=== PATIENT | female | born 1970 | race Caucasian/White ===

== ENCOUNTER 2018-10-27 08:56 | Inpatient (IN) | payer MEDICARE, BC ==
[2018-10-26 11:54] VITALS: BMI 31.1
[~2018-10-27] VITALS: Ht 172.7 cm; Wt 90.3 kg
[2018-10-27] VITALS (27 sets, daily range): BP systolic 107–144; BP diastolic 56–92; PULSE 82–113; RESP 9–20; Ht 172.7 cm; Wt 90.3 kg
[~2018-10-27 08:56] MED LIST: CEFAZOLIN 1 GM INJ ONE; DEXAMETHASONE 4 MG/ML 5 ML INJ ONE; GLYCOPYRROLATE 0.4 MG INJ ONE; LABETALOL HCL 20MG INJ ONE; LIDOCAINE 2% (SDV) 5 ML INJ ONE; NEOSTIGMINE 3 MG/3 ML SYRINGE ONE; ROCURONIUM 50 MG INJ ONE; SEVOFLURANE 15 MIN ONE
[2018-10-27] MEDS ORDERED: SOD CHLORIDE 0.9% 1,000 ML IV ONE (14:00)
--- NOTE | 2018-10-27 14:45 | PREAC ---
Date/Time of Note Date/Time of Note DATE: 10/27/18 TIME: 14:30 Anesthesia Eval and Record Evaluation Time Pre-Procedure Interview DATE: 10/27/18 TIME: 14:30 Age 48 Sex female NPO: 8 hrs Preoperative diagnosis LUMBAR DISC DISPLACEMENT Planned procedure ANTERIOR LUMBAR PARTIAL OR COMPLETE CORPECTOMY, DISCECTOMY, AND FUSION,L2 TO S1 USING CAGES, TITANIUM PLATE AND SCREWS, INFUSE AUTOLOGOUS AND/ OR ALLOGRAFT BONE , POSSIBLE MULTIPLE LEVELS Past Medical History Past Medical History: Includes Cardio: HTN (ON METOPROLOL), Dyslipidemia, Arrythmia (HX PALPITATIONS AND ATYPICAL CHEST PAIN THAT RESOLVES SPONTANEOUSLY. WAS TOLD TREADMILL STRESS TEST RESULTS AND HOLTER MONITOR (NOT ABNORMAL) IN 2018 AND NO FURTHER WORKUP NEEDED.. ) Endo: Diabetes (ON INSULIN AND METFORMIN) Neuro: Other (S/P URGENT C3-C7 FUSION AUGUST 12, 2018 [facility]. STILL WEARING NECK BRACE OR EXPERIENCE NECK SPASMS IF BRACE IS OFF. DENIES NUMBNESS OR TINGLING OF FINGERS. DENIES BEING AWAKE (FIBEROPTIC) FOR INTUBATION FOR THIS C-SPINE SRUGERY. ) Psych: Depression, Anxiety Surgery & Anesthesia Issues No known issue Meds Anticoagulation: No Beta Homero within 24 hr: Yes Current Medications Sodium Chloride 1,000 ml @ 1,000 mls/hr Q1H ONCE IV ; Start 10/27/18 at 14:00; Stop 10/27/18 at 14:59 Meds reviewed: Yes Allergies Coded Allergies: No Known Allergy (Unverified , 10/26/18) Allergies Reviewed: Yes Labs/Studies Labs Reviewed: Reviewed by anesthesiologist Result Diagram: 10/27/18 1410 Laboratory Tests 10/27/18 14:10 test: N/A (S/P HYSTERECTOMY) Studies: ECG (PROLONGED QT. NONSPECIFIC T WAVE ABNORMALITIES.), CXR, Other (TTE 08/05/18: EF 71%, MILD AORTIC REGURGITATION. MILDLY DILATED AORTIC ROOT AT 3.7 CM, BUT NORMAL ASCENDING AORTA. ) Pre-procedure Exam Airway: Adequate mouth opening, Adequate thyromental dist (UNABLE TO ASSESS, WEARS NECK BRACE) Mallampati: Mallampati II (WEARS NECK BRACE S/P C-SPINE SURGERY, UNABLE TO FULLY ASSESS NECK ROM. HAS PIERCING ABOVE LEFT LIP. PT STATES IT DOES NOT COME OFF AND REFUSES TO TRY TO TAKE IT OFF, UNDERSTANDS RISKS.) Teeth: Normal Lung: Normal Heart: Normal ASA Physical Status ASA physical status: 3 Emergency: None Planned Anesthetic General/MAC: ETT, A Line, CVP, Other (DISCUSSED ARTERIAL AND CENTRAL LINE AND POSSBILITY OF POSTOP MECHANICAL VENTILATION/ICU STAY DEPENDING ON COURSE OF SURGERY. ) Planned Pain Management Parenteral pain med, Local by surgeon Pre-operative Attestations Prior to commencing anesthesia and surgery, the patient was re-evaluated, there was verification of: *The patient's identity *The results of appropriate recent lab work and preoperative vital signs *The above evaluation not changing prior to induction *Anesthetic plan, risk benefits, alternative and complications discussed with patient/family; questions answered; patient/family understands, accepts and wishes to proceed. NICK JOSE October 27, 2018 14:41
[2018-10-27] MEDS ORDERED: SITA100T11 PO (14:55)
[2018-10-27] MEDS ORDERED: NOVO3I SC (14:55)
[2018-10-27] MEDS ORDERED: MTF1000T PO (14:55)
[2018-10-27] MEDS ORDERED: CEFAZOLIN 1 GM INJ ONE (15:05)
[2018-10-27] MEDS ORDERED: HEPARIN 1000 UNITS/ML 10 ML INJ ONE (15:05)
[2018-10-27] MEDS ORDERED: GELATIN SIZE 100 SPONGE ONE (15:05)
[2018-10-27] MEDS ORDERED: THROMBIN 5000 UNIT VIAL ONE (15:05)
[2018-10-27] MEDS ORDERED: SOD CHLORIDE 0.9% 1,000 ML IV SCH (15:08)
--- NOTE | 2018-10-27 17:04 | HPN ---
Date/Time of Note Date/Time of Note DATE: 10/27/18 TIME: 17:03 Interval H&P Admission Note Pt. seen H&P reviewed: No system changes Discussed with patient pros and cons of surgery vs no surgery, overall risks 3- 5%. All questions answered, no guarantees given. KARMA DRAPER MD October 27, 2018 17:04
[2018-10-27] MEDS ORDERED: PROPOFOL 20 ML ONE (17:10)
[2018-10-27] MEDS ORDERED: FENTAnyl 50 MCG/ML VIAL ONE ×3 (17:11→19:50)
[2018-10-27] MEDS ORDERED: MIDAZOLAM 1 MG/ML 2 ML INJ ONE (17:11)
[2018-10-27] MEDS ORDERED: ROCURONIUM 50 MG INJ ONE (17:11)
[2018-10-27] MEDS ORDERED: LIDOCAINE 100 MG SYRINGE ONE (17:11)
[2018-10-27] MEDS ORDERED: LABETALOL HCL 20MG INJ ONE ×2 (18:08→19:47)
--- NOTE | 2018-10-27 18:52 | RADRPT ---
Vent Rate: 101 bpm RR Interval: 592 msec NC Interval: 156 msec QRS Duration: 90 msec QT Interval: 415 msec QTC Interval: 539 msec P-R-T [place]: 23 - 25 - -48 degrees Sinus tachycardia...rate> 99 Nonspecific T abnormalities, diffuse leads...T <-0.10mV, ant/lat/inf Prolonged QT interval...QTc >510mS Electronically Signed By: Dheeraj Lane
[2018-10-27] MEDS ORDERED: NACL 0.9% 3 ML SYG IV SCH (19:00)
[2018-10-27] MEDS ORDERED: NALOXONE (0.4 MG/ML) INJ IV PRN ×2 (19:00→21:30)
[2018-10-27] MEDS ORDERED: AL HYDROX/MG HYDROX/SIMETH 30 ML CUP PO PRN (19:00)
[2018-10-27] MEDS ORDERED: DEXAMETHASONE 4 MG/ML 5 ML INJ ONE (19:25)
[2018-10-27] MEDS ORDERED: ONDANSETRON 4 MG INJ ONE (19:25)
[2018-10-27] MEDS ORDERED: BACITRACIN/POLYMYXIN 28.35 GM OINT TOP ONE (19:29)
--- NOTE | 2018-10-27 19:39 | OPPN ---
Date/Time of Note Date/Time of Note DATE: 10/27/18 TIME: 19:38 Operative Report Preoperative Diagnosis Mechanical LBP and LE radic Postoperative Diagnosis same Operation/Procedure Performed ALIF L3-S1 Surgeon see signature line orthodontist assistant Malekmehr Anesthesia: general Estimated blood loss: 100 - 150 ml's Transfusion Required none Specimen sent Grafts/Implants PEEK cages, screws, formagraft, allograft bone Complications none KARMA DRAPER MD October 27, 2018 19:39
[2018-10-27] MEDS ORDERED: METOCLOPRAMIDE 10 MG INJ IV PRN (20:00)
[2018-10-27] MEDS ORDERED: LABETALOL HCL 20MG INJ IV PRN (20:00)
[2018-10-27] MEDS ORDERED: ALBUTEROL 0.083% (NEB) 2.5 MG/3 ML AMP HHN PRN (20:00)
[2018-10-27] MEDS ORDERED: LEVALBUTEROL (NEB) 0.63 MG/3 ML AMP HHN PRN (20:00)
[2018-10-27] MEDS ORDERED: MIDAZOLAM 1 MG/ML 2 ML INJ IV PRN (20:00)
[2018-10-27] MEDS ORDERED: HYDROmorphONE 1 MG/5 ML IV SYRINGE IV PRN (20:00)
[2018-10-27] MEDS ORDERED: EPHEDrine 25 MG/5 ML SYG IV PRN (20:00)
[2018-10-27] MEDS ORDERED: MEPERIDINE 25 MG INJ IV PRN (20:00)
[2018-10-27] MEDS ORDERED: hydrALAzine 20 MG INJ IV PRN (20:00)
[2018-10-27] MEDS ORDERED: ALBUMIN HUMAN 5% 250 ML IV PRN (20:00)
[2018-10-27] MEDS ORDERED: ONDANSETRON 4 MG INJ IV PRN (20:00)
--- NOTE | 2018-10-27 20:12 | PAC ---
Date/Time of Note Date/Time of Note DATE: 10/27/18 TIME: 20:45 Post-Anesthesia Notes Post-Anesthesia Note Last documented vital signs Vital Signs Date Temp Pulse Resp B/P (MAP) Pulse Ox O2 O2 Flow FiO2 Time Delivery Rate 10/27/18 97.8 113 16 127/82 98 Room Air 14:44 (97) Activity: WNL Respiratory function: WNL Cardiovascular function: WNL Mental status: Baseline Pain reasonably controlled: Yes Hydration appropriate: Yes Nausea/Vomiting absent: Yes GERMAN SUAREZ MD October 27, 2018 20:12
[2018-10-27] MEDS: HYDROmorphONE 1 MG/5 ML IV SYRINGE IV PRN ×4 (20:17→20:56)
[2018-10-27] MEDS ORDERED: HYDROmorphONE 0.2 MG/ML PCA ONE (21:28)
[2018-10-27] MEDS: CEFAZOLIN 2 GM/50 ML (PMX) 50 ML IVPB SCH (21:32)
[2018-10-27] MEDS: HYDROmorphONE 0.2 MG/ML PCA IV SCH (21:50)
[2018-10-27] MEDS: HYDROmorphONE 0.5 MG/0.5 ML SYG IV PRN (22:21)
[2018-10-28] VITALS (24 sets, daily range): BP systolic 64–159; BP diastolic 49–117; PULSE 101–122; RESP 13–30
[2018-10-28] MEDS: NS + KCL 20 MEQ 1,000 ML IV SCH ×3 (01:18→13:14)
[2018-10-28] MEDS: HYDROmorphONE 0.2 MG/ML PCA IV SCH ×3 (03:41→18:27)
[2018-10-28] MEDS: CEFAZOLIN 2 GM/50 ML (PMX) 50 ML IVPB SCH ×3 (06:30→21:08)
[2018-10-28] MEDS ORDERED: THROMBIN 5000 UNIT VIAL ONE (13:09)
[2018-10-28] MEDS ORDERED: POLYMYXIN/BACITRACIN 1L IRRIG IRR ONE (13:09)
[2018-10-28] MEDS ORDERED: GELATIN SIZE 100 SPONGE ONE (13:09)
[2018-10-28] MEDS ORDERED: ROPIVACAINE 0.5 % 30 ML VIAL ONE ×2 (13:09→15:40)
[2018-10-28] MEDS ORDERED: ROCURONIUM 50 MG INJ ONE (13:19)
[2018-10-28] MEDS ORDERED: PROPOFOL 20 ML ONE (13:19)
[2018-10-28] MEDS ORDERED: SUCCINYLCHOLINE CHLORIDE 100 MG/5 ML SYG IV ONE (13:19)
[2018-10-28] MEDS ORDERED: MIDAZOLAM 1 MG/ML 2 ML INJ ONE (13:20)
[2018-10-28] MEDS ORDERED: KETOROLAC 30 MG INJ ONE (13:20)
[2018-10-28] MEDS ORDERED: ONDANSETRON 4 MG INJ ONE (13:20)
--- NOTE | 2018-10-28 13:33 | PREAC ---
Date/Time of Note Date/Time of Note DATE: 10/28/18 TIME: 13:30 Anesthesia Eval and Record Evaluation Time Pre-Procedure Interview DATE: 10/28/18 TIME: 13:30 Age 48 Sex female NPO: 8 hrs Preoperative diagnosis Lumbar Spine Discopathy Planned procedure Posterior Fusion Past Medical History Past Medical History: Includes Cardio: HTN, Arrythmia Endo: Diabetes Neuro: Other (Cerical Fusion) GI: Obesity Surgery & Anesthesia Issues No known issue Meds Anticoagulation: No Beta Homero within 24 hr: Yes Reported Medications Insulin Aspart* (Novolog Insulin Pen*) 100 Unit/Ml Soln, 40 UNIT SC WITH BREAKFAST, EA 10/27/18 Metformin* (Glucophage*) 1,000 Mg Tablet, 1000 MG PO DAILY, #30 TAB 10/27/18 Sitagliptin* (Januvia*) 100 Mg Tablet, 100 MG PO DAILY, #30 TAB 10/27/18 Current Medications Acetaminophen/ Hydrocodone Bitart ([place] (5/325)) 1 tab Q4H PRN PO .PAIN 1-5; Start 10/27/18 at 19:00 Al Hydrox/Mg Hydrox/Simethicone (Mag-Al Plus) 15 ml Q4H PRN PO .CONSTIPATION; Start 10/27/18 at 19:00 IV Flush (NS 3 ml) 3 ml PER PROTOCOL IV ; Start 10/27/18 at 19:00 Naloxone HCl (Narcan) 0.2 mg Q2M PRN IV RR 8 BREATHS/MIN OR LESS; Start 10/27/18 at 19:00 Potassium Chloride/Sodium Chloride 1,000 ml @ 100 mls/hr Q10H IV Last admin istered on 10/28/18at 13:14; Admin Dose 100 MLS/HR; Start 10/27/18 at 20:00 Cefazolin Sodium/ Dextrose 50 ml @ 100 mls/hr Q8 IVPB Last administered on 10/28/18at 13:25; Admin Dose 100 MLS/HR; Start 10/27/18 at 22:00 Naloxone HCl (Narcan) 0.2 mg PRN PRN IV RR < 8; Start 10/27/18 at 21:30 Hydromorphone HCl (Dilaudid RESEARCH AND EVALUATION ANALYST) Q4PCA IV Last administered on 10/28/18at 10:04; Admin Dose 6 MG; Start 10/27/18 at 21:30 Hydromorphone HCl (Dilaudid) 0.2 mg Q4H PRN IV PAIN LEVEL 1-5; Start 10/27/18 at 21:30 Hydromorphone HCl (Dilaudid) 0.4 mg Q4H PRN IV PAIN LEVEL 6-10 Last administered on 10/27/18at 22:21; Admin Dose 0.4 MG; Start 10/27/18 at 21:30 Ketorolac Tromethamine (Toradol) 30 mg Q6H PRN IV .PAIN; Start 10/27/18 at 21:30; Stop 10/30/18 at 21:29 Meds reviewed: Yes Allergies Coded Allergies: No Known Allergy (Unverified , 10/26/18) Allergies Reviewed: Yes Labs/Studies Labs Reviewed: Reviewed by anesthesiologist Result Diagram: 10/28/18 0435 10/28/18 0429 Laboratory Tests 10/27/18 14:10 10/28/18 04:29 10/28/18 04:35 Blood Bank Test 10/27/18 14:10 Antibody Screen NEGATIVE Blood Product Summary Counts Blood Type O POSITIVE Crossmatch Red Blood Cells test: Negative Pre-procedure Exam Last vitals Vital Signs Date Temp Pulse Resp B/P (MAP) Pulse Ox O2 O2 Flow FiO2 Time Delivery Rate 10/28/18 22 13:13 10/28/18 110 64/59 (61) 98 13:00 10/28/18 98.1 Nasal 2.0 12:00 Cannula Airway: Adequate mouth opening Mallampati: Mallampati III Teeth: Normal Lung: Normal Heart: Normal ASA Physical Status ASA physical status: 3 Emergency: None Planned Anesthetic General/MAC: ETT Pre-operative Attestations Prior to commencing anesthesia and surgery, the patient was re-evaluated, there was verification of: *The patient's identity *The results of appropriate recent lab work and preoperative vital signs *The above evaluation not changing prior to induction *Anesthetic plan, risk benefits, alternative and complications discussed with patient/family; questions answered; patient/family understands, accepts and wishes to proceed. BETHANY AUSTIN MD October 28, 2018 13:33
[2018-10-28] MEDS ORDERED: NEOSTIGMINE 3 MG/3 ML SYRINGE ONE (15:45)
[2018-10-28] MEDS ORDERED: GLYCOPYRROLATE 0.4 MG INJ ONE (15:45)
--- NOTE | 2018-10-28 16:15 | OPPN ---
Date/Time of Note Date/Time of Note DATE: 10/28/18 TIME: 16:13 Operative Report Preoperative Diagnosis mechanical LBP and LE radic pain Postoperative Diagnosis same Operation/Procedure Performed ISF L2-S1 and decompression Surgeon see signature line assistant cook None Anesthesia: general Estimated blood loss: 50 - 100 ml's Transfusion Required none Specimen sent Grafts/Implants ISF fusion devices, formagraft bone Complications none KARMA DRAPER MD October 28, 2018 16:15
--- NOTE | 2018-10-28 16:29 | PAC ---
Date/Time of Note Date/Time of Note DATE: 10/28/18 TIME: 16:29 Post-Anesthesia Notes Post-Anesthesia Note Last documented vital signs Vital Signs Date Temp Pulse Resp B/P (MAP) Pulse Ox O2 O2 Flow FiO2 Time Delivery Rate 10/28/18 112 17 112/86 92 14:00 (95) 10/28/18 98.1 Nasal 2.0 12:00 Cannula Activity: WNL Respiratory function: WNL Cardiovascular function: WNL Mental status: Baseline Pain reasonably controlled: Yes Hydration appropriate: Yes Nausea/Vomiting absent: Yes BETHANY AUSTIN MD October 28, 2018 16:29
[2018-10-28] MEDS ORDERED: ONDANSETRON 4 MG INJ IV PRN (16:30)
[2018-10-28] MEDS: HYDROmorphONE 0.5 MG/0.5 ML SYG IV PRN ×2 (18:33→22:44)
[2018-10-28] MEDS ORDERED: GLUCAGON 1 MG INJ IM PRN (19:00)
[2018-10-28] MEDS ORDERED: GLUCOSE GEL 15 GRAM TUBE BUCCAL PRN (19:00)
[2018-10-28] MEDS ORDERED: DEXTROSE 50% 50 ML SYRINGE IV PRN ×2 (19:00)
[2018-10-28] MEDS ORDERED: GLUCOSE GEL 15 GRAM TUBE PO PRN ×2 (19:00)
[2018-10-28] MEDS: GABAPENTIN 300 MG CAP PO SCH (21:00)
[2018-10-28] MEDS: ACCU-CHEK XX SCH (21:07)
[2018-10-28] MEDS: INSULIN ASPART [NOVOLOG] 3 ML PEN SC SCH (21:15)
[2018-10-28] MEDS: ONDANSETRON 4 MG INJ IV PRN (21:17)
[2018-10-29] VITALS (20 sets, daily range): BP systolic 40–140; BP diastolic 31–123; PULSE 98–138; RESP 11–34
[2018-10-29] MEDS: HYDROmorphONE 0.2 MG/ML PCA IV SCH (00:26)
[2018-10-29] MEDS: NS + KCL 20 MEQ 1,000 ML IV SCH ×2 (02:28→13:34)
[2018-10-29] MEDS: HYDROmorphONE 0.5 MG/0.5 ML SYG IV PRN (03:44)
[2018-10-29] MEDS: KETOROLAC 30 MG INJ IV PRN ×2 (05:00→17:05)
[2018-10-29] MEDS: CEFAZOLIN 2 GM/50 ML (PMX) 50 ML IVPB SCH ×3 (05:00→22:39)
[2018-10-29] MEDS: METOPROLOL 5 MG INJ IV PRN ×2 (05:49→11:25)
[2018-10-29] MEDS: ACCU-CHEK XX SCH ×4 (07:05→21:15)
[2018-10-29] MEDS: metFORMIN 500 MG TAB PO SCH (08:39)
[2018-10-29] MEDS: LINAGLIPTIN 5 MG TABLET PO SCH (08:39)
[2018-10-29] MEDS: GABAPENTIN 300 MG CAP PO SCH ×3 (08:40→21:15)
[2018-10-29] MEDS: INSULIN ASPART [NOVOLOG] 3 ML PEN SC SCH ×5 (08:46→21:00)
--- NOTE | 2018-10-29 10:00 | PN ---
Date/Time of Note Date/Time of Note DATE: 10/29/18 TIME: 10:00 Assessment/Plan VTE Prophylaxis Risk score (from Ns)>0 risk: 9 [place] [facility] [place] SCD contraindicated: other Pharmacological prophylaxis: other Pharm contraindication: other Lines/Catheters IV Catheter Type (from Nrsg): A Line Urinary Cath still in place: Yes Reason Cath still needed: urinary retention Assessment/Plan Assessment/Plan -Mechanical LBP and LE radiculopathy -Status post spinal fusion L3 to S1. Postop day # 2 -ICU care - per neuro sx - pain control - check wound for s/s of infection - vs - Hydralazine 10 mg IVP q 6 hrs PRN - Tachycardia- HR 114- [place] any chest palpitations - icu care - cardiology consult if not controlled -Leukocytosis, mild. - monitor VS; CBC - Check wound for s/s of infection - wound care - Diabetes mellitus. - Glycemic control - Hgb am - Anemia, mild. - monitor CBC - SCD- DVT prophylaxis Total critical care time spent 45 mins. Patient seen in collaboration with Dr Parker. staff Result Diagram: 10/29/18 0416 10/29/18 0416 Results 24hrs Laboratory Tests Test 10/28/18 11:00 10/28/18 18:14 10/28/18 21:11 10/29/18 04:16 Bedside Glucose 238 H 258 H 255 H White Blood Count 12.7 #H Red Blood Count 3.77 #L Hemoglobin 10.5 L Hematocrit 33.2 L Mean Corpuscular 88.1 Volume Mean Corpuscular 27.9 L Hemoglobin Mean Corpuscular 31.6 L Hemoglobin Concent Red Cell 13.2 Distribution Width Platelet Count 152 # Mean Platelet Volume 12.3 H Immature 0.300 Granulocytes % Neutrophils % 72.9 Lymphocytes % 16.8 Monocytes % 9.2 Eosinophils % 0.6 Basophils % 0.2 Nucleated Red Blood 0.0 Cells % Immature 0.040 H Granulocytes # Neutrophils # 9.2 H Lymphocytes # 2.1 Monocytes # 1.2 H Eosinophils # 0.1 Basophils # 0.0 Nucleated Red Blood 0.0 Cells # Sodium Level 134 L Potassium Level 3.6 Chloride Level 105 Carbon Dioxide Level 21 Anion Gap 8 Blood Urea Nitrogen 10 Creatinine 0.64 Est Glomerular > 60 Filtrat Rate mL/min Glucose Level 243 H Calcium Level 8.2 L Total Bilirubin 0.9 Direct Bilirubin 0.00 Indirect Bilirubin 0.9 Aspartate Amino 26 Transf (AST/SGOT) Alanine 22 Aminotransferase (AL T/SGPT) Alkaline Phosphatase 87 Total Protein 6.0 #L Albumin 3.0 #L Globulin 3.00 Albumin/Globulin 1.00 Ratio Test 10/29/18 08:36 Bedside Glucose 212 Subjective 24 Hr Interval Summary Eyes: no complaints ENT: no complaints Respiratory: no complaints Cardiovascular: no complaints Gastrointestinal: no complaints Genitourinary: no complaints Musculoskeletal: back pain, bone/joint pain, restricted range of motion Skin: no complaints Neurologic: no complaints Endocrine: no complaints Psychological: no complaints Exam/Review of Systems Exam Vitals Vital Signs Date Temp Pulse Resp B/P (MAP) Pulse Ox O2 O2 Flow FiO2 Time Delivery Rate 10/29/18 114 26 115/73 100 09:00 (87) 10/29/18 98.4 Room Air 08:00 10/29/18 2.0 08:00 Intake and Output 10/28/18 10/28/18 10/29/18 1515:00 23:00 07:00 IntakeIntake Total 700 ml 2820 ml 1150 ml OutputOutput Total 480 ml 340 ml 420 ml BalanceBalance 220 ml 2480 ml 730 ml Constitutional: alert, well developed Psych: nl mood/affect Head: atraumatic Eyes: nl lids, nl sclera ENMT: nl external ears & nose Neck: non-tender Respiratory: clear to auscultation Cardiovascular: nl pulses, other (s1s2) Gastrointestinal: soft Musculoskeletal: nl extremities to inspection Extremities: normal pulses Neurological: nl speech, other (alert/repsonsive) Skin: nl turgor Results Results 24hrs Laboratory Tests Test 10/28/18 11:00 10/28/18 18:14 10/28/18 21:11 10/29/18 04:16 Bedside Glucose 238 H 258 H 255 H White Blood Count 12.7 #H Red Blood Count 3.77 #L Hemoglobin 10.5 L Hematocrit 33.2 L Mean Corpuscular 88.1 Volume Mean Corpuscular 27.9 L Hemoglobin Mean Corpuscular 31.6 L Hemoglobin Concent Red Cell 13.2 Distribution Width Platelet Count 152 # Mean Platelet Volume 12.3 H Immature 0.300 Granulocytes % Neutrophils % 72.9 Lymphocytes % 16.8 Monocytes % 9.2 Eosinophils % 0.6 Basophils % 0.2 Nucleated Red Blood 0.0 Cells % Immature 0.040 H Granulocytes # Neutrophils # 9.2 H Lymphocytes # 2.1 Monocytes # 1.2 H Eosinophils # 0.1 Basophils # 0.0 Nucleated Red Blood 0.0 Cells # Sodium Level 134 L Potassium Level 3.6 Chloride Level 105 Carbon Dioxide Level 21 Anion Gap 8 Blood Urea Nitrogen 10 Creatinine 0.64 Est Glomerular > 60 Filtrat Rate mL/min Glucose Level 243 H Calcium Level 8.2 L Total Bilirubin 0.9 Direct Bilirubin 0.00 Indirect Bilirubin 0.9 Aspartate Amino 26 Transf (AST/SGOT) Alanine 22 Aminotransferase (AL T/SGPT) Alkaline Phosphatase 87 Total Protein 6.0 #L Albumin 3.0 #L Globulin 3.00 Albumin/Globulin 1.00 Ratio Test 10/29/18 08:36 Bedside Glucose 212 Medications Medication Current Medications Acetaminophen/ Hydrocodone Bitart ([place] (5/325)) 1 tab Q4H PRN PO .PAIN 1-5; Start 10/27/18 at 19:00 Al Hydrox/Mg Hydrox/Simethicone (Mag-Al Plus) 15 ml Q4H PRN PO .CONSTIPATION; Start 10/27/18 at 19:00 IV Flush (NS 3 ml) 3 ml PER PROTOCOL IV ; Start 10/27/18 at 19:00 Naloxone HCl (Narcan) 0.2 mg Q2M PRN IV RR 8 BREATHS/MIN OR LESS; Start 10/27/18 at 19:00 Potassium Chloride/Sodium Chloride 1,000 ml @ 100 mls/hr Q10H IV Last administered on 10/29/18at 02:28; Admin Dose 100 MLS/HR; Start 10/27/18 at 20:00 Cefazolin Sodium/ Dextrose 50 ml @ 100 mls/hr Q8 IVPB Last administered on 10/29/18at 05:00; Admin Dose 100 MLS/HR; Start 10/27/18 at 22:00 Naloxone HCl (Narcan) 0.2 mg PRN PRN IV RR < 8; Start 10/27/18 at 21:30 Hydromorphone HCl (Dilaudid SENIOR PRIVATE CLIENT ADVISOR) Q4PCA IV Last administered on 10/29/18at 00:26; Admin Dose 6 MG; Start 10/27/18 at 21:30 Hydromorphone HCl (Dilaudid) 0.2 mg Q4H PRN IV PAIN LEVEL 1-5 Last administered on 10/28/18 18:33; Admin Dose 0.2 MG; Start 10/27/18 at 21:30 Hydromorphone HCl (Dilaudid) 0.4 mg Q4H PRN IV PAIN LEVEL 6-10 Last administered on 10/29/18 03:44; Admin Dose 0.4 MG; Start 10/27/18 at 21:30 Ketorolac Tromethamine (Toradol) 30 mg Q6H PRN IV .PAIN Last administered on 10/29/18 05:00; Admin Dose 30 MG; Start 10/27/18 at 21:30; Stop 10/30/18 at 21:29 Ondansetron HCl (Zofran Inj) 4 mg Q6H PRN IV NAUSEA AND/OR VOMITING Last administered on 10/28/18 21:17; Admin Dose 4 MG; Start 10/28/18 at 17:00 Gabapentin (Neurontin) 300 mg TID PO Last administered on 10/29/18 08:40; Admin Dose 300 MG; Start 10/28/18 at 21:00 Metformin HCl (Glucophage) 1,000 mg WITH BREAKFAST PO Last administered on 10/29/18 08:39; Admin Dose 1,000 MG; Start 10/29/18 at 07:35 Linagliptin (Tradjenta) 5 mg DAILY PO Last administered on 10/29/18 08:39; Admin Dose 5 MG; Start 10/29/18 at 09:00 Diagnostic Test (Pha) (Accu-Chek) 1 ea AC MEALS AND BEDTIME XX Last administered on 10/28/18 21:07; Admin Dose 1 EA; Start 10/28/18 at 21:00 Insulin Aspart (Novolog Insulin Pen) NOVOLOG *MILD* ALGORITHM WITH MEALS BEDTIME SC Last administered on 10/29/18 08:46; Admin Dose 2 UNIT; Start 10/28/18 at 21:00 Miscellaneous Information 1 ea NOTE XX ; Start 10/28/18 at 19:00 Glucose (Glutose) 15 gm Q15M PRN PO DECREASED GLUCOSE; Start 10/28/18 at 19:00 Glucose (Glutose) 22.5 gm Q15M PRN PO DECREASED GLUCOSE; Start 10/28/18 at 19:00 Dextrose (D50w Syringe) 25 ml Q15M PRN IV DECREASED GLUCOSE; Start 10/28/18 at 19:00 Dextrose (D50w Syringe) 50 ml Q15M PRN IV DECREASED GLUCOSE; Start 10/28/18 at 19:00 Glucagon (Glucagen) 1 mg Q15M PRN IM DECREASED GLUCOSE; Start 10/28/18 at 19:00 Glucose (Glutose) 15 gm Q15M PRN BUCCAL DECREASED GLUCOSE; Start 10/28/18 at 19:00 Metoprolol Tartrate (Lopressor) 5 mg Q4H PRN IV HR > 120 Last administered on 10/29/18at 05:49; Admin Dose 5 MG; Start 10/29/18 at 05:30 Hydromorphone HCl (Dilaudid) 1 mg Q4H PRN IV SEVERE PAIN LEVEL 7-10; Start 10/29/18 at 05:30 MATTHEW RENTERIA October 29, 2018 10:00
--- NOTE | 2018-10-29 10:00 | HP ---
Date/Time of Note Date/Time of Note DATE: 10/28/18 TIME: 20:41 Assessment/Plan VTE Prophylaxis Risk score (from Ns)>0 risk: 7 SCD applied (from Ns): Yes SCD contraindicated: other Pharmacological prophylaxis: other Pharm contraindication: other Lines/Catheters IV Catheter Type (from Nrsg): A Line Urinary Cath still in place: Yes Reason Cath still needed: urinary retention, other (indicate) (Post op ) Assessment/Plan Assessment/Plan -Mechanical LBP and LE radiculopathy -Status post spinal fusion L3 to S1. Postop day # 1 admit to ICU - per neuro sx - pain control - check wound for s/s of infection - vs - Hydralazine 10 mg IVP q 6 hrs PRN - Tachycardia- HR 109- [place] any chest palpitations - icu care - cardiology consult if not controlled -Leukocytosis, mild. - monitor VS; CBC - Check wound for s/s of infection - wound care - Diabetes mellitus. - Glycemic control - Hgb am - Anemia, mild. - monitor CBC - SCD- DVT prophylaxis Total critical care time spent 45 mins. Patient seen in collaboration with Dr Parker. staff Result Diagram: 10/28/18 0435 10/28/18 0429 Results 24hrs Laboratory Tests Test 10/28/18 04:29 10/28/18 04:35 10/28/18 11:00 10/28/18 18:14 Sodium Level 140 Potassium Level 4.0 Chloride Level 107 Carbon Dioxide Level 22 Anion Gap 11 Blood Urea Nitrogen 14 Creatinine 0.67 Est Glomerular > 60 Filtrat Rate mL/min Glucose Level 315 H Calcium Level 8.5 Hemoglobin 12.5 Hematocrit 39.8 Bedside Glucose 238 H 258 H HPI/ROS Admit Date/Time Admit Date/Time October 27, 2018 at 13:19 ROS Ms. Mullen is a 48-year-old female with history of chronic low back pain, lower extremity radiculopathy. On 10/27/2090, patient underwent lumbar fusion for an anterior approach and was subsequently admitted postoperatively to the hospital in ICU 10/28/2018- patient underwent lumbar fusion for an posterior approach and admitted back in ICU. During assessment, she denies chest pain/palpitations/ shortness of breath/headache/ cough/ abdominal pain /NVD. Denies any fall /injury/ recent travel/contact with any sick. Denies any right/lrft calf pain. Denies focal weakness/numbness. Patient is admitted under Dr Parker for further treatment and evaluation. She does not smoke nor drink - 10/27/2018 CXR- revealed no acute cardiopulmonary abnormalities and lumbar spine CT revealing status post anterior interbody fusion with L3 to S1 without CT evidence of hardware complication, preserved disk height approximately 4.5, central disk protrusion at L5 to S1 with mild to moderate spinal canal stenosis and subarticular recess narrowing. - EKG revealed sinus tachycardia rate of 101 with anterolateral T-wave inversi ons and increased QT correct interval. ROS All systems reviewed and are negative except as per history of present illness. Medications All Reviewed Eyes: no complaints Respiratory: no complaints Cardiovascular: no complaints Gastrointestinal: no complaints Genitourinary: no complaints Musculoskeletal: bone/joint pain, neck pain, restricted range of motion Skin: no complaints Neurologic: no complaints Endocrine: no complaints Lymphatic: no complaints Psychological: nl mood/affect Immunologic: no complaints PMH/Family/Social Past Medical History diverticulitis Medical History: diabetes Medications Current Medications Acetaminophen/ Hydrocodone Bitart ([place] (5/325)) 1 tab Q4H PRN PO .PAIN 1-5; Start 10/27/18 at 19:00 Al Hydrox/Mg Hydrox/Simethicone (Mag-Al Plus) 15 ml Q4H PRN PO .CONSTIPATION; Start 10/27/18 at 19:00 IV Flush (NS 3 ml) 3 ml PER PROTOCOL IV ; Start 10/27/18 at 19:00 Naloxone HCl (Narcan) 0.2 mg Q2M PRN IV RR 8 BREATHS/MIN OR LESS; Start 10/27/18 at 19:00 Potassium Chloride/Sodium Chloride 1,000 ml @ 100 mls/hr Q10H IV Last administered on 10/28/18at 13:14; Admin Dose 100 MLS/HR; Start 10/27/18 at 20:00 Cefazolin Sodium/ Dextrose 50 ml @ 100 mls/hr Q8 IVPB Last administered on 10/28/18at 13:25; Admin Dose 100 MLS/HR; Start 10/27/18 at 22:00 Naloxone HCl (Narcan) 0.2 mg PRN PRN IV RR < 8; Start 10/27/18 at 21:30 Hydromorphone HCl (Dilaudid CASE MANAGEMENT DIRECTOR) Q4PCA IV Last administered on 10/28/18at 18:27; Admin Dose 6 MG; Start 10/27/18 at 21:30 Hydromorphone HCl (Dilaudid) 0.2 mg Q4H PRN IV PAIN LEVEL 1-5 Last administered on 10/28/18at 18:33; Admin Dose 0.2 MG; Start 10/27/18 at 21:30 Hydromorphone HCl (Dilaudid) 0.4 mg Q4H PRN IV PAIN LEVEL 6-10 Last admin istered on 10/27/18at 22:21; Admin Dose 0.4 MG; Start 10/27/18 at 21:30 Ketorolac Tromethamine (Toradol) 30 mg Q6H PRN IV .PAIN; Start 10/27/18 at 21:30; Stop 10/30/18 at 21:29 Ondansetron HCl (Zofran Inj) 4 mg Q6H PRN IV NAUSEA AND/OR VOMITING; Start 10/28/18 at 17:00 Gabapentin (Neurontin) 300 mg TID PO ; Start 10/28/18 at 21:00 Metformin HCl (Glucophage) 1,000 mg WITH BREAKFAST PO ; Start 10/29/18 at 07:35 Linagliptin (Tradjenta) 5 mg DAILY PO ; Start 10/29/18 at 09:00 Diagnostic Test (Pha) (Accu-Chek) 1 ea AC MEALS AND BEDTIME XX ; Start 10/28/18 at 21:00 Insulin Aspart (Novolog Insulin Pen) NOVOLOG *MILD* ALGORITHM WITH MEALS BEDTIME SC ; Start 10/28/18 at 21:00 Miscellaneous Information 1 ea NOTE XX ; Start 10/28/18 at 19:00 Glucose (Glutose) 15 gm Q15M PRN PO DECREASED GLUCOSE; Start 10/28/18 at 19:00 Glucose (Glutose) 22.5 gm Q15M PRN PO DECREASED GLUCOSE; Start 10/28/18 at 19:00 Dextrose (D50w Syringe) 25 ml Q15M PRN IV DECREASED GLUCOSE; Start 10/28/18 at 19:00 Dextrose (D50w Syringe) 50 ml Q15M PRN IV DECREASED GLUCOSE; Start 10/28/18 at 19:00 Glucagon (Glucagen) 1 mg Q15M PRN IM DECREASED GLUCOSE; Start 10/28/18 at 19:00 Glucose (Glutose) 15 gm Q15M PRN BUCCAL DECREASED GLUCOSE; Start 10/28/18 at 19:00 Coded Allergies: No Known Allergy (Unverified , 10/26/18) Past Surgical History Hysterectomy hernia repair Past Surgical Hx: cholecystectomy Family History Significant Family History: no pertinent family hx, other ( No history of sudden cardiac or early CAD.) Social History Alcohol Use: none Smoking Status: Never smoker Drug Use: none Exam/Review of Systems Vital Signs Vitals Vital Signs Date Temp Pulse Resp B/P (MAP) Pulse Ox O2 O2 Flow FiO2 Time Delivery Rate 10/28/18 109 20:00 10/28/18 21 18:28 10/28/18 113/49 93 Nasal 2.0 18:00 (70) Cannula 10/28/18 98.6 16:43 Intake and Output 10/27/18 10/27/18 10/28/18 1515:00 23:00 07:00 IntakeIntake Total 1210 ml 500 ml OutputOutput Total 550 ml 975 ml BalanceBalance 660 ml -475 ml Exam Constitutional: alert, well developed Psych: nl mood/affect Head: atraumatic Eyes: nl lids ENMT: nl external ears & nose Neck: other (neck collar noted) Respiratory: clear to auscultation Cardiovascular: nl pulses, other (s1s2) Gastrointestinal: soft, non-tender Musculoskeletal: nl extremities to inspection Extremities: normal pulses Neurological: nl mental status, nl speech Skin: nl turgor Lymph: nontender MATTHEW RENTERIA October 28, 2018 20:51
[2018-10-29] MEDS: INSULIN GLARGINE [LANTus] (100 UNITS/ML) SYG SC SCH (13:31)
[2018-10-29] MEDS: METOPROLOL 25 MG TAB PO SCH ×2 (13:32→21:20)
--- NOTE | 2018-10-29 16:11 | CONS ---
DATE OF ADMISSION: 10/27/2018 DATE OF CONSULTATION: 10/29/2018 TYPE OF CONSULTATION: Cardiology. REASON FOR CONSULTATION: Tachycardia. REQUESTING PHYSICIAN: Aida Greene MD HISTORY OF PRESENT ILLNESS: Ms. Mullen is a 48-year-old female with history of chronic low back pain, lower extremity radiculopathy, who presented to floor and underwent lumbar fusion for an anterior approach on 10/27/2018 and was subsequently admitted postoperatively to the hospital. The patient since admit to the ICU has been having slowly increasing heart rates initially very stable after surgery and now increased into the 120s and 130s. The patient had complaints of not able to catch her breath. The patient denied associated chest pain, but has significant ongoing back pain. PAST MEDICAL HISTORY: As above in HPI. MEDICATIONS CURRENTLY IN HOSPITAL: 1. Insulin. 2. Metoprolol 25 mg p.o. b.i.d. which was just started. 3. Metformin. 4. Metoprolol 5 mg IV push q.4. 5. Gabapentin. 6. Cefazolin. 7. Dilaudid [employer]. 8. Toradol. ALLERGIES: NO KNOWN DRUG ALLERGIES. SOCIAL HISTORY: No tobacco, EtOH or illicit drug use. FAMILY HISTORY: No history of sudden cardiac or early CAD. REVIEW OF SYSTEMS: As above in HPI. CONSTITUTIONAL: No fevers, chills. PULMONARY: Shortness of breath. CARDIOVASCULAR: Tachycardia. GASTROINTESTINAL: No vomiting. GENITOURINARY: No hematuria. MUSCULOSKELETAL: Lumbar fusion. PSYCHIATRIC: No documented psych history. NEUROLOGIC: Radiculopathy status post lumbar back surgery. ENDOCRINE: Diabetes mellitus. PHYSICAL EXAMINATION: VITAL SIGNS: Temperature 99.5, blood pressure 115/70, pulse 115, respiratory rate 13, satting 100% on 2 liters. GENERAL: The patient is alert, awake, appears somewhat anxious and having significant shortness of breath, discomfort. NECK: JVP is approximately 8 to 9 cm of water. CHEST: Upper airway transmitted rhonchus sounds with mildly decreased breath sounds at bases bilaterally with shallow breath. HEART: Tachycardic, regular rhythm, normal S1, increased S2, I/ systolic murmur, nondisplaced PMI. ABDOMEN: Positive bowel sounds, soft. EXTREMITIES: No significant pitting edema that I can tell due to sequential compression device. A 1+ pulses bilateral posterior tibial, dorsalis pedis. LABORATORIES: Most recently from today, sodium 134, potassium 3.6, creatinine 0.6, BUN 10, glucose down to 212 after being up to 258. AST 22, ALT 87. White blood cell count 12.7, hemoglobin 10.5, platelet count 152. . IMAGING STUDIES: A chest x-ray from 10/27/2018 revealing no acute cardiopulmonary abnormalities and lumbar spine CT revealing status post anterior interbody fusion with L3 to S1 without CT evidence of hardware complication, preserved disk height approximately 4.5, central disk protrusion at L5 to S1 with mild to moderate spinal canal stenosis and subarticular recess narrowing. ELECTROCARDIOGRAM: The patient's EKG reveals sinus tachycardia rate of 101 with anterolateral T-wave inversions and increased QT correct interval. IMPRESSION: 1. Tachycardia at this time consistent with sinus tachycardia by telemetry monitoring in the ICU question due to pain, anxiety or any other possible issues such as thromboembolism in a postoperative patient. 2. Shortness of breath. Rule out pulmonary embolism, question due to pain. 3. Hypertension, under reasonable control with intermittent episodes of hypotension. 4. Diabetes mellitus. 5. Postop day #2 status post spinal fusion L3 to S1. 6. Anemia, mild. 7. Leukocytosis, mild. RECOMMENDATIONS: 1. At this time, we would maintain patient in ICU on close monitoring. 2. We would continue the patient's newly started beta fernando and IV push beta fernando as necessary. 3. Check a 2D echo for this patient's ejection fraction, wall motion or rule out any major valve abnormalities. Check right atrial size to look for any secondary signs of pulmonary embolism. 4. Check D-dimer and lower extremity venous ultrasound to assess the possibility of thromboembolism. 5. Pain control. 6. Check BNP to further assess patient's current volume status. 7. Continue antibiotics. 8. Continue IV fluid hydration and consider additional bolus. Thank you for allowing me to take part in the care of this patient. I will continue to follow her along very closely with you with further recommendations to be made as the patient progresses through her inpatient hospital clinical course. Dictated By: VESNA CAMARGO/JEMAL Conf#: [id number] DID#: [id number] CC: KARMA DRAPER MD; AIDA GREENE MD;*EndCC* GERI
[2018-10-29] MEDS: HYDROmorphONE 1 MG/ML SYG IV PRN (19:08)
[2018-10-30] VITALS (10 sets, daily range): BP systolic 118–161; BP diastolic 55–77; PULSE 90–114; RESP 18–22
[2018-10-30] MEDS ORDERED: SENNA TAB PO PRN (00:30)
[2018-10-30] MEDS: ACETAMINOPHEN 325 MG TAB PO PRN ×2 (01:39→23:31)
[2018-10-30] MEDS: HYDROmorphONE 1 MG/ML SYG IV PRN ×4 (01:39→23:31)
[2018-10-30] MEDS: CEFAZOLIN 2 GM/50 ML (PMX) 50 ML IVPB SCH ×3 (05:31→22:04)
[2018-10-30] MEDS: NS + KCL 20 MEQ 1,000 ML IV SCH (05:31)
[2018-10-30] MEDS: ACCU-CHEK XX SCH ×4 (06:50→20:57)
[2018-10-30] MEDS: INSULIN ASPART [NOVOLOG] 3 ML PEN SC SCH ×7 (08:11→20:56)
[2018-10-30] MEDS: metFORMIN 500 MG TAB PO SCH (08:14)
[2018-10-30] MEDS: LINAGLIPTIN 5 MG TABLET PO SCH (08:14)
[2018-10-30] MEDS: GABAPENTIN 300 MG CAP PO SCH ×3 (08:15→20:43)
[2018-10-30] MEDS: METOPROLOL 25 MG TAB PO SCH (08:15)
[2018-10-30] MEDS: INSULIN GLARGINE [LANTus] (100 UNITS/ML) SYG SC SCH (11:11)
[2018-10-30] MEDS: KETOROLAC 30 MG INJ IV PRN (11:12)
--- NOTE | 2018-10-30 12:49 | CONS ---
Assessment/Plan Assessment/Plan Hospital Course (Demo Recall) IMPRESSION: 1. Tachycardia at this time consistent with sinus tachycardia by telemetry monitoring in the ICU question due to pain, anxiety or any other possible issues such as thromboembolism in a postoperative patient-overall improved 2. Shortness of breath. Rule out pulmonary embolism, question due to pain. 3. Hypertension, under reasonable control with intermittent episodes of hypoten shahab. 4. Diabetes mellitus. 5. Postop day #3 status post spinal fusion L3 to S1. 6. Anemia, mild. 7. Leukocytosis, mild. Recc: -Now on tele -Increase BB to improve HR control -cehck TSH -will f/u echo Consultation Date/Type/Reason Admit Date/Time October 27, 2018 at 13:19 Initial Consult Date 10/29/18 Type of Consult Cardiology Reason for Consultation tachycardia Requesting Provider: AIDA GREENE MD Date/Time of Note DATE: 10/30/18 TIME: 12:45 Exam/Review of Systems Vital Signs Vitals Vital Signs Date Temp Pulse Resp B/P (MAP) Pulse Ox O2 O2 Flow FiO2 Time Delivery Rate 10/30/18 98.4 90 18 159/71 92 Room Air 11:19 (100) 10/29/18 2.0 12:00 Intake and Output 10/29/18 10/29/18 10/30/18 1515:00 23:00 07:00 IntakeIntake Total 1130 ml 60 ml 60 ml OutputOutput Total 510 ml 95 ml 55 ml BalanceBalance 620 ml -35 ml 5 ml Exam Exam Review of Systems: CONSTITUTIONAL: No fevers, chills. PULMONARY: No sob CARDIOVASCULAR: No chest pain/palpitations GASTROINTESTINAL: No nausea/vomiting. GENITOURINARY: No hematuria/dysuria. MUSCULOSKELETAL: pain at surgical site. PSYCHIATRIC: The patient denies depression. NEUROLOGIC: No weakness Constitutional: alert Psych: no complaints Head: normocephalic ENMT: mucosa pink and moist Neck: supple, jvd (8 cm water) Respiratory: diminished breath sounds (at bases/B) Cardiovascular: regular rate and rhythm Gastrointestinal: soft, non-tender Musculoskeletal: muscle weakness (mild weakness) Extremities: edema (none) Labs Result Diagram: 10/30/18 0523 10/30/18 0523 Results 24hrs Laboratory Tests Test 10/29/18 13:31 10/29/18 17:11 10/29/18 21:15 10/30/18 05:23 Bedside Glucose 210 210 163 White Blood Count 9.9 # Red Blood Count 3.24 L Hemoglobin 9.0 L Hematocrit 28.6 L Mean Corpuscular 88.3 Volume Mean Corpuscular 27.8 L Hemoglobin Mean Corpuscular 31.5 L Hemoglobin Concent Red Cell 12.9 Distribution Width Platelet Count 127 L Mean Platelet Volume 12.5 H Immature 0.500 H Granulocytes % Neutrophils % 67.1 Lymphocytes % 19.8 Monocytes % 11.0 Eosinophils % 1.4 Basophils % 0.2 Nucleated Red Blood 0.0 Cells % Immature 0.050 H Granulocytes # Neutrophils # 6.7 Lymphocytes # 2.0 Monocytes # 1.1 H Eosinophils # 0.1 Basophils # 0.0 Nucleated Red Blood 0.0 Cells # Sodium Level 135 Potassium Level 3.4 L Chloride Level 106 Carbon Dioxide Level 25 Anion Gap 4 L Blood Urea Nitrogen 7 Creatinine 0.54 Est Glomerular > 60 Filtrat Rate mL/min Glucose Level 213 Hemoglobin A1c 11.4 H Calcium Level 8.1 L Test 10/30/18 06:47 10/30/18 08:09 10/30/18 11:09 Bedside Glucose 177 177 145 Medications Medications Current Medications Acetaminophen/ Hydrocodone Bitart ([place] (5/325)) 1 tab Q4H PRN PO .PAIN 1-5; Start 10/27/18 at 19:00 Al Hydrox/Mg Hydrox/Simethicone (Mag-Al Plus) 15 ml Q4H PRN PO .CONSTIPATION; Start 10/27/18 at 19:00 IV Flush (NS 3 ml) 3 ml PER PROTOCOL IV ; Start 10/27/18 at 19:00 Naloxone HCl (Narcan) 0.2 mg Q2M PRN IV RR 8 BREATHS/MIN OR LESS; Start 10/27/18 at 19:00 Potassium Chloride/Sodium Chloride 1,000 ml @ 60 mls/hr [id number] IV Last administered on 10/30/18at 05:31; Admin Dose 60 MLS/HR; Start 10/27/18 at 20:00 Cefazolin Sodium/ Dextrose 50 ml @ 100 mls/hr Q8 IVPB Last administered on 10/30/18at 05:31; Admin Dose 100 MLS/HR; Start 10/27/18 at 22:00 Naloxone HCl (Narcan) 0.2 mg PRN PRN IV RR < 8; Start 10/27/18 at 21:30 Hydromorphone HCl (Dilaudid) 0.2 mg Q4H PRN IV PAIN LEVEL 1-5 Last administered on 10/28/18 18:33; Admin Dose 0.2 MG; Start 10/27/18 at 21:30 Hydromorphone HCl (Dilaudid) 0.4 mg Q4H PRN IV PAIN LEVEL 6-10 Last administered on 10/29/18 03:44; Admin Dose 0.4 MG; Start 10/27/18 at 21:30 Ketorolac Tromethamine (Toradol) 30 mg Q6H PRN IV .PAIN Last administered on 10/30/18 11:12; Admin Dose 30 MG; Start 10/27/18 at 21:30; Stop 10/30/18 at 21:29 Ondansetron HCl (Zofran Inj) 4 mg Q6H PRN IV NAUSEA AND/OR VOMITING Last a dministered on 10/28/18 21:17; Admin Dose 4 MG; Start 10/28/18 at 17:00 Gabapentin (Neurontin) 300 mg TID PO Last administered on 10/30/18 08:15; Admin Dose 300 MG; Start 10/28/18 at 21:00 Metformin HCl (Glucophage) 1,000 mg WITH BREAKFAST PO Last administered on 10/30/18 08:14; Admin Dose 1,000 MG; Start 10/29/18 at 07:35 Linagliptin (Tradjenta) 5 mg DAILY PO Last administered on 10/30/18 08:14; Admin Dose 5 MG; Start 10/29/18 at 09:00 Diagnostic Test (Pha) (Accu-Chek) 1 ea AC MEALS AND BEDTIME XX Last administered on 10/30/18 06:50; Admin Dose 1 EA; Start 10/28/18 at 21:00 Insulin Aspart (Novolog Insulin Pen) NOVOLOG *MILD* ALGORITHM WITH MEALS BEDTIME SC Last administered on 10/30/18 11:10; Admin Dose 1 UNIT; Start 10/28/18 at 21:00 Miscellaneous Information 1 ea NOTE XX ; Start 10/28/18 at 19:00 Glucose (Glutose) 15 gm Q15M PRN PO DECREASED GLUCOSE; Start 10/28/18 at 19:00 Glucose (Glutose) 22.5 gm Q15M PRN PO DECREASED GLUCOSE; Start 10/28/18 at 19:00 Dextrose (D50w Syringe) 25 ml Q15M PRN IV DECREASED GLUCOSE; Start 10/28/18 at 19:00 Dextrose (D50w Syringe) 50 ml Q15M PRN IV DECREASED GLUCOSE; Start 10/28/18 at 19:00 Glucagon (Glucagen) 1 mg Q15M PRN IM DECREASED GLUCOSE; Start 10/28/18 at 19:00 Glucose (Glutose) 15 gm Q15M PRN BUCCAL DECREASED GLUCOSE; Start 10/28/18 at 19:00 Metoprolol Tartrate (Lopressor) 5 mg Q4H PRN IV HR > 120 Last administered on 10/29/18 11:25; Admin Dose 5 MG; Start 10/29/18 at 05:30 Hydromorphone HCl (Dilaudid) 1 mg Q4H PRN IV SEVERE PAIN LEVEL 7-10 Last administered on 10/30/18 08:12; Admin Dose 1 MG; Start 10/29/18 at 05:30 Insulin Aspart (Novolog Insulin Pen) 4 unit WITH MEALS SC Last administered on 10/30/18 11:11; Admin Dose 4 UNIT; Start 10/29/18 at 17:35 Insulin Glargine (Lantus) 15 units DAILY@0800 SC Last administered on 10/30/18 11:11; Admin Dose 15 UNITS; Start 10/29/18 at 12:30 Metoprolol Tartrate (Lopressor) 25 mg BID PO Last administered on 10/30/18at 08:15; Admin Dose 25 MG; Start 10/29/18 at 12:00 Acetaminophen (Tylenol Tab) 650 mg Q6H PRN PO MILD PAIN(1-3)OR ELEVATED TEMP Last administered on 10/30/18at 01:39; Admin Dose 650 MG; Start 10/30/18 at 00:30 Senna (Senokot) 1 tab BID PRN PO CONSTIPATION; Start 10/30/18 at 00:30 VESNA GALLAGHER October 30, 2018 12:49
--- NOTE | 2018-10-30 14:54 | PN ---
Date/Time of Note Date/Time of Note DATE: 10/30/18 TIME: 14:46 Assessment/Plan VTE Prophylaxis Risk score (from Ns)>0 risk: 6 SCD applied (from Ns): Yes Pharmacological prophylaxis: NA/contraindicated Pharm contraindication: surgical contra Lines/Catheters IV Catheter Type (from Nrsg): Peripheral IV Urinary Cath still in place: Yes Reason Cath still needed: urinary retention Assessment/Plan Hospital Course Patient complains of significant amount of pain requiring Dilaudid, complains of mild headache. Tachycardic at times with heart rate going to 120s, no fever. Assessment/Plan -Mechanical LBP and LE radiculopathy. S/p ALIF L3-S1 ON 09/27/18 and ISF L2-S1 and decompression on 09/28/[address] Goldsmith. Continue IV fluids and postoperative antibiotic. Tylenol and Dilaudid as needed for pain. -Tachycardia, pending 2D echo. Dr. Lane is following in cardiology consultation. -Diabetes mellitus type II continue Tradjenta, Lantus and NovoLog. -Obesity with BMI of 30.3. Result Diagram: 10/30/1852210/30/1823 Results 24hrs Laboratory Tests Test 10/29/18 17:11 10/29/18 21:15 10/30/18 05:23 10/30/18 06:47 Bedside Glucose 210 163 177 White Blood Count 9.9 # Red Blood Count 3.24 L Hemoglobin 9.0 L Hematocrit 28.6 L Mean Corpuscular 88.3 Volume Mean Corpuscular 27.8 L Hemoglobin Mean Corpuscular 31.5 L Hemoglobin Concent Red Cell 12.9 Distribution Width Platelet Count 127 L Mean Platelet Volume 12.5 H Immature 0.500 H Granulocytes % Neutrophils % 67.1 Lymphocytes % 19.8 Monocytes % 11.0 Eosinophils % 1.4 Basophils % 0.2 Nucleated Red Blood 0.0 Cells % Immature 0.050 H Granulocytes # Neutrophils # 6.7 Lymphocytes # 2.0 Monocytes # 1.1 H Eosinophils # 0.1 Basophils # 0.0 Nucleated Red Blood 0.0 Cells # Sodium Level 135 Potassium Level 3.4 L Chloride Level 106 Carbon Dioxide Level 25 Anion Gap 4 L Blood Urea Nitrogen 7 Creatinine 0.54 Est Glomerular > 60 Filtrat Rate mL/min Glucose Level 213 Hemoglobin A1c 11.4 H Calcium Level 8.1 L Thyroid Stimulating 0.260 L Hormone (TSH) Test 10/30/18 08:09 10/30/18 11:09 Bedside Glucose 177 145 Exam/Review of Systems Exam Vitals Vital Signs Date Temp Pulse Resp B/P (MAP) Pulse Ox O2 O2 Flow FiO2 Time Delivery Rate 10/30/18 93 12:45 10/30/18 98.4 18 159/71 92 Room Air 11:19 (100) 10/29/18 2.0 12:00 Intake and Output 10/29/18 10/29/18 10/30/18 1515:00 23:00 07:00 IntakeIntake Total 1130 ml 60 ml 60 ml OutputOutput Total 510 ml 95 ml 55 ml BalanceBalance 620 ml -35 ml 5 ml Constitutional: alert, oriented Head: normocephalic Neck: supple Respiratory: clear to auscultation Cardiovascular: regular rate and rhythm Gastrointestinal: soft, other (Status post surgery) Musculoskeletal: other (Status post lower back surgery, NEELAM drain) Extremities: normal pulses Neurological: nl mental status Skin: nl turgor Results Results 24hrs Laboratory Tests Test 10/29/18 17:11 10/29/18 21:15 10/30/18 05:23 10/30/18 06:47 Bedside Glucose 210 163 177 White Blood Count 9.9 # Red Blood Count 3.24 L Hemoglobin 9.0 L Hematocrit 28.6 L Mean Corpuscular 88.3 Volume Mean Corpuscular 27.8 L Hemoglobin Mean Corpuscular 31.5 L Hemoglobin Concent Red Cell 12.9 Distribution Width Platelet Count 127 L Mean Platelet Volume 12.5 H Immature 0.500 H Granulocytes % Neutrophils % 67.1 Lymphocytes % 19.8 Monocytes % 11.0 Eosinophils % 1.4 Basophils % 0.2 Nucleated Red Blood 0.0 Cells % Immature 0.050 H Granulocytes # Neutrophils # 6.7 Lymphocytes # 2.0 Monocytes # 1.1 H Eosinophils # 0.1 Basophils # 0.0 Nucleated Red Blood 0.0 Cells # Sodium Level 135 Potassium Level 3.4 L Chloride Level 106 Carbon Dioxide Level 25 Anion Gap 4 L Blood Urea Nitrogen 7 Creatinine 0.54 Est Glomerular > 60 Filtrat Rate mL/min Glucose Level 213 Hemoglobin A1c 11.4 H Calcium Level 8.1 L Thyroid Stimulating 0.260 L Hormone (TSH) Test 10/30/18 08:09 10/30/18 11:09 Bedside Glucose 177 145 Medications Medication Current Medications Acetaminophen/ Hydrocodone Bitart ([place] (5/325)) 1 tab Q4H PRN PO .PAIN 1-5; Start 10/27/18 at 19:00 Al Hydrox/Mg Hydrox/Simethicone (Mag-Al Plus) 15 ml Q4H PRN PO .CONSTIPATION; Start 10/27/18 at 19:00 IV Flush (NS 3 ml) 3 ml PER PROTOCOL IV ; Start 10/27/18 at 19:00 Naloxone HCl (Narcan) 0.2 mg Q2M PRN IV RR 8 BREATHS/MIN OR LESS; Start 10/27/18 at 19:00 Potassium Chloride/Sodium Chloride 1,000 ml @ 60 mls/hr [id number] IV Last administered on 10/30/18at 05:31; Admin Dose 60 MLS/HR; Start 10/27/18 at 20:00 Cefazolin Sodium/ Dextrose 50 ml @ 100 mls/hr Q8 IVPB Last administered on 10/30/18at 05:31; Admin Dose 100 MLS/HR; Start 10/27/18 at 22:00 Naloxone HCl (Narcan) 0.2 mg PRN PRN IV RR < 8; Start 10/27/18 at 21:30 Hydromorphone HCl (Dilaudid) 0.2 mg Q4H PRN IV PAIN LEVEL 1-5 Last administered on 10/28/18 18:33; Admin Dose 0.2 MG; Start 10/27/18 at 21:30 Hydromorphone HCl (Dilaudid) 0.4 mg Q4H PRN IV PAIN LEVEL 6-10 Last administered on 10/29/18 03:44; Admin Dose 0.4 MG; Start 10/27/18 at 21:30 Ketorolac Tromethamine (Toradol) 30 mg Q6H PRN IV .PAIN Last administered on 10/30/18at 11:12; Admin Dose 30 MG; Start 10/27/18 at 21:30; Stop 10/30/18 at 21:29 Ondansetron HCl (Zofran Inj) 4 mg Q6H PRN IV NAUSEA AND/OR VOMITING Last administered on 10/28/18at 21:17; Admin Dose 4 MG; Start 10/28/18 at 17:00 Gabapentin (Neurontin) 300 mg TID PO Last administered on 10/30/18 08:15; Admin Dose 300 MG; Start 10/28/18 at 21:00 Metformin HCl (Glucophage) 1,000 mg WITH BREAKFAST PO Last administered on 10/30/18 08:14; Admin Dose 1,000 MG; Start 10/29/18 at 07:35 Linagliptin (Tradjenta) 5 mg DAILY PO Last administered on 10/30/18 08:14; Admin Dose 5 MG; Start 10/29/18 at 09:00 Diagnostic Test (Pha) (Accu-Chek) 1 ea AC MEALS AND BEDTIME XX Last administered on 10/30/18 06:50; Admin Dose 1 EA; Start 10/28/18 at 21:00 Insulin Aspart (Novolog Insulin Pen) NOVOLOG *MILD* ALGORITHM WITH MEALS BEDTIME SC Last administered on 10/30/18 11:10; Admin Dose 1 UNIT; Start 10/28/18 at 21:00 Miscellaneous Information 1 ea NOTE XX ; Start 10/28/18 at 19:00 Glucose (Glutose) 15 gm Q15M PRN PO DECREASED GLUCOSE; Start 10/28/18 at 19:00 Glucose (Glutose) 22.5 gm Q15M PRN PO DECREASED GLUCOSE; Start 10/28/18 at 19:00 Dextrose (D50w Syringe) 25 ml Q15M PRN IV DECREASED GLUCOSE; Start 10/28/18 at 19:00 Dextrose (D50w Syringe) 50 ml Q15M PRN IV DECREASED GLUCOSE; Start 10/28/18 at 19:00 Glucagon (Glucagen) 1 mg Q15M PRN IM DECREASED GLUCOSE; Start 10/28/18 at 19:00 Glucose (Glutose) 15 gm Q15M PRN BUCCAL DECREASED GLUCOSE; Start 10/28/18 at 19:00 Metoprolol Tartrate (Lopressor) 5 mg Q4H PRN IV HR > 120 Last administered on 10/29/18at 11:25; Admin Dose 5 MG; Start 10/29/18 at 05:30 Hydromorphone HCl (Dilaudid) 1 mg Q4H PRN IV SEVERE PAIN LEVEL 7-10 Last administered on 10/30/18 08:12; Admin Dose 1 MG; Start 10/29/18 at 05:30 Insulin Aspart (Novolog Insulin Pen) 4 unit WITH MEALS SC Last administered on 10/30/18at 11:11; Admin Dose 4 UNIT; Start 10/29/18 at 17:35 Insulin Glargine (Lantus) 15 units DAILY@0800 SC Last administered on 10/30/18at 11:11; Admin Dose 15 UNITS; Start 10/29/18 at 12:30 Acetaminophen (Tylenol Tab) 650 mg Q6H PRN PO MILD PAIN(1-3)OR ELEVATED TEMP Last administered on 10/30/18at 01:39; Admin Dose 650 MG; Start 10/30/18 at 00:30 Senna (Senokot) 1 tab BID PRN PO CONSTIPATION; Start 10/30/18 at 00:30 Metoprolol Tartrate (Lopressor) 50 mg BID PO ; Start 10/30/18 at 21:00 FERCHO PADILLA October 30, 2018 14:54
[2018-10-30] MEDS: ONDANSETRON 4 MG INJ IV PRN (18:57)
[2018-10-30] MEDS: METOPROLOL 50 MG TAB PO SCH (20:43)
[2018-10-31] VITALS (12 sets, daily range): BP systolic 142–164; BP diastolic 71–87; PULSE 72–101; RESP 19–20
[2018-10-31] MEDS: HYDROCODONE/APAP (5/325) TAB PO PRN (01:42)
[2018-10-31] MEDS: HYDROmorphONE 1 MG/ML SYG IV PRN ×4 (06:01→20:49)
[2018-10-31] MEDS: CEFAZOLIN 2 GM/50 ML (PMX) 50 ML IVPB SCH ×2 (06:02→14:58)
[2018-10-31] MEDS: ACCU-CHEK XX SCH ×4 (07:00→20:49)
[2018-10-31] MEDS: metFORMIN 500 MG TAB PO SCH (08:10)
[2018-10-31] MEDS: LINAGLIPTIN 5 MG TABLET PO SCH (08:10)
[2018-10-31] MEDS: METOPROLOL 50 MG TAB PO SCH ×2 (08:10→20:49)
[2018-10-31] MEDS: GABAPENTIN 300 MG CAP PO SCH ×2 (08:10→12:26)
[2018-10-31] MEDS: INSULIN ASPART [NOVOLOG] 3 ML PEN SC SCH ×7 (08:12→20:48)
--- NOTE | 2018-10-31 08:31 | CONS ---
Consult Date/Type/Reason Admit Date/Time October 27, 2018 at 13:19 Initial Consult Date Requesting Provider: AIDA GREENE MD Date/Time of Note DATE: 10/31/18 TIME: 08:29 Subjective NO acute events - pt comfortable - no CP - HR much better now. ROS: No fever, no chills, no nausea, no vomiting, no diarrhea/constipation + anxious Objective Vitals Vital Signs Date Temp Pulse Resp B/P (MAP) Pulse Ox O2 O2 Flow FiO2 Time Delivery Rate 10/31/18 98.2 85 20 145/87 97 04:18 (106) 10/30/18 Room Air 11:19 10/29/18 2.0 12:00 Intake and Output 10/30/18 10/30/18 10/31/18 1515:00 23:00 07:00 IntakeIntake Total 1100 ml 850 ml OutputOutput Total 855 ml 1030 ml 5030 ml BalanceBalance -855 ml 70 ml -4180 ml Exam General: WN/WD/NAD, AOx anxious HEENT: Unicetric/atraumatic/EOMI (follow commands) NECK: JVD elevated, no thyromegaly Lymph: no lymphadenopathy HEART: regular with no S3, II/ systolic murmur at apex LUNGS: Coarse sounds ABD: soft, NT, ND, +BS : Intact Neuro: non focal SKIN: chronic changes EXT: trace edema Results/Medications Result Diagram: 10/31/18 0452 10/31/18 0452 Results 24 hrs Laboratory Tests Test 10/30/18 11:09 10/30/18 17:34 10/30/18 18:53 10/30/18 20:46 Bedside Glucose 145 133 197 Troponin I < 0.012 Test 10/31/18 00:29 10/31/18 01:44 10/31/18 04:52 10/31/18 08:09 Troponin I < 0.012 Bedside Glucose 197 171 White Blood Count 8.3 Red Blood Count 3.31 L Hemoglobin 9.1 L Hematocrit 28.7 L Mean Corpuscular 86.7 Volume Mean Corpuscular 27.5 L Hemoglobin Mean Corpuscular 31.7 L Hemoglobin Concent Red Cell 12.7 Distribution Width Platelet Count 138 L Mean Platelet Volume 11.7 H Immature 0.500 H Granulocytes % Neutrophils % 62.2 Lymphocytes % 22.8 Monocytes % 11.4 H Eosinophils % 2.9 Basophils % 0.2 Nucleated Red Blood 0.0 Cells % Immature 0.040 H Granulocytes # Neutrophils # 5.1 Lymphocytes # 1.9 Monocytes # 0.9 Eosinophils # 0.2 Basophils # 0.0 Nucleated Red Blood 0.0 Cells # Sodium Level 136 Potassium Level 3.5 Chloride Level 105 Carbon Dioxide Level 29 Anion Gap 2 L Blood Urea Nitrogen 4 L Creatinine 0.50 Est Glomerular > 60 Filtrat Rate mL/min Glucose Level 220 Calcium Level 8.1 L Home Meds Reported Medications Insulin Aspart* (Novolog Insulin Pen*) 100 Unit/Ml Soln, 40 UNIT SC WITH BREAKFAST, EA 10/27/18 Metformin* (Glucophage*) 1,000 Mg Tablet, 1000 MG PO DAILY, #30 TAB 10/27/18 Sitagliptin* (Januvia*) 100 Mg Tablet, 100 MG PO DAILY, #30 TAB 10/27/18 Medications Current Medications Acetaminophen/ Hydrocodone Bitart ([place] (5/325)) 1 tab Q4H PRN PO .PAIN 1-5 Last administered on 10/31/18at 01:42; Admin Dose 1 TAB; Start 10/27/18 at 19:00 Al Hydrox/Mg Hydrox/Simethicone (Mag-Al Plus) 15 ml Q4H PRN PO .CONSTIPATION; Start 10/27/18 at 19:00 IV Flush (NS 3 ml) 3 ml PER PROTOCOL IV ; Start 10/27/18 at 19:00 Naloxone HCl (Narcan) 0.2 mg Q2M PRN IV RR 8 BREATHS/MIN OR LESS; Start 10/27/18 at 19:00 Cefazolin Sodium/ Dextrose 50 ml @ 100 mls/hr Q8 IVPB Last administered on at 06:02; Admin Dose 100 MLS/HR; Start 10/27/18 at 22:00 Naloxone HCl (Narcan) 0.2 mg PRN PRN IV RR < 8; Start 10/27/18 at 21:30 Hydromorphone HCl (Dilaudid) 0.2 mg Q4H PRN IV PAIN LEVEL 1-5 Last administered on 10/28/18at 18:33; Admin Dose 0.2 MG; Start 10/27/18 at 21:30 Hydromorphone HCl (Dilaudid) 0.4 mg Q4H PRN IV PAIN LEVEL 6-10 Last administered on 10/29/18at 03:44; Admin Dose 0.4 MG; Start 10/27/18 at 21:30 Ondansetron HCl (Zofran Inj) 4 mg Q6H PRN IV NAUSEA AND/OR VOMITING Last ad ministered on 10/30/18at 18:57; Admin Dose 4 MG; Start 10/28/18 at 17:00 Gabapentin (Neurontin) 300 mg TID PO Last administered on 10/31/18 08:10; Admin Dose 300 MG; Start 10/28/18 at 21:00 Metformin HCl (Glucophage) 1,000 mg WITH BREAKFAST PO Last administered on 10/31/18 08:10; Admin Dose 1,000 MG; Start 10/29/18 at 07:35 Linagliptin (Tradjenta) 5 mg DAILY PO Last administered on 10/31/18 08:10; Admin Dose 5 MG; Start 10/29/18 at 09:00 Diagnostic Test (Pha) (Accu-Chek) 1 ea AC MEALS AND BEDTIME XX Last administered on 10/31/18 07:00; Admin Dose 1 EA; Start 10/28/18 at 21:00 Insulin Aspart (Novolog Insulin Pen) NOVOLOG *MILD* ALGORITHM WITH MEALS BEDTIME SC Last administered on 10/31/18 08:12; Admin Dose 1 UNIT; Start 10/28/18 at 21:00 Miscellaneous Information 1 ea NOTE XX ; Start 10/28/18 at 19:00 Glucose (Glutose) 15 gm Q15M PRN PO DECREASED GLUCOSE; Start 10/28/18 at 19:00 Glucose (Glutose) 22.5 gm Q15M PRN PO DECREASED GLUCOSE; Start 10/28/18 at 19:00 Dextrose (D50w Syringe) 25 ml Q15M PRN IV DECREASED GLUCOSE; Start 10/28/18 at 19:00 Dextrose (D50w Syringe) 50 ml Q15M PRN IV DECREASED GLUCOSE; Start 10/28/18 at 19:00 Glucagon (Glucagen) 1 mg Q15M PRN IM DECREASED GLUCOSE; Start 10/28/18 at 19:00 Glucose (Glutose) 15 gm Q15M PRN BUCCAL DECREASED GLUCOSE; Start 10/28/18 at 19:00 Metoprolol Tartrate (Lopressor) 5 mg Q4H PRN IV HR > 120 Last administered on 10/29/18at 11:25; Admin Dose 5 MG; Start 10/29/18 at 05:30 Hydromorphone HCl (Dilaudid) 1 mg Q4H PRN IV SEVERE PAIN LEVEL 7-10 Last administered on 10/31/18at 06:01; Admin Dose 1 MG; Start 10/29/18 at 05:30 Insulin Aspart (Novolog Insulin Pen) 4 unit WITH MEALS SC Last administered on 10/31/18at 08:12; Admin Dose 4 UNIT; Start 10/29/18 at 17:35 Acetaminophen (Tylenol Tab) 650 mg Q6H PRN PO MILD PAIN(1-3)OR ELEVATED TEMP Last administered on 10/30/18at 23:31; Admin Dose 650 MG; Start 10/30/18 at 00:30 Senna (Senokot) 1 tab BID PRN PO CONSTIPATION; Start 10/30/18 at 00:30 Metoprolol Tartrate (Lopressor) 50 mg BID PO Last administered on 10/31/18at 08:10; Admin Dose 50 MG; Start 10/30/18 at 21:00 Insulin Glargine (Lantus) 19 units DAILY@0800 SC ; Start 10/31/18 at 09:30 Assessment/Plan Hospital Course (Demo Recall) 1. Tachycardia at this time consistent with sinus tachycardia - overall improved - HR better niow. On BB. 2. Shortness of breath. Rule out pulmonary embolism, question due to pain. Improved. 3. Hypertension, under reasonable control with intermittent episodes of hypotension.Con't med optimization. 4. Diabetes mellitus - on meds. 5. Postop day #4 status post spinal fusion L3 to S1 - surgical team follows, pain Rx now. 6. Anemia, mild at 9.1 - no active bleeding noted. 7. Leukocytosis, mild - now normalized. BHARATI MOYER MD October 31, 2018 08:31
[2018-10-31] MEDS: INSULIN GLARGINE [LANTus] (100 UNITS/ML) SYG SC SCH (10:17)
--- NOTE | 2018-10-31 11:25 | RADRPT ---
Echocardiogram Report Patient Name: Fiona SIDHUnt ID: [id number] : 1970 (48y 10m)Study Date: 10/31/2018 7:31:44 AM Gender: FAccession #: [id number] Tech: Location: Ref.Physician: VESNA GALLAGHER Height(Cm): BSA: Weight(Kg): Quality: AdequateOrder Physician: VESNA GALLAGHER Account #: Procedures: Echocardiographic Report: Transthoracic echocardiogram with complete 2D, M-Mode, and doppler examination. Indications: Tachycardia. Measurements: 2D/M Mode Doppler Measurement Value Normal Range Measurement Value Normal Range LVIDd 2D 4.4 [ 3.8 - 5.2 ] cm AV Peak Zain 2.2 [ 100.0 - 170.0 ] cm/sec LVIDs 2D 2.6 [ 2.2 - 3.5 ] cm AV Peak PG 18.0 [ 2.0 - 9.0 ] mmHg LVPWd 2D 1.0 [ 0.6 - 0.9 ] cm AI Peak PG 99.0 mmHg IVSd 2D 1.1 [ 0.6 - 0.9 ] cm AI Peak Zain 5.0 cm/sec AoR Diam 2D 3.0 [ 2.3 - 3.1 ] cm AI PHT 549.0 msec EDV 2D 87.7 [ 46.0 - 106.0 ] ml LVOT Peak Zain 1.3 [ 70.0 - 110.0 ] cm/sec ESV 2D 23.7 [ 14.0 - 42.0 ] ml LVOT Peak PG 7.0 [ 2.0 - 6.0 ] mmHg EF 2D 73.0 [ 54.0 - 74.0 ] percent MV E Peak Zain 1.1 [ 60.0 - 130.0 ] cm/sec LA Dimen 2D 2.6 [ 2.7 - 3.8 ] cm MV A Peak Zain 0.9 [ 100.0 - 120.0 ] cm/sec MV E/A 1.3 [ 0.8 - 1.5 ] ratio MV Decel Time 180 [ 104 - 258 ] msec Lat E` Zain 0.1 [ 10.0 - 15.0 ] cm/sec Lateral E/E` 10.0 [ 1.0 - 2.0 ] ratio MV E/A 1.3 [ 0.8 - 1.5 ] ratio TR Peak Zain 3.1 [ 100.0 - 280.0 ] cm/sec TR Peak PG 39.0 mmHg RVSP 42.0 [ 10.0 - 36.0 ] mmHg RA Pressure 3.0 mmHg Findings: Left Ventricle: Normal left ventricular systolic function. Normal left ventricular cavity size. Mild concentric left ventricular hypertrophy. Ejection fraction is visually estimated at 65 %. Tissue Doppler/Mitral Doppler indices are within normal limits. Right Ventricle: Normal right ventricular size. Normal right ventricular systolic function. Left Atrium: The left atrium is normal in size. Right Atrium: The right atrium is normal in size. Mitral Valve: Normal appearance of the mitral valve. Mild mitral annular calcification. Trace mitral regurgitation. Aortic Valve: No significant aortic stenosis or insufficiency. Aortic cusps appear mildly calcified. Mild aortic valve regurgitation. Tricuspid Valve: Normal appearance of the tricuspid valve. The estimated Peak RVSP is 42 mmHg. There is mild tricuspid regurgitation. Pulmonic Valve: Normal pulmonic valve appearance. Pericardium: Normal pericardium with no significant pericardial effusion. Aorta: Normal aortic root. IVC: Normal size and normal respiratory collapse consistent with normal right atrial pressure. Conclusions: Normal left ventricular systolic function. Normal left ventricular cavity size. Mild concentric left ventricular hypertrophy. Ejection fraction is visually estimated at 65 %. Tissue Doppler/Mitral Doppler indices are within normal limits. Normal appearance of the mitral valve. Mild mitral annular calcification. Trace mitral regurgitation. No significant aortic stenosis or insufficiency. Aortic cusps appear mildly calcified. Mild aortic valve regurgitation. Normal appearance of the tricuspid valve. The estimated Peak RVSP is 42 mmHg. There is mild tricuspid regurgitation. Electronically Signed By: Atul Katz 2018-10-31 11:24:37 PDT
--- NOTE | 2018-10-31 16:06 | PN ---
Date/Time of Note Date/Time of Note DATE: 10/31/18 TIME: 16:05 Assessment/Plan VTE Prophylaxis Risk score (from Ns)>0 risk: 6 SCD applied (from [facility] [place]): Yes SCD contraindicated: low risk/ambulating Pharmacological prophylaxis: NA/contraindicated Pharm contraindication: low risk/ambulating Lines/Catheters IV [facility] Type ([facility] Peripheral IV Central line still needed: No Urinary Cath still in place: No Assessment/Plan Result Diagram: 10/31/18 0452 10/31/18 0452 Results 24hrs Laboratory Tests Test 10/30/18 17:34 10/30/18 18:53 10/30/18 20:46 10/31/18 00:29 Bedside Glucose 133 197 Troponin I < 0.012 < 0.012 Test 10/31/18 01:44 10/31/18 04:52 10/31/18 08:09 10/31/18 12:27 Bedside Glucose 197 171 197 White Blood Count 8.3 Red Blood Count 3.31 L Hemoglobin 9.1 L Hematocrit 28.7 L Mean Corpuscular 86.7 Volume Mean Corpuscular 27.5 L Hemoglobin Mean Corpuscular 31.7 L Hemoglobin Concent Red Cell 12.7 Distribution Width Platelet Count 138 L Mean Platelet Volume 11.7 H Immature 0.500 H Granulocytes % Neutrophils % 62.2 Lymphocytes % 22.8 Monocytes % 11.4 H Eosinophils % 2.9 Basophils % 0.2 Nucleated Red Blood 0.0 Cells % Immature 0.040 H Granulocytes # Neutrophils # 5.1 Lymphocytes # 1.9 Monocytes # 0.9 Eosinophils # 0.2 Basophils # 0.0 Nucleated Red Blood 0.0 Cells # Sodium Level 136 Potassium Level 3.5 Chloride Level 105 Carbon Dioxide Level 29 Anion Gap 2 L Blood Urea Nitrogen 4 L Creatinine 0.50 Est Glomerular > 60 Filtrat Rate mL/min Glucose Level 220 Calcium Level 8.1 L Subjective 24 Hr Interval Summary Free Text/Dictation Neurosurgery S: s/p ALIF L2-S1 with Posterior fixation. Exam/Review of Systems Exam Vitals Vital Signs Date Temp Pulse Resp B/P (MAP) Pulse Ox O2 O2 Flow FiO2 Time Delivery Rate 10/31/18 98.8 86 20 164/83 93 Room Air 15:44 (110) 10/29/18 2.0 12:00 Intake and Output 10/30/18 10/30/18 10/31/18 1515:00 23:00 07:00 IntakeIntake Total 1100 ml 850 ml OutputOutput Total 855 ml 1030 ml 5030 ml BalanceBalance -855 ml 70 ml -4180 ml Neurological: other (MS: AAOX4 CN:PERRL M: FC x 4 , no new focal def. ) Results Results 24hrs Laboratory Tests Test 10/30/18 17:34 10/30/18 18:53 10/30/18 20:46 10/31/18 00:29 Bedside Glucose 133 197 Troponin I < 0.012 < 0.012 Test 10/31/18 01:44 10/31/18 04:52 10/31/18 08:09 10/31/18 12:27 Bedside Glucose 197 171 197 White Blood Count 8.3 Red Blood Count 3.31 L Hemoglobin 9.1 L Hematocrit 28.7 L Mean Corpuscular 86.7 Volume Mean Corpuscular 27.5 L Hemoglobin Mean Corpuscular 31.7 L Hemoglobin Concent Red Cell 12.7 Distribution Width Platelet Count 138 L Mean Platelet Volume 11.7 H Immature 0.500 H Granulocytes % Neutrophils % 62.2 Lymphocytes % 22.8 Monocytes % 11.4 H Eosinophils % 2.9 Basophils % 0.2 Nucleated Red Blood 0.0 Cells % Immature 0.040 H Granulocytes # Neutrophils # 5.1 Lymphocytes # 1.9 Monocytes # 0.9 Eosinophils # 0.2 Basophils # 0.0 Nucleated Red Blood 0.0 Cells # Sodium Level 136 Potassium Level 3.5 Chloride Level 105 Carbon Dioxide Level 29 Anion Gap 2 L Blood Urea Nitrogen 4 L Creatinine 0.50 Est Glomerular > 60 Filtrat Rate mL/min Glucose Level 220 Calcium Level 8.1 L Medications Medication Current Medications Acetaminophen/ Hydrocodone Bitart ([place] (5/325)) 1 tab Q4H PRN PO .PAIN 1-5 Last administered on 10/31/18at 01:42; Admin Dose 1 TAB; Start 10/27/18 at 19:00 Al Hydrox/Mg Hydrox/Simethicone (Mag-Al Plus) 15 ml Q4H PRN PO .CONSTIPATION; Start 10/27/18 at 19:00 IV Flush (NS 3 ml) 3 ml PER PROTOCOL IV ; Start 10/27/18 at 19:00 Naloxone HCl (Narcan) 0.2 mg Q2M PRN IV RR 8 BREATHS/MIN OR LESS; Start 10/27/18 at 19:00 Cefazolin Sodium/ Dextrose 50 ml @ 100 mls/hr Q8 IVPB Last administered on 10/31/18 14:58; Admin Dose 100 MLS/HR; Start 10/27/18 at 22:00 Naloxone HCl (Narcan) 0.2 mg PRN PRN IV RR < 8; Start 10/27/18 at 21:30 Hydromorphone HCl (Dilaudid) 0.2 mg Q4H PRN IV PAIN LEVEL 1-5 Last administered on 10/28/18 18:33; Admin Dose 0.2 MG; Start 10/27/18 at 21:30 Hydromorphone HCl (Dilaudid) 0.4 mg Q4H PRN IV PAIN LEVEL 6-10 Last administered on 10/29/18 03:44; Admin Dose 0.4 MG; Start 10/27/18 at 21:30 Ondansetron HCl (Zofran Inj) 4 mg Q6H PRN IV NAUSEA AND/OR VOMITING Last administered on 10/30/18 18:57; Admin Dose 4 MG; Start 10/28/18 at 17:00 Gabapentin (Neurontin) 300 mg TID PO Last administered on 10/31/18 12:26; Admin Dose 300 MG; Start 10/28/18 at 21:00 Metformin HCl (Glucophage) 1,000 mg WITH BREAKFAST PO Last administered on 10/31/18 08:10; Admin Dose 1,000 MG; Start 10/29/18 at 07:35 Linagliptin (Tradjenta) 5 mg DAILY PO Last administered on 10/31/18 08:10; Admin Dose 5 MG; Start 10/29/18 at 09:00 Diagnostic Test (Pha) (Accu-Chek) 1 ea AC MEALS AND BEDTIME XX Last administered on 10/31/18 12:30; Admin Dose 1 EA; Start 10/28/18 at 21:00 Insulin Aspart (Novolog Insulin Pen) NOVOLOG *MILD* ALGORITHM WITH MEALS B EDTIME SC Last administered on 10/31/18 12:28; Admin Dose 2 UNIT; Start 10/28/18 at 21:00 Miscellaneous Information 1 ea NOTE XX ; Start 10/28/18 at 19:00 Glucose (Glutose) 15 gm Q15M PRN PO DECREASED GLUCOSE; Start 10/28/18 at 19:00 Glucose (Glutose) 22.5 gm Q15M PRN PO DECREASED GLUCOSE; Start 10/28/18 at 19:00 Dextrose (D50w Syringe) 25 ml Q15M PRN IV DECREASED GLUCOSE; Start 10/28/18 at 19:00 Dextrose (D50w Syringe) 50 ml Q15M PRN IV DECREASED GLUCOSE; Start 10/28/18 at 19:00 Glucagon (Glucagen) 1 mg Q15M PRN IM DECREASED GLUCOSE; Start 10/28/18 at 19:00 Glucose (Glutose) 15 gm Q15M PRN BUCCAL DECREASED GLUCOSE; Start 10/28/18 at 19:00 Metoprolol Tartrate (Lopressor) 5 mg Q4H PRN IV HR > 120 Last administered on 10/29/18at 11:25; Admin Dose 5 MG; Start 10/29/18 at 05:30 Hydromorphone HCl (Dilaudid) 1 mg Q4H PRN IV SEVERE PAIN LEVEL 7-10 Last administered on 10/31/18at 14:58; Admin Dose 1 MG; Start 10/29/18 at 05:30 Insulin Aspart (Novolog Insulin Pen) 4 unit WITH MEALS SC Last administered on 10/31/18 12:29; Admin Dose 4 UNIT; Start 10/29/18 at 17:35 Acetaminophen (Tylenol Tab) 650 mg Q6H PRN PO MILD PAIN(1-3)OR ELEVATED TEMP Last administered on 10/30/18at 23:31; Admin Dose 650 MG; Start 10/30/18 at 00:30 Senna (Senokot) 1 tab BID PRN PO CONSTIPATION; Start 10/30/18 at 00:30 Metoprolol Tartrate (Lopressor) 50 mg BID PO Last administered on 10/31/18 08:10; Admin Dose 50 MG; Start 10/30/18 at 21:00 Insulin Glargine (Lantus) 19 units DAILY@0800 SC Last administered on 10/31/18 10:17; Admin Dose 19 UNITS; Start 10/31/18 at 09:30 KARMA DRAPER MD October 31, 2018 16:06
--- NOTE | 2018-10-31 18:59 | PN ---
Date/Time of Note Date/Time of Note DATE: 10/31/18 TIME: 18:57 Assessment/Plan VTE Prophylaxis Risk score (from Ns)>0 risk: 6 SCD applied (from Ns): Yes Pharmacological prophylaxis: NA/contraindicated Pharm contraindication: surgical contra Lines/Catheters IV Catheter Type (from Nrsg): Peripheral IV Urinary Cath still in place: Yes Reason Cath still needed: urinary retention Assessment/Plan Hospital Course Patient still with significant amount of pain however is better controlled, normal heart rate, continue current pain management management continue physical therapy Assessment/Plan -Mechanical LBP and LE radiculopathy. S/p ALIF L3-S1 ON 09/27/18 and ISF L2-S1 and decompression on 09/28/[address] Goldsmith. Continue IV fluids and postoperative antibiotic. Tylenol and Dilaudid as needed for pain. -Tachycardia, pending 2D echo. Dr. Lane is following in cardiology consultation. -Diabetes mellitus type II continue Tradjenta, Lantus and NovoLog. -Obesity with BMI of 30.3. Result Diagram: 10/31/18 0452 10/31/18 0452 Results 24hrs Laboratory Tests Test 10/30/18 20:46 10/31/18 00:29 10/31/18 01:44 10/31/18 04:52 Bedside Glucose 197 197 Troponin I < 0.012 White Blood Count 8.3 Red Blood Count 3.31 L Hemoglobin 9.1 L Hematocrit 28.7 L Mean Corpuscular 86.7 Volume Mean Corpuscular 27.5 L Hemoglobin Mean Corpuscular 31.7 L Hemoglobin Concent Red Cell 12.7 Distribution Width Platelet Count 138 L Mean Platelet Volume 11.7 H Immature 0.500 H Granulocytes % Neutrophils % 62.2 Lymphocytes % 22.8 Monocytes % 11.4 H Eosinophils % 2.9 Basophils % 0.2 Nucleated Red Blood 0.0 Cells % Immature 0.040 H Granulocytes # Neutrophils # 5.1 Lymphocytes # 1.9 Monocytes # 0.9 Eosinophils # 0.2 Basophils # 0.0 Nucleated Red Blood 0.0 Cells # Sodium Level 136 Potassium Level 3.5 Chloride Level 105 Carbon Dioxide Level 29 Anion Gap 2 L Blood Urea Nitrogen 4 L Creatinine 0.50 Est Glomerular > 60 Filtrat Rate mL/min Glucose Level 220 Calcium Level 8.1 L Test 5/28/19 08:09 10/31/18 12:27 10/31/18 17:26 Bedside Glucose 171 197 103 Exam/Review of Systems Exam Vitals Vital Signs Date Temp Pulse Resp B/P (MAP) Pulse Ox O2 O2 Flow FiO2 Time Delivery Rate 10/31/18 87 17:09 10/31/18 98.8 20 164/83 93 Room Air 15:44 (110) 10/29/18 2.0 12:00 Intake and Output 10/30/18 10/30/18 10/31/18 1515:00 23:00 07:00 IntakeIntake Total 1100 ml 850 ml OutputOutput Total 855 ml 1030 ml 5030 ml BalanceBalance -855 ml 70 ml -4180 ml Exam Constitutional: alert, oriented Respiratory: clear to auscultation Cardiovascular: regular rate and rhythm Gastrointestinal: soft, other (Status post surgery) Musculoskeletal: other (Status post lower back surgery, NEELAM drain) Extremities: normal pulses Neurological: nl mental status Skin: nl turgor Results Results 24hrs Laboratory Tests Test 10/30/18 20:46 10/31/18 00:29 10/31/18 01:44 10/31/18 04:52 Bedside Glucose 197 197 Troponin I < 0.012 White Blood Count 8.3 Red Blood Count 3.31 L Hemoglobin 9.1 L Hematocrit 28.7 L Mean Corpuscular 86.7 Volume Mean Corpuscular 27.5 L Hemoglobin Mean Corpuscular 31.7 L Hemoglobin Concent Red Cell 12.7 Distribution Width Platelet Count 138 L Mean Platelet Volume 11.7 H Immature 0.500 H Granulocytes % Neutrophils % 62.2 Lymphocytes % 22.8 Monocytes % 11.4 H Eosinophils % 2.9 Basophils % 0.2 Nucleated Red Blood 0.0 Cells % Immature 0.040 H Granulocytes # Neutrophils # 5.1 Lymphocytes # 1.9 Monocytes # 0.9 Eosinophils # 0.2 Basophils # 0.0 Nucleated Red Blood 0.0 Cells # Sodium Level 136 Potassium Level 3.5 Chloride Level 105 Carbon Dioxide Level 29 Anion Gap 2 L Blood Urea Nitrogen 4 L Creatinine 0.50 Est Glomerular > 60 Filtrat Rate mL/min Glucose Level 220 Calcium Level 8.1 L Test 10/31/18 08:09 10/31/18 12:27 10/31/18 17:26 Bedside Glucose 171 197 103 Medications Medication Current Medications Acetaminophen/ Hydrocodone Bitart ([place] (5/325)) 1 tab Q4H PRN PO .PAIN 1-5 Last administered on 10/31/18 01:42; Admin Dose 1 TAB; Start 10/27/18 at 19:00 Al Hydrox/Mg Hydrox/Simethicone (Mag-Al Plus) 15 ml Q4H PRN PO .CONSTIPATION; Start 10/27/18 at 19:00 IV Flush (NS 3 ml) 3 ml PER PROTOCOL IV ; Start 10/27/18 at 19:00 Naloxone HCl (Narcan) 0.2 mg Q2M PRN IV RR 8 BREATHS/MIN OR LESS; Start 10/27/18 at 19:00 Cefazolin Sodium/ Dextrose 50 ml @ 100 mls/hr Q8 IVPB Last administered on 10/31/18 14:58; Admin Dose 100 MLS/HR; Start 10/27/18 at 22:00 Naloxone HCl (Narcan) 0.2 mg PRN PRN IV RR < 8; Start 10/27/18 at 21:30 Hydromorphone HCl (Dilaudid) 0.2 mg Q4H PRN IV PAIN LEVEL 1-5 Last administered on 10/28/18 18:33; Admin Dose 0.2 MG; Start 10/27/18 at 21:30 Hydromorphone HCl (Dilaudid) 0.4 mg Q4H PRN IV PAIN LEVEL 6-10 Last administered on 10/29/18 03:44; Admin Dose 0.4 MG; Start 10/27/18 at 21:30 Ondansetron HCl (Zofran Inj) 4 mg Q6H PRN IV NAUSEA AND/OR VOMITING Last administered on 10/30/18 18:57; Admin Dose 4 MG; Start 10/28/18 at 17:00 Metformin HCl (Glucophage) 1,000 mg WITH BREAKFAST PO Last administered on 10/31/18 08:10; Admin Dose 1,000 MG; Start 10/29/18 at 07:35 Linagliptin (Tradjenta) 5 mg DAILY PO Last administered on 10/31/18 08:10; Admin Dose 5 MG; Start 10/29/18 at 09:00 Diagnostic Test (Pha) (Accu-Chek) 1 ea AC MEALS AND BEDTIME XX Last administered on 5/28/19at 17:29; Admin Dose 1 EA; Start 10/28/18 at 21:00 Insulin Aspart (Novolog Insulin Pen) NOVOLOG *MILD* ALGORITHM WITH MEALS BEDTIME SC Last administered on 10/31/18 12:28; Admin Dose 2 UNIT; Start 10/28/18 at 21:00 Miscellaneous Information 1 ea NOTE XX ; Start 10/28/18 at 19:00 Glucose (Glutose) 15 gm Q15M PRN PO DECREASED GLUCOSE; Start 10/28/18 at 19:00 Glucose (Glutose) 22.5 gm Q15M PRN PO DECREASED GLUCOSE; Start 10/28/18 at 19:00 Dextrose (D50w Syringe) 25 ml Q15M PRN IV DECREASED GLUCOSE; Start 10/28/18 at 19:00 Dextrose (D50w Syringe) 50 ml Q15M PRN IV DECREASED GLUCOSE; Start 10/28/18 at 19:00 Glucagon (Glucagen) 1 mg Q15M PRN IM DECREASED GLUCOSE; Start 10/28/18 at 19:00 Glucose (Glutose) 15 gm Q15M PRN BUCCAL DECREASED GLUCOSE; Start 10/28/18 at 19:00 Metoprolol Tartrate (Lopressor) 5 mg Q4H PRN IV HR > 120 Last administered on 10/29/18at 11:25; Admin Dose 5 MG; Start 10/29/18 at 05:30 Hydromorphone HCl (Dilaudid) 1 mg Q4H PRN IV SEVERE PAIN LEVEL 7-10 Last administered on 10/31/18at 14:58; Admin Dose 1 MG; Start 10/29/18 at 05:30 Insulin Aspart (Novolog Insulin Pen) 4 unit WITH MEALS SC Last administered on 10/31/18 17:29; Admin Dose 4 UNIT; Start 10/29/18 at 17:35 Acetaminophen (Tylenol Tab) 650 mg Q6H PRN PO MILD PAIN(1-3)OR ELEVATED TEMP Last administered on 10/30/18 23:31; Admin Dose 650 MG; Start 10/30/18 at 00:30 Senna (Senokot) 1 tab BID PRN PO CONSTIPATION; Start 10/30/18 at 00:30 Metoprolol Tartrate (Lopressor) 50 mg BID PO Last administered on 10/31/18at 08:10; Admin Dose 50 MG; Start 10/30/18 at 21:00 Insulin Glargine (Lantus) 19 units DAILY@0800 SC Last administered on 10/31/18at 10:17; Admin Dose 19 UNITS; Start 10/31/18 at 09:30 Gabapentin (Neurontin) 100 mg TID PO ; Start 10/31/18 at 21:00 FERCHO PADILLA October 31, 2018 18:59
[2018-10-31] MEDS: GABAPENTIN 100 MG CAP PO SCH (20:49)
[2018-11-01] VITALS (12 sets, daily range): BP systolic 130–169; BP diastolic 63–82; PULSE 75–97; RESP 18–20
[2018-11-01] MEDS: CEFAZOLIN 2 GM/50 ML (PMX) 50 ML IVPB SCH ×3 (00:08→14:26)
[2018-11-01] MEDS: HYDROCODONE/APAP (5/325) TAB PO PRN (00:16)
[2018-11-01] MEDS: HYDROmorphONE 1 MG/ML SYG IV PRN ×3 (00:53→22:53)
[2018-11-01] MEDS: metFORMIN 500 MG TAB PO SCH (09:00)
[2018-11-01] MEDS: GABAPENTIN 100 MG CAP PO SCH ×3 (09:01→20:52)
[2018-11-01] MEDS: INSULIN ASPART [NOVOLOG] 3 ML PEN SC SCH ×7 (09:02→20:56)
[2018-11-01] MEDS: ACCU-CHEK XX SCH ×4 (09:02→21:00)
[2018-11-01] MEDS: METOPROLOL 50 MG TAB PO SCH ×2 (09:02→20:53)
[2018-11-01] MEDS: LINAGLIPTIN 5 MG TABLET PO SCH (09:02)
[2018-11-01] MEDS: INSULIN GLARGINE [LANTus] (100 UNITS/ML) SYG SC SCH (09:18)
--- NOTE | 2018-11-01 15:30 | PN ---
Date/Time of Note Date/Time of Note DATE: 11/01/18 TIME: 15:27 Assessment/Plan VTE Prophylaxis Risk score (from Nsg)>0 risk: 3 SCD applied (from Nsg): Yes SCD contraindicated: low risk/ambulating Pharmacological prophylaxis: NA/contraindicated Pharm contraindication: low risk/ambulating Lines/Catheters IV Catheter Type (from Nrsg): Saline Lock Central line still needed: No Urinary Cath still in place: No Reason Cath still needed: other (indicate) (pt refusing to dc foely cath. ) Assessment/Plan Assessment/Plan Impression s/p ALIF and posterior fixation camacho drain with scant drainage vasquez still in place Plan dc camacho drain dc home when medically stable dc vasquez cath - pt refusing to dc (pt advised about risk for UTI, still refusing to have vasquez removed today) Result Diagram: 10/31/18 0452 10/31/18 0452 Results 24hrs Laboratory Tests Test 10/31/18 17:26 10/31/18 20:48 11/01/18 08:57 11/01/18 11:49 Bedside Glucose 103 133 113 102 Subjective 24 Hr Interval Summary Free Text/Dictation Neurosurgery patient seen and examined ambulating well with pt/ot surgical site:CDI Exam/Review of Systems Exam Vitals Vital Signs Date Temp Pulse Resp B/P (MAP) Pulse Ox O2 O2 Flow FiO2 Time Delivery Rate 11/01/18 98.1 89 20 154/73 98 Room Air 15:02 (100) 10/29/18 2.0 12:00 Intake and Output 10/31/18 10/31/18 11/01/18 1515:00 23:00 07:00 IntakeIntake Total 1100 ml 400 ml OutputOutput Total 2200 ml 800 ml BalanceBalance -1100 ml -400 ml Neurological: other (MS: AAOX4 CN: pERRL M: fc x 4 , no new focal def. residual right toe numbness) Results Results 24hrs Laboratory Tests Test 10/31/18 17:26 10/31/18 20:48 11/01/18 08:57 11/01/18 11:49 Bedside Glucose 103 133 113 102 Medications Medication Current Medications Acetaminophen/ Hydrocodone Bitart ([place] (5/325)) 1 tab Q4H PRN PO .PAIN 1-5 Last administered on 11/01/18at 00:16; Admin Dose 1 TAB; Start 10/27/18 at 19:00 Al Hydrox/Mg Hydrox/Simethicone (Mag-Al Plus) 15 ml Q4H PRN PO .CONSTIPATION; Start 10/27/18 at 19:00 IV Flush (NS 3 ml) 3 ml PER PROTOCOL IV ; Start 10/27/18 at 19:00 Naloxone HCl (Narcan) 0.2 mg Q2M PRN IV RR 8 BREATHS/MIN OR LESS; Start 10/27/18 at 19:00 Cefazolin Sodium/ Dextrose 50 ml @ 100 mls/hr Q8 IVPB Last administered on 11/01/18 14:26; Admin Dose 100 MLS/HR; Start 10/27/18 at 22:00 Naloxone HCl (Narcan) 0.2 mg PRN PRN IV RR < 8; Start 10/27/18 at 21:30 Hydromorphone HCl (Dilaudid) 0.2 mg Q4H PRN IV PAIN LEVEL 1-5 Last administered on 10/28/18 18:33; Admin Dose 0.2 MG; Start 10/27/18 at 21:30 Hydromorphone HCl (Dilaudid) 0.4 mg Q4H PRN IV PAIN LEVEL 6-10 Last administered on 10/29/18 03:44; Admin Dose 0.4 MG; Start 10/27/18 at 21:30 Ondansetron HCl (Zofran Inj) 4 mg Q6H PRN IV NAUSEA AND/OR VOMITING Last administered on 10/30/18 18:57; Admin Dose 4 MG; Start 10/28/18 at 17:00 Metformin HCl (Glucophage) 1,000 mg WITH BREAKFAST PO Last administered on 11/01/18 09:00; Admin Dose 1,000 MG; Start 10/29/18 at 07:35 Linagliptin (Tradjenta) 5 mg DAILY PO Last administered on 11/01/18 09:02; Admin Dose 5 MG; Start 10/29/18 at 09:00 Diagnostic Test (Pha) (Accu-Chek) 1 ea AC MEALS AND BEDTIME XX Last administered on 10/31/18 20:49; Admin Dose 1 EA; Start 10/28/18 at 21:00 Insulin Aspart (Novolog Insulin Pen) NOVOLOG *MILD* ALGORITHM WITH MEALS BEDTIME SC Last administered on 10/31/18at 12:28; Admin Dose 2 UNIT; Start 10/28/18 at 21:00 Miscellaneous Information 1 ea NOTE XX ; Start 10/28/18 at 19:00 Glucose (Glutose) 15 gm Q15M PRN PO DECREASED GLUCOSE; Start 10/28/18 at 19:00 Glucose (Glutose) 22.5 gm Q15M PRN PO DECREASED GLUCOSE; Start 10/28/18 at 19:00 Dextrose (D50w Syringe) 25 ml Q15M PRN IV DECREASED GLUCOSE; Start 10/28/18 at 19:00 Dextrose (D50w Syringe) 50 ml Q15M PRN IV DECREASED GLUCOSE; Start 10/28/18 at 19:00 Glucagon (Glucagen) 1 mg Q15M PRN IM DECREASED GLUCOSE; Start 10/28/18 at 19:00 Glucose (Glutose) 15 gm Q15M PRN BUCCAL DECREASED GLUCOSE; Start 10/28/18 at 19:00 Metoprolol Tartrate (Lopressor) 5 mg Q4H PRN IV HR > 120 Last administered on 10/29/18at 11:25; Admin Dose 5 MG; Start 10/29/18 at 05:30 Hydromorphone HCl (Dilaudid) 1 mg Q4H PRN IV SEVERE PAIN LEVEL 7-10 Last admi nistered on 11/01/18at 05:12; Admin Dose 1 MG; Start 10/29/18 at 05:30 Insulin Aspart (Novolog Insulin Pen) 4 unit WITH MEALS SC Last administered on 11/01/18at 09:19; Admin Dose 4 UNIT; Start 10/29/18 at 17:35 Acetaminophen (Tylenol Tab) 650 mg Q6H PRN PO MILD PAIN(1-3)OR ELEVATED TEMP Last administered on 10/30/18at 23:31; Admin Dose 650 MG; Start 10/30/18 at 00:30 Senna (Senokot) 1 tab BID PRN PO CONSTIPATION; Start 10/30/18 at 00:30 Metoprolol Tartrate (Lopressor) 50 mg BID PO Last administered on 11/01/18at 09:02; Admin Dose 50 MG; Start 10/30/18 at 21:00 Insulin Glargine (Lantus) 19 units DAILY@0800 SC Last administered on 11/01/18 09:18; Admin Dose 19 UNITS; Start 10/31/18 at 09:30 Gabapentin (Neurontin) 100 mg TID PO Last administered on 11/01/18at 14:21; Admin Dose 100 MG; Start 10/31/18 at 21:00 PERRI HUTTON NP November 01, 2018 15:30
--- NOTE | 2018-11-01 15:46 | PN ---
Date/Time of Note Date/Time of Note DATE: 11/01/18 TIME: 15:45 Assessment/Plan VTE Prophylaxis Risk score (from Ns)>0 risk: 3 SCD applied (from Ns): Yes Pharmacological prophylaxis: NA/contraindicated Pharm contraindication: surgical contra Lines/Catheters IV Catheter Type (from Nrsg): Saline Lock Urinary Cath still in place: No Assessment/Plan Hospital Course Patient was able to get up and walk with physical therapy, continue current pain management. Patient continues to improve will DC Crum tomorrow. Assessment/Plan -Mechanical LBP and LE radiculopathy. S/p ALIF L3-S1 ON 09/27/18 and ISF L2-S1 and decompression on 09/28/[address] Goldsmith. Continue IV fluids and postoperative antibiotic. Tylenol and Dilaudid as needed for pain. -Tachycardia, pending 2D echo. Dr. Lane is following in cardiology consultation. -Diabetes mellitus type II continue Tradjenta, Lantus and NovoLog. -Obesity with BMI of 30.3. Further recommendations based on clinical course. Plan of care discussed with Dr. Parker. Result Diagram: 10/31/18 0452 10/31/18 0452 Results 24hrs Laboratory Tests Test 10/31/18 17:26 10/31/18 20:48 11/01/18 08:57 11/01/18 11:49 Bedside Glucose 103 133 113 102 Exam/Review of Systems Exam Vitals Vital Signs Date Temp Pulse Resp B/P (MAP) Pulse Ox O2 O2 Flow FiO2 Time Delivery Rate 11/01/18 98.1 89 20 154/73 98 Room Air 15:02 (100) 10/29/18 2.0 12:00 Intake and Output 10/31/18 10/31/18 11/01/18 1515:00 23:00 07:00 IntakeIntake Total 1100 ml 400 ml OutputOutput Total 2200 ml 800 ml BalanceBalance -1100 ml -400 ml Exam Constitutional: alert, oriented Respiratory: clear to auscultation Cardiovascular: regular rate and rhythm Gastrointestinal: soft, other (Status post surgery) Musculoskeletal: other (Status post lower back surgery, NEELAM drain) Extremities: normal pulses Neurological: nl mental status Skin: nl turgor Results Results 24hrs Laboratory Tests Test 10/31/18 17:26 10/31/18 20:48 11/01/18 08:57 11/01/18 11:49 Bedside Glucose 103 133 113 102 Medications Medication Current Medications Acetaminophen/ Hydrocodone Bitart ([place] (5/325)) 1 tab Q4H PRN PO .PAIN 1-5 Last administered on 11/01/18 00:16; Admin Dose 1 TAB; Start 10/27/18 at 19:00 Al Hydrox/Mg Hydrox/Simethicone (Mag-Al Plus) 15 ml Q4H PRN PO .CONSTIPATION; Start 10/27/18 at 19:00 IV Flush (NS 3 ml) 3 ml PER PROTOCOL IV ; Start 10/27/18 at 19:00 Naloxone HCl (Narcan) 0.2 mg Q2M PRN IV RR 8 BREATHS/MIN OR LESS; Start 10/27/18 at 19:00 Naloxone HCl (Narcan) 0.2 mg PRN PRN IV RR < 8; Start 10/27/18 at 21:30 Hydromorphone HCl (Dilaudid) 0.2 mg Q4H PRN IV PAIN LEVEL 1-5 Last administered on 10/28/18at 18:33; Admin Dose 0.2 MG; Start 10/27/18 at 21:30 Hydromorphone HCl (Dilaudid) 0.4 mg Q4H PRN IV PAIN LEVEL 6-10 Last administered on 10/29/18 03:44; Admin Dose 0.4 MG; Start 10/27/18 at 21:30 Ondansetron HCl (Zofran Inj) 4 mg Q6H PRN IV NAUSEA AND/OR VOMITING Last administered on 10/30/18 18:57; Admin Dose 4 MG; Start 10/28/18 at 17:00 Metformin HCl (Glucophage) 1,000 mg WITH BREAKFAST PO Last administered on 11/01/18 09:00; Admin Dose 1,000 MG; Start 10/29/18 at 07:35 Linagliptin (Tradjenta) 5 mg DAILY PO Last administered on 11/01/18 09:02; Admin Dose 5 MG; Start 10/29/18 at 09:00 Diagnostic Test (Pha) (Accu-Chek) 1 ea AC MEALS AND BEDTIME XX Last administered on 10/31/18 20:49; Admin Dose 1 EA; Start 10/28/18 at 21:00 Insulin Aspart (Novolog Insulin Pen) NOVOLOG *MILD* ALGORITHM WITH MEALS BEDTIME SC Last administered on 10/31/18at 12:28; Admin Dose 2 UNIT; Start 10/28/18 at 21:00 Miscellaneous Information 1 ea NOTE XX ; Start 10/28/18 at 19:00 Glucose (Glutose) 15 gm Q15M PRN PO DECREASED GLUCOSE; Start 10/28/18 at 19:00 Glucose (Glutose) 22.5 gm Q15M PRN PO DECREASED GLUCOSE; Start 10/28/18 at 19:00 Dextrose (D50w Syringe) 25 ml Q15M PRN IV DECREASED GLUCOSE; Start 10/28/18 at 19:00 Dextrose (D50w Syringe) 50 ml Q15M PRN IV DECREASED GLUCOSE; Start 10/28/18 at 19:00 Glucagon (Glucagen) 1 mg Q15M PRN IM DECREASED GLUCOSE; Start 10/28/18 at 19:00 Glucose (Glutose) 15 gm Q15M PRN BUCCAL DECREASED GLUCOSE; Start 10/28/18 at 19:00 Metoprolol Tartrate (Lopressor) 5 mg Q4H PRN IV HR > 120 Last administered on 10/29/18at 11:25; Admin Dose 5 MG; Start 10/29/18 at 05:30 Hydromorphone HCl (Dilaudid) 1 mg Q4H PRN IV SEVERE PAIN LEVEL 7-10 Last administered on 11/01/18at 05:12; Admin Dose 1 MG; Start 10/29/18 at 05:30 Insulin Aspart (Novolog Insulin Pen) 4 unit WITH MEALS SC Last administered on 11/01/18at 09:19; Admin Dose 4 UNIT; Start 10/29/18 at 17:35 Acetaminophen (Tylenol Tab) 650 mg Q6H PRN PO MILD PAIN(1-3)OR ELEVATED TEMP Last administered on 10/30/18at 23:31; Admin Dose 650 MG; Start 10/30/18 at 00:30 Senna (Senokot) 1 tab BID PRN PO CONSTIPATION; Start 10/30/18 at 00:30 Metoprolol Tartrate (Lopressor) 50 mg BID PO Last administered on 11/01/18at 09:02; Admin Dose 50 MG; Start 10/30/18 at 21:00 Insulin Glargine (Lantus) 19 units DAILY@0800 SC Last administered on 11/01/18at 09:18; Admin Dose 19 UNITS; Start 10/31/18 at 09:30 Gabapentin (Neurontin) 100 mg TID PO Last administered on 11/01/18at 14:21; Ad min Dose 100 MG; Start 10/31/18 at 21:00 FERCHO PADILLA November 01, 2018 15:46
[2018-11-01] MEDS: HYDROmorphONE 0.5 MG/0.5 ML SYG IV PRN (16:51)
--- NOTE | 2018-11-01 17:55 | CONS ---
Assessment/Plan Assessment/Plan Hospital Course (Demo Recall) IMPRESSION: 1. Tachycardia at this time consistent with sinus tachycardia by telemetry monitoring in the ICU question due to pain, anxiety or any other possible issues such as thromboembolism in a postoperative patient-overall improved-NL EF by echo this admit 2. Shortness of breath. Rule out pulmonary embolism, question due to pain. 3. Hypertension, under reasonable control with intermittent episodes of hypotension-likely related to [pain 4. Diabetes mellitus. 5. Postop day #3 status post spinal fusion L3 to S1. 6. Anemia, mild. 7. Leukocytosis, mild. Recc: -Now on tele -Continue BB to improve HR control -Consider ACEI to improve BP control Consultation Date/Type/Reason Admit Date/Time October 27, 2018 at 13:19 Initial Consult Date 10/29/18 Type of Consult Cardiology Reason for Consultation tachycardia Requesting Provider: AIDA GREENE MD Date/Time of Note DATE: 11/01/18 TIME: 17:53 Exam/Review of Systems Vital Signs Vitals Vital Signs Date Temp Pulse Resp B/P (MAP) Pulse Ox O2 O2 Flow FiO2 Time Delivery Rate 11/01/18 86 16:18 11/01/18 98.1 20 154/73 98 Room Air 15:02 (100) 10/29/18 2.0 12:00 Intake and Output 10/31/18 10/31/18 11/01/18 1515:00 23:00 07:00 IntakeIntake Total 1100 ml 400 ml OutputOutput Total 2200 ml 800 ml BalanceBalance -1100 ml -400 ml Exam Exam Review of Systems: CONSTITUTIONAL: No fevers, chills. PULMONARY: No sob CARDIOVASCULAR: No chest pain/palpitations GASTROINTESTINAL: No nausea/vomiting. GENITOURINARY: No hematuria/dysuria. MUSCULOSKELETAL: pain in back PSYCHIATRIC: The patient denies depression. NEUROLOGIC: No weakness Constitutional: alert Psych: no complaints Head: normocephalic ENMT: mucosa pink and moist Neck: supple, jvd (9 cm water) Respiratory: clear to auscultation Cardiovascular: regular rate and rhythm Gastrointestinal: soft, non-tender Musculoskeletal: muscle tone (normal) Extremities: edema (none) Neurological: other (NO focal deficits) Labs Result Diagram: 10/31/18 0452 10/31/18 0452 Results 24hrs Laboratory Tests Test 10/31/18 20:48 11/01/18 08:57 11/01/18 11:49 Bedside Glucose 133 113 102 Medications Medications Current Medications Acetaminophen/ Hydrocodone Bitart ([place] (5/325)) 1 tab Q4H PRN PO .PAIN 1-5 Last administered on 11/01/18 00:16; Admin Dose 1 TAB; Start 10/27/18 at 19:00 Al Hydrox/Mg Hydrox/Simethicone (Mag-Al Plus) 15 ml Q4H PRN PO .CONSTIPATION; Start 10/27/18 at 19:00 IV Flush (NS 3 ml) 3 ml PER PROTOCOL IV ; Start 10/27/18 at 19:00 Naloxone HCl (Narcan) 0.2 mg Q2M PRN IV RR 8 BREATHS/MIN OR LESS; Start at 19:00 Naloxone HCl (Narcan) 0.2 mg PRN PRN IV RR < 8; Start 10/27/18 at 21:30 Hydromorphone HCl (Dilaudid) 0.2 mg Q4H PRN IV PAIN LEVEL 1-5 Last administered on 10/28/18 18:33; Admin Dose 0.2 MG; Start 10/27/18 at 21:30 Hydromorphone HCl (Dilaudid) 0.4 mg Q4H PRN IV PAIN LEVEL 6-10 Last ad ministered on 11/01/18 16:51; Admin Dose 0.4 MG; Start 10/27/18 at 21:30 Ondansetron HCl (Zofran Inj) 4 mg Q6H PRN IV NAUSEA AND/OR VOMITING Last administered on 10/30/18 18:57; Admin Dose 4 MG; Start 10/28/18 at 17:00 Metformin HCl (Glucophage) 1,000 mg WITH BREAKFAST PO Last administered on 09:00; Admin Dose 1,000 MG; Start 10/29/18 at 07:35 Linagliptin (Tradjenta) 5 mg DAILY PO Last administered on 11/01/18 09:02; Admin Dose 5 MG; Start 10/29/18 at 09:00 Diagnostic Test (Pha) (Accu-Chek) 1 ea AC MEALS AND BEDTIME XX Last administered on 10/31/18 20:49; Admin Dose 1 EA; Start 10/28/18 at 21:00 Insulin Aspart (Novolog Insulin Pen) NOVOLOG *MILD* ALGORITHM WITH MEALS BED TIME SC Last administered on 10/31/18at 12:28; Admin Dose 2 UNIT; Start 10/28/18 at 21:00 Miscellaneous Information 1 ea NOTE XX ; Start 10/28/18 at 19:00 Glucose (Glutose) 15 gm Q15M PRN PO DECREASED GLUCOSE; Start 10/28/18 at 19:00 Glucose (Glutose) 22.5 gm Q15M PRN PO DECREASED GLUCOSE; Start 10/28/18 at 19:00 Dextrose (D50w Syringe) 25 ml Q15M PRN IV DECREASED GLUCOSE; Start 10/28/18 at 19:00 Dextrose (D50w Syringe) 50 ml Q15M PRN IV DECREASED GLUCOSE; Start 10/28/18 at 19:00 Glucagon (Glucagen) 1 mg Q15M PRN IM DECREASED GLUCOSE; Start 10/28/18 at 19:00 Glucose (Glutose) 15 gm Q15M PRN BUCCAL DECREASED GLUCOSE; Start 10/28/18 at 19:00 Metoprolol Tartrate (Lopressor) 5 mg Q4H PRN IV HR > 120 Last administered on 10/29/18at 11:25; Admin Dose 5 MG; Start 10/29/18 at 05:30 Hydromorphone HCl (Dilaudid) 1 mg Q4H PRN IV SEVERE PAIN LEVEL 7-10 Last administered on 11/01/18at 05:12; Admin Dose 1 MG; Start 10/29/18 at 05:30 Insulin Aspart (Novolog Insulin Pen) 4 unit WITH MEALS SC Last administered on 11/01/18at 09:19; Admin Dose 4 UNIT; Start 10/29/18 at 17:35 Acetaminophen (Tylenol Tab) 650 mg Q6H PRN PO MILD PAIN(1-3)OR ELEVATED TEMP Last administered on 10/30/18at 23:31; Admin Dose 650 MG; Start 10/30/18 at 00:30 Senna (Senokot) 1 tab BID PRN PO CONSTIPATION; Start 10/30/18 at 00:30 Metoprolol Tartrate (Lopressor) 50 mg BID PO Last administered on 11/01/18at 09:02; Admin Dose 50 MG; Start 5/27/19 at 21:00 Insulin Glargine (Lantus) 19 units DAILY@0800 SC Last administered on 11/01/18at 09:18; Admin Dose 19 UNITS; Start 10/31/18 at 09:30 Gabapentin (Neurontin) 100 mg TID PO Last administered on 11/01/18at 14:21; Admin Dose 100 MG; Start 10/31/18 at 21:00 VESNA GALLAGHER November 01, 2018 17:55
[2018-11-01] MEDS: BENAZEPRIL 10 MG TAB PO SCH (20:52)
[2018-11-02] VITALS (13 sets, daily range): BP systolic 121–166; BP diastolic 60–81; PULSE 79–94; RESP 16–18
[2018-11-02] MEDS: HYDROmorphONE 1 MG/ML SYG IV PRN ×3 (02:51→22:04)
[2018-11-02] MEDS: ACCU-CHEK XX SCH ×4 (07:00→20:25)
--- NOTE | 2018-11-02 07:41 | PN ---
Date/Time of Note Date/Time of Note DATE: 11/02/18 TIME: 07:41 Assessment/Plan VTE Prophylaxis Risk score (from Nsg)>0 risk: 4 SCD applied (from Ns): Yes SCD contraindicated: low risk/ambulating Pharmacological prophylaxis: NA/contraindicated Pharm contraindication: low risk/ambulating Lines/Catheters IV Catheter Type (from Nrsg): Saline Lock Central line still needed: No Urinary Cath still in place: No Assessment/Plan Assessment/Plan impression s/p anterior /posterior lspine fusion post op images stable left toe numbness stable plan pain management rehab eval neurontin 300mg po tid pt/ot Result Diagram: 10/31/1845110/31/18451 Results 24hrs Laboratory Tests Test 11/01/18 08:57 11/01/18 11:49 11/01/18 17:53 11/01/18 17:54 Bedside Glucose 113 102 143 Uric Acid 2.5 L Test 11/01/18 20:55 11/02/18 07:26 Bedside Glucose 173 160 Subjective 24 Hr Interval Summary Free Text/Dictation Neurosurgery S: has some residual left toe numbness no weakness noted surgical site:CDI Exam/Review of Systems Exam Vitals Vital Signs Date Temp Pulse Resp B/P (MAP) Pulse Ox O2 O2 Flow FiO2 Time Delivery Rate 11/02/18 98.3 84 18 138/65 97 Room Air 07:23 (89) 10/29/18 2.0 12:00 Intake and Output 11/01/18 11/01/18 11/02/18 1515:00 23:00 07:00 IntakeIntake Total 530 ml 600 ml OutputOutput Total 3600 ml 1500 ml BalanceBalance -3070 ml -900 ml Neurological: other (MS: AAOX4 CN:PERRL M: FC x 4 , no focal def. residual left toe numbness) Results Results 24hrs Laboratory Tests Test 11/01/18 08:57 11/01/18 11:49 11/01/18 17:53 11/01/18 17:54 Bedside Glucose 113 102 143 Uric Acid 2.5 L Test 11/01/18 20:55 11/02/18 07:26 Bedside Glucose 173 160 Medications Medication Current Medications Acetaminophen/ Hydrocodone Bitart ([place] (5/325)) 1 tab Q4H PRN PO .PAIN 1-5 Last administered on 11/01/18 00:16; Admin Dose 1 TAB; Start 10/27/18 at 19:00 Al Hydrox/Mg Hydrox/Simethicone (Mag-Al Plus) 15 ml Q4H PRN PO .CONSTIPATION; Start 10/27/18 at 19:00 IV Flush (NS 3 ml) 3 ml PER PROTOCOL IV ; Start 10/27/18 at 19:00 Naloxone HCl (Narcan) 0.2 mg Q2M PRN IV RR 8 BREATHS/MIN OR LESS; Start 10/27/18 at 19:00 Naloxone HCl (Narcan) 0.2 mg PRN PRN IV RR < 8; Start 10/27/18 at 21:30 Hydromorphone HCl (Dilaudid) 0.2 mg Q4H PRN IV PAIN LEVEL 1-5 Last administered on 10/28/18 18:33; Admin Dose 0.2 MG; Start 10/27/18 at 21:30 Hydromorphone HCl (Dilaudid) 0.4 mg Q4H PRN IV PAIN LEVEL 6-10 Last administered on 11/01/18 16:51; Admin Dose 0.4 MG; Start 10/27/18 at 21:30 Ondansetron HCl (Zofran Inj) 4 mg Q6H PRN IV NAUSEA AND/OR VOMITING Last administered on 10/30/18 18:57; Admin Dose 4 MG; Start 10/28/18 at 17:00 Metformin HCl (Glucophage) 1,000 mg WITH BREAKFAST PO Last administered on 11/01/18 09:00; Admin Dose 1,000 MG; Start 10/29/18 at 07:35 Linagliptin (Tradjenta) 5 mg DAILY PO Last administered on 11/01/18 09:02; Admin Dose 5 MG; Start 10/29/18 at 09:00 Diagnostic Test (Pha) (Accu-Chek) 1 ea AC MEALS AND BEDTIME XX Last administered on 11/01/18 21:00; Admin Dose 1 EA; Start 10/28/18 at 21:00 Insulin Aspart (Novolog Insulin Pen) NOVOLOG *MILD* ALGORITHM WITH MEALS BEDTIME SC Last administered on 10/31/18 12:28; Admin Dose 2 UNIT; Start 10/28/18 at 21:00 Miscellaneous Information 1 ea NOTE XX ; Start 10/28/18 at 19:00 Glucose (Glutose) 15 gm Q15M PRN PO DECREASED GLUCOSE; Start 10/28/18 at 19:00 Glucose (Glutose) 22.5 gm Q15M PRN PO DECREASED GLUCOSE; Start 10/28/18 at 19:00 Dextrose (D50w Syringe) 25 ml Q15M PRN IV DECREASED GLUCOSE; Start 10/28/18 at 19:00 Dextrose (D50w Syringe) 50 ml Q15M PRN IV DECREASED GLUCOSE; Start 10/28/18 at 19:00 Glucagon (Glucagen) 1 mg Q15M PRN IM DECREASED GLUCOSE; Start 10/28/18 at 19:00 Glucose (Glutose) 15 gm Q15M PRN BUCCAL DECREASED GLUCOSE; Start 10/28/18 at 19:00 Metoprolol Tartrate (Lopressor) 5 mg Q4H PRN IV HR > 120 Last administered on 10/29/18at 11:25; Admin Dose 5 MG; Start 10/29/18 at 05:30 Hydromorphone HCl (Dilaudid) 1 mg Q4H PRN IV SEVERE PAIN LEVEL 7-10 Last administered on 11/02/18at 07:01; Admin Dose 1 MG; Start 10/29/18 at 05:30 Insulin Aspart (Novolog Insulin Pen) 4 unit WITH MEALS SC Last administered on 11/01/18 09:19; Admin Dose 4 UNIT; Start 10/29/18 at 17:35 Acetaminophen (Tylenol Tab) 650 mg Q6H PRN PO MILD PAIN(1-3)OR ELEVATED TEMP Last administered on 10/30/18at 23:31; Admin Dose 650 MG; Start 10/30/18 at 00:30 Senna (Senokot) 1 tab BID PRN PO CONSTIPATION; Start 10/30/18 at 00:30 Metoprolol Tartrate (Lopressor) 50 mg BID PO Last administered on 11/01/18at 20:53; Admin Dose 50 MG; Start 10/30/18 at 21:00 Insulin Glargine (Lantus) 19 units DAILY@0800 SC Last administered on 11/01/18 09:18; Admin Dose 19 UNITS; Start 10/31/18 at 09:30 Gabapentin (Neurontin) 100 mg TID PO Last administered on 11/01/18at 20:52; Admin Dose 100 MG; Start 10/31/18 at 21:00 Benazepril HCl (Lotensin) 10 mg BID PO Last administered on 11/01/18at 20:52; Admin Dose 10 MG; Start 11/01/18 at 21:00 KARMA DRAPER MD November 02, 2018 07:41
[2018-11-02] MEDS: INSULIN ASPART [NOVOLOG] 3 ML PEN SC SCH ×7 (07:47→20:25)
[2018-11-02] MEDS: LINAGLIPTIN 5 MG TABLET PO SCH (07:48)
[2018-11-02] MEDS: metFORMIN 500 MG TAB PO SCH (07:48)
[2018-11-02] MEDS: METOPROLOL 50 MG TAB PO SCH ×2 (07:49→21:05)
[2018-11-02] MEDS: GABAPENTIN 100 MG CAP PO SCH (07:49)
[2018-11-02] MEDS: INSULIN GLARGINE [LANTus] (100 UNITS/ML) SYG SC SCH (07:52)
[2018-11-02] MEDS: BENAZEPRIL 10 MG TAB PO SCH ×2 (11:00→21:04)
[2018-11-02] MEDS: HYDROmorphONE 0.5 MG/0.5 ML SYG IV PRN ×2 (11:00→13:47)
--- NOTE | 2018-11-02 11:58 | CONS ---
Assessment/Plan Assessment/Plan Hospital Course (Demo Recall) IMPRESSION: 1. Tachycardia at this time consistent with sinus tachycardia by telemetry monitoring in the ICU question due to pain, anxiety or any other possible issues such as thromboembolism in a postoperative patient-overall improved-NL EF by echo this admit 2. Shortness of breath. Rule out pulmonary embolism, question due to pain. 3. Hypertension, under reasonable control with intermittent episodes of hypotension-likely related to [pain 4. Diabetes mellitus. 5. Postop day #3 status post spinal fusion L3 to S1. 6. Anemia, mild. 7. Leukocytosis, mild. Recc: -Now on tele -Continue BB to improve HR control -Consider ACEI to improve BP control -pain control -follow BS clsoely Consultation Date/Type/Reason Admit Date/Time October 27, 2018 at 13:19 Initial Consult Date 10/29/18 Type of Consult Cardiology Reason for Consultation tachycardia Requesting Provider: AIDA GREENE MD Date/Time of Note DATE: 11/02/18 TIME: 11:55 Exam/Review of Systems Vital Signs Vitals Vital Signs Date Temp Pulse Resp B/P (MAP) Pulse Ox O2 O2 Flow FiO2 Time Delivery Rate 11/02/18 98.0 79 16 166/81 98 11:44 (109) 11/02/18 Room Air 07:23 10/29/18 2.0 12:00 Intake and Output 11/01/18 11/01/18 11/02/18 1515:00 23:00 07:00 IntakeIntake Total 530 ml 600 ml OutputOutput Total 3600 ml 1500 ml BalanceBalance -3070 ml -900 ml Exam Exam Review of Systems: CONSTITUTIONAL: No fevers, chills. PULMONARY: No sob CARDIOVASCULAR: No chest pain/palpitations GASTROINTESTINAL: No nausea/vomiting. GENITOURINARY: No hematuria/dysuria. MUSCULOSKELETAL: No myagias/arthalgias. PSYCHIATRIC: The patient denies depression. NEUROLOGIC: No weakness Constitutional: alert, oriented Psych: no complaints Head: normocephalic ENMT: mucosa pink and moist Neck: supple, jvd (9 cm water) Respiratory: diminished breath sounds (at bases/B) Cardiovascular: regular rate and rhythm Gastrointestinal: soft, non-tender Musculoskeletal: muscle tone (normal) Extremities: edema (none) Neurological: other (No focal deficits) Labs Result Diagram: 10/31/18 0452 10/31/18 0452 Results 24hrs Laboratory Tests Test 11/01/18 17:53 11/01/18 17:54 11/01/18 20:55 11/02/18 07:26 Bedside Glucose 143 173 160 Uric Acid 2.5 L Test 11/02/18 10:53 Bedside Glucose 123 Medications Medications Current Medications Acetaminophen/ Hydrocodone Bitart ([place] (5/325)) 1 tab Q4H PRN PO .PAIN 1-5 Last administered on 11/01/18 00:16; Admin Dose 1 TAB; Start 10/27/18 at 19:00 Al Hydrox/Mg Hydrox/Simethicone (Mag-Al Plus) 15 ml Q4H PRN PO .CONSTIPATION; Start 10/27/18 at 19:00 IV Flush (NS 3 ml) 3 ml PER PROTOCOL IV ; Start 10/27/18 at 19:00 Naloxone HCl (Narcan) 0.2 mg PRN PRN IV RR < 8; Start 10/27/18 at 21:30 Hydromorphone HCl (Dilaudid) 0.2 mg Q4H PRN IV PAIN LEVEL 1-5 Last administered on 11/02/18 11:00; Admin Dose 0.2 MG; Start 10/27/18 at 21:30 Hydromorphone HCl (Dilaudid) 0.4 mg Q4H PRN IV PAIN LEVEL 6-10 Last administered on 11/01/18 16:51; Admin Dose 0.4 MG; Start 10/27/18 at 21:30 Ondansetron HCl (Zofran Inj) 4 mg Q6H PRN IV NAUSEA AND/OR VOMITING Last administered on 10/30/18 18:57; Admin Dose 4 MG; Start 10/28/18 at 17:00 Metformin HCl (Glucophage) 1,000 mg WITH BREAKFAST PO Last administered on 11/02/18 07:48; Admin Dose 1,000 MG; Start 10/29/18 at 07:35 Linagliptin (Tradjenta) 5 mg DAILY PO Last administered on 11/02/18 07:48; Admin Dose 5 MG; Start 10/29/18 at 09:00 Diagnostic Test (Pha) (Accu-Chek) 1 ea AC MEALS AND BEDTIME XX Last administered on 11/02/18 10:54; Admin Dose 1 EA; Start 10/28/18 at 21:00 Insulin Aspart (Novolog Insulin Pen) NOVOLOG *MILD* ALGORITHM WITH MEALS BEDTIME SC Last administered on 10/31/18 12:28; Admin Dose 2 UNIT; Start 10/28/18 at 21:00 Miscellaneous Information 1 ea NOTE XX ; Start 10/28/18 at 19:00 Glucose (Glutose) 15 gm Q15M PRN PO DECREASED GLUCOSE; Start 10/28/18 at 19:00 Glucose (Glutose) 22.5 gm Q15M PRN PO DECREASED GLUCOSE; Start 10/28/18 at 19:00 Dextrose (D50w Syringe) 25 ml Q15M PRN IV DECREASED GLUCOSE; Start 10/28/18 at 19:00 Dextrose (D50w Syringe) 50 ml Q15M PRN IV DECREASED GLUCOSE; Start 10/28/18 at 19:00 Glucagon (Glucagen) 1 mg Q15M PRN IM DECREASED GLUCOSE; Start 10/28/18 at 19:00 Glucose (Glutose) 15 gm Q15M PRN BUCCAL DECREASED GLUCOSE; Start 10/28/18 at 19:00 Metoprolol Tartrate (Lopressor) 5 mg Q4H PRN IV HR > 120 Last administered on 10/29/18 11:25; Admin Dose 5 MG; Start 10/29/18 at 05:30 Hydromorphone HCl (Dilaudid) 1 mg Q4H PRN IV SEVERE PAIN LEVEL 7-10 Last administered on 11/02/18 07:01; Admin Dose 1 MG; Start 10/29/18 at 05:30 Insulin Aspart (Novolog Insulin Pen) 4 unit WITH MEALS SC Last administered on 11/01/18 09:19; Admin Dose 4 UNIT; Start 10/29/18 at 17:35 Acetaminophen (Tylenol Tab) 650 mg Q6H PRN PO MILD PAIN(1-3)OR ELEVATED TEMP Last administered on 10/30/18 23:31; Admin Dose 650 MG; Start 10/30/18 at 00:30 Senna (Senokot) 1 tab BID PRN PO CONSTIPATION Last administered on 11/02/18 07:49; Admin Dose 1 TAB; Start 10/30/18 at 00:30 Metoprolol Tartrate (Lopressor) 50 mg BID PO Last administered on 11/02/18at 07:49; Admin Dose 50 MG; Start 10/30/18 at 21:00 Insulin Glargine (Lantus) 19 units DAILY@0800 SC Last administered on 11/02/18at 07:52; Admin Dose 19 UNITS; Start 10/31/18 at 09:30 Benazepril HCl (Lotensin) 10 mg BID PO Last administered on 11/02/18at 11:00; Admin Dose 10 MG; Start 11/01/18 at 21:00 Gabapentin (Neurontin) 300 mg TID PO ; Start 11/02/18 at 13:00 Hydromorphone HCl (Dilaudid STORAGE MANAGER) MG/HR CONTINUOUS RATE ... Q4PCA IV ; Start 11/02/18 at 10:00 VESNA GALLAGHER November 02, 2018 11:58
[2018-11-02] MEDS: GABAPENTIN 300 MG CAP PO SCH ×2 (13:47→21:04)
--- NOTE | 2018-11-02 14:07 | PN ---
Date/Time of Note Date/Time of Note DATE: 11/02/18 TIME: 13:46 Assessment/Plan VTE Prophylaxis Risk score (from Ns)>0 risk: 3 SCD applied (from Ns): Yes Pharmacological prophylaxis: NA/contraindicated Pharm contraindication: surgical contra Lines/Catheters IV Catheter Type (from Nrsg): Saline Lock Urinary Cath still in place: Yes Reason Cath still needed: urinary retention Assessment/Plan Hospital Course Patient remains hemodynamically stable, in sinus rhythm we will transfer to medical surgical floor. Surgical drain is discontinued. Patient refusing to DC Crum catheter due pain with getting out of bed. Continue current pain man agement, physical therapy, evaluation for acute rehab is pending. Assessment/Plan -Mechanical LBP and LE radiculopathy. S/p ALIF L3-S1 ON 09/27/18 and ISF L2-S1 and decompression on 09/28/[address] Goldsmith. Continue IV fluids and postoperative antibiotic. Tylenol and Dilaudid as needed for pain. -Tachycardia, 2D echo with preserved EF. Dr. Lane is following in cardiology consultation. -Diabetes mellitus type II continue Tradjenta, Lantus and NovoLog. -Obesity with BMI of 30.3. Further recommendations based on clinical course. Plan of care discussed with Dr. Parker. Result Diagram: 10/31/18 0452 10/31/18 0452 Results 24hrs Laboratory Tests Test 11/01/18 17:53 11/01/18 17:54 11/01/18 20:55 11/02/18 07:26 Bedside Glucose 143 173 160 Uric Acid 2.5 L Test 11/02/18 10:53 Bedside Glucose 123 Exam/Review of Systems Exam Vitals Vital Signs Date Temp Pulse Resp B/P (MAP) Pulse Ox O2 O2 Flow FiO2 Time Delivery Rate 11/02/18 92 12:28 11/02/18 98.0 16 166/81 98 11:44 (109) 11/02/18 Room Air 07:23 10/29/18 2.0 12:00 Intake and Output 11/01/18 11/01/18 11/02/18 1515:00 23:00 07:00 IntakeIntake Total 530 ml 600 ml OutputOutput Total 3600 ml 1500 ml BalanceBalance -3070 ml -900 ml Exam Constitutional: alert, oriented Respiratory: clear to auscultation Cardiovascular: regular rate and rhythm Gastrointestinal: soft, other (Status post surgery) Musculoskeletal: other (Status post lower back surgery, NEELAM drain) Extremities: normal pulses Neurological: nl mental status Skin: nl turgor Results Results 24hrs Laboratory Tests Test 11/01/18 17:53 11/01/18 17:54 11/01/18 20:55 11/02/18 07:26 Bedside Glucose 143 173 160 Uric Acid 2.5 L Test 11/02/18 10:53 Bedside Glucose 123 Medications Medication Current Medications Acetaminophen/ Hydrocodone Bitart ([place] (5/325)) 1 tab Q4H PRN PO .PAIN 1-5 Last administered on 11/01/18 00:16; Admin Dose 1 TAB; Start 10/27/18 at 19:00 Al Hydrox/Mg Hydrox/Simethicone (Mag-Al Plus) 15 ml Q4H PRN PO .CONSTIPATION; Start 10/27/18 at 19:00 IV Flush (NS 3 ml) 3 ml PER PROTOCOL IV ; Start 10/27/18 at 19:00 Naloxone HCl (Narcan) 0.2 mg PRN PRN IV RR < 8; Start 10/27/18 at 21:30 Hydromorphone HCl (Dilaudid) 0.2 mg Q4H PRN IV PAIN LEVEL 1-5 Last administered on 11/02/18 11:00; Admin Dose 0.2 MG; Start 10/27/18 at 21:30 Hydromorphone HCl (Dilaudid) 0.4 mg Q4H PRN IV PAIN LEVEL 6-10 Last administered on 11/01/18at 16:51; Admin Dose 0.4 MG; Start 10/27/18 at 21:30 Ondansetron HCl (Zofran Inj) 4 mg Q6H PRN IV NAUSEA AND/OR VOMITING Last administered on 10/30/18 18:57; Admin Dose 4 MG; Start 10/28/18 at 17:00 Metformin HCl (Glucophage) 1,000 mg WITH BREAKFAST PO Last administered on 11/02/18 07:48; Admin Dose 1,000 MG; Start 10/29/18 at 07:35 Linagliptin (Tradjenta) 5 mg DAILY PO Last administered on 11/02/18 07:48; Admin Dose 5 MG; Start 10/29/18 at 09:00 Diagnostic Test (Pha) (Accu-Chek) 1 ea AC MEALS AND BEDTIME XX Last administered on 11/02/18 10:54; Admin Dose 1 EA; Start 10/28/18 at 21:00 Insulin Aspart (Novolog Insulin Pen) NOVOLOG *MILD* ALGORITHM WITH MEALS BEDTIME SC Last administered on 10/31/18 12:28; Admin Dose 2 UNIT; Start 10/28/18 at 21:00 Miscellaneous Information 1 ea NOTE XX ; Start 10/28/18 at 19:00 Glucose (Glutose) 15 gm Q15M PRN PO DECREASED GLUCOSE; Start 10/28/18 at 19:00 Glucose (Glutose) 22.5 gm Q15M PRN PO DECREASED GLUCOSE; Start 10/28/18 at 19:00 Dextrose (D50w Syringe) 25 ml Q15M PRN IV DECREASED GLUCOSE; Start 10/28/18 at 19:00 Dextrose (D50w Syringe) 50 ml Q15M PRN IV DECREASED GLUCOSE; Start 10/28/18 at 19:00 Glucagon (Glucagen) 1 mg Q15M PRN IM DECREASED GLUCOSE; Start 10/28/18 at 19:00 Glucose (Glutose) 15 gm Q15M PRN BUCCAL DECREASED GLUCOSE; Start 10/28/18 at 19:00 Metoprolol Tartrate (Lopressor) 5 mg Q4H PRN IV HR > 120 Last administered on 10/29/18 11:25; Admin Dose 5 MG; Start 10/29/18 at 05:30 Hydromorphone HCl (Dilaudid) 1 mg Q4H PRN IV SEVERE PAIN LEVEL 7-10 Last administered on 11/02/18 07:01; Admin Dose 1 MG; Start 10/29/18 at 05:30 Insulin Aspart (Novolog Insulin Pen) 4 unit WITH MEALS SC Last administered on 11/01/18 09:19; Admin Dose 4 UNIT; Start 10/29/18 at 17:35 Acetaminophen (Tylenol Tab) 650 mg Q6H PRN PO MILD PAIN(1-3)OR ELEVATED TEMP Last administered on 10/30/18 23:31; Admin Dose 650 MG; Start 10/30/18 at 00:30 Senna (Senokot) 1 tab BID PRN PO CONSTIPATION Last administered on 5/30/19at 07 :49; Admin Dose 1 TAB; Start 10/30/18 at 00:30 Metoprolol Tartrate (Lopressor) 50 mg BID PO Last administered on 11/02/18at 07:49; Admin Dose 50 MG; Start 10/30/18 at 21:00 Insulin Glargine (Lantus) 19 units DAILY@0800 SC Last administered on 11/02/18at 07:52; Admin Dose 19 UNITS; Start 10/31/18 at 09:30 Benazepril HCl (Lotensin) 10 mg BID PO Last administered on 11/02/18at 11:00; Admin Dose 10 MG; Start 11/01/18 at 21:00 Gabapentin (Neurontin) 300 mg TID PO ; Start 11/02/18 at 13:00 Hydromorphone HCl (Dilaudid MANUFACTURING LABORER) MG/HR CONTINUOUS RATE ... Q4PCA IV ; Start 11/02/18 at 10:00 FERCHO PADILLA November 02, 2018 13:56
[2018-11-02] MEDS: HYDROCODONE/APAP (5/325) TAB PO PRN (17:48)
[2018-11-02] MEDS: HYDROmorphONE 0.2 MG/ML PCA IV SCH (22:31)
[2018-11-03 00:35] VITALS: BP 146/73; PULSE 78; RESP 18
[2018-11-03] MEDS: HYDROmorphONE 0.2 MG/ML PCA IV SCH (06:07)
[2018-11-03 08:26] VITALS: BP 147/70; PULSE 90; RESP 18
[2018-11-03] MEDS: ONDANSETRON 4 MG INJ IV PRN (08:45)
[2018-11-03] MEDS: BENAZEPRIL 10 MG TAB PO SCH (08:46)
[2018-11-03] MEDS: GABAPENTIN 300 MG CAP PO SCH ×2 (08:46→13:22)
[2018-11-03] MEDS: METOPROLOL 50 MG TAB PO SCH (08:49)
[2018-11-03] MEDS: LINAGLIPTIN 5 MG TABLET PO SCH (08:49)
[2018-11-03] MEDS: metFORMIN 500 MG TAB PO SCH (08:49)
[2018-11-03] MEDS: ACCU-CHEK XX SCH ×2 (08:50→12:50)
[2018-11-03] MEDS: INSULIN GLARGINE [LANTus] (100 UNITS/ML) SYG SC SCH (09:44)
[2018-11-03] MEDS: INSULIN ASPART [NOVOLOG] 3 ML PEN SC SCH ×4 (09:45→13:22)
[2018-11-03] MEDS ORDERED: DIPHENHYDRAMINE 25 MG CAP PO PRN (10:30)
--- NOTE | 2018-11-03 11:59 | PN ---
Date/Time of Note Date/Time of Note DATE: 11/03/18 TIME: 11:59 Assessment/Plan VTE Prophylaxis Risk score (from Nsg)>0 risk: 8 SCD applied (from Nsg): Yes Lines/Catheters IV Catheter Type (from Nrsg): Peripheral IV Urinary Cath still in place: Yes Assessment/Plan Result Diagram: 10/31/18 0452 10/31/18 0452 Results 24hrs Laboratory Tests Test 11/02/18 17:47 11/02/18 20:15 11/03/18 08:48 Bedside Glucose 87 84 150 Exam/Review of Systems Exam Vitals Vital Signs Date Temp Pulse Resp B/P (MAP) Pulse Ox O2 O2 Flow FiO2 Time Delivery Rate 11/03/18 09:00 11/03/18 98.2 90 147/70 96 Room Air 08:26 (95) Intake and Output 11/02/18 11/02/18 11/03/18 1515:00 23:00 07:00 IntakeIntake Total 650 ml OutputOutput Total 1400 ml 1500 ml BalanceBalance -750 ml -1500 ml Results Results 24hrs Laboratory Tests Test 11/02/18 17:47 11/02/18 20:15 11/03/18 08:48 Bedside Glucose 87 84 150 Medications Medication Current Medications Acetaminophen/ Hydrocodone Bitart ([place] (5/325)) 1 tab Q4H PRN PO .PAIN 1-5 Last administered on 11/02/18at 17:48; Admin Dose 1 TAB; Start 10/27/18 at 19:00 Al Hydrox/Mg Hydrox/Simethicone (Mag-Al Plus) 15 ml Q4H PRN PO .CONSTIPATION; Start 10/27/18 at 19:00 IV Flush (NS 3 ml) 3 ml PER PROTOCOL IV ; Start 10/27/18 at 19:00 Naloxone HCl (Narcan) 0.2 mg PRN PRN IV RR < 8; Start 10/27/18 at 21:30 Hydromorphone HCl (Dilaudid) 0.2 mg Q4H PRN IV PAIN LEVEL 1-5 Last administered on 11/02/18at 11:00; Admin Dose 0.2 MG; Start 10/27/18 at 21:30 Hydromorphone HCl (Dilaudid) 0.4 mg Q4H PRN IV PAIN LEVEL 6-10 Last administere d on 11/02/18 13:47; Admin Dose 0.4 MG; Start 10/27/18 at 21:30 Ondansetron HCl (Zofran Inj) 4 mg Q6H PRN IV NAUSEA AND/OR VOMITING Last administered on 11/03/18 08:45; Admin Dose 4 MG; Start 10/28/18 at 17:00 Metformin HCl (Glucophage) 1,000 mg WITH BREAKFAST PO Last administered on 11/03/18 08:49; Admin Dose 1,000 MG; Start 10/29/18 at 07:35 Linagliptin (Tradjenta) 5 mg DAILY PO Last administered on 11/03/18 08:49; Admin Dose 5 MG; Start 10/29/18 at 09:00 Diagnostic Test (Pha) (Accu-Chek) 1 ea AC MEALS AND BEDTIME XX Last administered on 11/02/18 20:25; Admin Dose 1 EA; Start 10/28/18 at 21:00 Insulin Aspart (Novolog Insulin Pen) NOVOLOG *MILD* ALGORITHM WITH MEALS BEDTIME SC Last administered on 11/03/18 09:45; Admin Dose 1 UNIT; Start 10/28/18 at 21:00 Miscellaneous Information 1 ea NOTE XX ; Start 10/28/18 at 19:00 Glucose (Glutose) 15 gm Q15M PRN PO DECREASED GLUCOSE; Start 10/28/18 at 19:00 Glucose (Glutose) 22.5 gm Q15M PRN PO DECREASED GLUCOSE; Start 10/28/18 at 19:00 Dextrose (D50w Syringe) 25 ml Q15M PRN IV DECREASED GLUCOSE; Start 10/28/18 at 19:00 Dextrose (D50w Syringe) 50 ml Q15M PRN IV DECREASED GLUCOSE; Start 10/28/18 at 19:00 Glucagon (Glucagen) 1 mg Q15M PRN IM DECREASED GLUCOSE; Start 10/28/18 at 19:00 Glucose (Glutose) 15 gm Q15M PRN BUCCAL DECREASED GLUCOSE; Start 10/28/18 at 19:00 Metoprolol Tartrate (Lopressor) 5 mg Q4H PRN IV HR > 120 Last administered on 10/29/18at 11:25; Admin Dose 5 MG; Start 10/29/18 at 05:30 Hydromorphone HCl (Dilaudid) 1 mg Q4H PRN IV SEVERE PAIN LEVEL 7-10 Last administered on 11/02/18 22:04; Admin Dose 1 MG; Start 10/29/18 at 05:30 Insulin Aspart (Novolog Insulin Pen) 4 unit WITH MEALS SC Last administered on 11/03/18 09:46; Admin Dose 4 UNIT; Start 10/29/18 at 17:35 Acetaminophen (Tylenol Tab) 650 mg Q6H PRN PO MILD PAIN(1-3)OR ELEVATED TEMP Last administered on 10/30/18 23:31; Admin Dose 650 MG; Start 10/30/18 at 00:30 Senna (Senokot) 1 tab BID PRN PO CONSTIPATION Last administered on 11/02/18 07:49; Admin Dose 1 TAB; Start 10/30/18 at 00:30 Metoprolol Tartrate (Lopressor) 50 mg BID PO Last administered on 11/03/18 08:49; Admin Dose 50 MG; Start 10/30/18 at 21:00 Insulin Glargine (Lantus) 19 units DAILY@0800 SC Last administered on 11/03/18 09:44; Admin Dose 19 UNITS; Start 10/31/18 at 09:30 Benazepril HCl (Lotensin) 10 mg BID PO Last administered on 11/03/18 08:46; Admin Dose 10 MG; Start 11/01/18 at 21:00 Gabapentin (Neurontin) 300 mg TID PO Last administered on 11/03/18 08:46; Admin Dose 300 MG; Start 11/02/18 at 13:00 Hydromorphone HCl (Dilaudid [employer]OUNTAIN CLERK) MG/HR CONTINUOUS RATE ... Q4PCA IV Last administered on 11/03/18 06:07; Admin Dose 6 MG; Start 11/02/18 at 10:00 Diphenhydramine HCl (Benadryl) 25 mg Q6H PRN PO ITCHING Last administered on 11/03/18 10:18; Admin Dose 25 MG; Start 11/03/18 at 10:30 PERRI HUTTON NP November 03, 2018 11:59
[2018-11-03] MEDS ORDERED: HYDROCODONE/APAP (5/325) TAB PO PRN (13:00)
--- NOTE | 2018-11-03 13:18 | DS ---
Date/Time of Note Date/Time of Note DATE: 11/03/18 TIME: 13:18 Discharge Summary Admission/Discharge Info Admit Date/Time October 27, 2018 at 13:19 Discharge Date/Time Discharge Diagnosis -Mechanical LBP and LE radiculopathy. S/p ALIF L3-S1 ON 09/27/18 and ISF L2-S1 and decompression on 09/28/[address] Goldsmith. Continue IV fluids and postoperative antibiotic. Tylenol and Dilaudid as needed for pain. -Tachycardia, 2D echo with preserved EF. Dr. Lane is following in cardiology consultation. -Diabetes mellitus type II continue Tradjenta, Lantus and NovoLog. -Obesity with BMI of 30.3. Further recommendations based on clinical course. Plan of care discussed with Dr. Parker. Home Meds Reported Medications Insulin Aspart* (Novolog Insulin Pen*) 100 Unit/Ml Soln, 40 UNIT SC WITH BREAKFAST, EA 10/27/18 Metformin* (Glucophage*) 1,000 Mg Tablet, 1000 MG PO DAILY, #30 TAB 10/27/18 Sitagliptin* (Januvia*) 100 Mg Tablet, 100 MG PO DAILY, #30 TAB 10/27/18 Primary Care Provider Not On Staff Doctor Pending Labs Laboratory Tests Test 11/02/18 17:47 11/02/18 20:15 11/03/18 08:48 11/03/18 12:39 Bedside 87 84 150 99 Glucose mg/dL (70-220) mg/dL (70-220) mg/dL (70-220) mg/dL (70-220) MATTHEW RENETRIA November 03, 2018 13:18
[2018-11-03 14:00] VITALS: BP 140/70; PULSE 82; RESP 18
--- NOTE | 2018-11-03 14:41 | CONS ---
Assessment/Plan Assessment/Plan Hospital Course (Demo Recall) IMPRESSION: 1. Tachycardia at this time consistent with sinus tachycardia by telemetry monitoring in the ICU question due to pain, anxiety or any other possible issues such as thromboembolism in a postoperative patient-overall improved-NL EF by echo this admit 2. Shortness of breath. Rule out pulmonary embolism, question due to pain. 3. Hypertension, under reasonable control with intermittent episodes of hypotension-likely related to [pain 4. Diabetes mellitus. 5. Postop day #3 status post spinal fusion L3 to S1. 6. Anemia, mild. 7. Leukocytosis, mild. Recc: -Now on tele -Continue BB to improve HR control -Continue ACEI with slight increase to improve BP control -pain control -follow BS clsoely Consultation Date/Type/Reason Admit Date/Time October 27, 2018 at 13:19 Initial Consult Date 10/29/18 Type of Consult Cardiology Reason for Consultation tachycardia Requesting Provider: AIDA GREENE MD Date/Time of Note DATE: 11/03/18 TIME: 14:39 Exam/Review of Systems Vital Signs Vitals Vital Signs Date Temp Pulse Resp B/P (MAP) Pulse Ox O2 O2 Flow FiO2 Time Delivery Rate 11/03/18 09:00 11/03/18 98.2 90 147/70 96 Room Air 08:26 (95) Intake and Output 11/02/18 11/02/18 11/03/18 1515:00 23:00 07:00 IntakeIntake Total 650 ml OutputOutput Total 1400 ml 1500 ml BalanceBalance -750 ml -1500 ml Exam Exam Review of Systems: CONSTITUTIONAL: No fevers, chills. PULMONARY: No sob CARDIOVASCULAR: No chest pain/palpitations GASTROINTESTINAL: No nausea/vomiting. GENITOURINARY: No hematuria/dysuria. MUSCULOSKELETAL: No myagias/arthalgias. PSYCHIATRIC: The patient denies depression. NEUROLOGIC: No weakness Constitutional: alert ENMT: mucosa pink and moist Neck: supple, jvd (9 cm water) Respiratory: diminished breath sounds (at bases/B) Cardiovascular: regular rate and rhythm Gastrointestinal: soft, non-tender Musculoskeletal: muscle tone (normal) Extremities: edema (n o focal defiicts) Labs Result Diagram: 10/31/18 0452 10/31/18 0452 Results 24hrs Laboratory Tests Test 11/02/18 17:47 11/02/18 20:15 11/03/18 08:48 11/03/18 12:39 Bedside Glucose 87 84 150 99 Medications Medications Current Medications Acetaminophen/ Hydrocodone Bitart ([place] (5/325)) 1 tab Q4H PRN PO .PAIN 1-5 Last administered on 11/02/18 17:48; Admin Dose 1 TAB; Start 10/27/18 at 19:00 Al Hydrox/Mg Hydrox/Simethicone (Mag-Al Plus) 15 ml Q4H PRN PO .CONSTIPATION; Start 10/27/18 at 19:00 IV Flush (NS 3 ml) 3 ml PER PROTOCOL IV ; Start 10/27/18 at 19:00 Naloxone HCl (Narcan) 0.2 mg PRN PRN IV RR < 8; Start 10/27/18 at 21:30 Hydromorphone HCl (Dilaudid) 0.2 mg Q4H PRN IV PAIN LEVEL 1-5 Last administered on 11/02/18 11:00; Admin Dose 0.2 MG; Start 10/27/18 at 21:30 Hydromorphone HCl (Dilaudid) 0.4 mg Q4H PRN IV PAIN LEVEL 6-10 Last administered on 11/02/18 13:47; Admin Dose 0.4 MG; Start 10/27/18 at 21:30 Ondansetron HCl (Zofran Inj) 4 mg Q6H PRN IV NAUSEA AND/OR VOMITING Last administered on 11/03/18 08:45; Admin Dose 4 MG; Start 10/28/18 at 17:00 Metformin HCl (Glucophage) 1,000 mg WITH BREAKFAST PO Last administered on 11/03/18 08:49; Admin Dose 1,000 MG; Start 10/29/18 at 07:35 Linagliptin (Tradjenta) 5 mg DAILY PO Last administered on 11/03/18 08:49; Admin Dose 5 MG; Start 10/29/18 at 09:00 Diagnostic Test (Pha) (Accu-Chek) 1 ea AC MEALS AND BEDTIME XX Last administer ed on 11/02/18 20:25; Admin Dose 1 EA; Start 10/28/18 at 21:00 Insulin Aspart (Novolog Insulin Pen) NOVOLOG *MILD* ALGORITHM WITH MEALS BEDTIME SC Last administered on 11/03/18 09:45; Admin Dose 1 UNIT; Start 10/28/18 at 21:00 Miscellaneous Information 1 ea NOTE XX ; Start 10/28/18 at 19:00 Glucose (Glutose) 15 gm Q15M PRN PO DECREASED GLUCOSE; Start 10/28/18 at 19:00 Glucose (Glutose) 22.5 gm Q15M PRN PO DECREASED GLUCOSE; Start 10/28/18 at 19:00 Dextrose (D50w Syringe) 25 ml Q15M PRN IV DECREASED GLUCOSE; Start 10/28/18 at 19:00 Dextrose (D50w Syringe) 50 ml Q15M PRN IV DECREASED GLUCOSE; Start 10/28/18 at 19:00 Glucagon (Glucagen) 1 mg Q15M PRN IM DECREASED GLUCOSE; Start 10/28/18 at 19:00 Glucose (Glutose) 15 gm Q15M PRN BUCCAL DECREASED GLUCOSE; Start 10/28/18 at 19:00 Metoprolol Tartrate (Lopressor) 5 mg Q4H PRN IV HR > 120 Last administered on 10/29/18at 11:25; Admin Dose 5 MG; Start 10/29/18 at 05:30 Hydromorphone HCl (Dilaudid) 1 mg Q4H PRN IV SEVERE PAIN LEVEL 7-10 Last administered on 11/02/18 22:04; Admin Dose 1 MG; Start 10/29/18 at 05:30 Insulin Aspart (Novolog Insulin Pen) 4 unit WITH MEALS SC Last administered on 11/03/18 13:22; Admin Dose 4 UNIT; Start 10/29/18 at 17:35 Acetaminophen (Tylenol Tab) 650 mg Q6H PRN PO MILD PAIN(1-3)OR ELEVATED TEMP L ast administered on 10/30/18 23:31; Admin Dose 650 MG; Start 10/30/18 at 00:30 Senna (Senokot) 1 tab BID PRN PO CONSTIPATION Last administered on 11/02/18 07:49; Admin Dose 1 TAB; Start 10/30/18 at 00:30 Metoprolol Tartrate (Lopressor) 50 mg BID PO Last administered on 11/03/18 08:49; Admin Dose 50 MG; Start 10/30/18 at 21:00 Insulin Glargine (Lantus) 19 units DAILY@0800 SC Last administered on 11/03/18 09:44; Admin Dose 19 UNITS; Start 10/31/18 at 09:30 Benazepril HCl (Lotensin) 10 mg BID PO Last administered on 11/03/18 08:46; Admin Dose 10 MG; Start 11/01/18 at 21:00 Gabapentin (Neurontin) 300 mg TID PO Last administered on 11/03/18 13:22; Admin Dose 300 MG; Start 11/02/18 at 13:00 Diphenhydramine HCl (Benadryl) 25 mg Q6H PRN PO ITCHING Last administered on 11/03/18 10:18; Admin Dose 25 MG; Start 11/03/18 at 10:30 Acetaminophen/ Hydrocodone Bitart ([place] (5/325)) 2 tab Q4H PRN PO MODERATE PAIN LEVEL 4-6 Last administered on 11/03/18 13:24; Admin Dose 2 TAB; Start 11/03/18 at 13:00 VESNA GALLAGHER November 03, 2018 14:41
== END 2018-11-03 17:00 | DRG 455 ==
LOC: REC 13:19 → ICU 22:07 → 6WM 10-29 16:38 → MS1 11-03 00:45
PROVIDERS: ADMIT Neurological Surgery; ATTEND Neurological Surgery
PROC: 0SG30A0 Fusion of Lumbosacral Joint with Interbody Fusion Device, Anterior Approach, Anterior Column, Open Approach (ICD-10-PCS; 2018-10-27)
PROC: 0SB20ZZ Excision of Lumbar Vertebral Disc, Open Approach (ICD-10-PCS; 2018-10-27)
PROC: 0SB40ZZ Excision of Lumbosacral Disc, Open Approach (ICD-10-PCS; 2018-10-27)
PROC: 0SG10A0 Fusion of 2 or more Lumbar Vertebral Joints with Interbody Fusion Device, Anterior Approach, Anterior Column, Open Approach (ICD-10-PCS; principal; 2018-10-27 15:30)
PROC: 0SG10K1 Fusion of 2 or more Lumbar Vertebral Joints with Nonautologous Tissue Substitute, Posterior Approach, Posterior Column, Open Approach (ICD-10-PCS; 2018-10-28)
PROC: 0SG30K1 Fusion of Lumbosacral Joint with Nonautologous Tissue Substitute, Posterior Approach, Posterior Column, Open Approach (ICD-10-PCS; 2018-10-28)
DX: M47.26 Other spondylosis with radiculopathy, lumbar region (principal); E11.8 Type 2 diabetes mellitus with unspecified complications; E66.9 Obesity, unspecified; Z68.30 Body mass index [BMI] 30.0-30.9, adult; R00.0 Tachycardia, unspecified; D64.9 Anemia, unspecified; R06.02 Shortness of breath; Z79.4 Long term (current) use of insulin
CPT/HCPCS: 71045; 72114; 72131; 80048; 80053; 82962; 83036; 84443; 84484; 84560; 85014; 85018; 85025; 85610; 85730; 86850; 86900; 86901; 86920; 87081; 87086; 88304; 93005; 93306; 97116; 97163; 97530; C1762; J0690; J1100; J1170; J1644; J1815; J1885; J2001; J2175; J2250; J2405; J2710; J2795; J3010; J3480

== ENCOUNTER 2018-11-03 13:23 | Inpatient (IN) | payer MEDICARE, BC ==
[~2018-11-03] VITALS: Ht 172.7 cm; Wt 92.7 kg
[~2018-11-03 13:23] MED LIST changes: -CEFAZOLIN 1 GM INJ ONE; -DEXAMETHASONE 4 MG/ML 5 ML INJ ONE; -GLYCOPYRROLATE 0.4 MG INJ ONE; -LABETALOL HCL 20MG INJ ONE; -LIDOCAINE 2% (SDV) 5 ML INJ ONE; +MTF1000T PO; -NEOSTIGMINE 3 MG/3 ML SYRINGE ONE; +NOVO3I SC; -ROCURONIUM 50 MG INJ ONE; -SEVOFLURANE 15 MIN ONE; +SITA100T11 PO
[2018-11-03] MEDS ORDERED: HYDROCODONE/APAP (5/325) TAB PO PRN ×3 (17:30→19:30)
[2018-11-03] MEDS ORDERED: PENDING SANTYL ORDER FOR WOUND CARE XX PRN (17:30)
[2018-11-03] MEDS: HYDROmorphONE 1 MG/ML SYG IV PRN ×2 (18:51→22:49)
[2018-11-03] MEDS ORDERED: GLUCOSE GEL 15 GRAM TUBE BUCCAL PRN (19:00)
[2018-11-03] MEDS ORDERED: HYDROmorphONE 0.5 MG/0.5 ML SYG IV PRN ×2 (19:00)
[2018-11-03] MEDS ORDERED: NACL 0.9% 3 ML SYG IV SCH (19:00)
[2018-11-03] MEDS ORDERED: GLUCOSE GEL 15 GRAM TUBE PO PRN ×2 (19:00)
[2018-11-03] MEDS ORDERED: GLUCAGON 1 MG INJ IM PRN (19:00)
[2018-11-03] MEDS ORDERED: NALOXONE (0.4 MG/ML) INJ IV PRN (19:00)
[2018-11-03] MEDS ORDERED: AL HYDROX/MG HYDROX/SIMETH 30 ML CUP PO PRN (19:00)
[2018-11-03] MEDS ORDERED: DEXTROSE 50% 50 ML SYRINGE IV PRN ×2 (19:00)
[2018-11-03] MEDS ORDERED: METOPROLOL 5 MG INJ IV PRN (19:30)
[2018-11-03] MEDS ORDERED: SENNA TAB PO PRN (19:30)
[2018-11-03] MEDS ORDERED: DIPHENHYDRAMINE 25 MG CAP PO PRN (19:30)
[2018-11-03] MEDS ORDERED: ACETAMINOPHEN 325 MG TAB PO PRN (19:30)
[2018-11-03 19:51] VITALS: Ht 172.7 cm; Wt 92.7 kg
[2018-11-03 20:10] VITALS: BP 114/64; PULSE 90; RESP 18
[2018-11-03] MEDS: METOPROLOL 50 MG TAB PO SCH (20:36)
[2018-11-03] MEDS: GABAPENTIN 300 MG CAP PO SCH (20:36)
[2018-11-03] MEDS: ACCU-CHEK XX SCH (20:40)
[2018-11-03] MEDS: INSULIN ASPART [NOVOLOG] 3 ML PEN SC SCH (20:40)
[2018-11-03] MEDS: BENAZEPRIL 10 MG TAB PO SCH (21:27)
[2018-11-04 02:18] VITALS: BP 134/62; PULSE 78; RESP 18
[2018-11-04] MEDS: HYDROmorphONE 1 MG/ML SYG IV PRN ×4 (02:47→21:25)
[2018-11-04] MEDS ORDERED: HYDROmorphONE 0.5 MG/0.5 ML SYG IV ONE (04:09)
[2018-11-04] MEDS ORDERED: HYDROmorphONE 1 MG/ML SYG IV PRN (05:30)
[2018-11-04] MEDS: INSULIN ASPART [NOVOLOG] 3 ML PEN SC SCH ×7 (07:35→20:26)
[2018-11-04] MEDS ORDERED: INSULIN ASPART [NOVOLOG] 3 ML PEN SC SCH (07:35)
[2018-11-04] MEDS: INSULIN GLARGINE [LANTus] (100 UNITS/ML) SYG SC SCH (07:55)
[2018-11-04] MEDS: ACCU-CHEK XX SCH ×4 (07:55→20:26)
[2018-11-04] MEDS: metFORMIN 500 MG TAB PO SCH (07:55)
[2018-11-04 08:00] VITALS: BP 126/74; PULSE 93; RESP 18
[2018-11-04] MEDS: GABAPENTIN 300 MG CAP PO SCH ×3 (08:39→20:20)
[2018-11-04] MEDS: BENAZEPRIL 10 MG TAB PO SCH ×2 (08:39→20:22)
[2018-11-04] MEDS: LINAGLIPTIN 5 MG TABLET PO SCH (08:39)
[2018-11-04] MEDS: METOPROLOL 50 MG TAB PO SCH ×2 (08:39→20:22)
[2018-11-04] MEDS: HYDROCODONE/APAP (10/325) TAB PO PRN ×3 (11:05→20:21)
--- NOTE | 2018-11-04 12:31 | HP ---
Date/Time of Note Date/Time of Note DATE: 11/04/18 TIME: 12:29 Assessment/Plan VTE Prophylaxis [place] [facility] risk: 10 SCD applied [place] [facility] No SCD contraindicated: other Pharmacological prophylaxis: LMWH Assessment/Plan Hospital Course 1) back pain - s/p surgery - rehab 2) hypertension - monitor blood pressure 3) diabetes - monitor blood sugar Result Diagram: 11/04/18 0625 11/04/18 0625 Results 24hrs Laboratory Tests Test 11/03/18 19:21 11/03/18 20:39 11/04/18 06:25 11/04/18 07:50 Urine Color YELLOW Urine Clarity SLIGHTLY CLOUDY A Urine pH 6.0 Urine Specific 1.010 [place] Urine Ketones TRACE A Urine Nitrite NEGATIVE Urine Bilirubin NEGATIVE Urine Urobilinogen 2+ H Urine Leukocyte 2+ H Esterase Urine Microscopic 4 RBC Urine Microscopic 18 H WBC Urine Squamous FEW Epithelial Cells Urine Hemoglobin NEGATIVE Urine Glucose NEGATIVE Urine Total NEGATIVE Protein Bedside Glucose 142 136 White Blood Count 8.1 Red Blood Count 3.74 L Hemoglobin 10.3 L Hematocrit 32.5 L Mean Corpuscular 86.9 Volume Mean Corpuscular 27.5 L Hemoglobin Mean Corpuscular 31.7 L Hemoglobin Concent Red Cell 12.9 Distribution Width Platelet Count 244 # Mean Platelet 11.2 H Volume Immature 1.000 H Granulocytes % Neutrophils % 60.9 Lymphocytes % 22.9 Monocytes % 10.7 Eosinophils % 3.9 Basophils % 0.6 Nucleated Red 0.0 Blood Cells % Immature 0.080 H Granulocytes # Neutrophils # 4.9 Lymphocytes # 1.9 Monocytes # 0.9 Eosinophils # 0.3 Basophils # 0.1 Nucleated Red 0.0 Blood Cells # Sodium Level 138 Potassium Level 4.0 Chloride Level 101 Carbon Dioxide 32 H Level Anion Gap 5 Blood Urea 7 Nitrogen Creatinine 0.60 Est Glomerular > 60 Filtrat Rate mL/min Glucose Level 152 Calcium Level 8.8 Total Bilirubin 0.5 Direct Bilirubin 0.00 Indirect Bilirubin 0.5 Aspartate Amino 17 Transf (AST/SGOT) Alanine 11 L Aminotransferase ( ALT/SGPT) Alkaline 82 Phosphatase Total Protein 6.1 Albumin 3.1 L Globulin 3.00 Albumin/Globulin 1.03 Ratio Test 11/04/18 11:56 Bedside Glucose 157 HPI/ROS Admit Date/Time Admit Date/Time November 03, 2018 at 17:17 Hx of Present Illness Patient with hypertension, diabetres (on insulin) is here for rehabilitation after back surgery. Patient has back pain but is doing ok. PMH/Family/Social Past Medical History Medical History: diabetes, hypertension Medications Current Medications Miscellaneous Information (Pending [facility] Order For Wound Care) This patient chowdhury... PRN PRN XX WOUND CARE; Start 11/03/18 at 17:30 Al Hydrox/Mg Hydrox/Simethicone (Mag-Al Plus) 15 ml Q4H PRN PO .CONSTIPATION; Start 11/03/18 at 19:00 IV Flush (NS 3 ml) 3 ml PER PROTOCOL IV ; Start 11/03/18 at 19:00 Naloxone HCl (Narcan) 0.2 mg PRN PRN IV RR < 8; Start 11/03/18 at 19:00 Ondansetron HCl (Zofran Inj) 4 mg Q6H PRN IV NAUSEA AND/OR VOMITING; Start 11/03/18 at 19:00 Metformin HCl (Glucophage) 1,000 mg WITH BREAKFAST PO Last administered on 11/04/18at 07:55; Admin Dose 1,000 MG; Start 11/04/18 at 07:35 Linagliptin (Tradjenta) 5 mg DAILY PO Last administered on 11/04/18at 08:39; A dmin Dose 5 MG; Start 11/04/18 at 09:00 Diagnostic Test (Pha) (Accu-Chek) 1 ea AC MEALS AND BEDTIME XX Last administered on 11/04/18at 12:00; Admin Dose 1 EA; Start 11/03/18 at 21:00 Insulin Aspart (Novolog Insulin Pen) NOVOLOG *MILD* ALGORITHM WITH MEALS BEDTIME SC Last administered on 11/04/18at 11:59; Admin Dose 1 UNIT; Start 11/03/18 at 21:00 Miscellaneous Information 1 ea NOTE XX ; Start 11/03/18 at 19:00 Glucose (Glutose) 15 gm Q15M PRN PO DECREASED GLUCOSE; Start 11/03/18 at 19:00 Glucose (Glutose) 22.5 gm Q15M PRN PO DECREASED GLUCOSE; Start 11/03/18 at 19:00 Dextrose (D50w Syringe) 25 ml Q15M PRN IV DECREASED GLUCOSE; Start 11/03/18 at 19:00 Dextrose (D50w Syringe) 50 ml Q15M PRN IV DECREASED GLUCOSE; Start 11/03/18 at 19:00 Glucagon (Glucagen) 1 mg Q15M PRN IM DECREASED GLUCOSE; Start 11/03/18 at 19:00 Glucose (Glutose) 15 gm Q15M PRN BUCCAL DECREASED GLUCOSE; Start 11/03/18 at 19:00 Hydromorphone HCl (Dilaudid) 1 mg Q4H PRN IV SEVERE PAIN LEVEL 7-10; Start 11/03/18 at 19:30 Acetaminophen (Tylenol Tab) 650 mg Q6H PRN PO MILD PAIN(1-3)OR ELEVATED TEMP; Start 11/03/18 at 19:30 Senna (Senokot) 1 tab BID PRN PO CONSTIPATION; Start 11/03/18 at 19:30 Metoprolol Tartrate (Lopressor) 50 mg BID PO Last administered on 11/04/18at 08:39; Admin Dose 50 MG; Start 11/03/18 at 21:00 Insulin Glargine (Lantus) 19 units DAILY@0800 SC Last administered on 11/04/18at 07:55; Admin Dose 19 UNITS; Start 11/04/18 at 08:00 Benazepril HCl (Lotensin) 10 mg BID PO Last administered on 11/04/18at 08:39; Admin Dose 10 MG; Start 11/03/18 at 21:00 Gabapentin (Neurontin) 300 mg TID PO Last administered on 11/04/18at 08:39; Admin Dose 300 MG; Start 11/03/18 at 21:00 Diphenhydramine HCl (Benadryl) 25 mg Q6H PRN PO ITCHING; Start 11/03/18 at 19:30 Insulin Aspart (Novolog Insulin Pen) 4 unit WITH MEALS SC Last administered on 11/04/18at 12:00; Admin Dose 4 UNIT; Start 11/04/18 at 07:35 Acetaminophen/ Hydrocodone Bitart ([place] (10/325)) 2 tab Q4H PRN PO SEVERE PAIN LEVEL 7-10 Last administered on 11/04/18at 11:05; Admin Dose 2 TAB; Start 11/04/18 at 10:00 Acetaminophen/ Hydrocodone Bitart ([place] (10/325)) 1 tab Q4H PRN PO MODERATE PAIN LEVEL 4-6; Start 11/04/18 at 10:00 Neomycin/ Polymyxin/ Bacitracin (Neosporin Topical Oint) 1 applic QAM TOP ; Start 11/05/18 at 09:00 Coded Allergies: No Known Allergy (Unverified , 10/26/18) Past Surgical History Past Surgical Hx: cholecystectomy Family History Significant Family History: no pertinent family hx, other Social History Smoking Status: Never smoker Exam/Review of Systems Vital Signs Vitals Vital Signs Date Temp Pulse Resp B/P (MAP) Pulse Ox O2 O2 Flow FiO2 Time Delivery Rate 11/04/18 98.2 93 18 126/74 100 Room Air 08:00 (91) Exam Constitutional: well developed Head: normocephalic, atraumatic Neck: supple Respiratory: clear to auscultation Cardiovascular: regular rate and rhythm Gastrointestinal: soft, non-tender Extremities: normal pulses JACINTO GIRON Nov 04, 2018 12:31
--- NOTE | 2018-11-04 12:56 | CONS ---
Consult Date/Type/Reason Admit Date/Time November 03, 2018 at 17:17 Initial Consult Date Date/Time of Note DATE: 11/04/18 TIME: 12:54 Subjective No acute events - now in rehab - compliant with Rx - con't pain Rx - off tele - sinus now. ROS: No fever, no chills, no nausea, no vomiting, no diarrhea/constipation No recent weight changes No chest pain, no PND, no orthopnea - improved SOB No dizziness, blurred vision No thirst, no heat or cold intolerance Objective Vitals Vital Signs Date Temp Pulse Resp B/P (MAP) Pulse Ox O2 O2 Flow FiO2 Time Delivery Rate 11/04/18 98.2 93 18 126/74 100 Room Air 08:00 (91) Exam General: WN/WD/NAD, AOx 3 HEENT: Unicetric/atraumatic/EOMI (follows commands) NECK: JVD elevated, no thyromegaly Lymph: no lymphadenopathy HEART: regular with no S3, II/ systolic murmur at apex, PMI L LUNGS: Coarse sounds ABD: soft, NT, ND, +BS : Intact Neuro: non focal SKIN: chronic changes EXT: trace edema Results/Medications Result Diagram: 11/04/1825 11/04/18 0625 Results 24 hrs Laboratory Tests Test 11/03/18 19:21 11/03/18 20:39 11/04/18 06:25 11/04/18 07:50 Urine Color YELLOW Urine Clarity SLIGHTLY CLOUDY A Urine pH 6.0 Urine Specific 1.010 [place] Urine Ketones TRACE A Urine Nitrite NEGATIVE Urine Bilirubin NEGATIVE Urine Urobilinogen 2+ H Urine Leukocyte 2+ H Esterase Urine Microscopic 4 RBC Urine Microscopic 18 H WBC Urine Squamous FEW Epithelial Cells Urine Hemoglobin NEGATIVE Urine Glucose NEGATIVE Urine Total NEGATIVE Protein Bedside Glucose 142 136 White Blood Count 8.1 Red Blood Count 3.74 L Hemoglobin 10.3 L Hematocrit 32.5 L Mean Corpuscular 86.9 Volume Mean Corpuscular 27.5 L Hemoglobin Mean Corpuscular 31.7 L Hemoglobin Concent Red Cell 12.9 Distribution Width Platelet Count 244 # Mean Platelet 11.2 H Volume Immature 1.000 H Granulocytes % Neutrophils % 60.9 Lymphocytes % 22.9 Monocytes % 10.7 Eosinophils % 3.9 Basophils % 0.6 Nucleated Red 0.0 Blood Cells % Immature 0.080 H Granulocytes # Neutrophils # 4.9 Lymphocytes # 1.9 Monocytes # 0.9 Eosinophils # 0.3 Basophils # 0.1 Nucleated Red 0.0 Blood Cells # Sodium Level 138 Potassium Level 4.0 Chloride Level 101 Carbon Dioxide 32 H Level Anion Gap 5 Blood Urea 7 Nitrogen Creatinine 0.60 Est Glomerular > 60 Filtrat Rate mL/min Glucose Level 152 Calcium Level 8.8 Total Bilirubin 0.5 Direct Bilirubin 0.00 Indirect Bilirubin 0.5 Aspartate Amino 17 Transf (AST/SGOT) Alanine 11 L Aminotransferase ( ALT/SGPT) Alkaline 82 Phosphatase Total Protein 6.1 Albumin 3.1 L Globulin 3.00 Albumin/Globulin 1.03 Ratio Test 11/04/18 11:56 Bedside Glucose 157 Home Meds Reported Medications Insulin Aspart* (Novolog Insulin Pen*) 100 Unit/Ml Soln, 40 UNIT SC WITH BREAKFAST, EA 10/27/18 Metformin* (Glucophage*) 1,000 Mg Tablet, 1000 MG PO DAILY, #30 TAB 10/27/18 Sitagliptin* (Januvia*) 100 Mg Tablet, 100 MG PO DAILY, #30 TAB 10/27/18 Medications Current Medications Miscellaneous Information (Pending [facility] Order For Wound Care) This patient chowdhury... PRN PRN XX WOUND CARE; Start 11/03/18 at 17:30 Al Hydrox/Mg Hydrox/Simethicone (Mag-Al Plus) 15 ml Q4H PRN PO .CONSTIPATION; Start 11/03/18 at 19:00 IV Flush (NS 3 ml) 3 ml PER PROTOCOL IV ; Start 11/03/18 at 19:00 Naloxone HCl (Narcan) 0.2 mg PRN PRN IV RR < 8; Start 11/03/18 at 19:00 Ondansetron HCl (Zofran Inj) 4 mg Q6H PRN IV NAUSEA AND/OR VOMITING; Start 11/03/18 at 19:00 Metformin HCl (Glucophage) 1,000 mg WITH BREAKFAST PO Last administered on 11/04/18at 07:55; Admin Dose 1,000 MG; Start 11/04/18 at 07:35 Linagliptin (Tradjenta) 5 mg DAILY PO Last administered on 11/04/18at 08:39; Admin Dose 5 MG; Start 11/04/18 at 09:00 Diagnostic Test (Pha) (Accu-Chek) 1 ea AC MEALS AND BEDTIME XX Last administered on 11/04/18at 12:00; Admin Dose 1 EA; Start 11/03/18 at 21:00 Insulin Aspart (Novolog Insulin Pen) NOVOLOG *MILD* ALGORITHM WITH MEALS BEDTIME SC Last administered on 11/04/18at 11:59; Admin Dose 1 UNIT; Start 11/03/18 at 21:00 Miscellaneous Information 1 ea NOTE XX ; Start 11/03/18 at 19:00 Glucose (Glutose) 15 gm Q15M PRN PO DECREASED GLUCOSE; Start 11/03/18 at 19:00 Glucose (Glutose) 22.5 gm Q15M PRN PO DECREASED GLUCOSE; Start 11/03/18 at 19:00 Dextrose (D50w Syringe) 25 ml Q15M PRN IV DECREASED GLUCOSE; Start 11/03/18 at 19:00 Dextrose (D50w Syringe) 50 ml Q15M PRN IV DECREASED GLUCOSE; Start 11/03/18 at 19:00 Glucagon (Glucagen) 1 mg Q15M PRN IM DECREASED GLUCOSE; Start 11/03/18 at 19:00 Glucose (Glutose) 15 gm Q15M PRN BUCCAL DECREASED GLUCOSE; Start 11/03/18 at 19:00 Hydromorphone HCl (Dilaudid) 1 mg Q4H PRN IV SEVERE PAIN LEVEL 7-10 Last administered on 11/04/18at 12:34; Admin Dose 1 MG; Start 11/03/18 at 19:30 Acetaminophen (Tylenol Tab) 650 mg Q6H PRN PO MILD PAIN(1-3)OR ELEVATED TEMP; Start 11/03/18 at 19:30 Senna (Senokot) 1 tab BID PRN PO CONSTIPATION; Start 11/03/18 at 19:30 Metoprolol Tartrate (Lopressor) 50 mg BID PO Last administered on 11/04/18at 08:39; Admin Dose 50 MG; Start 11/03/18 at 21:00 Insulin Glargine (Lantus) 19 units DAILY@0800 SC Last administered on 11/04/18at 07:55; Admin Dose 19 UNITS; Start 11/04/18 at 08:00 Benazepril HCl (Lotensin) 10 mg BID PO Last administered on 11/04/18at 08:39; Admin Dose 10 MG; Start 11/03/18 at 21:00 Gabapentin (Neurontin) 300 mg TID PO Last administered on 11/04/18at 12:34; Admin Dose 300 MG; Start 11/03/18 at 21:00 Diphenhydramine HCl (Benadryl) 25 mg Q6H PRN PO ITCHING; Start 11/03/18 at 19:30 Insulin Aspart (Novolog Insulin Pen) 4 unit WITH MEALS SC Last administered on 11/04/18at 12:00; Admin Dose 4 UNIT; Start 11/04/18 at 07:35 Acetaminophen/ Hydrocodone Bitart ([place] (10/325)) 2 tab Q4H PRN PO SEVERE PAIN LEVEL 7-10 Last administered on 11/04/18at 11:05; Admin Dose 2 TAB; Start 11/04/18 at 10:00 Acetaminophen/ Hydrocodone Bitart ([place] (10/325)) 1 tab Q4H PRN PO MODERATE PAIN LEVEL 4-6; Start 11/04/18 at 10:00 Neomycin/ Polymyxin/ Bacitracin (Neosporin Topical Oint) 1 applic QAM TOP ; Start 11/05/18 at 09:00 Imaging 1. Tachycardia at this time consistent with sinus tachycardia by telemetry monitoring in the ICU question due to pain, anxiety or any other possible issues such as thromboembolism in a postoperative patient-overall improved-NL EF by echo this admit - rate controlled, compliant with rehab now,. 2. Shortness of breath. Rule out pulmonary embolism, question due to pain. B zoë now. 3. Hypertension, under reasonable control with intermittent episodes of hypotension-likely related to pain - on therapy now. 4. Diabetes mellitus - on meds, con't to follow. 5. Postop status post spinal fusion L3 to S1 - reahab now, 6. Anemia, mild. 7. Leukocytosis, mild. BHARATI MOYER MD Nov 04, 2018 12:56
[2018-11-04 14:00] VITALS: BP 118/57; PULSE 80
--- NOTE | 2018-11-04 14:42 | CONS ---
DATE OF ADMISSION: 11/03/2018 DATE OF CONSULTATION: 11/04/2018 TYPE OF CONSULTATION: Rehabilitation post-admission physician evaluation. REHABILITATION IMPAIRMENT CATEGORY: Lumbar radiculopathy, status post lumbar surgery, 10/27/2018. ACTIVE COMORBIDITIES: 1. Diabetes mellitus. 2. Hypertension. 3. Bipolar disease. 4. Anemia. 5. History of cervical decompression and fusion. HISTORY OF PRESENT ILLNESS: The patient is a 48 year old female with a history of bipolar disorder, hypertension, diabetes mellitus, cervical radiculopathy with cervical surgery in August who has noted severe radiating low back pain despite conservative measures. She underwent lumbar surgery with postoperative course notable for significant pain in addition to significant impairments in self-care and mobility as compared to baseline, and has been cleared to transfer to the rehabilitation unit for comprehensive interdisciplinary rehab care. FUNCTIONAL HISTORY: Prior to recent events, she was independent in self-care tasks and mobility. Currently, she requires moderate to maximal assist for self-care and mobility tasks. I have reviewed the preadmission screen and the patient's current functional status is consistent with the preadmission screen. FAMILY AND SOCIAL HISTORY: The patient lives at home with family and hopes to return there upon discharge. There are multiple stair steps in the home. PAST MEDICAL HISTORY: 1. Lumbar radiculopathy as above. 2. Cervical radiculopathy, status post cervical decompression and fusion in August of 2018. 3. Diabetes mellitus. 4. Hypertension. 5. Bipolar disease. 6. Anemia. 7. History of hernia repair. 8. History of hysterectomy. CURRENT MEDICATIONS: 1. Insulin sliding scale. 2. Herlong p.r.n. 3. Lantus 19 units subq daily. 4. Glucophage 1000 mg p.o. q.a.m. 5. Lopressor 50 mg p.o. b.i.d. 6. Senokot p.r.n. ALLERGIES: THE PATIENT WITH NO KNOWN DRUG ALLERGIES. PHYSICAL EXAMINATION: VITAL SIGNS: She is currently afebrile with stable vital signs. HEENT: Extraocular motions are intact. Oropharynx clear. NECK: Supple. LUNGS: Clear anteriorly. CARDIAC: S1, S2. ABDOMEN: Soft, nontender, positive bowel sounds. NEUROLOGIC: She is awake and alert and oriented x3. She follows simple 1-step commands. She demonstrates antigravity strength in bilateral upper extremity and lower extremity. She does have some patchy decreased sensation in the right upper extremity. She does have decreased shoulder forward flexion and abduction on the right. She does have impaired dynamic balance. PLAN: The patient has been admitted for comprehensive interdisciplinary acute rehab and is anticipated to tolerate 3 hours of daily therapy in divided doses for at least 5/7 days a week. Treatment plan will include: 1. Physical therapy to focus on bed mobility, transfers, and household ambulation with the goal of having the patient reach a supervised level. 2. Occupational therapy to focus on hygiene, grooming, dressing, bathing, and toileting activities with goal of having the patient reach standby assist level. 3. Rehabilitation nursing for carryover of therapeutic interventions, the goal of continent of bowel and bladder, and the goal of pain adequately managed on oral medications. REHABILITATION BARRIER: Pain. INTERVENTION FOR BARRIER: Interdisciplinary approach. ESTIMATED LENGTH OF STAY: 10 days. DISPOSITION GOAL: Home with family. I acknowledge that I performed a full physical examination on this patient within 24 hours of admission to the rehabilitation unit. I believe the patient is a good candidate for comprehensive interdisciplinary rehab care and is anticipated to make reasonable goals in a reasonable period of time as outlined above. Dictated By: BUBBA PHELPS MD LY/NTS Conf#: [id number] DID#: [id number] CC: AIDA GREENE MD;*EndCC* MTDD
[2018-11-04 20:00] VITALS: BP 133/93; PULSE 79; RESP 18
[2018-11-05] MEDS: HYDROCODONE/APAP (10/325) TAB PO PRN ×6 (00:11→21:55)
[2018-11-05] MEDS: HYDROmorphONE 1 MG/ML SYG IV PRN ×7 (01:27→23:59)
[2018-11-05] MEDS: ONDANSETRON 4 MG INJ IV PRN ×2 (03:49→09:49)
[2018-11-05] MEDS ORDERED: INSULIN ASPART [NOVOLOG] 3 ML PEN SC SCH (07:35)
[2018-11-05] MEDS: ACCU-CHEK XX SCH ×4 (08:37→20:13)
[2018-11-05] MEDS: metFORMIN 500 MG TAB PO SCH (08:38)
[2018-11-05] MEDS: GABAPENTIN 300 MG CAP PO SCH ×3 (08:38→20:12)
[2018-11-05 08:39] VITALS: BP 109/58; PULSE 65; RESP 19
[2018-11-05] MEDS: NEOMYC/POLYMYX/BACIT 30 GM OINT TOP SCH (08:39)
[2018-11-05] MEDS: LINAGLIPTIN 5 MG TABLET PO SCH (08:39)
[2018-11-05] MEDS: INSULIN GLARGINE [LANTus] (100 UNITS/ML) SYG SC SCH (08:40)
[2018-11-05] MEDS: INSULIN ASPART [NOVOLOG] 3 ML PEN SC SCH ×7 (08:40→20:16)
[2018-11-05] MEDS: BENAZEPRIL 10 MG TAB PO SCH ×2 (08:41→20:12)
[2018-11-05] MEDS: METOPROLOL 50 MG TAB PO SCH ×2 (08:41→20:12)
--- NOTE | 2018-11-05 11:38 | PN ---
Date/Time of Note Date/Time of Note DATE: 11/05/18 TIME: 11:38 Assessment/Plan VTE Prophylaxis Risk score (from Ns)>0 risk: 10 SCD applied (from Ns): No SCD contraindicated: other Pharmacological prophylaxis: LMWH Lines/Catheters IV Catheter Type (from Nrsg): [place] Assessment/Plan Hospital Course 1) back pain - s/p surgery - rehab 2) hypertension - monitor blood pressure 3) diabetes - monitor blood sugar Result Diagram: 11/04/18 0625 11/04/18 0625 Results 24hrs Laboratory Tests Test 11/04/18 11:56 11/04/18 17:16 11/04/18 20:15 11/05/18 08:20 Bedside Glucose 157 117 119 204 Subjective 24 Hr Interval Summary Free Text/Dictation Patient still having back pain Exam/Review of Systems Exam Vitals Vital Signs Date Temp Pulse Resp B/P (MAP) Pulse Ox O2 O2 Flow FiO2 Time Delivery Rate 11/04/18 97.7 79 18 133/93 100 Room Air 20:00 (106) Intake and Output 11/04/18 11/04/18 11/05/18 1515:00 23:00 07:00 IntakeIntake Total 400 ml 500 ml BalanceBalance 400 ml 500 ml Constitutional: well developed Head: normocephalic, atraumatic Neck: supple Respiratory: diminished breath sounds Cardiovascular: regular rate and rhythm Gastrointestinal: soft, non-tender Extremities: normal pulses Results Results 24hrs Laboratory Tests Test 11/04/18 11:56 11/04/18 17:16 11/04/18 20:15 11/05/18 08:20 Bedside Glucose 157 117 119 204 Medications Medication Current Medications Misc[facility] This patient chowdhury... PRN PRN XX WOUND CARE; Start 11/03/18 at 17:30 Al Hydrox/Mg Hydrox/Simethicone (Mag-Al Plus) 15 ml Q4H PRN PO .CONSTIPATION; Start 11/03/18 at 19:00 IV Flush (NS 3 ml) 3 ml PER PROTOCOL IV ; Start 11/03/18 at 19:00 Naloxone HCl (Narcan) 0.2 mg PRN PRN IV RR < 8; Start 11/03/18 at 19:00 Ondansetron HCl (Zofran Inj) 4 mg Q6H PRN IV NAUSEA AND/OR VOMITING Last administered on 11/05/18 09:49; Admin Dose 4 MG; Start 11/03/18 at 19:00 Metformin HCl (Glucophage) 1,000 mg WITH BREAKFAST PO Last administered on 11/05/18 08:38; Admin Dose 1,000 MG; Start 11/04/18 at 07:35 Linagliptin (Tradjenta) 5 mg DAILY PO Last administered on 11/05/18 08:39; Admin Dose 5 MG; Start 11/04/18 at 09:00 Diagnostic Test (Pha) (Accu-Chek) 1 ea AC MEALS AND BEDTIME XX Last admi nistered on 11/04/18 20:26; Admin Dose 1 EA; Start 11/03/18 at 21:00 Insulin Aspart (Novolog Insulin Pen) NOVOLOG *MILD* ALGORITHM WITH MEALS BEDTIME SC Last administered on 11/05/18 08:41; Admin Dose 2 UNIT; Start 11/03/18 at 21:00 Miscellaneous Information 1 ea NOTE XX ; Start 11/03/18 at 19:00 Glucose (Glutose) 15 gm Q15M PRN PO DECREASED GLUCOSE; Start 11/03/18 at 19:00 Glucose (Glutose) 22.5 gm Q15M PRN PO DECREASED GLUCOSE; Start 11/03/18 at 19:00 Dextrose (D50w Syringe) 25 ml Q15M PRN IV DECREASED GLUCOSE; Start 11/03/18 at 19:00 Dextrose (D50w Syringe) 50 ml Q15M PRN IV DECREASED GLUCOSE; Start 11/03/18 at 19:00 Glucagon (Glucagen) 1 mg Q15M PRN IM DECREASED GLUCOSE; Start 11/03/18 at 19:00 Glucose (Glutose) 15 gm Q15M PRN BUCCAL DECREASED GLUCOSE; Start 11/03/18 at 19:00 Hydromorphone HCl (Dilaudid) 1 mg Q4H PRN IV SEVERE PAIN LEVEL 7-10 Last administered on 11/05/18at 10:16; Admin Dose 1 MG; Start 11/03/18 at 19:30 Acetaminophen (Tylenol Tab) 650 mg Q6H PRN PO MILD PAIN(1-3)OR ELEVATED TEMP; Start 11/03/18 at 19:30 Senna (Senokot) 1 tab BID PRN PO CONSTIPATION; Start 11/03/18 at 19:30 Metoprolol Tartrate (Lopressor) 50 mg BID PO Last administered on 11/04/18 20: 22; Admin Dose 50 MG; Start 11/03/18 at 21:00 Insulin Glargine (Lantus) 19 units DAILY@0800 SC Last administered on 11/05/18 08:40; Admin Dose 19 UNITS; Start 11/04/18 at 08:00 Benazepril HCl (Lotensin) 10 mg BID PO Last administered on 11/04/18 20:22; Admin Dose 10 MG; Start 11/03/18 at 21:00 Gabapentin (Neurontin) 300 mg TID PO Last administered on 11/05/18 08:38; Admin Dose 300 MG; Start 11/03/18 at 21:00 Diphenhydramine HCl (Benadryl) 25 mg Q6H PRN PO ITCHING; Start 11/03/18 at 19:30 Insulin Aspart (Novolog Insulin Pen) 4 unit WITH MEALS SC Last administered on 11/05/18 08:40; Admin Dose 4 UNIT; Start 11/04/18 at 07:35 Acetaminophen/ Hydrocodone Bitart ([place] (10/325)) 2 tab Q4H PRN PO SEVERE PAIN LEVEL 7-10 Last administered on 11/05/18 08:39; Admin Dose 2 TAB; Start 11/04/18 at 10:00 Acetaminophen/ Hydrocodone Bitart ([place] (10/325)) 1 tab Q4H PRN PO MODERATE PAIN LEVEL 4-6; Start 11/04/18 at 10:00 Neomycin/ Polymyxin/ Bacitracin ([facility]) [facility] Last administered on 11/05/18 08:39; Admin Dose 1 APPLIC; Start 11/05/18 at 09:00 JACINTO GIRON Nov 05, 2018 11:38
[2018-11-05] MEDS ORDERED: ACETAMINOPHEN 325 MG TAB PO PRN (14:00)
[2018-11-05] MEDS ORDERED: LACTULOSE 30ML CUP PO PRN (14:00)
[2018-11-05 14:30] VITALS: BP 111/61; PULSE 72; RESP 20
--- NOTE | 2018-11-05 14:44 | CONS ---
Consultation Date/Type/Reason Admit Date/Time November 03, 2018 at 17:17 Initial Consult Date Date/Time of Note DATE: 11/05/18 TIME: 14:44 24 HR Interval Summary Free Text/Dictation VS reviewed - stable Exam/Review of Systems Exam Vitals Vital Signs Date Temp Pulse Resp B/P (MAP) Pulse Ox O2 O2 Flow FiO2 Time Delivery Rate 11/05/18 98.1 72 20 111/61 97 Room Air 14:30 (78) Intake and Output 11/04/18 11/04/18 11/05/18 1515:00 23:00 07:00 IntakeIntake Total 400 ml 500 ml BalanceBalance 400 ml 500 ml Results Result Diagram: 11/04/18 0625 11/04/18 0625 Results 24hrs Laboratory Tests Test 11/04/18 17:16 11/04/18 20:15 11/05/18 08:20 11/05/18 11:44 Bedside Glucose 117 119 204 213 Medications Medication Current Medications Miscellaneous Information (Pending [facility] Order For Wound Care) This patient chowdhury... PRN PRN XX WOUND CARE; Start 11/03/18 at 17:30 Al Hydrox/Mg Hydrox/Simethicone (Mag-Al Plus) 15 ml Q4H PRN PO .CONSTIPATION; Start 11/03/18 at 19:00 IV Flush (NS 3 ml) 3 ml PER PROTOCOL IV ; Start 11/03/18 at 19:00 Naloxone HCl (Narcan) 0.2 mg PRN PRN IV RR < 8; Start 11/03/18 at 19:00 Ondansetron HCl (Zofran Inj) 4 mg Q6H PRN IV NAUSEA AND/OR VOMITING Last admini stered on 11/05/18at 09:49; Admin Dose 4 MG; Start 11/03/18 at 19:00 Metformin HCl (Glucophage) 1,000 mg WITH BREAKFAST PO Last administered on 11/05/18at 08:38; Admin Dose 1,000 MG; Start 11/04/18 at 07:35 Linagliptin (Tradjenta) 5 mg DAILY PO Last administered on 11/05/18at 08:39; Admin Dose 5 MG; Start 11/04/18 at 09:00 Diagnostic Test (Pha) (Accu-Chek) 1 ea AC MEALS AND BEDTIME XX Last administer ed on 11/04/18 20:26; Admin Dose 1 EA; Start 11/03/18 at 21:00 Insulin Aspart (Novolog Insulin Pen) NOVOLOG *MILD* ALGORITHM WITH MEALS BEDTIME SC Last administered on 11/05/18 11:47; Admin Dose 2 UNIT; Start 11/03/18 at 21:00 Miscellaneous Information 1 ea NOTE XX ; Start 11/03/18 at 19:00 Glucose (Glutose) 15 gm Q15M PRN PO DECREASED GLUCOSE; Start 11/03/18 at 19:00 Glucose (Glutose) 22.5 gm Q15M PRN PO DECREASED GLUCOSE; Start 11/03/18 at 19:00 Dextrose (D50w Syringe) 25 ml Q15M PRN IV DECREASED GLUCOSE; Start 11/03/18 at 19:00 Dextrose (D50w Syringe) 50 ml Q15M PRN IV DECREASED GLUCOSE; Start 11/03/18 at 19:00 Glucagon (Glucagen) 1 mg Q15M PRN IM DECREASED GLUCOSE; Start 11/03/18 at 19:00 Glucose (Glutose) 15 gm Q15M PRN BUCCAL DECREASED GLUCOSE; Start 11/03/18 at 19:00 Hydromorphone HCl (Dilaudid) 1 mg Q4H PRN IV SEVERE PAIN LEVEL 7-10 Last administered on 11/05/18 10:16; Admin Dose 1 MG; Start 11/03/18 at 19:30 Metoprolol Tartrate (Lopressor) 50 mg BID PO Last administered on 11/04/18 20:22; Admin Dose 50 MG; Start 11/03/18 at 21:00 Insulin Glargine (Lantus) 19 units DAILY@0800 SC Last administered on 11/05/18 08:40; Admin Dose 19 UNITS; Start 11/04/18 at 08:00 Benazepril HCl (Lotensin) 10 mg BID PO Last administered on 11/04/18 20:22; Admin Dose 10 MG; Start 11/03/18 at 21:00 Gabapentin (Neurontin) 300 mg TID PO Last administered on 11/05/18 13:02; Admin Dose 300 MG; Start 11/03/18 at 21:00 Diphenhydramine HCl (Benadryl) 25 mg Q6H PRN PO ITCHING; Start 11/03/18 at 19:30 Insulin Aspart (Novolog Insulin Pen) 4 unit WITH MEALS SC Last administered on 11/05/18at 11:46; Admin Dose 4 UNIT; Start 11/04/18 at 07:35 Acetaminophen/ Hydrocodone Bitart ([place] (10/325)) 2 tab Q4H PRN PO SEVERE PAIN LEVEL 7-10 Last administered on 11/05/18at 13:03; Admin Dose 2 TAB; Start 11/04/18 at 10:00 Acetaminophen/ Hydrocodone Bitart ([place] (10/325)) 1 tab Q4H PRN PO MODERATE PAIN LEVEL 4-6; Start 11/04/18 at 10:00 Neomycin/ Polymyxin/ Bacitracin (Neosporin Topical Oint) 1 applic QAM TOP Last administered on 11/05/18at 08:39; Admin Dose 1 APPLIC; Start 11/05/18 at 09:00 Acetaminophen (Tylenol Tab) 650 mg Q4 PRN PO MILD PAIN(1-3)OR ELEVATED TEMP; Start 11/05/18 at 14:00 Senna (Senokot) 1 tab QHS PO ; Start 11/05/18 at 21:00 Docusate Sodium (Colace) 100 mg BID PO ; Start 11/05/18 at 21:00 Bisacodyl (Dulcolax Supp) 10 mg DAILY PRN [place] CONSTIPATION; Start 11/05/18 at 14:00 Lactulose (Enulose) 20 gm DAILY PRN PO CONSTIPATION; Start 11/05/18 at 14:00 BHARATI MOYER MD Nov 05, 2018 14:44
[2018-11-05 20:00] VITALS: BP 120/56; PULSE 78; RESP 18
[2018-11-05] MEDS: SENNA TAB PO SCH (20:11)
[2018-11-05] MEDS: DOCUSATE SODIUM 100 MG CAP PO SCH (20:11)
[2018-11-06] MEDS: HYDROCODONE/APAP (10/325) TAB PO PRN ×6 (01:58→23:54)
[2018-11-06 02:00] VITALS: BP 118/78; PULSE 78; RESP 16
[2018-11-06] MEDS: HYDROmorphONE 1 MG/ML SYG IV PRN ×5 (04:05→21:38)
[2018-11-06] MEDS: INSULIN ASPART [NOVOLOG] 3 ML PEN SC SCH ×7 (07:35→21:00)
[2018-11-06] MEDS: ONDANSETRON 4 MG INJ IV PRN (07:51)
[2018-11-06] MEDS: metFORMIN 500 MG TAB PO SCH (07:52)
[2018-11-06] MEDS: INSULIN GLARGINE [LANTus] (100 UNITS/ML) SYG SC SCH (07:57)
[2018-11-06] MEDS: ACCU-CHEK XX SCH ×4 (08:02→21:33)
[2018-11-06] MEDS: LINAGLIPTIN 5 MG TABLET PO SCH (08:19)
[2018-11-06] MEDS: GABAPENTIN 300 MG CAP PO SCH ×3 (08:19→21:31)
[2018-11-06] MEDS: DOCUSATE SODIUM 100 MG CAP PO SCH ×2 (08:19→21:31)
[2018-11-06] MEDS: METOPROLOL 50 MG TAB PO SCH ×2 (08:23→21:30)
[2018-11-06] MEDS: BENAZEPRIL 10 MG TAB PO SCH ×2 (08:23→21:30)
[2018-11-06] MEDS: NEOMYC/POLYMYX/BACIT 30 GM OINT TOP SCH ×2 (08:24→21:00)
[2018-11-06 08:30] VITALS: BP 127/58; PULSE 90; RESP 18
[2018-11-06] MEDS: BACLOFEN 10 MG TAB PO SCH ×2 (12:08→21:31)
--- NOTE | 2018-11-06 12:42 | PN ---
Date/Time of Note Date/Time of Note DATE: 11/06/18 TIME: 12:41 Subjective RN reports slight drainage from inferior aspect of wound Objective Vital Signs Date Temp Pulse Resp B/P (MAP) Pulse Ox O2 O2 Flow FiO2 Time Delivery Rate 11/06/18 97.8 90 18 127/58 96 Room Air 08:30 (81) Intake and Output 11/05/18 11/05/18 11/06/18 1515:00 23:00 07:00 IntakeIntake Total 300 ml 350 ml OutputOutput Total 900 ml BalanceBalance 300 ml -550 ml Exam pulm-cta min assist ambulation 75 feet Results/Medications Result Diagram: 11/04/18 0611/04/18 0625 Results 24 hrs Laboratory Tests Test 11/05/18 17:48 11/05/18 20:14 11/06/18 07:37 11/06/18 12:04 Bedside Glucose 101 148 133 122 Medications Current Medications Miscellaneous Information (Pending [facility] Order For Wound Care) This patient chowdhury... PRN PRN XX WOUND CARE; Start 11/03/18 at 17:30 Al Hydrox/Mg Hydrox/Simethicone (Mag-Al Plus) 15 ml Q4H PRN PO .CONSTIPATION; Start 11/03/18 at 19:00 IV Flush (NS 3 ml) 3 ml PER PROTOCOL IV ; Start 11/03/18 at 19:00 Naloxone HCl (Narcan) 0.2 mg PRN PRN IV RR < 8; Start 11/03/18 at 19:00 Ondansetron HCl (Zofran Inj) 4 mg Q6H PRN IV NAUSEA AND/OR VOMITING Last administered on 11/06/18at 07:51; Admin Dose 4 MG; Start 11/03/18 at 19:00 Metformin HCl (Glucophage) 1,000 mg WITH BREAKFAST PO Last administered on 11/06/18at 07:52; Admin Dose 1,000 MG; Start 11/04/18 at 07:35 Linagliptin (Tradjenta) 5 mg DAILY PO Last administered on 11/06/18at 08:19; Admin Dose 5 MG; Start 11/04/18 at 09:00 Diagnostic Test (Pha) (Accu-Chek) 1 ea AC MEALS AND BEDTIME XX Last administered on 11/06/18at 12:04; Admin Dose 1 EA; Start 11/03/18 at 21:00 Insulin Aspart (Novolog Insulin Pen) NOVOLOG *MILD* ALGORITHM WITH MEALS BEDTIME SC Last administered on 11/05/18at 11:47; Admin Dose 2 UNIT; Start 11/03/18 at 21:00 Miscellaneous Information 1 ea NOTE XX ; Start 11/03/18 at 19:00 Glucose (Glutose) 15 gm Q15M PRN PO DECREASED GLUCOSE; Start 11/03/18 at 19:00 Glucose (Glutose) 22.5 gm Q15M PRN PO DECREASED GLUCOSE; Start 11/03/18 at 19:00 Dextrose (D50w Syringe) 25 ml Q15M PRN IV DECREASED GLUCOSE; Start 11/03/18 at 19:00 Dextrose (D50w Syringe) 50 ml Q15M PRN IV DECREASED GLUCOSE; Start 11/03/18 at 19:00 Glucagon (Glucagen) 1 mg Q15M PRN IM DECREASED GLUCOSE; Start 11/03/18 at 19:00 Glucose (Glutose) 15 gm Q15M PRN BUCCAL DECREASED GLUCOSE; Start 11/03/18 at 1 9:00 Hydromorphone HCl (Dilaudid) 1 mg Q4H PRN IV SEVERE PAIN LEVEL 7-10 Last administered on 11/06/18at 12:30; Admin Dose 1 MG; Start 11/03/18 at 19:30 Metoprolol Tartrate (Lopressor) 50 mg BID PO Last administered on 11/06/18 08:23; Admin Dose 50 MG; Start 11/03/18 at 21:00 Insulin Glargine (Lantus) 19 units DAILY@0800 SC Last administered on 11/06/18at 07:57; Admin Dose 19 UNITS; Start 11/04/18 at 08:00 Benazepril HCl (Lotensin) 10 mg BID PO Last administered on 11/06/18 08:23; Admin Dose 10 MG; Start 11/03/18 at 21:00 Gabapentin (Neurontin) 300 mg TID PO Last administered on 11/06/18 08:19; Admin Dose 300 MG; Start 11/03/18 at 21:00 Diphenhydramine HCl (Benadryl) 25 mg Q6H PRN PO ITCHING; Start 11/03/18 at 19:30 Insulin Aspart (Novolog Insulin Pen) 4 unit WITH MEALS SC Last administered on 11/06/18 12:07; Admin Dose 4 UNIT; Start 11/04/18 at 07:35 Acetaminophen/ Hydrocodone Bitart ([place] (10/325)) 2 tab Q4H PRN PO SEVERE PAIN LEVEL 7-10 Last administered on 11/06/18 11:00; Admin Dose 2 TAB; Start 11/04/18 at 10:00 Acetaminophen/ Hydrocodone Bitart ([place] (10/325)) 1 tab Q4H PRN PO MODERATE PAIN LEVEL 4-6; Start 11/04/18 at 10:00 Neomycin/ Polymyxin/ Bacitracin (Neosporin Topical Oint) 1 applic QAM TOP Last administered on 11/06/18 08:24; Admin Dose 1 APPLIC; Start 11/05/18 at 09:00 Acetaminophen (Tylenol Tab) 650 mg Q4 PRN PO MILD PAIN(1-3)OR ELEVATED TEMP; Start 11/05/18 at 14:00 Senna (Senokot) 1 tab QHS PO Last administered on 11/05/18at 20:11; Admin Dose 1 TAB; Start 11/05/18 at 21:00 Docusate Sodium (Colace) 100 mg BID PO Last administered on 11/06/18 08:19; Admin Dose 100 MG; Start 11/05/18 at 21:00 Bisacodyl (Dulcolax Supp) 10 mg DAILY PRN [place] CONSTIPATION; Start 11/05/18 at 14:00 Lactulose (Enulose) 20 gm DAILY PRN PO CONSTIPATION; Start 11/05/18 at 14:00 Baclofen (Lioresal) 10 mg BID PO Last administered on 11/06/18at 12:08; Admin Dose 10 MG; Start 11/06/18 at 12:00 Assessment/Plan Additional Assessment/Plan rehab- Lumbar radiculopathy, status post lumbar surgery, 10/27/2018. Continue activities as tolerated Incision- culture sent given the drainage Diabetes mellitus. Hypertension. Bipolar disease. Anemia. History of cervical decompression and fusion. BUBBA PHELPS MD Nov 06, 2018 12:42
--- NOTE | 2018-11-06 13:13 | CONS ---
Assessment/Plan Assessment/Plan Hospital Course (Demo Recall) IMPRESSION: 1. Tachycardia -overall improved-NL EF by echo this admit 2. Shortness of breath-improved 3. Hypertension, under reasonable controlon current medications 4. Diabetes mellitus. 5. Postop status post spinal fusion L3 to S1. 6. Anemia, mild. 7. Leukocytosis-resolved Recc: -Now in [facility] -Continue BB/ACEI with well controlled BP -pain control -follow BS clsoely -PT Consultation Date/Type/Reason Admit Date/Time November 03, 2018 at 17:17 Initial Consult Date 11/03/18 Type of Consult Cardiology Reason for Consultation HTN Requesting Provider: AIDA GREENE MD Date/Time of Note DATE: 11/06/18 TIME: 13:11 Exam/Review of Systems Vital Signs Vitals Vital Signs Date Temp Pulse Resp B/P (MAP) Pulse Ox O2 O2 Flow FiO2 Time Delivery Rate 11/06/18 97.8 90 18 127/58 96 Room Air 08:30 (81) Intake and Output 11/05/18 11/05/18 11/06/18 1515:00 23:00 07:00 IntakeIntake Total 300 ml 350 ml OutputOutput Total 900 ml BalanceBalance 300 ml -550 ml Exam Exam Review of Systems: CONSTITUTIONAL: No fevers, chills. PULMONARY: No sob CARDIOVASCULAR: No chest pain/palpitations GASTROINTESTINAL: No nausea/vomiting. GENITOURINARY: No hematuria/dysuria. MUSCULOSKELETAL: back pain ongoing PSYCHIATRIC: The patient denies depression. NEUROLOGIC: No weakness Constitutional: alert, oriented Psych: no complaints Head: normocephalic ENMT: mucosa pink and moist Neck: supple, jvd (9 cm water) Respiratory: clear to auscultation Cardiovascular: regular rate and rhythm Gastrointestinal: soft, non-tender Musculoskeletal: muscle weakness (mild LE) Extremities: edema (none) Neurological: other (toe numbness) Labs Result Diagram: 11/04/18 0625 11/04/18 0625 Results 24hrs Laboratory Tests Test 11/05/18 17:48 11/05/18 20:14 11/06/18 07:37 11/06/18 12:04 Bedside Glucose 101 148 133 122 Medications Medications Current Medications Miscellaneous Information ([facility]) This patient chowdhury... PRN PRN XX WOUND CARE; Start 11/03/18 at 17:30 Al Hydrox/Mg Hydrox/Simethicone (Mag-Al Plus) 15 ml Q4H PRN PO .CONSTIPATION; Start 11/03/18 at 19:00 IV Flush (NS 3 ml) 3 ml PER PROTOCOL IV ; Start 11/03/18 at 19:00 Naloxone HCl (Narcan) 0.2 mg PRN PRN IV RR < 8; Start 11/03/18 at 19:00 Ondansetron HCl (Zofran Inj) 4 mg Q6H PRN IV NAUSEA AND/OR VOMITING Last administered on 11/06/18at 07:51; Admin Dose 4 MG; Start 11/03/18 at 19:00 Metformin HCl (Glucophage) 1,000 mg WITH BREAKFAST PO Last administered on 11/06/18at 07:52; Admin Dose 1,000 MG; Start 11/04/18 at 07:35 Linagliptin (Tradjenta) 5 mg DAILY PO Last administered on 11/06/18at 08:19; Admin Dose 5 MG; Start 11/04/18 at 09:00 Diagnostic Test (Pha) (Accu-Chek) 1 ea AC MEALS AND BEDTIME XX Last administered on 11/06/18at 12:04; Admin Dose 1 EA; Start 11/03/18 at 21:00 Insulin Aspart (Novolog Insulin Pen) NOVOLOG *MILD* ALGORITHM WITH MEALS BEDTIME SC Last administered on 11/05/18at 11:47; Admin Dose 2 UNIT; Start 11/03/18 at 21:00 Miscellaneous Information 1 ea NOTE XX ; Start 11/03/18 at 19:00 Glucose (Glutose) 15 gm Q15M PRN PO DECREASED GLUCOSE; Start 11/03/18 at 19:00 Glucose (Glutose) 22.5 gm Q15M PRN PO DECREASED GLUCOSE; Start 11/03/18 at 19:00 Dextrose (D50w Syringe) 25 ml Q15M PRN IV DECREASED GLUCOSE; Start 11/03/18 at 19:00 Dextrose (D50w Syringe) 50 ml Q15M PRN IV DECREASED GLUCOSE; Start 11/03/18 at 19:00 Glucagon (Glucagen) 1 mg Q15M PRN IM DECREASED GLUCOSE; Start 11/03/18 at 19:00 Glucose (Glutose) 15 gm Q15M PRN BUCCAL DECREASED GLUCOSE; Start 11/03/18 at 19:00 Hydromorphone HCl (Dilaudid) 1 mg Q4H PRN IV SEVERE PAIN LEVEL 7-10 Last administered on 11/06/18 12:30; Admin Dose 1 MG; Start 11/03/18 at 19:30 Metoprolol Tartrate (Lopressor) 50 mg BID PO Last administered on 11/06/18 08:23; Admin Dose 50 MG; Start 11/03/18 at 21:00 Insulin Glargine (Lantus) 19 units DAILY@0800 SC Last administered on 11/06/18 07:57; Admin Dose 19 UNITS; Start 11/04/18 at 08:00 Benazepril HCl (Lotensin) 10 mg BID PO Last administered on 11/06/18 08:23; Admin Dose 10 MG; Start 11/03/18 at 21:00 Gabapentin (Neurontin) 300 mg TID PO Last administered on 11/06/18 08:19; Admin Dose 300 MG; Start 11/03/18 at 21:00 Diphenhydramine HCl (Benadryl) 25 mg Q6H PRN PO ITCHING; Start 11/03/18 at 19:30 Insulin Aspart (Novolog Insulin Pen) 4 unit WITH MEALS SC Last administered on 11/06/18 12:07; Admin Dose 4 UNIT; Start 11/04/18 at 07:35 Acetaminophen/ Hydrocodone Bitart ([place] (10/325)) 2 tab Q4H PRN PO SEVERE PAIN LEVEL 7-10 Last administered on 11/06/18 11:00; Admin Dose 2 TAB; Start 11/04/18 at 10:00 Acetaminophen/ Hydrocodone Bitart ([place] (10/325)) 1 tab Q4H PRN PO MODERATE PAIN LEVEL 4-6; Start 11/04/18 at 10:00 Neomycin/ Polymyxin/ Bacitracin (Neosporin Topical Oint) 1 applic QAM TOP Last administered on 11/06/18 08:24; Admin Dose 1 APPLIC; Start 11/05/18 at 09:00 Acetaminophen (Tylenol Tab) 650 mg Q4 PRN PO MILD PAIN(1-3)OR ELEVATED TEMP; Start 11/05/18 at 14:00 Senna (Senokot) 1 tab QHS PO Last administered on 11/05/18at 20:11; Admin Dose 1 TAB; Start 11/05/18 at 21:00 Docusate Sodium (Colace) 100 mg BID PO Last administered on 11/06/18at 08:19; Admin Dose 100 MG; Start 11/05/18 at 21:00 Bisacodyl (Dulcolax Supp) 10 mg DAILY PRN [place] CONSTIPATION; Start 11/05/18 at 14:00 Lactulose (Enulose) 20 gm DAILY PRN PO CONSTIPATION; Start 11/05/18 at 14:00 Baclofen (Lioresal) 10 mg BID PO Last administered on 11/06/18at 12:08; Admin Dose 10 MG; Start 11/06/18 at 12:00 VESNA GALLAGHER Nov 06, 2018 13:13
[2018-11-06] MEDS: BISACODYL 10 MG SUPP PR PRN (14:36)
[2018-11-06 15:26] VITALS: BP 148/70; PULSE 84; RESP 18
[2018-11-06] MEDS: CEFAZOLIN 2 GM/50 ML (PMX) 50 ML IVPB SCH ×2 (15:57→21:43)
--- NOTE | 2018-11-06 18:03 | PN ---
DATE: 11/06/2018 SUBJECTIVE AND INTERVAL HISTORY: Followup on ALIF of L3 through S1 and ISF of L2 through S1 and deco mpression by Dr. Goldsmith, diabetes, postop bleeding and anemia. The patient's postoperative pain is no w controlled with [place] and gabapentin. The patient denies any chest pain. No numbness, tingling in lower extremities. No reported fever or chills. The patient was seen by AZALEA Fernandez, for Dr. Asaf foote and has started her on IV cefazolin due to possible incisional wound infection. The patient, fatimah landin, did not have any fever or chills. Blood pressure has remained stable. PHYSICAL EXAMINATION: GENERAL: Revealed the patient to be awake, alert. VITAL SIGNS: Temperature 97.8, pulse 84, respiration 18, blood pressure 148/70, O2 saturation 99% on room air. HEENT: No eye discharge or redness. Conjunctivae and lids are normal. Oropharynx is clear. NECK: No mass, no JVD. CHEST: Fairly clear. No use of accessory muscles. CARDIOVASCULAR: S1, S2 normal. No murmur. ABDOMEN: Soft, nondistended, nontender. EXTREMITIES: No edema. Pedal pulses are palpable. SKIN: Without acute rash or ulcer. NEUROLOGIC: The patient is awake, alert, fairly oriented with no gross focal deficit. LABORATORY DATA: Done today: WBC 8.1, hemoglobin 10.2, platelet 292, no bandemia. Chemistry reveal ed sodium 138, potassium 4, BUN 7, creatinine 0.6, last glucose 122. AST 17, ALT 11, alkaline phosph atase 82, albumin 3.1. Urine culture revealed mixed gram-positive organism. Wound culture has been ordered. IMPRESSION: 1. Status post ALIF and posterior fixation with possible local wound infection. Wound culture is pe nding. The patient is empirically on IV Ancef. The patient does not appear toxic. 2. Diabetes. Blood sugar is reasonably controlled with Tradjenta and metformin, premeal insulin and Lantus. 3. Hypertension. Blood pressure is reasonably controlled with lisinopril and metoprolol. ADDENDUM: The patient wanted to discuss code status. I explained her about code in presence of brady ent's nurse, Yuli. I did mention to her that she does not have any terminal illness and sometimes, the patient can have transient illnesses causing cardiopulmonary arrest which could be reversible; h owever, the patient wanted to be DNR. I asked her multiple times to make sure she understands the me aning of do not resuscitate. She was very clear that she did want to be resuscitated in case of card iopulmonary arrest. Conversation was witnessed by the patient's nurse, Yuli. Dictated By: AIDA GREENE MD AB/NTS Conf#: [id number] DID#: [id number] CC: BUBBA PHELPS MD;*EndCC*
[2018-11-06 20:00] VITALS: BP 119/68; PULSE 80; RESP 18
[2018-11-06] MEDS: SENNA TAB PO SCH (21:31)
[2018-11-07 02:00] VITALS: BP 130/66; PULSE 80; RESP 18
[2018-11-07] MEDS: HYDROmorphONE 1 MG/ML SYG IV PRN ×7 (02:56→21:13)
[2018-11-07] MEDS: CEFAZOLIN 2 GM/50 ML (PMX) 50 ML IVPB SCH ×3 (06:19→21:15)
[2018-11-07] MEDS: HYDROCODONE/APAP (10/325) TAB PO PRN ×4 (06:31→22:25)
[2018-11-07] MEDS: ACCU-CHEK XX SCH ×4 (07:05→21:02)
[2018-11-07 08:00] VITALS: BP 144/68; PULSE 88; RESP 18
[2018-11-07] MEDS: metFORMIN 500 MG TAB PO SCH (08:58)
[2018-11-07] MEDS: INSULIN ASPART [NOVOLOG] 3 ML PEN SC SCH ×7 (09:00→21:00)
[2018-11-07] MEDS: LINAGLIPTIN 5 MG TABLET PO SCH (09:28)
[2018-11-07] MEDS: INSULIN GLARGINE [LANTus] (100 UNITS/ML) SYG SC SCH (09:38)
--- NOTE | 2018-11-07 10:22 | CONS ---
Consultation Date/Type/Reason Admit Date/Time November 03, 2018 at 17:17 Initial Consult Date Type of Consult Cardiology Requesting Provider: AIDA GREENE MD Date/Time of Note DATE: 11/07/18 TIME: 10:22 24 HR Interval Summary Free Text/Dictation Pt in shower, not able to see - per nurse, doing well. VS reviewed - stable. Exam/Review of Systems Vital Signs Vitals Vital Signs Date Temp Pulse Resp B/P (MAP) Pulse Ox O2 O2 Flow FiO2 Time Delivery Rate 11/07/18 98.6 88 18 144/68 96 Room Air 08:00 (93) Intake and Output 11/06/18 11/06/18 11/07/18 1414:59 22:59 06:59 IntakeIntake Total 550 ml 350 ml OutputOutput Total 900 ml BalanceBalance 550 ml -550 ml Labs Result Diagram: 11/06/18 1506 11/04/18 0625 Results 24hrs Laboratory Tests Test 11/06/18 12:04 11/06/18 15:06 11/06/18 17:08 11/06/18 21:35 Bedside Glucose 122 145 109 White Blood Count 8.1 Red Blood Count 3.75 L Hemoglobin 10.2 L Hematocrit 32.9 L Mean Corpuscular Volume 87.7 Mean Corpuscular 27.2 L Hemoglobin Mean Corpuscular 31.0 L Hemoglobin Concent Red Cell Distribution 13.0 Width Platelet Count 292 Mean Platelet Volume 10.4 Immature Granulocytes % 0.900 H Neutrophils % 61.4 Lymphocytes % 24.4 Monocytes % 8.5 Eosinophils % 4.2 Basophils % 0.6 Nucleated Red Blood 0.0 Cells % Immature Granulocytes # 0.070 H Neutrophils # 5.0 Lymphocytes # 2.0 Monocytes # 0.7 Eosinophils # 0.3 Basophils # 0.1 Nucleated Red Blood 0.0 Cells # Test 11/07/18 08:53 Bedside Glucose 157 Medications Medications Current Medications Miscellaneous Information ([facility]) This patient chowdhury... PRN PRN XX WOUND CARE; Start 11/03/18 at 17:30 Al Hydrox/Mg Hydrox/Simethicone (Mag-Al Plus) 15 ml Q4H PRN PO .CONSTIPATION; Start 11/03/18 at 19:00 IV Flush (NS 3 ml) 3 ml PER PROTOCOL IV ; Start 11/03/18 at 19:00 Naloxone HCl (Narcan) 0.2 mg PRN PRN IV RR < 8; Start 11/03/18 at 19:00 Ondansetron HCl (Zofran Inj) 4 mg Q6H PRN IV NAUSEA AND/OR VOMITING Last administered on 11/06/18 07:51; Admin Dose 4 MG; Start 11/03/18 at 19:00 Metformin HCl (Glucophage) 1,000 mg WITH BREAKFAST PO Last administered on 11/07/18 08:58; Admin Dose 1,000 MG; Start 11/04/18 at 07:35 Linagliptin (Tradjenta) 5 mg DAILY PO Last administered on 11/07/18 09:28; Admin Dose 5 MG; Start 11/04/18 at 09:00 Diagnostic Test (Pha) (Accu-Chek) 1 ea AC MEALS AND BEDTIME XX Last administered on 11/06/18 21:33; Admin Dose 1 EA; Start 11/03/18 at 21:00 Insulin Aspart (Novolog Insulin Pen) NOVOLOG *MILD* ALGORITHM WITH MEALS BEDTIME SC Last administered on 11/07/18 09:02; Admin Dose 1 UNIT; Start 11/03/18 at 21:00 Miscellaneous Information 1 ea NOTE XX ; Start 11/03/18 at 19:00 Glucose (Glutose) 15 gm Q15M PRN PO DECREASED GLUCOSE; Start 11/03/18 at 19:00 Glucose (Glutose) 22.5 gm Q15M PRN PO DECREASED GLUCOSE; Start 11/03/18 at 19:00 Dextrose (D50w Syringe) 25 ml Q15M PRN IV DECREASED GLUCOSE; Start 11/03/18 at 19:00 Dextrose (D50w Syringe) 50 ml Q15M PRN IV DECREASED GLUCOSE; Start 11/03/18 at 19:00 Glucagon (Glucagen) 1 mg Q15M PRN IM DECREASED GLUCOSE; Start 11/03/18 at 19:00 Glucose (Glutose) 15 gm Q15M PRN BUCCAL DECREASED GLUCOSE; Start 11/03/18 at 19:00 Hydromorphone HCl (Dilaudid) 1 mg Q4H PRN IV SEVERE PAIN LEVEL 7-10 Last administered on 11/07/18 09:19; Admin Dose 1 MG; Start 11/03/18 at 19:30 Metoprolol Tartrate (Lopressor) 50 mg BID PO Last administered on 11/06/18 21 :30; Admin Dose 50 MG; Start 11/03/18 at 21:00 Insulin Glargine (Lantus) 19 units DAILY@0800 SC Last administered on 11/07/18 09:38; Admin Dose 19 UNITS; Start 11/04/18 at 08:00 Benazepril HCl (Lotensin) 10 mg BID PO Last administered on 11/06/18 21:30; Admin Dose 10 MG; Start 11/03/18 at 21:00 Gabapentin (Neurontin) 300 mg TID PO Last administered on 11/06/18 21:31; Admin Dose 300 MG; Start 11/03/18 at 21:00 Diphenhydramine HCl (Benadryl) 25 mg Q6H PRN PO ITCHING; Start 11/03/18 at 19:30 Insulin Aspart (Novolog Insulin Pen) 4 unit WITH MEALS SC Last administered on 11/07/18 09:00; Admin Dose 4 UNIT; Start 11/04/18 at 07:35 Acetaminophen/ Hydrocodone Bitart ([place] (10/325)) 2 tab Q4H PRN PO SEVERE PAIN LEVEL 7-10 Last administered on 11/07/18 06:31; Admin Dose 2 TAB; Start 11/04/18 at 10:00 Acetaminophen/ Hydrocodone Bitart ([place] (10/325)) 1 tab Q4H PRN PO MODERATE PAIN LEVEL 4-6 Last administered on 11/06/18 23:54; Admin Dose 1 TAB; Start 11/04/18 at 10:00 Acetaminophen (Tylenol Tab) 650 mg Q4 PRN PO MILD PAIN(1-3)OR ELEVATED TEMP; Start 11/05/18 at 14:00 Senna (Senokot) 1 tab QHS PO Last administered on 11/06/18 21:31; Admin Dose 1 TAB; Start 11/05/18 at 21:00 Docusate Sodium (Colace) 100 mg BID PO Last administered on 11/06/18 21:31; Admin Dose 100 MG; Start 11/05/18 at 21:00 Bisacodyl (Dulcolax Supp) 10 mg DAILY PRN [place] CONSTIPATION Last administered on 6/3/19at 14:36; Admin Dose 10 MG; Start 11/05/18 at 14:00 Lactulose (Enulose) 20 gm DAILY PRN PO CONSTIPATION; Start 11/05/18 at 14:00 Baclofen (Lioresal) 10 mg BID PO Last administered on 11/06/18at 21:31; Admin Dose 10 MG; Start 11/06/18 at 12:00 Cefazolin Sodium/ Dextrose 50 ml @ 100 mls/hr Q8 IVPB Last administered on 11/07/18at 06:19; Admin Dose 100 MLS/HR; Start 11/06/18 at 14:00 Neomycin/ Polymyxin/ Bacitracin (Neosporin Topical Oint) 1 applic Q12 TOP Last administered on 11/06/18at 21:00; Admin Dose 1 APPLIC; Start 11/06/18 at 21:00 BHARATI MOYER MD Nov 07, 2018 10:22
[2018-11-07] MEDS: DOCUSATE SODIUM 100 MG CAP PO SCH ×2 (10:55→21:01)
[2018-11-07] MEDS: GABAPENTIN 300 MG CAP PO SCH ×3 (10:55→21:00)
[2018-11-07] MEDS: BACLOFEN 10 MG TAB PO SCH ×2 (10:56→21:01)
[2018-11-07] MEDS: METOPROLOL 50 MG TAB PO SCH ×2 (11:11→21:01)
[2018-11-07] MEDS: BENAZEPRIL 10 MG TAB PO SCH ×2 (11:11→21:01)
[2018-11-07] MEDS: NEOMYC/POLYMYX/BACIT 30 GM OINT TOP SCH ×2 (11:12→21:05)
--- NOTE | 2018-11-07 13:23 | PN ---
Date/Time of Note Date/Time of Note DATE: 11/07/18 TIME: 13:21 Subjective Patient was happy to do showering today with OT Objective Vital Signs Date Temp Pulse Resp B/P (MAP) Pulse Ox O2 O2 Flow FiO2 Time Delivery Rate 11/07/18 98.6 88 18 144/68 96 Room Air 08:00 (93) Intake and Output 11/06/18 11/06/18 11/07/18 1515:00 23:00 07:00 IntakeIntake Total 550 ml 350 ml OutputOutput Total 900 ml BalanceBalance 550 ml -550 ml Exam pulm-cta min assist 50 feet Results/Medications Result Diagram: 11/06/18 1506 11/04/18 0625 Results 24 hrs Laboratory Tests Test 11/06/18 15:06 11/06/18 17:08 11/06/18 21:35 11/07/18 08:53 White Blood Count 8.1 Red Blood Count 3.75 L Hemoglobin 10.2 L Hematocrit 32.9 L Mean Corpuscular Volume 87.7 Mean Corpuscular 27.2 L Hemoglobin Mean Corpuscular 31.0 L Hemoglobin Concent Red Cell Distribution 13.0 Width Platelet Count 292 Mean Platelet Volume 10.4 Immature Granulocytes % 0.900 H Neutrophils % 61.4 Lymphocytes % 24.4 Monocytes % 8.5 Eosinophils % 4.2 Basophils % 0.6 Nucleated Red Blood 0.0 Cells % Immature Granulocytes # 0.070 H Neutrophils # 5.0 Lymphocytes # 2.0 Monocytes # 0.7 Eosinophils # 0.3 Basophils # 0.1 Nucleated Red Blood 0.0 Cells # Bedside Glucose 145 109 157 Test 11/07/18 12:15 Bedside Glucose 147 Medications Current Medications Miscellaneous Information (Pending [facility] Order For Wound Care) This patient chowdhury ... PRN PRN XX WOUND CARE; Start 11/03/18 at 17:30 Al Hydrox/Mg Hydrox/Simethicone (Mag-Al Plus) 15 ml Q4H PRN PO .CONSTIPATION; Start 11/03/18 at 19:00 IV Flush (NS 3 ml) 3 ml PER PROTOCOL IV ; Start 11/03/18 at 19:00 Naloxone HCl (Narcan) 0.2 mg PRN PRN IV RR < 8; Start 11/03/18 at 19:00 Ondansetron HCl (Zofran Inj) 4 mg Q6H PRN IV NAUSEA AND/OR VOMITING Last administered on 11/06/18 07:51; Admin Dose 4 MG; Start 11/03/18 at 19:00 Metformin HCl (Glucophage) 1,000 mg WITH BREAKFAST PO Last administered on 11/07/18 08:58; Admin Dose 1,000 MG; Start 11/04/18 at 07:35 Linagliptin (Tradjenta) 5 mg DAILY PO Last administered on 11/07/18 09:28; Admin Dose 5 MG; Start 11/04/18 at 09:00 Diagnostic Test (Pha) (Accu-Chek) 1 ea AC MEALS AND BEDTIME XX Last administered on 11/07/18 12:15; Admin Dose 1 EA; Start 11/03/18 at 21:00 Insulin Aspart (Novolog Insulin Pen) NOVOLOG *MILD* ALGORITHM WITH MEALS BEDTIME SC Last administered on 11/07/18 12:19; Admin Dose 1 UNIT; Start 11/03/18 at 21:00 Miscellaneous Information 1 ea NOTE XX ; Start 11/03/18 at 19:00 Glucose (Glutose) 15 gm Q15M PRN PO DECREASED GLUCOSE; Start 11/03/18 at 19:00 Glucose (Glutose) 22.5 gm Q15M PRN PO DECREASED GLUCOSE; Start 11/03/18 at 19:00 Dextrose (D50w Syringe) 25 ml Q15M PRN IV DECREASED GLUCOSE; Start 11/03/18 at 19:00 Dextrose (D50w Syringe) 50 ml Q15M PRN IV DECREASED GLUCOSE; Start 11/03/18 at 19:00 Glucagon (Glucagen) 1 mg Q15M PRN IM DECREASED GLUCOSE; Start 11/03/18 at 19:00 Glucose (Glutose) 15 gm Q15M PRN BUCCAL DECREASED GLUCOSE; Start 11/03/18 at 19:00 Hydromorphone HCl (Dilaudid) 1 mg Q4H PRN IV SEVERE PAIN LEVEL 7-10 Last administered on 11/07/18 13:08; Admin Dose 1 MG; Start 11/03/18 at 19:30 Metoprolol Tartrate (Lopressor) 50 mg BID PO Last administered on 11/07/18 11:11; Admin Dose 50 MG; Start 11/03/18 at 21:00 Insulin Glargine (Lantus) 19 units DAILY@0800 SC Last administered on 11/07/18 09:38; Admin Dose 19 UNITS; Start 11/04/18 at 08:00 Benazepril HCl (Lotensin) 10 mg BID PO Last administered on 11/07/18 11:11; Admin Dose 10 MG; Start 11/03/18 at 21:00 Gabapentin (Neurontin) 300 mg TID PO Last administered on 11/07/18 13:13; Admin Dose 300 MG; Start 11/03/18 at 21:00 Diphenhydramine HCl (Benadryl) 25 mg Q6H PRN PO ITCHING; Start 11/03/18 at 19:30 Insulin Aspart (Novolog Insulin Pen) 4 unit WITH MEALS SC Last administered on 11/07/18 12:20; Admin Dose 4 UNIT; Start 11/04/18 at 07:35 Acetaminophen/ Hydrocodone Bitart ([place] (10/325)) 2 tab Q4H PRN PO SEVERE PAIN LEVEL 7-10 Last administered on 11/07/18 11:11; Admin Dose 2 TAB; Start 11/04/18 at 10:00 Acetaminophen/ Hydrocodone Bitart ([place] (10/325)) 1 tab Q4H PRN PO MODERATE PAIN LEVEL 4-6 Last administered on 11/06/18 23:54; Admin Dose 1 TAB; Start 11/04/18 at 10:00 Acetaminophen (Tylenol Tab) 650 mg Q4 PRN PO MILD PAIN(1-3)OR ELEVATED TEMP; Start 11/05/18 at 14:00 Senna (Senokot) 1 tab QHS PO Last administered on 11/06/18 21:31; Admin Dose 1 TAB; Start 11/05/18 at 21:00 Docusate Sodium (Colace) 100 mg BID PO Last administered on 11/07/18 10:55; Admin Dose 100 MG; Start 11/05/18 at 21:00 Bisacodyl (Dulcolax Supp) 10 mg DAILY PRN [place] CONSTIPATION Last administered on 11/06/18 14:36; Admin Dose 10 MG; Start 11/05/18 at 14:00 Lactulose (Enulose) 20 gm DAILY PRN PO CONSTIPATION; Start 11/05/18 at 14:00 Baclofen (Lioresal) 10 mg BID PO Last administered on 11/07/18at 10:56; Admin Dose 10 MG; Start 11/06/18 at 12:00 Cefazolin Sodium/ Dextrose 50 ml @ 100 mls/hr Q8 IVPB Last administered on 11/07/18at 06:19; Admin Dose 100 MLS/HR; Start 11/06/18 at 14:00 Neomycin/ Polymyxin/ Bacitracin (Neosporin Topical Oint) 1 applic Q12 TOP Last administered on 11/07/18at 11:12; Admin Dose 1 APPLIC; Start 11/06/18 at 21:00 Assessment/Plan Additional Assessment/Plan rehab- Lumbar radiculopathy, status post lumbar surgery, 10/27/2018. Overall improving, continue rehab ID- continue current antibiotics Diabetes mellitus. Hypertension. Bipolar disease. Anemia. History of cervical decompression and fusion. BUBBA PHELPS MD Nov 07, 2018 13:23
[2018-11-07 14:00] VITALS: BP 130/60; PULSE 76; RESP 18
[2018-11-07] MEDS ORDERED: HYDROmorphONE 1 MG/ML SYG IV ONE (15:00)
--- NOTE | 2018-11-07 17:19 | PN ---
Date/Time of Note Date/Time of Note DATE: 11/07/18 TIME: 17:13 Assessment/Plan VTE Prophylaxis Risk score (from Ns)>0 risk: 11 SCD applied (from Ns): Yes Pharmacological prophylaxis: NA/contraindicated Pharm contraindication: surgical contra Lines/Catheters IV Catheter Type (from Nrsg): [place] Urinary Cath still in place: No Assessment/Plan Hospital Course Pt complains of pain, participates IN PT Assessment/Plan -Mechanical LBP and LE radiculopathy. S/p ALIF L3-S1 ON 09/27/18 and ISF L2-S1 and decompression on 09/28/[address] Goldsmith. Continue IV fluids and postoperative antibiotic. Tylenol and Dilaudid as needed for pain. -HTN, continue Benazepril and Metoprolol. -Diabetes mellitus type II continue Tradjenta, Lantus and NovoLog. -Obesity with BMI of 30.3. Further recommendations based on clinical course. Plan of care discussed with Dr. Parker. Result Diagram: 11/06/18 1506 11/04/18 0625 Results 24hrs Laboratory Tests Test 11/06/18 21:35 11/07/18 08:53 11/07/18 12:15 Bedside Glucose 109 157 147 Exam/Review of Systems Exam Vitals Vital Signs Date Temp Pulse Resp B/P (MAP) Pulse Ox O2 O2 Flow FiO2 Time Delivery Rate 11/07/18 98.2 76 18 130/60 99 Room Air 14:00 (83) Intake and Output 11/06/18 11/06/18 11/07/18 1515:00 23:00 07:00 IntakeIntake Total 550 ml 350 ml OutputOutput Total 900 ml BalanceBalance 550 ml -550 ml Constitutional: alert, oriented Respiratory: clear to auscultation Cardiovascular: nl pulses Gastrointestinal: soft, non-tender, other (s/p surgery) Musculoskeletal: nl extremities to inspection, other (lower back surgical incision) Extremities: normal pulses Results Results 24hrs Laboratory Tests Test 11/06/18 21:35 11/07/18 08:53 11/07/18 12:15 Bedside Glucose 109 157 147 Medications Medication Current Medications Miscellaneous Information (Pending [facility] Order For Wound Care) This patient chowdhury... PRN PRN XX WOUND CARE; Start 11/03/18 at 17:30 Al Hydrox/Mg Hydrox/Simethicone (Mag-Al Plus) 15 ml Q4H PRN PO .CONSTIPATION; Start 11/03/18 at 19:00 IV Flush (NS 3 ml) 3 ml PER PROTOCOL IV ; Start 11/03/18 at 19:00 Naloxone HCl (Narcan) 0.2 mg PRN PRN IV RR < 8; Start 11/03/18 at 19:00 Ondansetron HCl (Zofran Inj) 4 mg Q6H PRN IV NAUSEA AND/OR VOMITING Last administered on 11/06/18at 07:51; Admin Dose 4 MG; Start 11/03/18 at 19:00 Metformin HCl (Glucophage) 1,000 mg WITH BREAKFAST PO Last administered on 11/07/18 08:58; Admin Dose 1,000 MG; Start 11/04/18 at 07:35 Linagliptin (Tradjenta) 5 mg DAILY PO Last administered on 11/07/18 09:28; Admin Dose 5 MG; Start 11/04/18 at 09:00 Diagnostic Test (Pha) (Accu-Chek) 1 ea AC MEALS AND BEDTIME XX Last administered on 11/07/18at 12:15; Admin Dose 1 EA; Start 11/03/18 at 21:00 Insulin Aspart (Novolog Insulin Pen) NOVOLOG *MILD* ALGORITHM WITH MEALS BEDTIME SC Last administered on 11/07/18 12:19; Admin Dose 1 UNIT; Start 11/03/18 at 21:00 Miscellaneous Information 1 ea NOTE XX ; Start 11/03/18 at 19:00 Glucose (Glutose) 15 gm Q15M PRN PO DECREASED GLUCOSE; Start 11/03/18 at 19:00 Glucose (Glutose) 22.5 gm Q15M PRN PO DECREASED GLUCOSE; Start 11/03/18 at 19:00 Dextrose (D50w Syringe) 25 ml Q15M PRN IV DECREASED GLUCOSE; Start 11/03/18 at 19:00 Dextrose (D50w Syringe) 50 ml Q15M PRN IV DECREASED GLUCOSE; Start 11/03/18 at 19:00 Glucagon (Glucagen) 1 mg Q15M PRN IM DECREASED GLUCOSE; Start 11/03/18 at 19:00 Glucose (Glutose) 15 gm Q15M PRN BUCCAL DECREASED GLUCOSE; Start 11/03/18 at 19:00 Metoprolol Tartrate (Lopressor) 50 mg BID PO Last administered on 11/07/18 11:11; Admin Dose 50 MG; Start 11/03/18 at 21:00 Insulin Glargine (Lantus) 19 units DAILY@0800 SC Last administered on 11/07/18 09:38; Admin Dose 19 UNITS; Start 11/04/18 at 08:00 Benazepril HCl (Lotensin) 10 mg BID PO Last administered on 11/07/18 11:11; Ad min Dose 10 MG; Start 11/03/18 at 21:00 Gabapentin (Neurontin) 300 mg TID PO Last administered on 11/07/18 13:13; Admin Dose 300 MG; Start 11/03/18 at 21:00 Diphenhydramine HCl (Benadryl) 25 mg Q6H PRN PO ITCHING; Start 11/03/18 at 19:30 Insulin Aspart (Novolog Insulin Pen) 4 unit WITH MEALS SC Last administered on 11/07/18 12:20; Admin Dose 4 UNIT; Start 11/04/18 at 07:35 Acetaminophen/ Hydrocodone Bitart ([place] (10/325)) 2 tab Q4H PRN PO SEVERE PAIN LEVEL 7-10 Last administered on 11/07/18 17:04; Admin Dose 2 TAB; Start 11/04/18 at 10:00 Acetaminophen/ Hydrocodone Bitart ([place] (10/325)) 1 tab Q4H PRN PO MODERATE PAIN LEVEL 4-6 Last administered on 11/06/18 23:54; Admin Dose 1 TAB; Start 11/04/18 at 10:00 Acetaminophen (Tylenol Tab) 650 mg Q4 PRN PO MILD PAIN(1-3)OR ELEVATED TEMP; S tart 11/05/18 at 14:00 Senna (Senokot) 1 tab QHS PO Last administered on 11/06/18 21:31; Admin Dose 1 TAB; Start 11/05/18 at 21:00 Docusate Sodium (Colace) 100 mg BID PO Last administered on 11/07/18 10:55; Admin Dose 100 MG; Start 11/05/18 at 21:00 Bisacodyl (Dulcolax Supp) 10 mg DAILY PRN [place] CONSTIPATION Last administered on 6/3/19at 14:36; Admin Dose 10 MG; Start 11/05/18 at 14:00 Lactulose (Enulose) 20 gm DAILY PRN PO CONSTIPATION; Start 11/05/18 at 14:00 Baclofen (Lioresal) 10 mg BID PO Last administered on 11/07/18at 10:56; Admin Dose 10 MG; Start 11/06/18 at 12:00 Cefazolin Sodium/ Dextrose 50 ml @ 100 mls/hr Q8 IVPB Last administered on 11/07/18at 15:02; Admin Dose 100 MLS/HR; Start 11/06/18 at 14:00 Neomycin/ Polymyxin/ Bacitracin (Neosporin Topical Oint) 1 applic Q12 TOP Last administered on 11/07/18at 11:12; Admin Dose 1 APPLIC; Start 11/06/18 at 21:00 Hydromorphone HCl (Dilaudid) 1 mg Q3 PRN IV SEVERE PAIN LEVEL 7-10; Start 11/07/18 at 13:30 FERCHO PADILLA Nov 07, 2018 17:19
[2018-11-07 20:00] VITALS: BP 128/60; PULSE 78; RESP 18
[2018-11-07] MEDS: SENNA TAB PO SCH (21:01)
[2018-11-07] MEDS: ZOLPIDEM 5 MG TAB PO PRN (21:57)
[2018-11-08] MEDS: HYDROmorphONE 1 MG/ML SYG IV PRN ×5 (00:43→20:39)
[2018-11-08 02:00] VITALS: BP 140/70; PULSE 74; RESP 18
[2018-11-08] MEDS: CEFAZOLIN 2 GM/50 ML (PMX) 50 ML IVPB SCH ×2 (05:56→14:00)
[2018-11-08] MEDS: metFORMIN 500 MG TAB PO SCH (07:51)
[2018-11-08] MEDS: INSULIN GLARGINE [LANTus] (100 UNITS/ML) SYG SC SCH (07:56)
[2018-11-08] MEDS: INSULIN ASPART [NOVOLOG] 3 ML PEN SC SCH ×7 (07:57→21:00)
[2018-11-08] MEDS: ACCU-CHEK XX SCH ×4 (07:58→21:15)
[2018-11-08 08:08] VITALS: BP 132/72; PULSE 81; RESP 16
[2018-11-08] MEDS: BACLOFEN 10 MG TAB PO SCH ×2 (08:10→20:46)
[2018-11-08] MEDS: LINAGLIPTIN 5 MG TABLET PO SCH (08:10)
[2018-11-08] MEDS: DOCUSATE SODIUM 100 MG CAP PO SCH ×2 (08:10→20:46)
[2018-11-08] MEDS: GABAPENTIN 300 MG CAP PO SCH ×3 (08:10→20:46)
[2018-11-08] MEDS: HYDROCODONE/APAP (10/325) TAB PO PRN ×3 (08:11→19:47)
[2018-11-08] MEDS: METOPROLOL 50 MG TAB PO SCH ×2 (08:11→20:46)
[2018-11-08] MEDS: BENAZEPRIL 10 MG TAB PO SCH ×2 (08:11→20:47)
[2018-11-08] MEDS: NEOMYC/POLYMYX/BACIT 30 GM OINT TOP SCH ×2 (10:15→21:15)
--- NOTE | 2018-11-08 11:21 | QN ---
Documentation Comment ID consult was received, we will be in to see the patient. Thank you JASEN LOUISE NP Nov 08, 2018 11:21
--- NOTE | 2018-11-08 13:11 | PN ---
Date/Time of Note Date/Time of Note DATE: 11/08/18 TIME: 13:10 Subjective Feeling better Objective Vital Signs Date Temp Pulse Resp B/P (MAP) Pulse Ox O2 O2 Flow FiO2 Time Delivery Rate 11/08/18 98.2 81 16 132/72 99 Room Air 08:08 (92) Intake and Output 11/07/18 11/07/18 11/08/18 1515:00 23:00 07:00 IntakeIntake Total 50 ml 700 ml 400 ml OutputOutput Total 500 ml 900 ml BalanceBalance 50 ml 200 ml -500 ml Exam pulm-cta min assist ambulation 100 feet Results/Medications Result Diagram: 11/06/18 1506 11/04/18 0625 Results 24 hrs Laboratory Tests Test 11/07/18 17:57 11/07/18 21:03 11/08/18 07:48 11/08/18 11:56 Bedside Glucose 84 109 153 142 Medications Current Medications Miscellaneous Information (Pending [facility] Order For Wound Care) This patient chowdhury... PRN PRN XX WOUND CARE; Start 11/03/18 at 17:30 Al Hydrox/Mg Hydrox/Simethicone (Mag-Al Plus) 15 ml Q4H PRN PO .CONSTIPATION; Start 11/03/18 at 19:00 IV Flush (NS 3 ml) 3 ml PER PROTOCOL IV ; Start 11/03/18 at 19:00 Naloxone HCl (Narcan) 0.2 mg PRN PRN IV RR < 8; Start 11/03/18 at 19:00 Ondansetron HCl (Zofran Inj) 4 mg Q6H PRN IV NAUSEA AND/OR VOMITING Last administered on 11/06/18at 07:51; Admin Dose 4 MG; Start 11/03/18 at 19:00 Metformin HCl (Glucophage) 1,000 mg WITH BREAKFAST PO Last administered on 11/08/18at 07:51; Admin Dose 1,000 MG; Start 11/04/18 at 07:35 Linagliptin (Tradjenta) 5 mg DAILY PO Last administered on 11/08/18 08:10; Admin Dose 5 MG; Start 11/04/18 at 09:00 Diagnostic Test (Pha) (Accu-Chek) 1 ea AC MEALS AND BEDTIME XX Last administered on 11/08/18at 12:02; Admin Dose 1 EA; Start 11/03/18 at 21:00 Insulin Aspart (Novolog Insulin Pen) NOVOLOG *MILD* ALGORITHM WITH MEALS BEDTIME SC Last administered on 11/08/18at 12:02; Admin Dose 1 UNIT; Start at 21:00 Miscellaneous Information 1 ea NOTE XX ; Start 11/03/18 at 19:00 Glucose (Glutose) 15 gm Q15M PRN PO DECREASED GLUCOSE; Start 11/03/18 at 19:00 Glucose (Glutose) 22.5 gm Q15M PRN PO DECREASED GLUCOSE; Start 11/03/18 at 19:00 Dextrose (D50w Syringe) 25 ml Q15M PRN IV DECREASED GLUCOSE; Start 11/03/18 at 19:00 Dextrose (D50w Syringe) 50 ml Q15M PRN IV DECREASED GLUCOSE; Start 11/03/18 at 19:00 Glucagon (Glucagen) 1 mg Q15M PRN IM DECREASED GLUCOSE; Start 11/03/18 at 19:00 Glucose (Glutose) 15 gm Q15M PRN BUCCAL DECREASED GLUCOSE; Start 11/03/18 at 19:00 Metoprolol Tartrate (Lopressor) 50 mg BID PO Last administered on 11/08/18at 08:11; Admin Dose 50 MG; Start 11/03/18 at 21:00 Insulin Glargine (Lantus) 19 units DAILY@0800 SC Last administered on 11/08/18at 07:56; Admin Dose 19 UNITS; Start 11/04/18 at 08:00 Benazepril HCl (Lotensin) 10 mg BID PO Last administered on 11/08/18at 08:11; Admin Dose 10 MG; Start 11/03/18 at 21:00 Gabapentin (Neurontin) 300 mg TID PO Last administered on 11/08/18at 08:10; Admin Dose 300 MG; Start 11/03/18 at 21:00 Diphenhydramine HCl (Benadryl) 25 mg Q6H PRN PO ITCHING; Start 11/03/18 at 19:30 Insulin Aspart (Novolog Insulin Pen) 4 unit WITH MEALS SC Last administered on 11/08/18at 12:01; Admin Dose 4 UNIT; Start 11/04/18 at 07:35 Acetaminophen/ Hydrocodone Bitart ([place] (10/325)) 2 tab Q4H PRN PO SEVERE PAIN LEVEL 7-10 Last administered on 11/08/18 08:11; Admin Dose 2 TAB; Start 11/04/18 at 10:00 Acetaminophen/ Hydrocodone Bitart ([place] (10/325)) 1 tab Q4H PRN PO MODERATE PAIN LEVEL 4-6 Last administered on 11/06/18 23:54; Admin Dose 1 TAB; Start 11/04/18 at 10:00 Acetaminophen (Tylenol Tab) 650 mg Q4 PRN PO MILD PAIN(1-3)OR ELEVATED TEMP; Start 11/05/18 at 14:00 Senna (Senokot) 1 tab QHS PO Last administered on 11/07/18 21:01; Admin Dose 1 TAB; Start 11/05/18 at 21:00 Docusate Sodium (Colace) 100 mg BID PO Last administered on 11/08/18 08:10; Admin Dose 100 MG; Start 11/05/18 at 21:00 Bisacodyl (Dulcolax Supp) 10 mg DAILY PRN [place] CONSTIPATION Last administered on 11/06/18 14:36; Admin Dose 10 MG; Start 11/05/18 at 14:00 Lactulose (Enulose) 20 gm DAILY PRN PO CONSTIPATION; Start 11/05/18 at 14:00 Baclofen (Lioresal) 10 mg BID PO Last administered on 11/08/18 08:10; Admin Dose 10 MG; Start 11/06/18 at 12:00 Cefazolin Sodium/ Dextrose 50 ml @ 100 mls/hr Q8 IVPB Last administered on 11/08/18 05:56; Admin Dose 100 MLS/HR; Start 11/06/18 at 14:00 Neomycin/ Polymyxin/ Bacitracin (Neosporin Topical Oint) 1 applic Q12 TOP Last administered on 11/08/18 10:15; Admin Dose 1 APPLIC; Start 11/06/18 at 21:00 Hydromorphone HCl (Dilaudid) 1 mg Q3 PRN IV SEVERE PAIN LEVEL 7-10 Last administered on 11/08/18 10:19; Admin Dose 1 MG; Start 11/07/18 at 13:30 Zolpidem Tartrate (Ambien) 5 mg HS PRN PO INSOMNIA Last administered on 11/07/18 21:57; Admin Dose 5 MG; Start 11/07/18 at 22:00 Assessment/Plan Additional Assessment/Plan rehab- Lumbar radiculopathy, status post lumbar surgery, 10/27/2018. Steady progress. Continue treatment plan Diabetes mellitus. Hypertension. Bipolar disease. Anemia. History of cervical decompression and fusion. BUBBA PHELPS MD Nov 08, 2018 13:11
--- NOTE | 2018-11-08 13:50 | CONS ---
Assessment/Plan Assessment/Plan Hospital Course (Demo Recall) IMPRESSION: 1. Tachycardia -overall improved-NL EF by echo this admit 2. Shortness of breath-improved 3. Hypertension, under reasonable controlon current medications 4. Diabetes mellitus. 5. Postop status post spinal fusion L3 to S1. 6. Anemia, mild. 7. Leukocytosis-resolved Recc: -Now in [place] [facility] -Continue BB/ACEI with well controlled BP -pain control -follow BS clsoely -PT Consultation Date/Type/Reason Admit Date/Time November 03, 2018 at 17:17 Initial Consult Date 11/03/18 Type of Consult Cardiology Reason for Consultation Tachycardia Requesting Provider: AIDA GREENE MD Date/Time of Note DATE: 11/08/18 TIME: 13:49 Exam/Review of Systems Vital Signs Vitals Vital Signs Date Temp Pulse Resp B/P (MAP) Pulse Ox O2 O2 Flow FiO2 Time Delivery Rate 11/08/18 98.2 81 16 132/72 99 Room Air 08:08 (92) Intake and Output 11/07/18 11/07/18 11/08/18 1515:00 23:00 07:00 IntakeIntake Total 50 ml 700 ml 400 ml OutputOutput Total 500 ml 900 ml BalanceBalance 50 ml 200 ml -500 ml Exam Exam Review of Systems: CONSTITUTIONAL: No fevers, chills. PULMONARY: No sob CARDIOVASCULAR: No chest pain/palpitations GASTROINTESTINAL: No nausea/vomiting. GENITOURINARY: No hematuria/dysuria. MUSCULOSKELETAL: No myagias/arthalgias. PSYCHIATRIC: The patient denies depression. NEUROLOGIC: No weakness Constitutional: alert, oriented Psych: no complaints Head: normocephalic ENMT: mucosa pink and moist Neck: supple, jvd (9 cm water) Respiratory: clear to auscultation Cardiovascular: regular rate and rhythm Gastrointestinal: soft, non-tender Musculoskeletal: muscle tone (normal) Extremities: edema (none) Neurological: other (MIld LE weakness per patient) Labs Result Diagram: 11/06/18 1506 11/04/18 0625 Results 24hrs Laboratory Tests Test 11/07/18 17:57 11/07/18 21:03 11/08/18 07:48 11/08/18 11:56 Bedside Glucose 84 109 153 142 Medications Medications Current Medications Miscellaneous Information (Pending [facility] Order For Wound Care) This patient chowdhury. .. PRN PRN XX WOUND CARE; Start 11/03/18 at 17:30 Al Hydrox/Mg Hydrox/Simethicone (Mag-Al Plus) 15 ml Q4H PRN PO .CONSTIPATION; Start 11/03/18 at 19:00 IV Flush (NS 3 ml) 3 ml PER PROTOCOL IV ; Start 11/03/18 at 19:00 Naloxone HCl (Narcan) 0.2 mg PRN PRN IV RR < 8; Start 11/03/18 at 19:00 Ondansetron HCl (Zofran Inj) 4 mg Q6H PRN IV NAUSEA AND/OR VOMITING Last administered on 11/06/18at 07:51; Admin Dose 4 MG; Start 11/03/18 at 19:00 Metformin HCl (Glucophage) 1,000 mg WITH BREAKFAST PO Last administered on 11/08/18at 07:51; Admin Dose 1,000 MG; Start 11/04/18 at 07:35 Linagliptin (Tradjenta) 5 mg DAILY PO Last administered on 11/08/18at 08:10; Admin Dose 5 MG; Start 11/04/18 at 09:00 Diagnostic Test (Pha) (Accu-Chek) 1 ea AC MEALS AND BEDTIME XX Last administered on 11/08/18 12:02; Admin Dose 1 EA; Start 11/03/18 at 21:00 Insulin Aspart (Novolog Insulin Pen) NOVOLOG *MILD* ALGORITHM WITH MEALS BEDTIME SC Last administered on 11/08/18 12:02; Admin Dose 1 UNIT; Start 11/03/18 at 21:00 Miscellaneous Information 1 ea NOTE XX ; Start 11/03/18 at 19:00 Glucose (Glutose) 15 gm Q15M PRN PO DECREASED GLUCOSE; Start 11/03/18 at 19:00 Glucose (Glutose) 22.5 gm Q15M PRN PO DECREASED GLUCOSE; Start 11/03/18 at 19:00 Dextrose (D50w Syringe) 25 ml Q15M PRN IV DECREASED GLUCOSE; Start 11/03/18 at 19:00 Dextrose (D50w Syringe) 50 ml Q15M PRN IV DECREASED GLUCOSE; Start 11/03/18 at 19:00 Glucagon (Glucagen) 1 mg Q15M PRN IM DECREASED GLUCOSE; Start 11/03/18 at 19:00 Glucose (Glutose) 15 gm Q15M PRN BUCCAL DECREASED GLUCOSE; Start 11/03/18 at 19:00 Metoprolol Tartrate (Lopressor) 50 mg BID PO Last administered on 11/08/18 08:11; Admin Dose 50 MG; Start 11/03/18 at 21:00 Insulin Glargine (Lantus) 19 units DAILY@0800 SC Last administered on 11/08/18 07:56; Admin Dose 19 UNITS; Start 11/04/18 at 08:00 Benazepril HCl (Lotensin) 10 mg BID PO Last administered on 11/08/18 08:11; A dmin Dose 10 MG; Start 11/03/18 at 21:00 Gabapentin (Neurontin) 300 mg TID PO Last administered on 11/08/18 13:47; Admin Dose 300 MG; Start 11/03/18 at 21:00 Diphenhydramine HCl (Benadryl) 25 mg Q6H PRN PO ITCHING; Start 11/03/18 at 19:30 Insulin Aspart (Novolog Insulin Pen) 4 unit WITH MEALS SC Last administered on 11/08/18 12:01; Admin Dose 4 UNIT; Start 11/04/18 at 07:35 Acetaminophen/ Hydrocodone Bitart ([place] (10/325)) 2 tab Q4H PRN PO SEVERE PAIN LEVEL 7-10 Last administered on 11/08/18 08:11; Admin Dose 2 TAB; Start 11/04/18 at 10:00 Acetaminophen/ Hydrocodone Bitart ([place] (10/325)) 1 tab Q4H PRN PO MODERATE PAIN LEVEL 4-6 Last administered on 11/06/18 23:54; Admin Dose 1 TAB; Start 11/04/18 at 10:00 Acetaminophen (Tylenol Tab) 650 mg Q4 PRN PO MILD PAIN(1-3)OR ELEVATED TEMP; Start 11/05/18 at 14:00 Senna (Senokot) 1 tab QHS PO Last administered on 11/07/18 21:01; Admin Dose 1 TAB; Start 11/05/18 at 21:00 Docusate Sodium (Colace) 100 mg BID PO Last administered on 11/08/18 08:10; Admin Dose 100 MG; Start 11/05/18 at 21:00 Bisacodyl (Dulcolax Supp) 10 mg DAILY PRN [place] CONSTIPATION Last administered on 11/06/18 14:36; Admin Dose 10 MG; Start 11/05/18 at 14:00 Lactulose (Enulose) 20 gm DAILY PRN PO CONSTIPATION; Start 11/05/18 at 14:00 Baclofen (Lioresal) 10 mg BID PO Last administered on 11/08/18 08:10; Admin Dose 10 MG; Start 11/06/18 at 12:00 Cefazolin Sodium/ Dextrose 50 ml @ 100 mls/hr Q8 IVPB Last administered on 11/08/18 05:56; Admin Dose 100 MLS/HR; Start 11/06/18 at 14:00 Neomycin/ Polymyxin/ Bacitracin (Neosporin Topical Oint) 1 applic Q12 TOP Last administered on 11/08/18 10:15; Admin Dose 1 APPLIC; Start 11/06/18 at 21:00 Hydromorphone HCl (Dilaudid) 1 mg Q3 PRN IV SEVERE PAIN LEVEL 7-10 Last administered on 11/08/18 10:19; Admin Dose 1 MG; Start 11/07/18 at 13:30 Zolpidem Tartrate (Ambien) 5 mg HS PRN PO INSOMNIA Last administered on 11/07/18 21:57; Admin Dose 5 MG; Start 11/07/18 at 22:00 VESNA GALLAGHER Nov 08, 2018 13:50
--- NOTE | 2018-11-08 13:57 | CONS ---
Consultation Date/Type/Reason Admit Date/Time November 03, 2018 at 17:17 Date/Time of Note DATE: 11/08/18 TIME: 13:56 Past Medical History Medical History: diabetes, hypertension Home Meds Reported Medications Insulin Aspart* (Novolog Insulin Pen*) 100 Unit/Ml Soln, 40 UNIT SC WITH BREAKFAST, EA 10/27/18 Metformin* (Glucophage*) 1,000 Mg Tablet, 1000 MG PO DAILY, #30 TAB 10/27/18 Sitagliptin* (Januvia*) 100 Mg Tablet, 100 MG PO DAILY, #30 TAB 10/27/18 Medications Current Medications Miscellaneous Information (Pending [facility] Order For Wound Care) This patient chowdhury... PRN PRN XX WOUND CARE; Start 11/03/18 at 17:30 Al Hydrox/Mg Hydrox/Simethicone (Mag-Al Plus) 15 ml Q4H PRN PO .CONSTIPATION; Start 11/03/18 at 19:00 IV Flush (NS 3 ml) 3 ml PER PROTOCOL IV ; Start 11/03/18 at 19:00 Naloxone HCl (Narcan) 0.2 mg PRN PRN IV RR < 8; Start 11/03/18 at 19:00 Ondansetron HCl (Zofran Inj) 4 mg Q6H PRN IV NAUSEA AND/OR VOMITING Last administered on 11/06/18at 07:51; Admin Dose 4 MG; Start 11/03/18 at 19:00 Metformin HCl (Glucophage) 1,000 mg WITH BREAKFAST PO Last administered on 11/08/18at 07:51; Admin Dose 1,000 MG; Start 11/04/18 at 07:35 Linagliptin (Tradjenta) 5 mg DAILY PO Last administered on 11/08/18at 08:10; Admin Dose 5 MG; Start 11/04/18 at 09:00 Diagnostic Test (Pha) (Accu-Chek) 1 ea AC MEALS AND BEDTIME XX Last administered on 11/08/18at 12:02; Admin Dose 1 EA; Start 11/03/18 at 21:00 Insulin Aspart (Novolog Insulin Pen) NOVOLOG *MILD* ALGORITHM WITH MEALS BEDTIME SC Last administered on 11/08/18at 12:02; Admin Dose 1 UNIT; Start 11/03/18 at 21:00 Miscellaneous Information 1 ea NOTE XX ; Start 11/03/18 at 19:00 Glucose (Glutose) 15 gm Q15M PRN PO DECREASED GLUCOSE; Start 11/03/18 at 19:00 Glucose (Glutose) 22.5 gm Q15M PRN PO DECREASED GLUCOSE; Start 11/03/18 at 19:00 Dextrose (D50w Syringe) 25 ml Q15M PRN IV DECREASED GLUCOSE; Start 11/03/18 at 19:00 Dextrose (D50w Syringe) 50 ml Q15M PRN IV DECREASED GLUCOSE; Start 11/03/18 at 19:00 Glucagon (Glucagen) 1 mg Q15M PRN IM DECREASED GLUCOSE; Start 11/03/18 at 19:00 Glucose (Glutose) 15 gm Q15M PRN BUCCAL DECREASED GLUCOSE; Start 11/03/18 at 19:00 Metoprolol Tartrate (Lopressor) 50 mg BID PO Last administered on 11/08/18at 0 8:11; Admin Dose 50 MG; Start 11/03/18 at 21:00 Insulin Glargine (Lantus) 19 units DAILY@0800 SC Last administered on 11/08/18 07:56; Admin Dose 19 UNITS; Start 11/04/18 at 08:00 Benazepril HCl (Lotensin) 10 mg BID PO Last administered on 11/08/18 08:11; Admin Dose 10 MG; Start 11/03/18 at 21:00 Gabapentin (Neurontin) 300 mg TID PO Last administered on 11/08/18at 13:47; Admin Dose 300 MG; Start 11/03/18 at 21:00 Diphenhydramine HCl (Benadryl) 25 mg Q6H PRN PO ITCHING; Start 11/03/18 at 19:30 Insulin Aspart (Novolog Insulin Pen) 4 unit WITH MEALS SC Last administered on 11/08/18 12:01; Admin Dose 4 UNIT; Start 11/04/18 at 07:35 Acetaminophen/ Hydrocodone Bitart ([place] (10/325)) 2 tab Q4H PRN PO SEVERE PAIN LEVEL 7-10 Last administered on 11/08/18 08:11; Admin Dose 2 TAB; Start 11/04/18 at 10:00 Acetaminophen/ Hydrocodone Bitart ([place] (10/325)) 1 tab Q4H PRN PO MODERATE PAIN LEVEL 4-6 Last administered on 11/06/18 23:54; Admin Dose 1 TAB; Start 11/04/18 at 10:00 Acetaminophen (Tylenol Tab) 650 mg Q4 PRN PO MILD PAIN(1-3)OR ELEVATED TEMP; Start 11/05/18 at 14:00 Senna (Senokot) 1 tab QHS PO Last administered on 11/07/18 21:01; Admin Dose 1 TAB; Start 11/05/18 at 21:00 Docusate Sodium (Colace) 100 mg BID PO Last administered on 11/08/18 08:10; Admin Dose 100 MG; Start 11/05/18 at 21:00 Bisacodyl (Dulcolax Supp) 10 mg DAILY PRN [place] CONSTIPATION Last administered on 11/06/18 14:36; Admin Dose 10 MG; Start 11/05/18 at 14:00 Lactulose (Enulose) 20 gm DAILY PRN PO CONSTIPATION; Start 11/05/18 at 14:00 Baclofen (Lioresal) 10 mg BID PO Last administered on 11/08/18 08:10; Admin Dos e 10 MG; Start 11/06/18 at 12:00 Cefazolin Sodium/ Dextrose 50 ml @ 100 mls/hr Q8 IVPB Last administered on 11/08/18 05:56; Admin Dose 100 MLS/HR; Start 11/06/18 at 14:00 Neomycin/ Polymyxin/ Bacitracin (Neosporin Topical Oint) 1 applic Q12 TOP Last administered on 11/08/18 10:15; Admin Dose 1 APPLIC; Start 11/06/18 at 21:00 Hydromorphone HCl (Dilaudid) 1 mg Q3 PRN IV SEVERE PAIN LEVEL 7-10 Last administered on 11/08/18 10:19; Admin Dose 1 MG; Start 11/07/18 at 13:30 Zolpidem Tartrate (Ambien) 5 mg HS PRN PO INSOMNIA Last administered on 11/07/18 21:57; Admin Dose 5 MG; Start 11/07/18 at 22:00 Allergies: Coded Allergies: No Known Allergy (Unverified , 10/26/18) Past Surgical History Past Surgical Hx: cholecystectomy Social History Smoking Status: Never smoker Exam/Review of Systems Exam Vitals Vital Signs Date Temp Pulse Resp B/P (MAP) Pulse Ox O2 O2 Flow FiO2 Time Delivery Rate 11/08/18 98.2 81 16 132/72 99 Room Air 08:08 (92) Intake and Output 11/07/18 11/07/18 11/08/18 1515:00 23:00 07:00 IntakeIntake Total 50 ml 700 ml 400 ml OutputOutput Total 500 ml 900 ml BalanceBalance 50 ml 200 ml -500 ml Results Result Diagram: 11/06/18 1506 11/04/18 0625 Results 24hrs Laboratory Tests Test 11/07/18 17:57 11/07/18 21:03 11/08/18 07:48 11/08/18 11:56 Bedside Glucose 84 109 153 142 Medications Medication Current Medications Miscellaneous Information (Pending [facility] Order For Wound Care) This patient chowdhury... PRN PRN XX WOUND CARE; Start 11/03/18 at 17:30 Al Hydrox/Mg Hydrox/Simethicone (Mag-Al Plus) 15 ml Q4H PRN PO .CONSTIPATION; Start 11/03/18 at 19:00 IV Flush (NS 3 ml) 3 ml PER PROTOCOL IV ; Start 11/03/18 at 19:00 Naloxone HCl (Narcan) 0.2 mg PRN PRN IV RR < 8; Start 11/03/18 at 19:00 Ondansetron HCl (Zofran Inj) 4 mg Q6H PRN IV NAUSEA AND/OR VOMITING Last admini stered on 11/06/18at 07:51; Admin Dose 4 MG; Start 11/03/18 at 19:00 Metformin HCl (Glucophage) 1,000 mg WITH BREAKFAST PO Last administered on 11/08/18at 07:51; Admin Dose 1,000 MG; Start 11/04/18 at 07:35 Linagliptin (Tradjenta) 5 mg DAILY PO Last administered on 11/08/18 08:10; Admin Dose 5 MG; Start 11/04/18 at 09:00 Diagnostic Test (Pha) (Accu-Chek) 1 ea AC MEALS AND BEDTIME XX Last administer ed on 11/08/18 12:02; Admin Dose 1 EA; Start 11/03/18 at 21:00 Insulin Aspart (Novolog Insulin Pen) NOVOLOG *MILD* ALGORITHM WITH MEALS BEDTIME SC Last administered on 11/08/18 12:02; Admin Dose 1 UNIT; Start 11/03/18 at 21:00 Miscellaneous Information 1 ea NOTE XX ; Start 11/03/18 at 19:00 Glucose (Glutose) 15 gm Q15M PRN PO DECREASED GLUCOSE; Start 11/03/18 at 19:00 Glucose (Glutose) 22.5 gm Q15M PRN PO DECREASED GLUCOSE; Start 11/03/18 at 19:00 Dextrose (D50w Syringe) 25 ml Q15M PRN IV DECREASED GLUCOSE; Start 11/03/18 at 19:00 Dextrose (D50w Syringe) 50 ml Q15M PRN IV DECREASED GLUCOSE; Start 11/03/18 at 19:00 Glucagon (Glucagen) 1 mg Q15M PRN IM DECREASED GLUCOSE; Start 11/03/18 at 19:00 Glucose (Glutose) 15 gm Q15M PRN BUCCAL DECREASED GLUCOSE; Start 11/03/18 at 19:00 Metoprolol Tartrate (Lopressor) 50 mg BID PO Last administered on 11/08/18at 08:11; Admin Dose 50 MG; Start 11/03/18 at 21:00 Insulin Glargine (Lantus) 19 units DAILY@0800 SC Last administered on 11/08/18at 07:56; Admin Dose 19 UNITS; Start 11/04/18 at 08:00 Benazepril HCl (Lotensin) 10 mg BID PO Last administered on 11/08/18at 08:11; Admin Dose 10 MG; Start 11/03/18 at 21:00 Gabapentin (Neurontin) 300 mg TID PO Last administered on 11/08/18at 13:47; Admin Dose 300 MG; Start 11/03/18 at 21:00 Diphenhydramine HCl (Benadryl) 25 mg Q6H PRN PO ITCHING; Start 11/03/18 at 19:30 Insulin Aspart (Novolog Insulin Pen) 4 unit WITH MEALS SC Last administered on 11/08/18at 12:01; Admin Dose 4 UNIT; Start 11/04/18 at 07:35 Acetaminophen/ Hydrocodone Bitart ([place] (10/325)) 2 tab Q4H PRN PO SEVERE PAIN LEVEL 7-10 Last administered on 11/08/18at 08:11; Admin Dose 2 TAB; Start 11/04/18 at 10:00 Acetaminophen/ Hydrocodone Bitart ([place] (10/325)) 1 tab Q4H PRN PO MODERATE PAIN LEVEL 4-6 Last administered on 11/06/18 23:54; Admin Dose 1 TAB; Start 11/04/18 at 10:00 Acetaminophen (Tylenol Tab) 650 mg Q4 PRN PO MILD PAIN(1-3)OR ELEVATED TEMP; Start 11/05/18 at 14:00 Senna (Senokot) 1 tab QHS PO Last administered on 11/07/18 21:01; Admin Dose 1 TAB; Start 11/05/18 at 21:00 Docusate Sodium (Colace) 100 mg BID PO Last administered on 11/08/18 08:10; Admin Dose 100 MG; Start 11/05/18 at 21:00 Bisacodyl (Dulcolax Supp) 10 mg DAILY PRN DE CONSTIPATION Last administered on 11/06/18 14:36; Admin Dose 10 MG; Start 11/05/18 at 14:00 Lactulose (Enulose) 20 gm DAILY PRN PO CONSTIPATION; Start 11/05/18 at 14:00 Baclofen (Lioresal) 10 mg BID PO Last administered on 11/08/18 08:10; Admin Dose 10 MG; Start 11/06/18 at 12:00 Cefazolin Sodium/ Dextrose 50 ml @ 100 mls/hr Q8 IVPB Last administered on 11/08/18 05:56; Admin Dose 100 MLS/HR; Start 11/06/18 at 14:00 Neomycin/ Polymyxin/ Bacitracin (Neosporin Topical Oint) 1 applic Q12 TOP Last administered on 11/08/18 10:15; Admin Dose 1 APPLIC; Start 11/06/18 at 21:00 Hydromorphone HCl (Dilaudid) 1 mg Q3 PRN IV SEVERE PAIN LEVEL 7-10 Last administered on 11/08/18 10:19; Admin Dose 1 MG; Start 11/07/18 at 13:30 Zolpidem Tartrate (Ambien) 5 mg HS PRN PO INSOMNIA Last administered on 11/07/18 21:57; Admin Dose 5 MG; Start 11/07/18 at 22:00 FRANCISCO KENT MD Nov 08, 2018 13:57
[2018-11-08 14:37] VITALS: BP 117/68; PULSE 92; RESP 18
[2018-11-08] MEDS ORDERED: VANCOMYCIN IV PER PHARMACY XX SCH (15:00)
--- NOTE | 2018-11-08 16:09 | PN ---
Date/Time of Note Date/Time of Note DATE: 11/08/18 TIME: 16:02 Assessment/Plan VTE Prophylaxis Risk score (from Nsg)>0 risk: 4 SCD applied (from Nsg): No Lines/Catheters IV Catheter Type (from Nrsg): Saline Lock Urinary Cath still in place: No Assessment/Plan Result Diagram: 11/06/18 1506 11/04/18 0625 Results 24hrs Laboratory Tests Test 11/07/18 17:57 11/07/18 21:03 11/08/18 07:48 11/08/18 11:56 Bedside Glucose 84 109 153 142 Subjective 24 Hr Interval Summary Free Text/Dictation Neurosurgery Progress S: Exam/Review of Systems Exam Vitals Vital Signs Date Temp Pulse Resp B/P (MAP) Pulse Ox O2 O2 Flow FiO2 Time Delivery Rate 11/08/18 98.2 92 18 117/68 99 Room Air 14:37 (84) Intake and Output 11/07/18 11/07/18 11/08/18 1515:00 23:00 07:00 IntakeIntake Total 50 ml 700 ml 400 ml OutputOutput Total 500 ml 900 ml BalanceBalance 50 ml 200 ml -500 ml Neurological: other (MS: CN: M:0) Results Results 24hrs Laboratory Tests Test 11/07/18 17:57 11/07/18 21:03 11/08/18 07:48 11/08/18 11:56 Bedside Glucose 84 109 153 142 Medications Medication Current Medications Miscellaneous Information ([facility]) This patient chowdhury... PRN PRN XX WOUND CARE; Start 11/03/18 at 17:30 Al Hydrox/Mg Hydrox/Simethicone (Mag-Al Plus) 15 ml Q4H PRN PO .CONSTIPATION; Start 11/03/18 at 19:00 IV Flush (NS 3 ml) 3 ml PER PROTOCOL IV ; Start 11/03/18 at 19:00 Naloxone HCl (Narcan) 0.2 mg PRN PRN IV RR < 8; Start 11/03/18 at 19:00 Ondansetron HCl (Zofran Inj) 4 mg Q6H PRN IV NAUSEA AND/OR VOMITING Last administered on 11/06/18at 07:51; Admin Dose 4 MG; Start 11/03/18 at 19:00 Metformin HCl (Glucophage) 1,000 mg WITH BREAKFAST PO Last administered on 11/08/18 07:51; Admin Dose 1,000 MG; Start 11/04/18 at 07:35 Linagliptin (Tradjenta) 5 mg DAILY PO Last administered on 11/08/18 08:10; Admin Dose 5 MG; Start 11/04/18 at 09:00 Diagnostic Test (Pha) (Accu-Chek) 1 ea AC MEALS AND BEDTIME XX Last administered on 11/08/18 12:02; Admin Dose 1 EA; Start 11/03/18 at 21:00 Insulin Aspart (Novolog Insulin Pen) NOVOLOG *MILD* ALGORITHM WITH MEALS BEDTIME SC Last administered on 11/08/18 12:02; Admin Dose 1 UNIT; Start 11/03/18 at 21:00 Miscellaneous Information 1 ea NOTE XX ; Start 11/03/18 at 19:00 Glucose (Glutose) 15 gm Q15M PRN PO DECREASED GLUCOSE; Start 11/03/18 at 19:00 Glucose (Glutose) 22.5 gm Q15M PRN PO DECREASED GLUCOSE; Start 11/03/18 at 19:00 Dextrose (D50w Syringe) 25 ml Q15M PRN IV DECREASED GLUCOSE; Start 11/03/18 at 19:00 Dextrose (D50w Syringe) 50 ml Q15M PRN IV DECREASED GLUCOSE; Start 11/03/18 at 19:00 Glucagon (Glucagen) 1 mg Q15M PRN IM DECREASED GLUCOSE; Start 11/03/18 at 19:00 Glucose (Glutose) 15 gm Q15M PRN BUCCAL DECREASED GLUCOSE; Start 11/03/18 at 19:00 Metoprolol Tartrate (Lopressor) 50 mg BID PO Last administered on 11/08/18 08:11; Admin Dose 50 MG; Start 11/03/18 at 21:00 Insulin Glargine (Lantus) 19 units DAILY@0800 SC Last administered on 11/08/18 07:56; Admin Dose 19 UNITS; Start 11/04/18 at 08:00 Benazepril HCl (Lotensin) 10 mg BID PO Last administered on 11/08/18 08:11; Admin Dose 10 MG; Start 11/03/18 at 21:00 Gabapentin (Neurontin) 300 mg TID PO Last administered on 6/5/19at 13:47; Admin Dose 300 MG; Start 11/03/18 at 21:00 Diphenhydramine HCl (Benadryl) 25 mg Q6H PRN PO ITCHING; Start 11/03/18 at 19:30 Insulin Aspart (Novolog Insulin Pen) 4 unit WITH MEALS SC Last administered on 11/08/18 12:01; Admin Dose 4 UNIT; Start 11/04/18 at 07:35 Acetaminophen/ Hydrocodone Bitart ([place] (10/325)) 2 tab Q4H PRN PO SEVERE PAIN LEVEL 7-10 Last administered on 11/08/18 14:35; Admin Dose 2 TAB; Start 11/04/18 at 10:00 Acetaminophen/ Hydrocodone Bitart ([place] (10/325)) 1 tab Q4H PRN PO MODERATE PAIN LEVEL 4-6 Last administered on 11/06/18at 23:54; Admin Dose 1 TAB; Start 11/04/18 at 10:00 Acetaminophen (Tylenol Tab) 650 mg Q4 PRN PO MILD PAIN(1-3)OR ELEVATED TEMP; Start 11/05/18 at 14:00 Senna (Senokot) 1 tab QHS PO Last administered on 11/07/18 21:01; Admin Dose 1 TAB; Start 11/05/18 at 21:00 Docusate Sodium (Colace) 100 mg BID PO Last administered on 11/08/18 08:10; Ad min Dose 100 MG; Start 11/05/18 at 21:00 Bisacodyl (Dulcolax Supp) 10 mg DAILY PRN DE CONSTIPATION Last administered on 11/06/18 14:36; Admin Dose 10 MG; Start 11/05/18 at 14:00 Lactulose (Enulose) 20 gm DAILY PRN PO CONSTIPATION; Start 11/05/18 at 14:00 Baclofen (Lioresal) 10 mg BID PO Last administered on 11/08/18 08:10; Admin Dose 10 MG; Start 11/06/18 at 12:00 Neomycin/ Polymyxin/ Bacitracin (Neosporin Topical Oint) 1 applic Q12 TOP Last administered on 11/08/18 10:15; Admin Dose 1 APPLIC; Start 11/06/18 at 21:00 Hydromorphone HCl (Dilaudid) 1 mg Q3 PRN IV SEVERE PAIN LEVEL 7-10 Last admin istered on 11/08/18at 10:19; Admin Dose 1 MG; Start 11/07/18 at 13:30 Zolpidem Tartrate (Ambien) 5 mg HS PRN PO INSOMNIA Last administered on 11/07/18at 21:57; Admin Dose 5 MG; Start 11/07/18 at 22:00 Vancomycin HCl (Vanco Iv Per Pharmacy) VANCOMYCIN PER PHARMACY PER PROTOCOL XX ; Start 11/08/18 at 15:00 Cefepime HCl 50 ml @ 100 mls/hr Q12 IVPB ; Start 11/08/18 at 21:00 Vancomycin HCl 1.75 gm/Sodium Chloride 500 ml @ 125 mls/hr ONCE ONCE IVPB ; Start 11/08/18 at 17:00; Stop 11/08/18 at 20:59 Vancomycin HCl 1.25 gm/Sodium Chloride 250 ml @ 83.333 mls/ hr Q12H IVPB ; Start 11/09/18 at 05:00 KARMA DRAPER MD Nov 08, 2018 16:09
[2018-11-08] MEDS ORDERED: VANCOMYCIN HCL 1.75 GM in SOD CHLORIDE 0.9% 500 ML IVPB ONE (17:00)
--- NOTE | 2018-11-08 19:37 | PN ---
Date/Time of Note Date/Time of Note DATE: 11/08/18 TIME: 19:35 Assessment/Plan VTE Prophylaxis Risk score (from Ns)>0 risk: 4 SCD applied (from Ns): Yes Pharmacological prophylaxis: NA/contraindicated Pharm contraindication: surgical contra Lines/Catheters IV [facility]ter [facility]from [facility] Saline Lock Urinary Cath still in place: No Assessment/Plan Hospital Course Patient had small amount of drainage from the wound with culture of the wound grew Staphylococcus and Enterobacter, patient is started on antibiotics. Dr. Lerner is asked to see patient in infection disease consultation in a.m. patient remains hemodynamically stable, afebrile continues to participate in physical therapy. Assessment/Plan -Mechanical LBP and LE radiculopathy. S/p ALIF L3-S1 ON 09/27/18 and ISF L2-S1 and decompression on 09/28/[address] Goldsmith. Continue IV fluids and postoperative antibiotic. Tylenol and Dilaudid as needed for pain. -HTN, continue Benazepril and Metoprolol. -Diabetes mellitus type II continue Tradjenta, Lantus and NovoLog. -Obesity with BMI of 30.3. Further recommendations based on clinical course. Plan of care discussed with Dr. Parker. Result Diagram: 11/06/18 1506 11/04/18 0625 Results 24hrs Laboratory Tests Test 11/07/18 21:03 11/08/18 07:48 11/08/18 11:56 11/08/18 17:23 Bedside Glucose 109 153 142 95 Exam/Review of Systems Exam Vitals Vital Signs Date Temp Pulse Resp B/P (MAP) Pulse Ox O2 O2 Flow FiO2 Time Delivery Rate 11/08/18 98.2 92 18 117/68 99 Room Air 14:37 (84) Intake and Output 11/07/18 11/07/18 11/08/18 1515:00 23:00 07:00 IntakeIntake Total 50 ml 700 ml 400 ml OutputOutput Total 500 ml 900 ml BalanceBalance 50 ml 200 ml -500 ml Exam Constitutional: alert, oriented Respiratory: clear to auscultation Cardiovascular: nl pulses Gastrointestinal: soft, non-tender, other (s/p surgery) Musculoskeletal: nl extremities to inspection, other (lower back surgical incision) Extremities: normal pulses Results Results 24hrs Laboratory Tests Test 11/07/18 21:03 11/08/18 07:48 11/08/18 11:56 11/08/18 17:23 Bedside Glucose 109 153 142 95 Medications Medication Current Medications Miscellaneous Information (Pending [facility] Order For Wound Care) This patient chowdhury... PRN PRN XX WOUND CARE; Start 11/03/18 at 17:30 Al Hydrox/Mg Hydrox/Simethicone (Mag-Al Plus) 15 ml Q4H PRN PO .CONSTIPATION; Start 11/03/18 at 19:00 IV Flush (NS 3 ml) 3 ml PER PROTOCOL IV ; Start 11/03/18 at 19:00 Naloxone HCl (Narcan) 0.2 mg PRN PRN IV RR < 8; Start 11/03/18 at 19:00 Ondansetron HCl (Zofran Inj) 4 mg Q6H PRN IV NAUSEA AND/OR VOMITING Last administered on 11/06/18at 07:51; Admin Dose 4 MG; Start 11/03/18 at 19:00 Metformin HCl (Glucophage) 1,000 mg WITH BREAKFAST PO Last administered on 11/08/18at 07:51; Admin Dose 1,000 MG; Start 11/04/18 at 07:35 Linagliptin (Tradjenta) 5 mg DAILY PO Last administered on 11/08/18at 08:10; Admin Dose 5 MG; Start 11/04/18 at 09:00 Diagnostic Test (Pha) (Accu-Chek) 1 ea AC MEALS AND BEDTIME XX Last administered on 11/08/18at 17:31; Admin Dose 1 EA; Start 11/03/18 at 21:00 Insulin Aspart (Novolog Insulin Pen) NOVOLOG *MILD* ALGORITHM WITH MEALS BEDTIME SC Last administered on 11/08/18at 12:02; Admin Dose 1 UNIT; Start 11/03/18 at 21:00 Miscellaneous Information 1 ea NOTE XX ; Start 11/03/18 at 19:00 Glucose (Glutose) 15 gm Q15M PRN PO DECREASED GLUCOSE; Start 11/03/18 at 19:00 Glucose (Glutose) 22.5 gm Q15M PRN PO DECREASED GLUCOSE; Start 11/03/18 at 19:00 Dextrose (D50w Syringe) 25 ml Q15M PRN IV DECREASED GLUCOSE; Start 11/03/18 at 19:00 Dextrose (D50w Syringe) 50 ml Q15M PRN IV DECREASED GLUCOSE; Start 11/03/18 at 19:00 Glucagon (Glucagen) 1 mg Q15M PRN IM DECREASED GLUCOSE; Start 11/03/18 at 19:00 Glucose (Glutose) 15 gm Q15M PRN BUCCAL DECREASED GLUCOSE; Start 11/03/18 at 19 :00 Metoprolol Tartrate (Lopressor) 50 mg BID PO Last administered on 11/08/18 08:11; Admin Dose 50 MG; Start 11/03/18 at 21:00 Insulin Glargine (Lantus) 19 units DAILY@0800 SC Last administered on 11/08/18 07:56; Admin Dose 19 UNITS; Start 11/04/18 at 08:00 Benazepril HCl (Lotensin) 10 mg BID PO Last administered on 11/08/18 08:11; Admin Dose 10 MG; Start 11/03/18 at 21:00 Gabapentin (Neurontin) 300 mg TID PO Last administered on 11/08/18 13:47; Admin Dose 300 MG; Start 11/03/18 at 21:00 Diphenhydramine HCl (Benadryl) 25 mg Q6H PRN PO ITCHING; Start 11/03/18 at 19:30 Insulin Aspart (Novolog Insulin Pen) 4 unit WITH MEALS SC Last administered on 11/08/18 17:30; Admin Dose 4 UNIT; Start 11/04/18 at 07:35 Acetaminophen/ Hydrocodone Bitart ([place] (10/325)) 2 tab Q4H PRN PO SEVERE PAIN LEVEL 7-10 Last administered on 11/08/18 14:35; Admin Dose 2 TAB; Start 11/04/18 at 10:00 Acetaminophen/ Hydrocodone Bitart ([place] (10/325)) 1 tab Q4H PRN PO MODERATE PAIN LEVEL 4-6 Last administered on 11/06/18 23:54; Admin Dose 1 TAB; Start 11/04/18 at 10:00 Acetaminophen (Tylenol Tab) 650 mg Q4 PRN PO MILD PAIN(1-3)OR ELEVATED TEMP; Start 11/05/18 at 14:00 Senna (Senokot) 1 tab QHS PO Last administered on 11/07/18 21:01; Admin Dose 1 TAB; Start 11/05/18 at 21:00 Docusate Sodium (Colace) 100 mg BID PO Last administered on 11/08/18at 08:10; Admin Dose 100 MG; Start 11/05/18 at 21:00 Bisacodyl (Dulcolax Supp) 10 mg DAILY PRN [place] CONSTIPATION Last administered on 11/06/18at 14:36; Admin Dose 10 MG; Start 11/05/18 at 14:00 Lactulose (Enulose) 20 gm DAILY PRN PO CONSTIPATION; Start 11/05/18 at 14:00 Baclofen (Lioresal) 10 mg BID PO Last administered on 11/08/18 08:10; Admin Dose 10 MG; Start 11/06/18 at 12:00 Neomycin/ Polymyxin/ Bacitracin (Neosporin Topical Oint) 1 applic Q12 TOP Last administered on 11/08/18at 10:15; Admin Dose 1 APPLIC; Start 11/06/18 at 21:00 Hydromorphone HCl (Dilaudid) 1 mg Q3 PRN IV SEVERE PAIN LEVEL 7-10 Last administered on 11/08/18at 16:42; Admin Dose 1 MG; Start 11/07/18 at 13:30 Zolpidem Tartrate (Ambien) 5 mg HS PRN PO INSOMNIA Last administered on 11/07/18at 21:57; Admin Dose 5 MG; Start 11/07/18 at 22:00 Vancomycin HCl (Vanco Iv Per Pharmacy) VANCOMYCIN PER PHARMACY PER PROTOCOL XX ; Start 11/08/18 at 15:00 Cefepime HCl 50 ml @ 100 mls/hr Q12 IVPB ; Start 11/08/18 at 21:00 Vancomycin HCl 1.75 gm/Sodium Chloride 500 ml @ 125 mls/hr ONCE ONCE IVPB Last administered on 11/08/18at 17:22; Admin Dose 125 MLS/HR; Start 11/08/18 at 17:00; Stop 11/08/18 at 20:59 Vancomycin HCl 1.25 gm/Sodium Chloride 250 ml @ 83.333 mls/ hr Q12H IVPB ; Start 11/09/18 at 05:00 FERCHO PADILLA Nov 08, 2018 19:37
[2018-11-08 20:00] VITALS: BP 141/68; PULSE 81; RESP 18
[2018-11-08] MEDS: SENNA TAB PO SCH (20:46)
[2018-11-08] MEDS: CEFEPIME 2GM/50 ML (PMX) 50 ML IVPB SCH (20:50)
[2018-11-08] MEDS: ZOLPIDEM 5 MG TAB PO PRN (20:50)
[2018-11-09 02:00] VITALS: BP 133/82; PULSE 80; RESP 18
[2018-11-09] MEDS: HYDROmorphONE 1 MG/ML SYG IV PRN ×7 (02:33→23:14)
[2018-11-09] MEDS: VANCOMYCIN HCL 1.25 GM in SOD CHLORIDE 0.9% 250 ML IVPB SCH ×2 (05:19→17:27)
[2018-11-09] MEDS: HYDROCODONE/APAP (10/325) TAB PO PRN ×5 (05:20→22:11)
[2018-11-09] MEDS: ACCU-CHEK XX SCH ×4 (07:05→20:57)
[2018-11-09] MEDS: INSULIN ASPART [NOVOLOG] 3 ML PEN SC SCH ×7 (07:51→20:56)
[2018-11-09] MEDS: INSULIN GLARGINE [LANTus] (100 UNITS/ML) SYG SC SCH (07:52)
[2018-11-09] MEDS: metFORMIN 500 MG TAB PO SCH (07:56)
[2018-11-09 08:00] VITALS: BP 166/75; PULSE 80; RESP 18
[2018-11-09] MEDS: LINAGLIPTIN 5 MG TABLET PO SCH (08:12)
[2018-11-09] MEDS: ONDANSETRON 4 MG INJ IV PRN (08:13)
[2018-11-09] MEDS: METOPROLOL 50 MG TAB PO SCH ×2 (08:13→20:56)
[2018-11-09] MEDS: BACLOFEN 10 MG TAB PO SCH ×3 (08:13→20:56)
[2018-11-09] MEDS: GABAPENTIN 300 MG CAP PO SCH ×3 (08:13→20:56)
[2018-11-09] MEDS: DOCUSATE SODIUM 100 MG CAP PO SCH ×2 (08:13→20:56)
[2018-11-09] MEDS: BENAZEPRIL 10 MG TAB PO SCH ×2 (08:13→20:56)
[2018-11-09] MEDS: NEOMYC/POLYMYX/BACIT 30 GM OINT TOP SCH ×2 (08:14→20:59)
[2018-11-09] MEDS: CEFEPIME 2GM/50 ML (PMX) 50 ML IVPB SCH ×2 (09:37→22:11)
--- NOTE | 2018-11-09 12:21 | PN ---
Date/Time of Note Date/Time of Note DATE: 11/09/18 TIME: 12: Objective Vital Signs Date Temp Pulse Resp B/P (MAP) Pulse Ox O2 O2 Flow FiO2 Time Delivery Rate 11/09/18 97.7 80 18 166/75 98 Room Air 08:00 (105) Intake and Output 11/08/18 11/08/18 11/09/18 1515:00 23:00 07:00 IntakeIntake Total 500 ml 550 ml BalanceBalance 500 ml 550 ml Exam INTERDISCIPLINARY TEAM CONFERENCE Attended by PT, OT, ST, Radiological Technician, Social Work, Rehabilitation Nursing, Meter And Service Line Inspector and Commercial Relationship ManagerTire Trucker Exam: Pulm-cta BOWEL- Cont BLADDER-Cont SKIN- intact OT- DRESSING-sba/cga BATHING-sba/cga TOILETING-cga PT- BED MOBILITY- sba TRANSFERS-sba AMBULATION-sba 220 feet STAIRS- 10 steps cga A/P- Interdisciplinary team conference held today. Please see interdisciplinary sheet. Working toward d.c. on 11/15 with post discharge follow up of physical therapy, occupational therapy. Results/Medications Result Diagram: 11/06/18 1506 Results 24 hrs Laboratory Tests Test 11/08/18 17:23 11/08/18 20:44 11/09/18 07:49 11/09/18 11:34 Bedside Glucose 95 140 141 141 Medications Current Medications Miscellaneous Information (Pending [facility] Order For Wound Care) This patient chowdhury... PRN PRN XX WOUND CARE; Start 11/03/18 at 17:30 Al Hydrox/Mg Hydrox/Simethicone (Mag-Al Plus) 15 ml Q4H PRN PO .CONSTIPATION; Start 11/03/18 at 19:00 IV Flush (NS 3 ml) 3 ml PER PROTOCOL IV ; Start 11/03/18 at 19:00 Naloxone HCl (Narcan) 0.2 mg PRN PRN IV RR < 8; Start 11/03/18 at 19:00 Ondansetron HCl (Zofran Inj) 4 mg Q6H PRN IV NAUSEA AND/OR VOMITING Last administered on 11/09/18at 08:13; Admin Dose 4 MG; Start 11/03/18 at 19:00 Metformin HCl (Glucophage) 1,000 mg WITH BREAKFAST PO Last administered on 11/09/18at 07:56; Admin Dose 1,000 MG; Start 11/04/18 at 07:35 Linagliptin (Tradjenta) 5 mg DAILY PO Last administered on 11/09/18at 08:12; Admin Dose 5 MG; Start 11/04/18 at 09:00 Diagnostic Test (Pha) (Accu-Chek) 1 ea AC MEALS AND BEDTIME XX Last administered on 11/08/18at 21:15; Admin Dose 1 EA; Start 11/03/18 at 21:00 Insulin Aspart (Novolog Insulin Pen) NOVOLOG *MILD* ALGORITHM WITH MEALS BEDTIME SC Last administered on 11/09/18at 11:38; Admin Dose 1 UNIT; Start 11/03/18 at 21:00 Miscellaneous Information 1 ea NOTE XX ; Start 11/03/18 at 19:00 Glucose (Glutose) 15 gm Q15M PRN PO DECREASED GLUCOSE; Start 11/03/18 at 19:00 Glucose (Glutose) 22.5 gm Q15M PRN PO DECREASED GLUCOSE; Start 11/03/18 at 19:00 Dextrose (D50w Syringe) 25 ml Q15M PRN IV DECREASED GLUCOSE; Start 11/03/18 at 19:00 Dextrose (D50w Syringe) 50 ml Q15M PRN IV DECREASED GLUCOSE; Start 11/03/18 at 19:00 Glucagon (Glucagen) 1 mg Q15M PRN IM DECREASED GLUCOSE; Start 11/03/18 at 19:00 Glucose (Glutose) 15 gm Q15M PRN BUCCAL DECREASED GLUCOSE; Start 11/03/18 at 19:00 Metoprolol Tartrate (Lopressor) 50 mg BID PO Last administered on 11/09/18at 08 :13; Admin Dose 50 MG; Start 11/03/18 at 21:00 Insulin Glargine (Lantus) 19 units DAILY@0800 SC Last administered on 11/09/18at 07:52; Admin Dose 19 UNITS; Start 11/04/18 at 08:00 Benazepril HCl (Lotensin) 10 mg BID PO Last administered on 11/09/18 08:13; Admin Dose 10 MG; Start 11/03/18 at 21:00 Gabapentin (Neurontin) 300 mg TID PO Last administered on 11/09/18 08:13; Admin Dose 300 MG; Start 11/03/18 at 21:00 Diphenhydramine HCl (Benadryl) 25 mg Q6H PRN PO ITCHING; Start 11/03/18 at 19:30 Insulin Aspart (Novolog Insulin Pen) 4 unit WITH MEALS SC Last administered on 11/09/18 11:39; Admin Dose 4 UNIT; Start 11/04/18 at 07:35 Acetaminophen/ Hydrocodone Bitart ([place] (10/325)) 2 tab Q4H PRN PO SEVERE PAIN LEVEL 7-10 Last administered on 11/09/18 10:40; Admin Dose 2 TAB; Start 11/04/18 at 10:00 Acetaminophen/ Hydrocodone Bitart ([place] (10/325)) 1 tab Q4H PRN PO MODERATE PAIN LEVEL 4-6 Last administered on 11/06/18 23:54; Admin Dose 1 TAB; Start 11/04/18 at 10:00 Acetaminophen (Tylenol Tab) 650 mg Q4 PRN PO MILD PAIN(1-3)OR ELEVATED TEMP; Start 11/05/18 at 14:00 Senna (Senokot) 1 tab QHS PO Last administered on 11/08/18 20:46; Admin Dose 1 TAB; Start 11/05/18 at 21:00 Docusate Sodium (Colace) 100 mg BID PO Last administered on 11/09/18 08:13; Admin Dose 100 MG; Start 11/05/18 at 21:00 Bisacodyl (Dulcolax Supp) 10 mg DAILY PRN [place] CONSTIPATION Last administered on 11/06/18 14:36; Admin Dose 10 MG; Start 11/05/18 at 14:00 Lactulose (Enulose) 20 gm DAILY PRN PO CONSTIPATION; Start 11/05/18 at 14:00 Neomycin/ Polymyxin/ Bacitracin (Neosporin Topical Oint) 1 applic Q12 TOP Last administered on 11/09/18 08:14; Admin Dose 1 APPLIC; Start 11/06/18 at 21:00 Hydromorphone HCl (Dilaudid) 1 mg Q3 PRN IV SEVERE PAIN LEVEL 7-10 Last administered on 11/09/18 09:37; Admin Dose 1 MG; Start 11/07/18 at 13:30 Zolpidem Tartrate (Ambien) 5 mg HS PRN PO INSOMNIA Last administered on 11/08/18 t 20:50; Admin Dose 5 MG; Start 11/07/18 at 22:00 Vancomycin HCl (Vanco Iv Per Pharmacy) VANCOMYCIN PER PHARMACY PER PROTOCOL XX ; Start 11/08/18 at 15:00 Cefepime HCl 50 ml @ 100 mls/hr Q12 IVPB Last administered on 11/09/18at 09:37; Admin Dose 100 MLS/HR; Start 11/08/18 at 21:00 Vancomycin HCl 1.25 gm/Sodium Chloride 250 ml @ 83.333 mls/ hr Q12H IVPB Last administered on 11/09/18at 05:19; Admin Dose 83.333 MLS/HR; Start 11/09/18 at 05:00 Baclofen (Lioresal) 10 mg TID PO ; Start 11/09/18 at 13:00 BUBBA PHELPS MD Nov 09, 2018 12:21
--- NOTE | 2018-11-09 12:40 | CONS ---
Assessment/Plan Assessment/Plan Hospital Course (Demo Recall) IMPRESSION: 1. Tachycardia -overall improved-NL EF by echo this admit 2. Shortness of breath-improved 3. Hypertension-labile and likely component of pain 4. Diabetes mellitus. 5. Postop status post spinal fusion L3 to S1. 6. Anemia, mild. 7. Leukocytosis-resolved Recc: -Now in [facility] -Continue BB/ACEI with very labile BP today. Likely due to component of pain -pain control -follow BS clsoely -PT Consultation Date/Type/Reason Admit Date/Time November 03, 2018 at 17:17 Initial Consult Date 11/03/18 Type of Consult Cardiology Reason for Consultation Tachycardia/HTN Requesting Provider: AIDA GREENE MD Date/Time of Note DATE: 11/09/18 TIME: 12:38 Exam/Review of Systems Vital Signs Vitals Vital Signs Date Temp Pulse Resp B/P (MAP) Pulse Ox O2 O2 Flow FiO2 Time Delivery Rate 11/09/18 97.7 80 18 166/75 98 Room Air 08:00 (105) Intake and Output 11/08/18 11/08/18 11/09/18 1515:00 23:00 07:00 IntakeIntake Total 500 ml 550 ml BalanceBalance 500 ml 550 ml Exam Exam Review of Systems: CONSTITUTIONAL: No fevers, chills. PULMONARY: No sob CARDIOVASCULAR: No chest pain/palpitations GASTROINTESTINAL: No nausea/vomiting. GENITOURINARY: No hematuria/dysuria. MUSCULOSKELETAL: pain in back PSYCHIATRIC: The patient denies depression. NEUROLOGIC: numbness in toe Constitutional: alert Psych: no complaints Head: normocephalic ENMT: mucosa pink and moist Neck: supple, jvd (9 cm water) Respiratory: diminished breath sounds (at bases/B) Cardiovascular: regular rate and rhythm Gastrointestinal: soft, non-tender Musculoskeletal: muscle tone (normal) Extremities: edema (none) Neurological: other (numbness in toe) Labs Result Diagram: 11/06/18 1506 Results 24hrs Laboratory Tests Test 11/08/18 17:23 11/08/18 20:44 11/09/18 07:49 11/09/18 11:34 Bedside Glucose 95 140 141 141 Medications Medications Current Medications Miscellaneous Information (Pending [facility] Order For Wound Care) This patient chowdhury... PRN PRN XX WOUND CARE; Start 11/03/18 at 17:30 Al Hydrox/Mg Hydrox/Simethicone (Mag-Al Plus) 15 ml Q4H PRN PO .CONSTIPATION; Start 11/03/18 at 19:00 IV Flush (NS 3 ml) 3 ml PER PROTOCOL IV ; Start 11/03/18 at 19:00 Naloxone HCl (Narcan) 0.2 mg PRN PRN IV RR < 8; Start 11/03/18 at 19:00 Ondansetron HCl (Zofran Inj) 4 mg Q6H PRN IV NAUSEA AND/OR VOMITING Last administered on 11/09/18at 08:13; Admin Dose 4 MG; Start 11/03/18 at 19:00 Metformin HCl (Glucophage) 1,000 mg WITH BREAKFAST PO Last administered on 11/09/18at 07:56; Admin Dose 1,000 MG; Start 11/04/18 at 07:35 Linagliptin (Tradjenta) 5 mg DAILY PO Last administered on 11/09/18at 08:12; Admin Dose 5 MG; Start 11/04/18 at 09:00 Diagnostic Test (Pha) (Accu-Chek) 1 ea AC MEALS AND BEDTIME XX Last administered on 11/08/18at 21:15; Admin Dose 1 EA; Start 11/03/18 at 21:00 Insulin Aspart (Novolog Insulin Pen) NOVOLOG *MILD* ALGORITHM WITH MEALS BEDTIME SC Last administered on 11/09/18at 11:38; Admin Dose 1 UNIT; Start 11/03/18 at 21:00 Miscellaneous Information 1 ea NOTE XX ; Start 11/03/18 at 19:00 Glucose (Glutose) 15 gm Q15M PRN PO DECREASED GLUCOSE; Start 11/03/18 at 19:00 Glucose (Glutose) 22.5 gm Q15M PRN PO DECREASED GLUCOSE; Start 11/03/18 at 19:00 Dextrose (D50w Syringe) 25 ml Q15M PRN IV DECREASED GLUCOSE; Start 11/03/18 at 19:00 Dextrose (D50w Syringe) 50 ml Q15M PRN IV DECREASED GLUCOSE; Start 11/03/18 at 19:00 Glucagon (Glucagen) 1 mg Q15M PRN IM DECREASED GLUCOSE; Start 11/03/18 at 19:00 Glucose (Glutose) 15 gm Q15M PRN BUCCAL DECREASED GLUCOSE; Start 11/03/18 at 19:00 Metoprolol Tartrate (Lopressor) 50 mg BID PO Last administered on 11/09/18 08:13; Admin Dose 50 MG; Start 11/03/18 at 21:00 Insulin Glargine (Lantus) 19 units DAILY@0800 SC Last administered on 11/09/18 07:52; Admin Dose 19 UNITS; Start 11/04/18 at 08:00 Benazepril HCl (Lotensin) 10 mg BID PO Last administered on 11/09/18 08:13; Admin Dose 10 MG; Start 11/03/18 at 21:00 Gabapentin (Neurontin) 300 mg TID PO Last administered on 11/09/18 12:15; Admin Dose 300 MG; Start 11/03/18 at 21:00 Diphenhydramine HCl (Benadryl) 25 mg Q6H PRN PO ITCHING; Start 11/03/18 at 19:30 Insulin Aspart (Novolog Insulin Pen) 4 unit WITH MEALS SC Last administered on 11/09/18 11:39; Admin Dose 4 UNIT; Start 11/04/18 at 07:35 Acetaminophen/ Hydrocodone Bitart ([place] (10/325)) 2 tab Q4H PRN PO SEVERE PAIN LEVEL 7-10 Last administered on 11/09/18 10:40; Admin Dose 2 TAB; Start 11/04/18 at 10:00 Acetaminophen/ Hydrocodone Bitart ([place] (10/325)) 1 tab Q4H PRN PO MODERATE PAIN LEVEL 4-6 Last administered on 11/06/18 23:54; Admin Dose 1 TAB; Start 11/04/18 at 10:00 Acetaminophen (Tylenol Tab) 650 mg Q4 PRN PO MILD PAIN(1-3)OR ELEVATED TEMP; Start 11/05/18 at 14:00 Senna (Senokot) 1 tab QHS PO Last administered on 11/08/18 20:46; Admin Dose 1 TAB; Start 11/05/18 at 21:00 Docusate Sodium (Colace) 100 mg BID PO Last administered on 11/09/18 08:13; Admin Dose 100 MG; Start 11/05/18 at 21:00 Bisacodyl (Dulcolax Supp) 10 mg DAILY PRN [place] CONSTIPATION Last administered on 11/06/18 14:36; Admin Dose 10 MG; Start 11/05/18 at 14:00 Lactulose (Enulose) 20 gm DAILY PRN PO CONSTIPATION; Start 11/05/18 at 14:00 Neomycin/ Polymyxin/ Bacitracin (Neosporin Topical Oint) 1 applic Q12 TOP Last administered on 11/09/18 08:14; Admin Dose 1 APPLIC; Start 11/06/18 at 21:00 Hydromorphone HCl (Dilaudid) 1 mg Q3 PRN IV SEVERE PAIN LEVEL 7-10 Last administered on 11/09/18 09:37; Admin Dose 1 MG; Start 11/07/18 at 13:30 Zolpidem Tartrate (Ambien) 5 mg HS PRN PO INSOMNIA Last administered on 11/08/18 20:50; Admin Dose 5 MG; Start 11/07/18 at 22:00 Vancomycin HCl (Vanco Iv Per Pharmacy) VANCOMYCIN PER PHARMACY PER PROTOCOL XX ; Start 11/08/18 at 15:00 Cefepime HCl 50 ml @ 100 mls/hr Q12 IVPB Last administered on 11/09/18 09:37; Admin Dose 100 MLS/HR; Start 11/08/18 at 21:00 Vancomycin HCl 1.25 gm/Sodium Chloride 250 ml @ 83.333 mls/ hr Q12H IVPB Last administered on 11/09/18 05:19; Admin Dose 83.333 MLS/HR; Start 11/09/18 at 05:00 Baclofen (Lioresal) 10 mg TID PO Last administered on 11/09/18 12:15; Admin Dose 10 MG; Start 11/09/18 at 13:00 VESNA GALLAGHER Nov 09, 2018 12:40
--- NOTE | 2018-11-09 12:50 | CONS ---
Assessment/Plan Assessment/Plan Hospital Course (Demo Recall) 1. s/p ALIF L2-S1 with Posterior fixation. 2. DM 3. Anemia 4. chronic medical problems R: finish 10-14 days vanco/cefepime monitor crcl and plts serial procalc wound care will follow closely with you monitor fever curve Consultation Date/Type/Reason Admit Date/Time November 03, 2018 at 17:17 Date of Consultation: Nov 09, 2018 Type of Consult ID Reason for Consultation ABX RECS Requesting Provider: FERCHO PADILLA Date/Time of Note DATE: 11/09/18 TIME: 12:46 Hx of Present Illness A 48 yo female with pmh of DM, anemia s/p ALIF L2-S1 with Posterior fixation at end of October,noted to have discharge from wound at acute rehab. 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 CT w/o e/o deep set infection Constitutional: no complaints, improved Eyes: no complaints ENT: no complaints Respiratory: no complaints Cardiovascular: no complaints Gastrointestinal: no complaints Genitourinary: no complaints Musculoskeletal: no complaints Skin: no complaints Neurologic: no complaints Past Medical History Medical History: diabetes, hypertension Home Meds Reported Medications Insulin Aspart* (Novolog Insulin Pen*) 100 Unit/Ml Soln, 40 UNIT SC WITH BREAKFAST, EA 10/27/18 Metformin* (Glucophage*) 1,000 Mg Tablet, 1000 MG PO DAILY, #30 TAB 10/27/18 Sitagliptin* (Januvia*) 100 Mg Tablet, 100 MG PO DAILY, #30 TAB 10/27/18 Medications Current Medications Miscellaneous Information (Pending [facility] Order For Wound Care) This patient chowdhury... PRN PRN XX WOUND CARE; Start 11/03/18 at 17:30 Al Hydrox/Mg Hydrox/Simethicone (Mag-Al Plus) 15 ml Q4H PRN PO .CONSTIPATION; Start 11/03/18 at 19:00 IV Flush (NS 3 ml) 3 ml PER PROTOCOL IV ; Start 11/03/18 at 19:00 Naloxone HCl (Narcan) 0.2 mg PRN PRN IV RR < 8; Start 11/03/18 at 19:00 Ondansetron HCl (Zofran Inj) 4 mg Q6H PRN IV NAUSEA AND/OR VOMITING Last administered on 11/09/18at 08:13; Admin Dose 4 MG; Start 11/03/18 at 19:00 Metformin HCl (Glucophage) 1,000 mg WITH BREAKFAST PO Last administered on 11/09/18 07:56; Admin Dose 1,000 MG; Start 11/04/18 at 07:35 Linagliptin (Tradjenta) 5 mg DAILY PO Last administered on 11/09/18 08:12; Admin Dose 5 MG; Start 11/04/18 at 09:00 Diagnostic Test (Pha) (Accu-Chek) 1 ea AC MEALS AND BEDTIME XX Last administered on 11/08/18at 21:15; Admin Dose 1 EA; Start 11/03/18 at 21:00 Insulin Aspart (Novolog Insulin Pen) NOVOLOG *MILD* ALGORITHM WITH MEALS BEDTIME SC Last administered on 11/09/18 11:38; Admin Dose 1 UNIT; Start 11/03/18 at 21:00 Miscellaneous Information 1 ea NOTE XX ; Start 11/03/18 at 19:00 Glucose (Glutose) 15 gm Q15M PRN PO DECREASED GLUCOSE; Start 11/03/18 at 19:00 Glucose (Glutose) 22.5 gm Q15M PRN PO DECREASED GLUCOSE; Start 11/03/18 at 19:00 Dextrose (D50w Syringe) 25 ml Q15M PRN IV DECREASED GLUCOSE; Start 11/03/18 at 19:00 Dextrose (D50w Syringe) 50 ml Q15M PRN IV DECREASED GLUCOSE; Start 11/03/18 at 19:00 Glucagon (Glucagen) 1 mg Q15M PRN IM DECREASED GLUCOSE; Start 11/03/18 at 19:00 Glucose (Glutose) 15 gm Q15M PRN BUCCAL DECREASED GLUCOSE; Start 11/03/18 at 19:00 Metoprolol Tartrate (Lopressor) 50 mg BID PO Last administered on 11/09/18 08:13; Admin Dose 50 MG; Start 11/03/18 at 21:00 Insulin Glargine (Lantus) 19 units DAILY@0800 SC Last administered on 11/09/18 07:52; Admin Dose 19 UNITS; Start 11/04/18 at 08:00 Benazepril HCl (Lotensin) 10 mg BID PO Last administered on 11/09/18 08:13; Admin Dose 10 MG; Start 11/03/18 at 21:00 Gabapentin (Neurontin) 300 mg TID PO Last administered on 11/09/18 12:15; Admin Dose 300 MG; Start 11/03/18 at 21:00 Diphenhydramine HCl (Benadryl) 25 mg Q6H PRN PO ITCHING; Start 11/03/18 at 19:30 Insulin Aspart (Novolog Insulin Pen) 4 unit WITH MEALS SC Last administered on 11/09/18 11:39; Admin Dose 4 UNIT; Start 11/04/18 at 07:35 Acetaminophen/ Hydrocodone Bitart ([place] (10/325)) 2 tab Q4H PRN PO SEVERE PAIN LEVEL 7-10 Last administered on 11/09/18 10:40; Admin Dose 2 TAB; Start 11/04/18 at 10:00 Acetaminophen/ Hydrocodone Bitart ([place] (10/325)) 1 tab Q4H PRN PO MODERATE PAIN LEVEL 4-6 Last administered on 11/06/18 23:54; Admin Dose 1 TAB; Start 11/04/18 at 10:00 Acetaminophen (Tylenol Tab) 650 mg Q4 PRN PO MILD PAIN(1-3)OR ELEVATED TEMP; Start 11/05/18 at 14:00 Senna (Senokot) 1 tab QHS PO Last administered on 11/08/18 20:46; Admin Dose 1 TAB; Start 11/05/18 at 21:00 Docusate Sodium (Colace) 100 mg BID PO Last administered on 11/09/18 08:13; Admin Dose 100 MG; Start 11/05/18 at 21:00 Bisacodyl (Dulcolax Supp) 10 mg DAILY PRN [place] CONSTIPATION Last administered on 11/06/18 14:36; Admin Dose 10 MG; Start 11/05/18 at 14:00 Lactulose (Enulose) 20 gm DAILY PRN PO CONSTIPATION; Start 11/05/18 at 14:00 Neomycin/ Polymyxin/ Bacitracin (Neosporin Topical Oint) 1 applic Q12 TOP Last administered on 11/09/18 08:14; Admin Dose 1 APPLIC; Start 11/06/18 at 21:00 Hydromorphone HCl (Dilaudid) 1 mg Q3 PRN IV SEVERE PAIN LEVEL 7-10 Last administered on 11/09/18 09:37; Admin Dose 1 MG; Start 11/07/18 at 13:30 Zolpidem Tartrate (Ambien) 5 mg HS PRN PO INSOMNIA Last administered on 11/08/18at 20:50; Admin Dose 5 MG; Start 11/07/18 at 22:00 Vancomycin HCl (Vanco Iv Per Pharmacy) VANCOMYCIN PER PHARMACY PER PROTOCOL XX ; Start 11/08/18 at 15:00 Cefepime HCl 50 ml @ 100 mls/hr Q12 IVPB Last administered on 11/09/18at 09:37; Admin Dose 100 MLS/HR; Start 11/08/18 at 21:00 Vancomycin HCl 1.25 gm/Sodium Chloride 250 ml @ 83.333 mls/ hr Q12H IVPB Last administered on 11/09/18at 05:19; Admin Dose 83.333 MLS/HR; Start 11/09/18 at 05:00 Baclofen (Lioresal) 10 mg TID PO Last administered on 11/09/18at 12:15; Admin Dose 10 MG; Start 11/09/18 at 13:00 Allergies: Coded Allergies: No Known Allergy (Unverified , 10/26/18) Past Surgical History Past Surgical Hx: cholecystectomy Social History Smoking Status: Never smoker Exam/Review of Systems Exam Vitals Vital Signs Date Temp Pulse Resp B/P (MAP) Pulse Ox O2 O2 Flow FiO2 Time Delivery Rate 11/09/18 97.7 80 18 166/75 98 Room Air 08:00 (105) Intake and Output 11/08/18 11/08/18 11/09/18 1515:00 23:00 07:00 IntakeIntake Total 500 ml 550 ml BalanceBalance 500 ml 550 ml Constitutional: alert, oriented, well developed Psych: no complaints, nl mood/affect Head: normocephalic, atraumatic Eyes: nl conjunctiva, EOMI, nl lids, nl sclera, PERRL Neck: supple, non-tender Respiratory: clear to auscultation, normal air movement Cardiovascular: regular rate and rhythm, nl pulses Gastrointestinal: soft, nl liver, spleen, non-tender 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 Results Result Diagram: 11/06/18 1506 Results 24hrs Laboratory Tests Test 11/08/18 17:23 11/08/18 20:44 11/09/18 07:49 11/09/18 11:34 Bedside Glucose 95 140 141 141 Medications Medication Current Medications Miscellaneous Information (Pending [facility] Order For Wound Care) This patient chowdhury... PRN PRN XX WOUND CARE; Start 11/03/18 at 17:30 Al Hydrox/Mg Hydrox/Simethicone (Mag-Al Plus) 15 ml Q4H PRN PO .CONSTIPATION; Start 11/03/18 at 19:00 IV Flush (NS 3 ml) 3 ml PER PROTOCOL IV ; Start 11/03/18 at 19:00 Naloxone HCl (Narcan) 0.2 mg PRN PRN IV RR < 8; Start 11/03/18 at 19:00 Ondansetron HCl (Zofran Inj) 4 mg Q6H PRN IV NAUSEA AND/OR VOMITING Last administered on 11/09/18at 08:13; Admin Dose 4 MG; Start 11/03/18 at 19:00 Metformin HCl (Glucophage) 1,000 mg WITH BREAKFAST PO Last administered on 11/09/18at 07:56; Admin Dose 1,000 MG; Start 11/04/18 at 07:35 Linagliptin (Tradjenta) 5 mg DAILY PO Last administered on 11/09/18at 08:12; Admin Dose 5 MG; Start 11/04/18 at 09:00 Diagnostic Test (Pha) (Accu-Chek) 1 ea AC MEALS AND BEDTIME XX Last administered on 11/08/18at 21:15; Admin Dose 1 EA; Start 11/03/18 at 21:00 Insulin Aspart (Novolog Insulin Pen) NOVOLOG *MILD* ALGORITHM WITH MEALS BEDTIME SC Last administered on 11/09/18at 11:38; Admin Dose 1 UNIT; Start 11/03/18 at 21:00 Miscellaneous Information 1 ea NOTE XX ; Start 11/03/18 at 19:00 Glucose (Glutose) 15 gm Q15M PRN PO DECREASED GLUCOSE; Start 11/03/18 at 19:00 Glucose (Glutose) 22.5 gm Q15M PRN PO DECREASED GLUCOSE; Start 11/03/18 at 19:00 Dextrose (D50w Syringe) 25 ml Q15M PRN IV DECREASED GLUCOSE; Start 11/03/18 at 19:00 Dextrose (D50w Syringe) 50 ml Q15M PRN IV DECREASED GLUCOSE; Start 11/03/18 at 19:00 Glucagon (Glucagen) 1 mg Q15M PRN IM DECREASED GLUCOSE; Start 11/03/18 at 19:00 Glucose (Glutose) 15 gm Q15M PRN BUCCAL DECREASED GLUCOSE; Start 11/03/18 at 19:00 Metoprolol Tartrate (Lopressor) 50 mg BID PO Last administered on 11/09/18 08:13; Admin Dose 50 MG; Start 11/03/18 at 21:00 Insulin Glargine (Lantus) 19 units DAILY@0800 SC Last administered on 11/09/18 07:52; Admin Dose 19 UNITS; Start 11/04/18 at 08:00 Benazepril HCl (Lotensin) 10 mg BID PO Last administered on 11/09/18 08:13; Admin Dose 10 MG; Start 11/03/18 at 21:00 Gabapentin (Neurontin) 300 mg TID PO Last administered on 11/09/18 12:15; Admin Dose 300 MG; Start 11/03/18 at 21:00 Diphenhydramine HCl (Benadryl) 25 mg Q6H PRN PO ITCHING; Start 11/03/18 at 19:30 Insulin Aspart (Novolog Insulin Pen) 4 unit WITH MEALS SC Last administered on 11/09/18 11:39; Admin Dose 4 UNIT; Start 11/04/18 at 07:35 Acetaminophen/ Hydrocodone Bitart ([place] (10/325)) 2 tab Q4H PRN PO SEVERE PAIN LEVEL 7-10 Last administered on 11/09/18at 10:40; Admin Dose 2 TAB; Start 11/04/18 at 10:00 Acetaminophen/ Hydrocodone Bitart ([place] (10/325)) 1 tab Q4H PRN PO MODERATE PAIN LEVEL 4-6 Last administered on 11/06/18 23:54; Admin Dose 1 TAB; Start 11/04/18 at 10:00 Acetaminophen (Tylenol Tab) 650 mg Q4 PRN PO MILD PAIN(1-3)OR ELEVATED TEMP; Start 11/05/18 at 14:00 Senna (Senokot) 1 tab QHS PO Last administered on 11/08/18 20:46; Admin Dose 1 TAB; Start 11/05/18 at 21:00 Docusate Sodium (Colace) 100 mg BID PO Last administered on 11/09/18 08:13; Admin Dose 100 MG; Start 11/05/18 at 21:00 Bisacodyl (Dulcolax Supp) 10 mg DAILY PRN [place] CONSTIPATION Last administered on 11/06/18 14:36; Admin Dose 10 MG; Start 11/05/18 at 14:00 Lactulose (Enulose) 20 gm DAILY PRN PO CONSTIPATION; Start 11/05/18 at 14:00 Neomycin/ Polymyxin/ Bacitracin (Neosporin Topical Oint) 1 applic Q12 TOP Last administered on 11/09/18 08:14; Admin Dose 1 APPLIC; Start 11/06/18 at 21:00 Hydromorphone HCl (Dilaudid) 1 mg Q3 PRN IV SEVERE PAIN LEVEL 7-10 Last administered on 11/09/18 09:37; Admin Dose 1 MG; Start 11/07/18 at 13:30 Zolpidem Tartrate (Ambien) 5 mg HS PRN PO INSOMNIA Last administered on 11/08/18 20:50; Admin Dose 5 MG; Start 11/07/18 at 22:00 Vancomycin HCl (Vanco Iv Per Pharmacy) VANCOMYCIN PER PHARMACY PER PROTOCOL XX ; Start 11/08/18 at 15:00 Cefepime HCl 50 ml @ 100 mls/hr Q12 IVPB Last administered on 11/09/18 09:37; Admin Dose 100 MLS/HR; Start 11/08/18 at 21:00 Vancomycin HCl 1.25 gm/Sodium Chloride 250 ml @ 83.333 mls/ hr Q12H IVPB Last administered on 11/09/18 05:19; Admin Dose 83.333 MLS/HR; Start 11/09/18 at 05:00 Baclofen (Lioresal) 10 mg TID PO Last administered on 11/09/18 12:15; Admin Dose 10 MG; Start 11/09/18 at 13:00 FRANCISCO KENT MD Nov 09, 2018 12:49
[2018-11-09 14:00] VITALS: BP 151/69; PULSE 73; RESP 18
--- NOTE | 2018-11-09 18:47 | PN ---
Date/Time of Note Date/Time of Note DATE: 11/09/18 TIME: 18:44 Assessment/Plan VTE Prophylaxis Risk score (from Ns)>0 risk: 8 SCD applied (from Ns): Yes Pharmacological prophylaxis: NA/contraindicated Pharm contraindication: surgical contra Lines/Catheters IV Catheter Type (from [facility]): Saline Lock Urinary Cath still in place: No Assessment/Plan Hospital Course Patient continues on vancomycin and cefepime Staphylococcus and Enterobacter in wound, Dr. Lerner is following in infection disease consultation. Patient remains hemodynamically stable, afebrile. Assessment/Plan -Mechanical LBP and LE radiculopathy. S/p ALIF L3-S1 ON 09/27/18 and ISF L2-S1 and decompression on 09/28/[address] Goldsmith. Continue IV fluids and postoperative antibiotic. Tylenol and Dilaudid as needed for pain. -HTN, continue Benazepril and Metoprolol. -Diabetes mellitus type II continue Tradjenta, Lantus and NovoLog. -Obesity with BMI of 30.3. Further recommendations based on clinical course. Plan of care discussed with Dr. Parker. Result Diagram: 11/06/18 1506 Results 24hrs Laboratory Tests Test 11/08/18 20:44 11/09/18 07:49 11/09/18 11:34 11/09/18 17:29 Bedside Glucose 140 141 141 108 Exam/Review of Systems Exam Vitals Vital Signs Date Temp Pulse Resp B/P (MAP) Pulse Ox O2 O2 Flow FiO2 Time Delivery Rate 11/09/18 73 18 151/69 98 Room Air 14:00 (96) 11/09/18 97.7 08:00 Intake and Output 11/08/18 11/08/18 11/09/18 1515:00 23:00 07:00 IntakeIntake Total 500 ml 550 ml BalanceBalance 500 ml 550 ml Exam Constitutional: alert, oriented Respiratory: clear to auscultation Cardiovascular: nl pulses Gastrointestinal: soft, non-tender, other (s/p surgery) Musculoskeletal: nl extremities to inspection, other (lower back surgical incision) Extremities: normal pulses Results Results 24hrs Laboratory Tests Test 11/08/18 20:44 11/09/18 07:49 11/09/18 11:34 11/09/18 17:29 Bedside Glucose 140 141 141 108 Medications Medication Current Medications Miscellaneous Information (Pending [facility] Order For Wound Care) This patient chowdhury... PRN PRN XX WOUND CARE; Start 11/03/18 at 17:30 Al Hydrox/Mg Hydrox/Simethicone (Mag-Al Plus) 15 ml Q4H PRN PO .CONSTIPATION; Start 11/03/18 at 19:00 IV Flush (NS 3 ml) 3 ml PER PROTOCOL IV ; Start 11/03/18 at 19:00 Naloxone HCl (Narcan) 0.2 mg PRN PRN IV RR < 8; Start 11/03/18 at 19:00 Ondansetron HCl (Zofran Inj) 4 mg Q6H PRN IV NAUSEA AND/OR VOMITING Last administered on 11/09/18at 08:13; Admin Dose 4 MG; Start 11/03/18 at 19:00 Metformin HCl (Glucophage) 1,000 mg WITH BREAKFAST PO Last administered on 11/09/18at 07:56; Admin Dose 1,000 MG; Start 11/04/18 at 07:35 Linagliptin (Tradjenta) 5 mg DAILY PO Last administered on 11/09/18at 08:12; Admin Dose 5 MG; Start 11/04/18 at 09:00 Diagnostic Test (Pha) (Accu-Chek) 1 ea AC MEALS AND BEDTIME XX Last administered on 11/08/18at 21:15; Admin Dose 1 EA; Start 11/03/18 at 21:00 Insulin Aspart (Novolog Insulin Pen) NOVOLOG *MILD* ALGORITHM WITH MEALS BEDTIME SC Last administered on 11/09/18at 11:38; Admin Dose 1 UNIT; Start 11/03/18 at 21:00 Miscellaneous Information 1 ea NOTE XX ; Start 11/03/18 at 19:00 Glucose (Glutose) 15 gm Q15M PRN PO DECREASED GLUCOSE; Start 11/03/18 at 19:00 Glucose (Glutose) 22.5 gm Q15M PRN PO DECREASED GLUCOSE; Start 11/03/18 at 19:00 Dextrose (D50w Syringe) 25 ml Q15M PRN IV DECREASED GLUCOSE; Start 11/03/18 at 19:00 Dextrose (D50w Syringe) 50 ml Q15M PRN IV DECREASED GLUCOSE; Start 11/03/18 at 19:00 Glucagon (Glucagen) 1 mg Q15M PRN IM DECREASED GLUCOSE; Start 11/03/18 at 19:00 Glucose (Glutose) 15 gm Q15M PRN BUCCAL DECREASED GLUCOSE; Start 11/03/18 at 19:00 Metoprolol Tartrate (Lopressor) 50 mg BID PO Last administered on 11/09/18 08:13; Admin Dose 50 MG; Start 11/03/18 at 21:00 Insulin Glargine (Lantus) 19 units DAILY@0800 SC Last administered on 11/09/18 07:52; Admin Dose 19 UNITS; Start 11/04/18 at 08:00 Benazepril HCl (Lotensin) 10 mg BID PO Last administered on 11/09/18 08:13; Admin Dose 10 MG; Start 11/03/18 at 21:00 Gabapentin (Neurontin) 300 mg TID PO Last administered on 11/09/18 12:15; Admin Dose 300 MG; Start 11/03/18 at 21:00 Diphenhydramine HCl (Benadryl) 25 mg Q6H PRN PO ITCHING; Start 11/03/18 at 19:30 Insulin Aspart (Novolog Insulin Pen) 4 unit WITH MEALS SC Last administered on 11/09/18 17:33; Admin Dose 4 UNIT; Start 11/04/18 at 07:35 Acetaminophen/ Hydrocodone Bitart ([place] (10/325)) 2 tab Q4H PRN PO SEVERE PAIN LEVEL 7-10 Last administered on 11/09/18 18:10; Admin Dose 2 TAB; Start 11/04/18 at 10:00 Acetaminophen/ Hydrocodone Bitart ([place] (10/325)) 1 tab Q4H PRN PO MODERATE PAIN LEVEL 4-6 Last administered on 11/06/18 23:54; Admin Dose 1 TAB; Start 11/04/18 at 10:00 Acetaminophen (Tylenol Tab) 650 mg Q4 PRN PO MILD PAIN(1-3)OR ELEVATED TEMP; Start 11/05/18 at 14:00 Senna (Senokot) 1 tab QHS PO Last administered on 11/08/18 20:46; Admin Dose 1 TAB; Start 11/05/18 at 21:00 Docusate Sodium (Colace) 100 mg BID PO Last administered on 11/09/18 08:13; Admin Dose 100 MG; Start 11/05/18 at 21:00 Bisacodyl (Dulcolax Supp) 10 mg DAILY PRN [place] CONSTIPATION Last administered on 11/06/18 14:36; Admin Dose 10 MG; Start 11/05/18 at 14:00 Lactulose (Enulose) 20 gm DAILY PRN PO CONSTIPATION; Start 11/05/18 at 14:00 Neomycin/ Polymyxin/ Bacitracin (Neosporin Topical Oint) 1 applic Q12 TOP Last administered on 11/09/18 08:14; Admin Dose 1 APPLIC; Start 11/06/18 at 21:00 Hydromorphone HCl (Dilaudid) 1 mg Q3 PRN IV SEVERE PAIN LEVEL 7-10 Last adm inistered on 11/09/18 15:59; Admin Dose 1 MG; Start 11/07/18 at 13:30 Zolpidem Tartrate (Ambien) 5 mg HS PRN PO INSOMNIA Last administered on 11/08/18 20:50; Admin Dose 5 MG; Start 11/07/18 at 22:00 Vancomycin HCl (Vanco Iv Per Pharmacy) VANCOMYCIN PER PHARMACY PER PROTOCOL XX ; Start 11/08/18 at 15:00 Cefepime HCl 50 ml @ 100 mls/hr Q12 IVPB Last administered on 11/09/18 09:37; Admin Dose 100 MLS/HR; Start 11/08/18 at 21:00 Vancomycin HCl 1.25 gm/Sodium Chloride 250 ml @ 83.333 mls/ hr Q12H IVPB Last administered on 11/09/18at 17:27; Admin Dose 83.333 MLS/HR; Start 11/09/18 at 05:00 Baclofen (Lioresal) 10 mg TID PO Last administered on 11/09/18 12:15; Admin Dose 10 MG; Start 11/09/18 at 13:00 Miscellaneous Information (*Rx Drug Level Order Reminder*) 1 0400 ONCE XX ; Start 11/10/18 at 04:00; Stop 11/10/18 at 04:01 FERCHO PADILLA Nov 09, 2018 18:47
[2018-11-09 20:00] VITALS: BP 130/64; PULSE 80; RESP 18
[2018-11-09] MEDS: SENNA TAB PO SCH (20:56)
[2018-11-09] MEDS: ZOLPIDEM 5 MG TAB PO PRN (21:02)
[2018-11-10] MEDS: HYDROmorphONE 1 MG/ML SYG IV PRN ×4 (04:13→20:02)
[2018-11-10] MEDS: VANCOMYCIN HCL 1.25 GM in SOD CHLORIDE 0.9% 250 ML IVPB SCH ×2 (04:18→17:14)
[2018-11-10] MEDS: HYDROCODONE/APAP (10/325) TAB PO PRN (06:51)
[2018-11-10] MEDS: ACCU-CHEK XX SCH ×4 (07:05→20:48)
[2018-11-10 08:00] VITALS: BP 140/78; PULSE 91; RESP 18
[2018-11-10] MEDS: metFORMIN 500 MG TAB PO SCH (09:14)
[2018-11-10] MEDS: LINAGLIPTIN 5 MG TABLET PO SCH (09:15)
[2018-11-10] MEDS: INSULIN GLARGINE [LANTus] (100 UNITS/ML) SYG SC SCH (09:18)
[2018-11-10] MEDS: INSULIN ASPART [NOVOLOG] 3 ML PEN SC SCH ×7 (09:21→20:48)
[2018-11-10] MEDS: BENAZEPRIL 10 MG TAB PO SCH ×2 (09:24→20:47)
[2018-11-10] MEDS: GABAPENTIN 300 MG CAP PO SCH ×3 (09:24→20:47)
[2018-11-10] MEDS: BACLOFEN 10 MG TAB PO SCH ×3 (09:24→20:46)
[2018-11-10] MEDS: NEOMYC/POLYMYX/BACIT 30 GM OINT TOP SCH ×2 (09:25→21:03)
[2018-11-10] MEDS: METOPROLOL 50 MG TAB PO SCH ×2 (09:25→20:47)
[2018-11-10] MEDS: DOCUSATE SODIUM 100 MG CAP PO SCH ×2 (09:26→20:46)
[2018-11-10] MEDS: CEFEPIME 2GM/50 ML (PMX) 50 ML IVPB SCH ×2 (09:29→20:54)
--- NOTE | 2018-11-10 10:18 | PN ---
Date/Time of Note Date/Time of Note DATE: 11/10/18 TIME: 10:17 Assessment/Plan VTE Prophylaxis Risk score (from Nsg)>0 risk: 10 SCD applied (from Nsg): No Lines/Catheters IV Catheter Type (from Nrsg): Saline Lock Urinary Cath still in place: No Assessment/Plan Assessment/Plan Impression s/p L2-S1 ALIF with posterior fixation using ISF superficial wound infection with very scant drainage ID following and on IV antiotics Plan Result Diagram: 11/06/18 1506 11/10/18 0404 Results 24hrs Laboratory Tests Test 11/09/18 11:34 11/09/18 17:29 11/09/18 20:54 11/10/18 04:04 Bedside Glucose 141 108 142 Blood Urea Nitrogen 9 Creatinine 0.55 Vancomycin Level Trough 10.8 Test 11/10/18 08:50 Bedside Glucose 146 Subjective 24 Hr Interval Summary Free Text/Dictation Neurosurgery follow up Exam/Review of Systems Exam Vitals Vital Signs Date Temp Pulse Resp B/P (MAP) Pulse Ox O2 O2 Flow FiO2 Time Delivery Rate 11/09/18 98.1 80 18 130/64 97 Room Air 20:00 (86) Intake and Output 11/09/18 11/09/18 11/10/18 1515:00 23:00 07:00 IntakeIntake Total 300 ml 1300 ml BalanceBalance 300 ml 1300 ml Results Results 24hrs Laboratory Tests Test 11/09/18 11:34 11/09/18 17:29 11/09/18 20:54 11/10/18 04:04 Bedside Glucose 141 108 142 Blood Urea Nitrogen 9 Creatinine 0.55 Vancomycin Level Trough 10.8 Test 11/10/18 08:50 Bedside Glucose 146 Medications Medication Current Medications Miscellaneous Information ([facility] This patient chowdhury... PRN PRN XX WOUND CARE; Start 11/03/18 at 17:30 Al Hydrox/Mg Hydrox/Simethicone (Mag-Al Plus) 15 ml Q4H PRN PO .CONSTIPATION; Start 11/03/18 at 19:00 IV Flush (NS 3 ml) 3 ml PER PROTOCOL IV ; Start 11/03/18 at 19:00 Naloxone HCl (Narcan) 0.2 mg PRN PRN IV RR < 8; Start 11/03/18 at 19:00 Ondansetron HCl (Zofran Inj) 4 mg Q6H PRN IV NAUSEA AND/OR VOMITING Last administered on 11/09/18 08:13; Admin Dose 4 MG; Start 11/03/18 at 19:00 Metformin HCl (Glucophage) 1,000 mg WITH BREAKFAST PO Last administered on 11/10/18 09:14; Admin Dose 1,000 MG; Start 11/04/18 at 07:35 Linagliptin (Tradjenta) 5 mg DAILY PO Last administered on 11/10/18 09:15; Admin Dose 5 MG; Start 11/04/18 at 09:00 Diagnostic Test (Pha) (Accu-Chek) 1 ea AC MEALS AND BEDTIME XX Last administered on 11/09/18 20:57; Admin Dose 1 EA; Start 11/03/18 at 21:00 Insulin Aspart (Novolog Insulin Pen) NOVOLOG *MILD* ALGORITHM WITH MEALS BEDTIME SC Last administered on 11/10/18 09:22; Admin Dose 1 UNIT; Start 11/03/18 at 21:00 Miscellaneous Information 1 ea NOTE XX ; Start 11/03/18 at 19:00 Glucose (Glutose) 15 gm Q15M PRN PO DECREASED GLUCOSE; Start 11/03/18 at 19:00 Glucose (Glutose) 22.5 gm Q15M PRN PO DECREASED GLUCOSE; Start 11/03/18 at 19:00 Dextrose (D50w Syringe) 25 ml Q15M PRN IV DECREASED GLUCOSE; Start 11/03/18 at 19:00 Dextrose (D50w Syringe) 50 ml Q15M PRN IV DECREASED GLUCOSE; Start 11/03/18 at 19:00 Glucagon (Glucagen) 1 mg Q15M PRN IM DECREASED GLUCOSE; Start 11/03/18 at 19:00 Glucose (Glutose) 15 gm Q15M PRN BUCCAL DECREASED GLUCOSE; Start 11/03/18 at 19:00 Metoprolol Tartrate (Lopressor) 50 mg BID PO Last administered on 11/10/18 09:25; Admin Dose 50 MG; Start 11/03/18 at 21:00 Insulin Glargine (Lantus) 19 units DAILY@0800 SC Last administered on 11/10/18 09:18; Admin Dose 19 UNITS; Start 11/04/18 at 08:00 Benazepril HCl (Lotensin) 10 mg BID PO Last administered on 11/10/18 09:24; Admin Dose 10 MG; Start 11/03/18 at 21:00 Gabapentin (Neurontin) 300 mg TID PO Last administered on 11/10/18 09:24; Admin Dose 300 MG; Start 11/03/18 at 21:00 Diphenhydramine HCl (Benadryl) 25 mg Q6H PRN PO ITCHING; Start 11/03/18 at 19:30 Insulin Aspart (Novolog Insulin Pen) 4 unit WITH MEALS SC Last administered on 11/10/18 09:21; Admin Dose 4 UNIT; Start 11/04/18 at 07:35 Acetaminophen/ Hydrocodone Bitart ([place] (10/325)) 2 tab Q4H PRN PO SEVERE PAIN LEVEL 7-10 Last administered on 11/10/18 06:51; Admin Dose 2 TAB; Start 11/04/18 at 10:00 Acetaminophen/ Hydrocodone Bitart ([place] (10/325)) 1 tab Q4H PRN PO MODERATE PAIN LEVEL 4-6 Last administered on 11/06/18 23:54; Admin Dose 1 TAB; Start 11/04/18 at 10:00 Acetaminophen (Tylenol Tab) 650 mg Q4 PRN PO MILD PAIN(1-3)OR ELEVATED TEMP; Start 11/05/18 at 14:00 Senna (Senokot) 1 tab QHS PO Last administered on 11/09/18 20:56; Admin Dose 1 TAB; Start 11/05/18 at 21:00 Docusate Sodium (Colace) 100 mg BID PO Last administered on 11/10/18 09:26; Admin Dose 100 MG; Start 11/05/18 at 21:00 Bisacodyl (Dulcolax Supp) 10 mg DAILY PRN [place] CONSTIPATION Last administered on 11/06/18 14:36; Admin Dose 10 MG; Start 11/05/18 at 14:00 Lactulose (Enulose) 20 gm DAILY PRN PO CONSTIPATION; Start 11/05/18 at 14:00 Neomycin/ Polymyxin/ Bacitracin (Neosporin Topical Oint) 1 applic Q12 TOP Last administered on 11/10/18 09:25; Admin Dose 1 APPLIC; Start 11/06/18 at 21:00 Hydromorphone HCl (Dilaudid) 1 mg Q3 PRN IV SEVERE PAIN LEVEL 7-10 Last administered on 11/10/18 09:38; Admin Dose 1 MG; Start 11/07/18 at 13:30 Zolpidem Tartrate (Ambien) 5 mg HS PRN PO INSOMNIA Last administered on 11/09/18 21:02; Admin Dose 5 MG; Start 11/07/18 at 22:00 Vancomycin HCl (Vanco Iv Per Pharmacy) VANCOMYCIN PER PHARMACY PER PROTOCOL XX ; Start 11/08/18 at 15:00 Cefepime HCl 50 ml @ 100 mls/hr Q12 IVPB Last administered on 11/10/18 09:29; Admin Dose 100 MLS/HR; Start 11/08/18 at 21:00 Vancomycin HCl 1.25 gm/Sodium Chloride 250 ml @ 83.333 mls/ hr Q12H IVPB Last administered on 11/10/18 04:18; Admin Dose 83.333 MLS/HR; Start 11/09/18 at 05:00 Baclofen (Lioresal) 10 mg TID PO Last administered on 11/10/18 09:24; Admin Dose 10 MG; Start 11/09/18 at 13:00 KARMA DRAPER MD Nov 10, 2018 10:18
--- NOTE | 2018-11-10 11:05 | PN ---
Date/Time of Note Date/Time of Note DATE: 11/10/18 TIME: 11:04 Subjective Patient reports increased pain. RN notes drainage from anterior site Objective Vital Signs Date Temp Pulse Resp B/P (MAP) Pulse Ox O2 O2 Flow FiO2 Time Delivery Rate 11/09/18 98.1 80 18 130/64 97 Room Air 20:00 (86) Intake and Output 11/09/18 11/09/18 11/10/18 1515:00 23:00 07:00 IntakeIntake Total 300 ml 1300 ml BalanceBalance 300 ml 1300 ml Exam [id number] cga ambulation Results/Medications Result Diagram: 11/06/18 1506 11/10/18 0404 Results 24 hrs Laboratory Tests Test 11/09/18 11:34 11/09/18 17:29 11/09/18 20:54 11/10/18 04:04 Bedside Glucose 141 108 142 Blood Urea Nitrogen 9 Creatinine 0.55 Vancomycin Level Trough 10.8 Test 11/10/18 08:50 Bedside Glucose 146 Medications Current Medications Miscellaneous Information (Pending [facility] Order For Wound Care) This patient chowdhury... PRN PRN XX WOUND CARE; Start 11/03/18 at 17:30 Al Hydrox/Mg Hydrox/Simethicone (Mag-Al Plus) 15 ml Q4H PRN PO .CONSTIPATION; Start 11/03/18 at 19:00 IV Flush (NS 3 ml) 3 ml PER PROTOCOL IV ; Start 11/03/18 at 19:00 Naloxone HCl (Narcan) 0.2 mg PRN PRN IV RR < 8; Start 11/03/18 at 19:00 Ondansetron HCl (Zofran Inj) 4 mg Q6H PRN IV NAUSEA AND/OR VOMITING Last administered on 11/09/18at 08:13; Admin Dose 4 MG; Start 11/03/18 at 19:00 Metformin HCl (Glucophage) 1,000 mg WITH BREAKFAST PO Last administered on 11/10/18at 09:14; Admin Dose 1,000 MG; Start 11/04/18 at 07:35 Linagliptin (Tradjenta) 5 mg DAILY PO Last administered on 11/10/18at 09:15; Admin Dose 5 MG; Start 11/04/18 at 09:00 Diagnostic Test (Pha) (Accu-Chek) 1 ea AC MEALS AND BEDTIME XX Last administered on 11/09/18 20:57; Admin Dose 1 EA; Start 11/03/18 at 21:00 Insulin Aspart (Novolog Insulin Pen) NOVOLOG *MILD* ALGORITHM WITH MEALS BEDTIME SC Last administered on 11/10/18 09:22; Admin Dose 1 UNIT; Start 11/03/18 at 21:00 Miscellaneous Information 1 ea NOTE XX ; Start 11/03/18 at 19:00 Glucose (Glutose) 15 gm Q15M PRN PO DECREASED GLUCOSE; Start 11/03/18 at 19:00 Glucose (Glutose) 22.5 gm Q15M PRN PO DECREASED GLUCOSE; Start 11/03/18 at 19:00 Dextrose (D50w Syringe) 25 ml Q15M PRN IV DECREASED GLUCOSE; Start 11/03/18 at 19:00 Dextrose (D50w Syringe) 50 ml Q15M PRN IV DECREASED GLUCOSE; Start 11/03/18 at 19:00 Glucagon (Glucagen) 1 mg Q15M PRN IM DECREASED GLUCOSE; Start 11/03/18 at 19:00 Glucose (Glutose) 15 gm Q15M PRN BUCCAL DECREASED GLUCOSE; Start 11/03/18 at 19:00 Metoprolol Tartrate (Lopressor) 50 mg BID PO Last administered on 11/10/18 09:25; Admin Dose 50 MG; Start 11/03/18 at 21:00 Insulin Glargine (Lantus) 19 units DAILY@0800 SC Last administered on 11/10/18 09:18; Admin Dose 19 UNITS; Start 11/04/18 at 08:00 Benazepril HCl (Lotensin) 10 mg BID PO Last administered on 11/10/18 09:24; Admin Dose 10 MG; Start 11/03/18 at 21:00 Gabapentin (Neurontin) 300 mg TID PO Last administered on 11/10/18 09:24; Admin Dose 300 MG; Start 11/03/18 at 21:00 Diphenhydramine HCl (Benadryl) 25 mg Q6H PRN PO ITCHING; Start 11/03/18 at 19:30 Insulin Aspart (Novolog Insulin Pen) 4 unit WITH MEALS SC Last administered on 11/10/18 09:21; Admin Dose 4 UNIT; Start 11/04/18 at 07:35 Acetaminophen (Tylenol Tab) 650 mg Q4 PRN PO MILD PAIN(1-3)OR ELEVATED TEMP; Start 11/05/18 at 14:00 Senna (Senokot) 1 tab QHS PO Last administered on 11/09/18 20:56; Admin Dose 1 TAB; Start 11/05/18 at 21:00 Docusate Sodium (Colace) 100 mg BID PO Last administered on 11/10/18 09:26; Admin Dose 100 MG; Start 11/05/18 at 21:00 Bisacodyl (Dulcolax Supp) 10 mg DAILY PRN [place] CONSTIPATION Last administered on 11/06/18 14:36; Admin Dose 10 MG; Start 11/05/18 at 14:00 Lactulose (Enulose) 20 gm DAILY PRN PO CONSTIPATION; Start 11/05/18 at 14:00 Neomycin/ Polymyxin/ Bacitracin (Neosporin Topical Oint) 1 applic Q12 TOP Last administered on 11/10/18 09:25; Admin Dose 1 APPLIC; Start 11/06/18 at 21:00 Hydromorphone HCl (Dilaudid) 1 mg Q3 PRN IV SEVERE PAIN LEVEL 7-10 Last administered on 11/10/18 09:38; Admin Dose 1 MG; Start 11/07/18 at 13:30 Zolpidem Tartrate (Ambien) 5 mg HS PRN PO INSOMNIA Last administered on 11/09/18 21:02; Admin Dose 5 MG; Start 11/07/18 at 22:00 Vancomycin HCl (Vanco Iv Per Pharmacy) VANCOMYCIN PER PHARMACY PER PROTOCOL XX ; Start 11/08/18 at 15:00 Cefepime HCl 50 ml @ 100 mls/hr Q12 IVPB Last administered on 11/10/18 09:29; Admin Dose 100 MLS/HR; Start 11/08/18 at 21:00 Vancomycin HCl 1.25 gm/Sodium Chloride 250 ml @ 83.333 mls/ hr Q12H IVPB Last administered on 11/10/18 04:18; Admin Dose 83.333 MLS/HR; Start 11/09/18 at 05:00 Baclofen (Lioresal) 10 mg TID PO Last administered on 11/10/18 09:24; Admin Dose 10 MG; Start 11/09/18 at 13:00 Hydromorphone HCl (Dilaudid) 2 mg Q4H PRN PO MODERATE PAIN LEVEL 4-6; Start 11/10/18 at 11:00; Status UNV Assessment/Plan Additional Assessment/Plan rehab- Lumbar radiculopathy, status post lumbar surgery, 10/27/2018. Activities as tolerated ID- continue current antibiotics Diabetes mellitus. Hypertension. Bipolar disease. Anemia. History of cervical decompression and fusion. BUBBA PHELPS MD Nov 10, 2018 11:05
[2018-11-10] MEDS: HYDROmorphONE 2 MG TAB PO PRN ×3 (12:16→21:46)
--- NOTE | 2018-11-10 13:23 | CONS ---
Assessment/Plan Assessment/Plan Hospital Course (Demo Recall) - mechanical LBP and LE radiculopathy - s/p L2-S1 ALIF L2-S1 with posterior fixation using ISF 10/27/2018 - superficial wound infection with very scant drainage; cx+ Enterobacter and CoNS - T2DM - Hgb A1c 11.4% - HTN associated with DM - Mild anemia Recommendations: - continue vancomycin and cefepime (11/08/2018-) to complete 10-14 days - ordered AM CBC, BMP, procalcitonin (monitor CrCl and plts) - continue local wound care Management d/w patient, RN Radha, and with Dr. Lerner Consultation Date/Type/Reason Admit Date/Time November 03, 2018 at 17:17 Initial Consult Date 11/09/18 Type of Consult Infectious Disease Requesting Provider: FERCHO PADILLA Date/Time of Note DATE: 11/10/18 TIME: 12:51 24 HR Interval Summary Free Text/Dictation C/o back pain rating 8/10. Has mild -moderate abdominal incisional pain. Abdominal wound is leaking a little per d/w nursing. Denies fever, chills, SOB, n/v/d, dysuria. Exam/Review of Systems Exam Vitals Vital Signs Date Temp Pulse Resp B/P (MAP) Pulse Ox O2 O2 Flow FiO2 Time Delivery Rate 11/09/18 98.1 80 18 130/64 97 Room Air 20:00 (86) Intake and Output 11/09/18 11/09/18 11/10/18 1515:00 23:00 07:00 IntakeIntake Total 300 ml 1300 ml BalanceBalance 300 ml 1300 ml Constitutional: alert, oriented, well developed, obese, other (Laying in bed watching TV. Moans when turning to her side so I can examine her back) Psych: no complaints, nl mood/affect Head: normocephalic Eyes: nl conjunctiva, nl lids, nl sclera ENMT: nl external ears & nose, nl nasal mucosa & septum, mucosa pink and moist Neck: supple, non-tender Respiratory: clear to auscultation, normal air movement Cardiovascular: regular rate and rhythm, nl pulses Gastrointestinal: soft, surgical scars (Abdominal ML scar with steristrips intact with scanty drainage noted under abd dressing.) Genitourinary - Female: other (No Crum) Musculoskeletal: other (ML back with dressing c/d and lower portion of dressing is riding up ->RN notified. No drainage noted) Skin: nl turgor, other (Few tattoos including a red dre on the L hand; abdomoinal and back incisional wounds as noted above) Results Result Diagram: 11/06/18 1506 11/10/18 0404 Results 24hrs Laboratory Tests Test 11/09/18 17:29 11/09/18 20:54 11/10/18 04:04 11/10/18 08:50 Bedside Glucose 108 142 146 Blood Urea Nitrogen 9 Creatinine 0.55 Vancomycin Level Trough 10.8 Test 11/10/18 12:08 Bedside Glucose 146 Imaging Imaging Lumbar spine CT 11/01/2018: Postsurgical changes, as above, with postsurgical soft tissue edema and air. Otherwise stable mild spondylotic changes when compared to recent prior CT from 10/28/2018. There is no CT evidence of acute hardware complication. Medications Medication Current Medications Miscellaneous Information (Pending [facility] Order For Wound Care) This patient chowdhury... PRN PRN XX WOUND CARE; Start 11/03/18 at 17:30 Al Hydrox/Mg Hydrox/Simethicone (Mag-Al Plus) 15 ml Q4H PRN PO .CONSTIPATION; Start 11/03/18 at 19:00 IV Flush (NS 3 ml) 3 ml PER PROTOCOL IV ; Start 11/03/18 at 19:00 Naloxone HCl (Narcan) 0.2 mg PRN PRN IV RR < 8; Start 11/03/18 at 19:00 Ondansetron HCl (Zofran Inj) 4 mg Q6H PRN IV NAUSEA AND/OR VOMITING Last administered on 11/09/18at 08:13; Admin Dose 4 MG; Start 11/03/18 at 19:00 Metformin HCl (Glucophage) 1,000 mg WITH BREAKFAST PO Last administered on 11/10/18at 09:14; Admin Dose 1,000 MG; Start 11/04/18 at 07:35 Linagliptin (Tradjenta) 5 mg DAILY PO Last administered on 11/10/18at 09:15; Admin Dose 5 MG; Start 11/04/18 at 09:00 Diagnostic Test (Pha) (Accu-Chek) 1 ea AC MEALS AND BEDTIME XX Last administered on 11/09/18 20:57; Admin Dose 1 EA; Start 11/03/18 at 21:00 Insulin Aspart (Novolog Insulin Pen) NOVOLOG *MILD* ALGORITHM WITH MEALS BEDTIME SC Last administered on 11/10/18 12:13; Admin Dose 1 UNIT; Start 11/03/18 at 21:00 Miscellaneous Information 1 ea NOTE XX ; Start 11/03/18 at 19:00 Glucose (Glutose) 15 gm Q15M PRN PO DECREASED GLUCOSE; Start 11/03/18 at 19:00 Glucose (Glutose) 22.5 gm Q15M PRN PO DECREASED GLUCOSE; Start 11/03/18 at 19:00 Dextrose (D50w Syringe) 25 ml Q15M PRN IV DECREASED GLUCOSE; Start 11/03/18 at 19:00 Dextrose (D50w Syringe) 50 ml Q15M PRN IV DECREASED GLUCOSE; Start 11/03/18 at 19:00 Glucagon (Glucagen) 1 mg Q15M PRN IM DECREASED GLUCOSE; Start 11/03/18 at 19:00 Glucose (Glutose) 15 gm Q15M PRN BUCCAL DECREASED GLUCOSE; Start 11/03/18 at 19:00 Metoprolol Tartrate (Lopressor) 50 mg BID PO Last administered on 11/10/18 09:25; Admin Dose 50 MG; Start 11/03/18 at 21:00 Insulin Glargine (Lantus) 19 units DAILY@0800 SC Last administered on 11/10/18 09:18; Admin Dose 19 UNITS; Start 11/04/18 at 08:00 Benazepril HCl (Lotensin) 10 mg BID PO Last administered on 11/10/18 09:24; Ad min Dose 10 MG; Start 11/03/18 at 21:00 Gabapentin (Neurontin) 300 mg TID PO Last administered on 11/10/18 09:24; Admin Dose 300 MG; Start 11/03/18 at 21:00 Diphenhydramine HCl (Benadryl) 25 mg Q6H PRN PO ITCHING; Start 11/03/18 at 19:30 Insulin Aspart (Novolog Insulin Pen) 4 unit WITH MEALS SC Last administered on 11/10/18 12:12; Admin Dose 4 UNIT; Start 11/04/18 at 07:35 Acetaminophen (Tylenol Tab) 650 mg Q4 PRN PO MILD PAIN(1-3)OR ELEVATED TEMP; Start 11/05/18 at 14:00 Senna (Senokot) 1 tab QHS PO Last administered on 11/09/18 20:56; Admin Dose 1 TAB; Start 11/05/18 at 21:00 Docusate Sodium (Colace) 100 mg BID PO Last administered on 11/10/18 09:26; Admin Dose 100 MG; Start 11/05/18 at 21:00 Bisacodyl (Dulcolax Supp) 10 mg DAILY PRN [place] CONSTIPATION Last administered on 11/06/18 14:36; Admin Dose 10 MG; Start 11/05/18 at 14:00 Lactulose (Enulose) 20 gm DAILY PRN PO CONSTIPATION; Start 11/05/18 at 14:00 Neomycin/ Polymyxin/ Bacitracin (Neosporin Topical Oint) 1 applic Q12 TOP Last administered on 11/10/18 09:25; Admin Dose 1 APPLIC; Start 11/06/18 at 21:00 Hydromorphone HCl (Dilaudid) 1 mg Q3 PRN IV SEVERE PAIN LEVEL 7-10 Last administered on 11/10/18 09:38; Admin Dose 1 MG; Start 11/07/18 at 13:30 Zolpidem Tartrate (Ambien) 5 mg HS PRN PO INSOMNIA Last administered on 9at 21:02; Admin Dose 5 MG; Start 11/07/18 at 22:00 Vancomycin HCl (Vanco Iv Per Pharmacy) VANCOMYCIN PER PHARMACY PER PROTOCOL XX ; Start 11/08/18 at 15:00 Cefepime HCl 50 ml @ 100 mls/hr Q12 IVPB Last administered on 11/10/18 09:29; Admin Dose 100 MLS/HR; Start 11/08/18 at 21:00 Vancomycin HCl 1.25 gm/Sodium Chloride 250 ml @ 83.333 mls/ hr Q12H IVPB Last administered on 11/10/18 04:18; Admin Dose 83.333 MLS/HR; Start 11/09/18 at 05:00 Baclofen (Lioresal) 10 mg TID PO Last administered on 11/10/18 09:24; Admin Dose 10 MG; Start 11/09/18 at 13:00 Hydromorphone HCl (Dilaudid) 2 mg Q4H PRN PO MODERATE PAIN LEVEL 4-6 Last administered on 11/10/18at 12:16; Admin Dose 2 MG; Start 11/10/18 at 11:00 KASSANDRA MCPHERSON NP Nov 10, 2018 13:02
[2018-11-10 14:00] VITALS: BP 124/68; PULSE 76; RESP 18
--- NOTE | 2018-11-10 15:04 | CONS ---
Assessment/Plan Assessment/Plan Hospital Course (Demo Recall) IMPRESSION: 1. Tachycardia -overall improved-NL EF by echo this admit 2. Shortness of breath-improved 3. Hypertension-some lability and likely component of pain 4. Diabetes mellitus. 5. Postop status post spinal fusion L3 to S1. 6. Anemia, mild. 7. Leukocytosis-resolved Recc: -Now in [facility] -Continue BB/ACEI at current doses -pain control -follow BS clsoely -PT Consultation Date/Type/Reason Admit Date/Time November 03, 2018 at 17:17 Initial Consult Date 11/03/18 Type of Consult Cardiology Reason for Consultation HTN Requesting Provider: FERCHO PADILLA Date/Time of Note DATE: 11/10/18 TIME: 15:03 Exam/Review of Systems Vital Signs Vitals Vital Signs Date Temp Pulse Resp B/P (MAP) Pulse Ox O2 O2 Flow FiO2 Time Delivery Rate 11/09/18 98.1 80 18 130/64 97 Room Air 20:00 (86) Intake and Output 11/09/18 11/09/18 11/10/18 1515:00 23:00 07:00 IntakeIntake Total 300 ml 1300 ml BalanceBalance 300 ml 1300 ml Exam Exam Review of Systems: CONSTITUTIONAL: No fevers, chills. PULMONARY: No sob CARDIOVASCULAR: No chest pain/palpitations GASTROINTESTINAL: No nausea/vomiting. GENITOURINARY: No hematuria/dysuria. MUSCULOSKELETAL: back pain PSYCHIATRIC: The patient denies depression. NEUROLOGIC: numbness in toe Constitutional: alert, oriented Psych: no complaints Head: normocephalic ENMT: mucosa pink and moist Neck: supple, jvd (8 cm water) Respiratory: clear to auscultation Cardiovascular: regular rate and rhythm Gastrointestinal: soft, non-tender Musculoskeletal: muscle tone (normal) Extremities: edema (none) Neurological: other (toe numbness) Labs Result Diagram: 11/06/18 1506 11/10/18 0404 Results 24hrs Laboratory Tests Test 11/09/18 17:29 11/09/18 20:54 11/10/18 04:04 11/10/18 08:50 Bedside Glucose 108 142 146 Blood Urea Nitrogen 9 Creatinine 0.55 Vancomycin Level Trough 10.8 Test 11/10/18 12:08 Bedside Glucose 146 Medications Medications Current Medications Miscellaneous Information (Pending [facility] Order For Wound Care) This patient chowdhury... PRN PRN XX WOUND CARE; Start 11/03/18 at 17:30 Al Hydrox/Mg Hydrox/Simethicone (Mag-Al Plus) 15 ml Q4H PRN PO .CONSTIPATION; Start 11/03/18 at 19:00 IV Flush (NS 3 ml) 3 ml PER PROTOCOL IV ; Start 11/03/18 at 19:00 Naloxone HCl (Narcan) 0.2 mg PRN PRN IV RR < 8; Start 11/03/18 at 19:00 Ondansetron HCl (Zofran Inj) 4 mg Q6H PRN IV NAUSEA AND/OR VOMITING Last administered on 11/09/18at 08:13; Admin Dose 4 MG; Start 11/03/18 at 19:00 Metformin HCl (Glucophage) 1,000 mg WITH BREAKFAST PO Last administered on 11/10/18at 09:14; Admin Dose 1,000 MG; Start 11/04/18 at 07:35 Linagliptin (Tradjenta) 5 mg DAILY PO Last administered on 11/10/18at 09:15; Admin Dose 5 MG; Start 11/04/18 at 09:00 Diagnostic Test (Pha) (Accu-Chek) 1 ea AC MEALS AND BEDTIME XX Last administered on 11/09/18at 20:57; Admin Dose 1 EA; Start 11/03/18 at 21:00 Insulin Aspart (Novolog Insulin Pen) NOVOLOG *MILD* ALGORITHM WITH MEALS BEDTIME SC Last administered on 11/10/18at 12:13; Admin Dose 1 UNIT; Start 11/03/18 at 21:00 Miscellaneous Information 1 ea NOTE XX ; Start 11/03/18 at 19:00 Glucose (Glutose) 15 gm Q15M PRN PO DECREASED GLUCOSE; Start 11/03/18 at 19:00 Glucose (Glutose) 22.5 gm Q15M PRN PO DECREASED GLUCOSE; Start 11/03/18 at 19:00 Dextrose (D50w Syringe) 25 ml Q15M PRN IV DECREASED GLUCOSE; Start 11/03/18 at 19:00 Dextrose (D50w Syringe) 50 ml Q15M PRN IV DECREASED GLUCOSE; Start 11/03/18 at 19:00 Glucagon (Glucagen) 1 mg Q15M PRN IM DECREASED GLUCOSE; Start 11/03/18 at 19:00 Glucose (Glutose) 15 gm Q15M PRN BUCCAL DECREASED GLUCOSE; Start 11/03/18 at 19:00 Metoprolol Tartrate (Lopressor) 50 mg BID PO Last administered on 11/10/18 09:25; Admin Dose 50 MG; Start 11/03/18 at 21:00 Insulin Glargine (Lantus) 19 units DAILY@0800 SC Last administered on 11/10/18 09:18; Admin Dose 19 UNITS; Start 11/04/18 at 08:00 Benazepril HCl (Lotensin) 10 mg BID PO Last administered on 11/10/18 09:24; Admin Dose 10 MG; Start 11/03/18 at 21:00 Gabapentin (Neurontin) 300 mg TID PO Last administered on 11/10/18 13:54; Admin Dose 300 MG; Start 11/03/18 at 21:00 Diphenhydramine HCl (Benadryl) 25 mg Q6H PRN PO ITCHING; Start 11/03/18 at 19:30 Insulin Aspart (Novolog Insulin Pen) 4 unit WITH MEALS SC Last administered on 11/10/18 12:12; Admin Dose 4 UNIT; Start 11/04/18 at 07:35 Acetaminophen (Tylenol Tab) 650 mg Q4 PRN PO MILD PAIN(1-3)OR ELEVATED TEMP; Start 11/05/18 at 14:00 Senna (Senokot) 1 tab QHS PO Last administered on 11/09/18 20:56; Admin Dose 1 TAB; Start 11/05/18 at 21:00 Docusate Sodium (Colace) 100 mg BID PO Last administered on 11/10/18 09:26; Admin Dose 100 MG; Start 11/05/18 at 21:00 Bisacodyl (Dulcolax Supp) 10 mg DAILY PRN [place] CONSTIPATION Last administered on 11/06/18 14:36; Admin Dose 10 MG; Start 11/05/18 at 14:00 Lactulose (Enulose) 20 gm DAILY PRN PO CONSTIPATION; Start 11/05/18 at 14:00 Neomycin/ Polymyxin/ Bacitracin (Neosporin Topical Oint) 1 applic Q12 TOP Last administered on 11/10/18 09:25; Admin Dose 1 APPLIC; Start 11/06/18 at 21:00 Hydromorphone HCl (Dilaudid) 1 mg Q3 PRN IV SEVERE PAIN LEVEL 7-10 Last administered on 11/10/18 14:18; Admin Dose 1 MG; Start 11/07/18 at 13:30 Zolpidem Tartrate (Ambien) 5 mg HS PRN PO INSOMNIA Last administered on 11/09/18 21:02; Admin Dose 5 MG; Start 11/07/18 at 22:00 Vancomycin HCl (Vanco Iv Per Pharmacy) VANCOMYCIN PER PHARMACY PER PROTOCOL XX ; Start 11/08/18 at 15:00 Cefepime HCl 50 ml @ 100 mls/hr Q12 IVPB Last administered on 11/10/18 09:29; Admin Dose 100 MLS/HR; Start 11/08/18 at 21:00 Vancomycin HCl 1.25 gm/Sodium Chloride 250 ml @ 83.333 mls/ hr Q12H IVPB Last administered on 11/10/18 04:18; Admin Dose 83.333 MLS/HR; Start 11/09/18 at 05:00 Baclofen (Lioresal) 10 mg TID PO Last administered on 11/10/18 13:54; Admin Dose 10 MG; Start 11/09/18 at 13:00 Hydromorphone HCl (Dilaudid) 2 mg Q4H PRN PO MODERATE PAIN LEVEL 4-6 Last administered on 11/10/18 12:16; Admin Dose 2 MG; Start 11/10/18 at 11:00 VESNA GALLAGHER Nov 10, 2018 15:04
[2018-11-10] MEDS: BISACODYL 10 MG SUPP PR PRN (17:14)
[2018-11-10 20:00] VITALS: BP 136/66; PULSE 86; RESP 18
[2018-11-10] MEDS: SENNA TAB PO SCH (20:48)
[2018-11-11] MEDS: HYDROmorphONE 1 MG/ML SYG IV PRN ×6 (00:01→21:02)
[2018-11-11 02:00] VITALS: BP 132/68; PULSE 84; RESP 18
[2018-11-11] MEDS: VANCOMYCIN HCL 1.25 GM in SOD CHLORIDE 0.9% 250 ML IVPB SCH ×2 (05:03→17:35)
[2018-11-11] MEDS: HYDROmorphONE 2 MG TAB PO PRN ×4 (06:48→22:42)
[2018-11-11] MEDS: ACCU-CHEK XX SCH ×4 (07:05→21:11)
[2018-11-11 08:39] VITALS: BP 157/74; PULSE 85; RESP 18
[2018-11-11] MEDS: metFORMIN 500 MG TAB PO SCH (08:48)
[2018-11-11] MEDS: LINAGLIPTIN 5 MG TABLET PO SCH (08:49)
[2018-11-11] MEDS: DOCUSATE SODIUM 100 MG CAP PO SCH ×2 (08:49→21:05)
[2018-11-11] MEDS: GABAPENTIN 300 MG CAP PO SCH ×3 (08:49→21:05)
[2018-11-11] MEDS: BACLOFEN 10 MG TAB PO SCH ×3 (08:49→21:06)
[2018-11-11] MEDS: BENAZEPRIL 10 MG TAB PO SCH ×2 (08:49→21:05)
[2018-11-11] MEDS: INSULIN GLARGINE [LANTus] (100 UNITS/ML) SYG SC SCH (08:50)
[2018-11-11] MEDS: METOPROLOL 50 MG TAB PO SCH ×2 (08:50→21:06)
[2018-11-11] MEDS: INSULIN ASPART [NOVOLOG] 3 ML PEN SC SCH ×7 (08:51→21:00)
[2018-11-11] MEDS: NEOMYC/POLYMYX/BACIT 30 GM OINT TOP SCH ×2 (08:55→21:08)
[2018-11-11] MEDS: CEFEPIME 2GM/50 ML (PMX) 50 ML IVPB SCH ×2 (09:15→21:06)
--- NOTE | 2018-11-11 10:18 | PN ---
Date/Time of Note Date/Time of Note DATE: 11/11/18 TIME: 10:17 Subjective Up with therapy this morning. reports she had BM yesterday Objective Vital Signs Date Temp Pulse Resp B/P (MAP) Pulse Ox O2 O2 Flow FiO2 Time Delivery Rate 11/11/18 99.0 85 18 157/74 96 Room Air 08:39 (101) 11/10/18 14:00 Intake and Output 11/10/18 11/10/18 11/11/18 1515:00 23:00 07:00 IntakeIntake Total 700 ml 1100 ml BalanceBalance 700 ml 1100 ml Exam pulm-cta abdosoft sba/cga ambulation Results/Medications Result Diagram: 11/11/18 0702 11/11/18 0702 Results 24 hrs Laboratory Tests Test 11/10/18 12:08 11/10/18 17:13 11/10/18 19:50 11/10/18 20:38 Bedside Glucose 146 99 149 White Blood Count 7.9 Red Blood Count 3.81 L Hemoglobin 10.4 L Hematocrit 33.9 L Mean Corpuscular Volume 89.0 Mean Corpuscular 27.3 L Hemoglobin Mean Corpuscular 30.7 L Hemoglobin Concent Red Cell Distribution 13.1 Width Platelet Count 276 Mean Platelet Volume 10.4 Immature Granulocytes % 0.600 H Neutrophils % 70.5 Lymphocytes % 19.0 Monocytes % 5.7 Eosinophils % 3.4 Basophils % 0.8 Nucleated Red Blood 0.0 Cells % Immature Granulocytes # 0.050 H Neutrophils # 5.6 Lymphocytes # 1.5 Monocytes # 0.5 Eosinophils # 0.3 Basophils # 0.1 Nucleated Red Blood 0.0 Cells # Test 11/11/18 07:02 11/11/18 08:41 White Blood Count 6.0 # Red Blood Count 3.88 L Hemoglobin 10.6 L Hematocrit 33.8 L Mean Corpuscular Volume 87.1 Mean Corpuscular 27.3 L Hemoglobin Mean Corpuscular 31.4 L Hemoglobin Concent Red Cell Distribution 13.2 Width Platelet Count 279 Mean Platelet Volume 10.5 H Immature Granulocytes % 0.500 H Neutrophils % 57.7 Lymphocytes % 28.1 Monocytes % 8.2 Eosinophils % 4.5 Basophils % 1.0 Nucleated Red Blood 0.0 Cells % Immature Granulocytes # 0.030 Neutrophils # 3.4 Lymphocytes # 1.7 Monocytes # 0.5 Eosinophils # 0.3 Basophils # 0.1 Nucleated Red Blood 0.0 Cells # Sodium Level 140 Potassium Level 4.0 Chloride Level 105 Carbon Dioxide Level 30 Anion Gap 5 Blood Urea Nitrogen 8 Creatinine 0.46 Est Glomerular Filtrat > 60 Rate mL/min Glucose Level 157 Calcium Level 8.7 Procalcitonin 0.03 Bedside Glucose 151 Medications Current Medications Misc[facility] This patient chowdhury... PRN PRN XX WOUND CARE; Start 11/03/18 at 17:30 Al Hydrox/Mg Hydrox/Simethicone (Mag-Al Plus) 15 ml Q4H PRN PO .CONSTIPATION; Start 11/03/18 at 19:00 IV Flush (NS 3 ml) 3 ml PER PROTOCOL IV ; Start 11/03/18 at 19:00 Naloxone HCl (Narcan) 0.2 mg PRN PRN IV RR < 8; Start 11/03/18 at 19:00 Ondansetron HCl (Zofran Inj) 4 mg Q6H PRN IV NAUSEA AND/OR VOMITING Last administered on 11/09/18at 08:13; Admin Dose 4 MG; Start 11/03/18 at 19:00 Metformin HCl (Glucophage) 1,000 mg WITH BREAKFAST PO Last administered on 11/11/18 08:48; Admin Dose 1,000 MG; Start 11/04/18 at 07:35 Linagliptin (Tradjenta) 5 mg DAILY PO Last administered on 11/11/18at 08:49; Admin Dose 5 MG; Start 11/04/18 at 09:00 Diagnostic Test (Pha) (Accu-Chek) 1 ea AC MEALS AND BEDTIME XX Last administered on 11/10/18at 20:48; Admin Dose 1 EA; Start 11/03/18 at 21:00 Insulin Aspart (Novolog Insulin Pen) NOVOLOG *MILD* ALGORITHM WITH MEALS BEDTIME SC Last administered on 11/11/18 08:52; Admin Dose 1 UNIT; Start 11/03/18 at 21:00 Miscellaneous Information 1 ea NOTE XX ; Start 11/03/18 at 19:00 Glucose (Glutose) 15 gm Q15M PRN PO DECREASED GLUCOSE; Start 11/03/18 at 19:00 Glucose (Glutose) 22.5 gm Q15M PRN PO DECREASED GLUCOSE; Start 11/03/18 at 19:00 Dextrose (D50w Syringe) 25 ml Q15M PRN IV DECREASED GLUCOSE; Start 11/03/18 at 19:00 Dextrose (D50w Syringe) 50 ml Q15M PRN IV DECREASED GLUCOSE; Start 11/03/18 at 19:00 Glucagon (Glucagen) 1 mg Q15M PRN IM DECREASED GLUCOSE; Start 11/03/18 at 19:00 Glucose (Glutose) 15 gm Q15M PRN BUCCAL DECREASED GLUCOSE; Start 11/03/18 at 19:00 Metoprolol Tartrate (Lopressor) 50 mg BID PO Last administered on 11/11/18 08:50; Admin Dose 50 MG; Start 11/03/18 at 21:00 Insulin Glargine (Lantus) 19 units DAILY@0800 SC Last administered on 11/11/18 08:50; Admin Dose 19 UNITS; Start 11/04/18 at 08:00 Benazepril HCl (Lotensin) 10 mg BID PO Last administered on 11/11/18 08:49; Admin Dose 10 MG; Start 11/03/18 at 21:00 Gabapentin (Neurontin) 300 mg TID PO Last administered on 11/11/18 08:49; Admin Dose 300 MG; Start 11/03/18 at 21:00 Diphenhydramine HCl (Benadryl) 25 mg Q6H PRN PO ITCHING; Start 11/03/18 at 19:30 Insulin Aspart (Novolog Insulin Pen) 4 unit WITH MEALS SC Last administered on 11/11/18 08:51; Admin Dose 4 UNIT; Start 11/04/18 at 07:35 Acetaminophen (Tylenol Tab) 650 mg Q4 PRN PO MILD PAIN(1-3)OR ELEVATED TEMP; Start 11/05/18 at 14:00 Senna (Senokot) 1 tab QHS PO Last administered on 11/10/18 20:48; Admin Dose 1 TAB; Start 11/05/18 at 21:00 Docusate Sodium (Colace) 100 mg BID PO Last administered on 11/11/18 08:49; Admin Dose 100 MG; Start 11/05/18 at 21:00 Bisacodyl (Dulcolax Supp) 10 mg DAILY PRN [place] CONSTIPATION Last administered on 11/10/18 17:14; Admin Dose 10 MG; Start 11/05/18 at 14:00 Lactulose (Enulose) 20 gm DAILY PRN PO CONSTIPATION; Start 11/05/18 at 14:00 Neomycin/ Polymyxin/ Bacitracin (Neosporin Topical Oint) 1 applic Q12 TOP Last administered on 11/11/18 08:55; Admin Dose 1 APPLIC; Start 11/06/18 at 21:00 Hydromorphone HCl (Dilaudid) 1 mg Q3 PRN IV SEVERE PAIN LEVEL 7-10 Last administered on 11/11/18 08:36; Admin Dose 1 MG; Start 11/07/18 at 13:30 Zolpidem Tartrate (Ambien) 5 mg HS PRN PO INSOMNIA Last administered on 11/09/18 21:02; Admin Dose 5 MG; Start 11/07/18 at 22:00 Vancomycin HCl (Vanco Iv Per Pharmacy) VANCOMYCIN PER PHARMACY PER PROTOCOL XX ; Start 11/08/18 at 15:00 Cefepime HCl 50 ml @ 100 mls/hr Q12 IVPB Last administered on 11/11/18 09:15; Admin Dose 100 MLS/HR; Start 11/08/18 at 21:00 Vancomycin HCl 1.25 gm/Sodium Chloride 250 ml @ 83.333 mls/ hr Q12H IVPB Last administered on 11/11/18 05:03; Admin Dose 83.333 MLS/HR; Start 11/09/18 at 05:00 Baclofen (Lioresal) 10 mg TID PO Last administered on 11/11/18 08:49; Admin Dose 10 MG; Start 11/09/18 at 13:00 Hydromorphone HCl (Dilaudid) 2 mg Q4H PRN PO MODERATE PAIN LEVEL 4-6 Last administered on 11/11/18 06:48; Admin Dose 2 MG; Start 11/10/18 at 11:00 Assessment/Plan Additional Assessment/Plan rehab- Lumbar radiculopathy, status post lumbar surgery, 10/27/2018. Overall appears to be improving Acute pain- continue current pain medications Diabetes mellitus. Hypertension. Bipolar disease. Anemia. History of cervical decompression and fusion. BUBBA PHELPS MD Nov 11, 2018 10:18
--- NOTE | 2018-11-11 10:26 | PN ---
Date/Time of Note Date/Time of Note DATE: 11/11/18 TIME: 10:25 Assessment/Plan VTE Prophylaxis Risk score (from Ns)>0 risk: 4 SCD applied (from Ns): No SCD contraindicated: other Pharmacological prophylaxis: other Pharm contraindication: other Lines/Catheters IV Catheter Type (from Nrsg): [facility] Urinary Cath still in place: No Assessment/Plan Assessment/Plan -Mechanical LBP and LE radiculopathy. S/p ALIF L3-S1 ON 09/27/18 and ISF L2-S1 and decompression on 09/28/[address] Goldsmith. Continue IV fluids and postoperative antibiotic. Tylenol and Dilaudid as needed for pain. -HTN, continue Benazepril and Metoprolol. -Diabetes mellitus type II continue Tradjenta, Lantus and NovoLog. -Obesity with BMI of 30.3. Further recommendations based on clinical course. Plan of care discussed with Dr. Parker. Result Diagram: 11/11/18 0702 11/11/18 0702 Results 24hrs Laboratory Tests Test 11/10/18 12:08 11/10/18 17:13 11/10/18 19:50 11/10/18 20:38 Bedside Glucose 146 99 149 White Blood Count 7.9 Red Blood Count 3.81 L Hemoglobin 10.4 L Hematocrit 33.9 L Mean Corpuscular Volume 89.0 Mean Corpuscular 27.3 L Hemoglobin Mean Corpuscular 30.7 L Hemoglobin Concent Red Cell Distribution 13.1 Width Platelet Count 276 Mean Platelet Volume 10.4 Immature Granulocytes % 0.600 H Neutrophils % 70.5 Lymphocytes % 19.0 Monocytes % 5.7 Eosinophils % 3.4 Basophils % 0.8 Nucleated Red Blood 0.0 Cells % Immature Granulocytes # 0.050 H Neutrophils # 5.6 Lymphocytes # 1.5 Monocytes # 0.5 Eosinophils # 0.3 Basophils # 0.1 Nucleated Red Blood 0.0 Cells # Test 11/11/18 07:02 11/11/18 08:41 White Blood Count 6.0 # Red Blood Count 3.88 L Hemoglobin 10.6 L Hematocrit 33.8 L Mean Corpuscular Volume 87.1 Mean Corpuscular 27.3 L Hemoglobin Mean Corpuscular 31.4 L Hemoglobin Concent Red Cell Distribution 13.2 Width Platelet Count 279 Mean Platelet Volume 10.5 H Immature Granulocytes % 0.500 H Neutrophils % 57.7 Lymphocytes % 28.1 Monocytes % 8.2 Eosinophils % 4.5 Basophils % 1.0 Nucleated Red Blood 0.0 Cells % Immature Granulocytes # 0.030 Neutrophils # 3.4 Lymphocytes # 1.7 Monocytes # 0.5 Eosinophils # 0.3 Basophils # 0.1 Nucleated Red Blood 0.0 Cells # Sodium Level 140 Potassium Level 4.0 Chloride Level 105 Carbon Dioxide Level 30 Anion Gap 5 Blood Urea Nitrogen 8 Creatinine 0.46 Est Glomerular Filtrat > 60 Rate mL/min Glucose Level 157 Calcium Level 8.7 Procalcitonin 0.03 Bedside Glucose 151 Subjective 24 Hr Interval Summary Free Text/Dictation Late Entry- 11/10/2018 c/o back pain; effective pain control no events overnight dw staff Eyes: no complaints ENT: no complaints Respiratory: no complaints Cardiovascular: no complaints Gastrointestinal: no complaints Genitourinary: no complaints Musculoskeletal: back pain Skin: no complaints Neurologic: no complaints Endocrine: no complaints Lymphatic: no complaints Psychological: nl mood/affect Exam/Review of Systems Exam Vitals Vital Signs Date Temp Pulse Resp B/P (MAP) Pulse Ox O2 O2 Flow FiO2 Time Delivery Rate 11/11/18 99.0 85 18 157/74 96 Room Air 08:39 (101) 11/10/18 14:00 Intake and Output 11/10/18 11/10/18 11/11/18 1515:00 23:00 07:00 IntakeIntake Total 700 ml 1100 ml BalanceBalance 700 ml 1100 ml Constitutional: alert, well developed Psych: nl mood/affect Eyes: nl lids, nl sclera ENMT: nl external ears & nose Neck: non-tender Respiratory: clear to auscultation Cardiovascular: nl pulses, other Gastrointestinal: soft, non-tender Musculoskeletal: nl extremities to inspection Extremities: normal pulses Neurological: nl mental status, nl speech Skin: nl turgor Lymph: nontender Results Results 24hrs Laboratory Tests Test 11/10/18 12:08 11/10/18 17:13 11/10/18 19:50 11/10/18 20:38 Bedside Glucose 146 99 149 White Blood Count 7.9 Red Blood Count 3.81 L Hemoglobin 10.4 L Hematocrit 33.9 L Mean Corpuscular Volume 89.0 Mean Corpuscular 27.3 L Hemoglobin Mean Corpuscular 30.7 L Hemoglobin Concent Red Cell Distribution 13.1 Width Platelet Count 276 Mean Platelet Volume 10.4 Immature Granulocytes % 0.600 H Neutrophils % 70.5 Lymphocytes % 19.0 Monocytes % 5.7 Eosinophils % 3.4 Basophils % 0.8 Nucleated Red Blood 0.0 Cells % Immature Granulocytes # 0.050 H Neutrophils # 5.6 Lymphocytes # 1.5 Monocytes # 0.5 Eosinophils # 0.3 Basophils # 0.1 Nucleated Red Blood 0.0 Cells # Test 11/11/18 07:02 11/11/18 08:41 White Blood Count 6.0 # Red Blood Count 3.88 L Hemoglobin 10.6 L Hematocrit 33.8 L Mean Corpuscular Volume 87.1 Mean Corpuscular 27.3 L Hemoglobin Mean Corpuscular 31.4 L Hemoglobin Concent Red Cell Distribution 13.2 Width Platelet Count 279 Mean Platelet Volume 10.5 H Immature Granulocytes % 0.500 H Neutrophils % 57.7 Lymphocytes % 28.1 Monocytes % 8.2 Eosinophils % 4.5 Basophils % 1.0 Nucleated Red Blood 0.0 Cells % Immature Granulocytes # 0.030 Neutrophils # 3.4 Lymphocytes # 1.7 Monocytes # 0.5 Eosinophils # 0.3 Basophils # 0.1 Nucleated Red Blood 0.0 Cells # Sodium Level 140 Potassium Level 4.0 Chloride Level 105 Carbon Dioxide Level 30 Anion Gap 5 Blood Urea Nitrogen 8 Creatinine 0.46 Est Glomerular Filtrat > 60 Rate mL/min Glucose Level 157 Calcium Level 8.7 Procalcitonin 0.03 Bedside Glucose 151 Medications Medication Current Medications Miscellaneous Information (Pending [facility] Order For Wound Care) This patient chowdhury... PRN PRN XX WOUND CARE; Start 11/03/18 at 17:30 Al Hydrox/Mg Hydrox/Simethicone (Mag-Al Plus) 15 ml Q4H PRN PO .CONSTIPATION; Start 11/03/18 at 19:00 IV Flush (NS 3 ml) 3 ml PER PROTOCOL IV ; Start 11/03/18 at 19:00 Naloxone HCl (Narcan) 0.2 mg PRN PRN IV RR < 8; Start 11/03/18 at 19:00 Ondansetron HCl (Zofran Inj) 4 mg Q6H PRN IV NAUSEA AND/OR VOMITING Last administered on 11/09/18at 08:13; Admin Dose 4 MG; Start 11/03/18 at 19:00 Metformin HCl (Glucophage) 1,000 mg WITH BREAKFAST PO Last administered on 11/11/18 08:48; Admin Dose 1,000 MG; Start 11/04/18 at 07:35 Linagliptin (Tradjenta) 5 mg DAILY PO Last administered on 11/11/18 08:49; Admin Dose 5 MG; Start 11/04/18 at 09:00 Diagnostic Test (Pha) (Accu-Chek) 1 ea AC MEALS AND BEDTIME XX Last administered on 11/10/18 20:48; Admin Dose 1 EA; Start 11/03/18 at 21:00 Insulin Aspart (Novolog Insulin Pen) NOVOLOG *MILD* ALGORITHM WITH MEALS BED TIME SC Last administered on 11/11/18 08:52; Admin Dose 1 UNIT; Start 11/03/18 at 21:00 Miscellaneous Information 1 ea NOTE XX ; Start 11/03/18 at 19:00 Glucose (Glutose) 15 gm Q15M PRN PO DECREASED GLUCOSE; Start 11/03/18 at 19:00 Glucose (Glutose) 22.5 gm Q15M PRN PO DECREASED GLUCOSE; Start 11/03/18 at 19:00 Dextrose (D50w Syringe) 25 ml Q15M PRN IV DECREASED GLUCOSE; Start 11/03/18 at 19:00 Dextrose (D50w Syringe) 50 ml Q15M PRN IV DECREASED GLUCOSE; Start 11/03/18 at 19:00 Glucagon (Glucagen) 1 mg Q15M PRN IM DECREASED GLUCOSE; Start 11/03/18 at 19:00 Glucose (Glutose) 15 gm Q15M PRN BUCCAL DECREASED GLUCOSE; Start 11/03/18 at 19:00 Metoprolol Tartrate (Lopressor) 50 mg BID PO Last administered on 11/11/18 08:50; Admin Dose 50 MG; Start 11/03/18 at 21:00 Insulin Glargine (Lantus) 19 units DAILY@0800 SC Last administered on 11/11/18 08:50; Admin Dose 19 UNITS; Start 11/04/18 at 08:00 Benazepril HCl (Lotensin) 10 mg BID PO Last administered on 11/11/18 08:49; Admin Dose 10 MG; Start 11/03/18 at 21:00 Gabapentin (Neurontin) 300 mg TID PO Last administered on 11/11/18 08:49; Admin Dose 300 MG; Start 11/03/18 at 21:00 Diphenhydramine HCl (Benadryl) 25 mg Q6H PRN PO ITCHING; Start 11/03/18 at 19:30 Insulin Aspart (Novolog Insulin Pen) 4 unit WITH MEALS SC Last administered on 11/11/18 08:51; Admin Dose 4 UNIT; Start 11/04/18 at 07:35 Acetaminophen (Tylenol Tab) 650 mg Q4 PRN PO MILD PAIN(1-3)OR ELEVATED TEMP; Start 11/05/18 at 14:00 Senna (Senokot) 1 tab QHS PO Last administered on 11/10/18 20:48; Admin Dose 1 TAB; Start 11/05/18 at 21:00 Docusate Sodium (Colace) 100 mg BID PO Last administered on 11/11/18 08:49; Admin Dose 100 MG; Start 11/05/18 at 21:00 Bisacodyl (Dulcolax Supp) 10 mg DAILY PRN [place] CONSTIPATION Last administered on 11/10/18 17:14; Admin Dose 10 MG; Start 11/05/18 at 14:00 Lactulose (Enulose) 20 gm DAILY PRN PO CONSTIPATION; Start 11/05/18 at 14:00 Neomycin/ Polymyxin/ Bacitracin (Neosporin Topical Oint) 1 applic Q12 TOP Last administered on 11/11/18 08:55; Admin Dose 1 APPLIC; Start 11/06/18 at 21:00 Hydromorphone HCl (Dilaudid) 1 mg Q3 PRN IV SEVERE PAIN LEVEL 7-10 Last administered on 11/11/18 08:36; Admin Dose 1 MG; Start 11/07/18 at 13:30 Zolpidem Tartrate (Ambien) 5 mg HS PRN PO INSOMNIA Last administered on 11/09/18 21:02; Admin Dose 5 MG; Start 11/07/18 at 22:00 Vancomycin HCl (Vanco Iv Per Pharmacy) VANCOMYCIN PER PHARMACY PER PROTOCOL XX ; Start 11/08/18 at 15:00 Cefepime HCl 50 ml @ 100 mls/hr Q12 IVPB Last administered on 11/11/18 09:15; Admin Dose 100 MLS/HR; Start 11/08/18 at 21:00 Vancomycin HCl 1.25 gm/Sodium Chloride 250 ml @ 83.333 mls/ hr Q12H IVPB Last administered on 11/11/18at 05:03; Admin Dose 83.333 MLS/HR; Start 11/09/18 at 05:00 Baclofen (Lioresal) 10 mg TID PO Last administered on 11/11/18at 08:49; Admin Dose 10 MG; Start 11/09/18 at 13:00 Hydromorphone HCl (Dilaudid) 2 mg Q4H PRN PO MODERATE PAIN LEVEL 4-6 Last administered on 11/11/18at 06:48; Admin Dose 2 MG; Start 11/10/18 at 11:00 MATTHEW RENTERIA Nov 11, 2018 10:26
[2018-11-11 14:10] VITALS: BP 126/73; PULSE 94; RESP 19
--- NOTE | 2018-11-11 15:12 | PN ---
Date/Time of Note Date/Time of Note DATE: 11/11/18 TIME: 15:12 Assessment/Plan VTE Prophylaxis Risk score (from Ns)>0 risk: 4 SCD applied (from Ns): No SCD contraindicated: other Pharmacological prophylaxis: other Lines/Catheters IV Catheter Type (from Nrs): [facility] Urinary Cath still in place: No Assessment/Plan Assessment/Plan -Mechanical LBP and LE radiculopathy. S/p ALIF L3-S1 ON 09/27/18 and ISF L2-S1 and decompression on 09/28/[address] Goldsmith. Continue IV fluids and postoperative antibiotic. Tylenol and Dilaudid as needed for pain. -HTN, continue Benazepril and Metoprolol. -Diabetes mellitus type II continue Tradjenta, Lantus and NovoLog. -Obesity with BMI of 30.3. Further recommendations based on clinical course. Plan of care discussed with Dr. Parker. Result Diagram: 11/11/18 0702 11/11/18 0702 Results 24hrs Laboratory Tests Test 11/10/18 17:13 11/10/18 19:50 11/10/18 20:38 11/11/18 07:02 Bedside Glucose 99 149 White Blood Count 7.9 6.0 # Red Blood Count 3.81 L 3.88 L Hemoglobin 10.4 L 10.6 L Hematocrit 33.9 L 33.8 L Mean Corpuscular Volume 89.0 87.1 Mean Corpuscular 27.3 L 27.3 L Hemoglobin Mean Corpuscular 30.7 L 31.4 L Hemoglobin Concent Red Cell Distribution 13.1 13.2 Width Platelet Count 276 279 Mean Platelet Volume 10.4 10.5 H Immature Granulocytes % 0.600 H 0.500 H Neutrophils % 70.5 57.7 Lymphocytes % 19.0 28.1 Monocytes % 5.7 8.2 Eosinophils % 3.4 4.5 Basophils % 0.8 1.0 Nucleated Red Blood 0.0 0.0 Cells % Immature Granulocytes # 0.050 H 0.030 Neutrophils # 5.6 3.4 Lymphocytes # 1.5 1.7 Monocytes # 0.5 0.5 Eosinophils # 0.3 0.3 Basophils # 0.1 0.1 Nucleated Red Blood 0.0 0.0 Cells # Sodium Level 140 Potassium Level 4.0 Chloride Level 105 Carbon Dioxide Level 30 Anion Gap 5 Blood Urea Nitrogen 8 Creatinine 0.46 Est Glomerular Filtrat > 60 Rate mL/min Glucose Level 157 Calcium Level 8.7 Procalcitonin 0.03 Test 11/11/18 08:41 11/11/18 12:11 Bedside Glucose 151 142 Subjective 24 Hr Interval Summary Free Text/Dictation nad feels better faily at bed side- aal Qs answered no events overnight dw staff Eyes: no complaints ENT: no complaints Respiratory: no complaints Cardiovascular: no complaints Gastrointestinal: no complaints Genitourinary: no complaints Musculoskeletal: back pain Skin: no complaints Neurologic: no complaints Lymphatic: no complaints Psychological: nl mood/affect Immunologic: no complaints Exam/Review of Systems Exam Vitals Vital Signs Date Temp Pulse Resp B/P (MAP) Pulse Ox O2 O2 Flow FiO2 Time Delivery Rate 11/11/18 98.3 94 19 126/73 97 Room Air 14:10 (90) 11/10/18 14:00 Intake and Output 11/10/18 11/10/18 11/11/18 1515:00 23:00 07:00 IntakeIntake Total 700 ml 1100 ml BalanceBalance 700 ml 1100 ml Constitutional: alert, oriented, well developed Psych: nl mood/affect Head: normocephalic Eyes: nl lids, nl sclera ENMT: nl external ears & nose Neck: supple Respiratory: clear to auscultation Cardiovascular: nl pulses, other (s1s2) Gastrointestinal: soft, non-tender Musculoskeletal: joint tenderness, range of motion Extremities: normal pulses Neurological: nl mental status, nl speech Lymph: nontender Results Results 24hrs Laboratory Tests Test 11/10/18 17:13 11/10/18 19:50 11/10/18 20:38 11/11/18 07:02 Bedside Glucose 99 149 White Blood Count 7.9 6.0 # Red Blood Count 3.81 L 3.88 L Hemoglobin 10.4 L 10.6 L Hematocrit 33.9 L 33.8 L Mean Corpuscular Volume 89.0 87.1 Mean Corpuscular 27.3 L 27.3 L Hemoglobin Mean Corpuscular 30.7 L 31.4 L Hemoglobin Concent Red Cell Distribution 13.1 13.2 Width Platelet Count 276 279 Mean Platelet Volume 10.4 10.5 H Immature Granulocytes % 0.600 H 0.500 H Neutrophils % 70.5 57.7 Lymphocytes % 19.0 28.1 Monocytes % 5.7 8.2 Eosinophils % 3.4 4.5 Basophils % 0.8 1.0 Nucleated Red Blood 0.0 0.0 Cells % Immature Granulocytes # 0.050 H 0.030 Neutrophils # 5.6 3.4 Lymphocytes # 1.5 1.7 Monocytes # 0.5 0.5 Eosinophils # 0.3 0.3 Basophils # 0.1 0.1 Nucleated Red Blood 0.0 0.0 Cells # Sodium Level 140 Potassium Level 4.0 Chloride Level 105 Carbon Dioxide Level 30 Anion Gap 5 Blood Urea Nitrogen 8 Creatinine 0.46 Est Glomerular Filtrat > 60 Rate mL/min Glucose Level 157 Calcium Level 8.7 Procalcitonin 0.03 Test 11/11/18 08:41 11/11/18 12:11 Bedside Glucose 151 142 Medications Medication Current Medications Miscellaneous Information [facility] This patient chowdhury... PRN PRN XX WOUND CARE; Start 11/03/18 at 17:30 Al Hydrox/Mg Hydrox/Simethicone (Mag-Al Plus) 15 ml Q4H PRN PO .CONSTIPATION; Start 11/03/18 at 19:00 IV Flush (NS 3 ml) 3 ml PER PROTOCOL IV ; Start 11/03/18 at 19:00 Naloxone HCl (Narcan) 0.2 mg PRN PRN IV RR < 8; Start 11/03/18 at 19:00 Ondansetron HCl (Zofran Inj) 4 mg Q6H PRN IV NAUSEA AND/OR VOMITING Last administered on 11/09/18at 08:13; Admin Dose 4 MG; Start 11/03/18 at 19:00 Metformin HCl (Glucophage) 1,000 mg WITH BREAKFAST PO Last administered on 11/11/18at 08:48; Admin Dose 1,000 MG; Start 11/04/18 at 07:35 Linagliptin (Tradjenta) 5 mg DAILY PO Last administered on 11/11/18at 08:49; Admin Dose 5 MG; Start 11/04/18 at 09:00 Diagnostic Test (Pha) (Accu-Chek) 1 ea AC MEALS AND BEDTIME XX Last administered on 11/10/18at 20:48; Admin Dose 1 EA; Start 11/03/18 at 21:00 Insulin Aspart (Novolog Insulin Pen) NOVOLOG *MILD* ALGORITHM WITH MEALS BEDTIME SC Last administered on 11/11/18at 12:19; Admin Dose 1 UNIT; Start 11/03/18 at 21:00 Miscellaneous Information 1 ea NOTE XX ; Start 11/03/18 at 19:00 Glucose (Glutose) 15 gm Q15M PRN PO DECREASED GLUCOSE; Start 11/03/18 at 19:00 Glucose (Glutose) 22.5 gm Q15M PRN PO DECREASED GLUCOSE; Start 11/03/18 at 19:00 Dextrose (D50w Syringe) 25 ml Q15M PRN IV DECREASED GLUCOSE; Start 11/03/18 at 19:00 Dextrose (D50w Syringe) 50 ml Q15M PRN IV DECREASED GLUCOSE; Start 11/03/18 at 19:00 Glucagon (Glucagen) 1 mg Q15M PRN IM DECREASED GLUCOSE; Start 11/03/18 at 19:00 Glucose (Glutose) 15 gm Q15M PRN BUCCAL DECREASED GLUCOSE; Start 11/03/18 at 19:00 Metoprolol Tartrate (Lopressor) 50 mg BID PO Last administered on 11/11/18at 08:50; Admin Dose 50 MG; Start 11/03/18 at 21:00 Insulin Glargine (Lantus) 19 units DAILY@0800 SC Last administered on 11/11/18at 08:50; Admin Dose 19 UNITS; Start 11/04/18 at 08:00 Benazepril HCl (Lotensin) 10 mg BID PO Last administered on 11/11/18at 08:49; Admin Dose 10 MG; Start 11/03/18 at 21:00 Gabapentin (Neurontin) 300 mg TID PO Last administered on 11/11/18at 14:09; Admin Dose 300 MG; Start 11/03/18 at 21:00 Diphenhydramine HCl (Benadryl) 25 mg Q6H PRN PO ITCHING; Start 11/03/18 at 19:30 Insulin Aspart (Novolog Insulin Pen) 4 unit WITH MEALS SC Last administered on 11/11/18at 12:17; Admin Dose 4 UNIT; Start 11/04/18 at 07:35 Acetaminophen (Tylenol Tab) 650 mg Q4 PRN PO MILD PAIN(1-3)OR ELEVATED TEMP; Start 11/05/18 at 14:00 Senna (Senokot) 1 tab QHS PO Last administered on 11/10/18 20:48; Admin Dose 1 TAB; Start 11/05/18 at 21:00 Docusate Sodium (Colace) 100 mg BID PO Last administered on 11/11/18 08:49; Admin Dose 100 MG; Start 11/05/18 at 21:00 Bisacodyl (Dulcolax Supp) [address] CONSTIPATION Last administered on 11/10/18 17:14; Admin Dose 10 MG; Start 11/05/18 at 14:00 Lactulose (Enulose) 20 gm DAILY PRN PO CONSTIPATION; Start 11/05/18 at 14:00 Neomycin/ Polymyxin/ Bacitracin (Neosporin Topical Oint) 1 applic Q12 TOP Last administered on 11/11/18 08:55; Admin Dose 1 APPLIC; Start 11/06/18 at 21:00 Hydromorphone HCl (Dilaudid) 1 mg Q3 PRN IV SEVERE PAIN LEVEL 7-10 Last administered on 11/11/18 14:27; Admin Dose 1 MG; Start 11/07/18 at 13:30 Zolpidem Tartrate (Ambien) 5 mg HS PRN PO INSOMNIA Last administered on 11/09/18 21:02; Admin Dose 5 MG; Start 11/07/18 at 22:00 Vancomycin HCl (Vanco Iv Per Pharmacy) VANCOMYCIN PER PHARMACY PER PROTOCOL XX ; Start 11/08/18 at 15:00 Cefepime HCl 50 ml @ 100 mls/hr Q12 IVPB Last administered on 11/11/18 09:15; Admin Dose 100 MLS/HR; Start 11/08/18 at 21:00 Vancomycin HCl 1.25 gm/Sodium Chloride 250 ml @ 83.333 mls/ hr Q12H IVPB Last administered on 11/11/18 05:03; Admin Dose 83.333 MLS/HR; Start 11/09/18 at 05:00 Baclofen (Lioresal) 10 mg TID PO Last administered on 11/11/18 14:09; Admin Dose 10 MG; Start 11/09/18 at 13:00 Hydromorphone HCl (Dilaudid) 2 mg Q4H PRN PO MODERATE PAIN LEVEL 4-6 Last ad ministered on 6/8/19at 11:29; Admin Dose 2 MG; Start 11/10/18 at 11:00 MATTHEW RENTERIA Nov 11, 2018 15:12
--- NOTE | 2018-11-11 15:45 | CONS ---
Assessment/Plan Assessment/Plan Hospital Course (Demo Recall) IMPRESSION: 1. Tachycardia -overall improved-NL EF by echo this admit 2. Shortness of breath-improved 3. Hypertension-some lability and likely component of pain 4. Diabetes mellitus. 5. Postop status post spinal fusion L3 to S1. 6. Anemia, mild. 7. Leukocytosis-resolved 8. DNR-? depression Recc: -Now in [facility] -Continue BB/ACEI at current doses with reasonable BP with some mild elevations at time likely related to pain. -pain control -follow BS closely -PT as tolerated Consultation Date/Type/Reason Admit Date/Time November 03, 2018 at 17:17 Initial Consult Date 11/03/18 Type of Consult Cardiology Reason for Consultation HTN Requesting Provider: FERCHO PADILLA Date/Time of Note DATE: 11/11/18 TIME: 15:43 Exam/Review of Systems Vital Signs Vitals Vital Signs Date Temp Pulse Resp B/P (MAP) Pulse Ox O2 O2 Flow FiO2 Time Delivery Rate 11/11/18 98.3 94 19 126/73 97 Room Air 14:10 (90) 11/10/18 14:00 Intake and Output 11/10/18 11/10/18 11/11/18 1515:00 23:00 07:00 IntakeIntake Total 700 ml 1100 ml BalanceBalance 700 ml 1100 ml Exam Exam Review of Systems: CONSTITUTIONAL: No fevers, chills. PULMONARY: No sob CARDIOVASCULAR: No chest pain/palpitations GASTROINTESTINAL: No nausea/vomiting. GENITOURINARY: No back pain PSYCHIATRIC: The patient denies depression. NEUROLOGIC: No weakness Constitutional: alert Psych: no complaints Head: normocephalic ENMT: mucosa pink and moist Neck: supple, jvd (8 cm water) Respiratory: clear to auscultation Cardiovascular: regular rate and rhythm Gastrointestinal: soft, non-tender Musculoskeletal: muscle tone (normal) Extremities: edema (none) Neurological: other (toe numbness) Labs Result Diagram: 11/11/18 0702 11/11/18 0702 Results 24hrs Laboratory Tests Test 11/10/18 17:13 11/10/18 19:50 11/10/18 20:38 11/11/18 07:02 Bedside Glucose 99 149 White Blood Count 7.9 6.0 # Red Blood Count 3.81 L 3.88 L Hemoglobin 10.4 L 10.6 L Hematocrit 33.9 L 33.8 L Mean Corpuscular Volume 89.0 87.1 Mean Corpuscular 27.3 L 27.3 L Hemoglobin Mean Corpuscular 30.7 L 31.4 L Hemoglobin Concent Red Cell Distribution 13.1 13.2 Width Platelet Count 276 279 Mean Platelet Volume 10.4 10.5 H Immature Granulocytes % 0.600 H 0.500 H Neutrophils % 70.5 57.7 Lymphocytes % 19.0 28.1 Monocytes % 5.7 8.2 Eosinophils % 3.4 4.5 Basophils % 0.8 1.0 Nucleated Red Blood 0.0 0.0 Cells % Immature Granulocytes # 0.050 H 0.030 Neutrophils # 5.6 3.4 Lymphocytes # 1.5 1.7 Monocytes # 0.5 0.5 Eosinophils # 0.3 0.3 Basophils # 0.1 0.1 Nucleated Red Blood 0.0 0.0 Cells # Sodium Level 140 Potassium Level 4.0 Chloride Level 105 Carbon Dioxide Level 30 Anion Gap 5 Blood Urea Nitrogen 8 Creatinine 0.46 Est Glomerular Filtrat > 60 Rate mL/min Glucose Level 157 Calcium Level 8.7 Procalcitonin 0.03 Test 11/11/18 08:41 11/11/18 12:11 Bedside Glucose 151 142 Medications Medications Current Medications Miscellaneous Information (Pending [facility] Order For Wound Care) This patient chowdhury... PRN PRN XX WOUND CARE; Start 11/03/18 at 17:30 Al Hydrox/Mg Hydrox/Simethicone (Mag-Al Plus) 15 ml Q4H PRN PO .CONSTIPATION; Start 11/03/18 at 19:00 IV Flush (NS 3 ml) 3 ml PER PROTOCOL IV ; Start 11/03/18 at 19:00 Naloxone HCl (Narcan) 0.2 mg PRN PRN IV RR < 8; Start 11/03/18 at 19:00 Ondansetron HCl (Zofran Inj) 4 mg Q6H PRN IV NAUSEA AND/OR VOMITING Last administered on 11/09/18at 08:13; Admin Dose 4 MG; Start 11/03/18 at 19:00 Metformin HCl (Glucophage) 1,000 mg WITH BREAKFAST PO Last administered on 11/11/18at 08:48; Admin Dose 1,000 MG; Start 11/04/18 at 07:35 Linagliptin (Tradjenta) 5 mg DAILY PO Last administered on 11/11/18 08:49; Admin Dose 5 MG; Start 11/04/18 at 09:00 Diagnostic Test (Pha) (Accu-Chek) 1 ea AC MEALS AND BEDTIME XX Last a dministered on 11/10/18at 20:48; Admin Dose 1 EA; Start 11/03/18 at 21:00 Insulin Aspart (Novolog Insulin Pen) NOVOLOG *MILD* ALGORITHM WITH MEALS BEDTIME SC Last administered on 11/11/18 12:19; Admin Dose 1 UNIT; Start 11/03/18 at 21:00 Miscellaneous Information 1 ea NOTE XX ; Start 11/03/18 at 19:00 Glucose (Glutose) 15 gm Q15M PRN PO DECREASED GLUCOSE; Start 11/03/18 at 19:00 Glucose (Glutose) 22.5 gm Q15M PRN PO DECREASED GLUCOSE; Start 11/03/18 at 19:00 Dextrose (D50w Syringe) 25 ml Q15M PRN IV DECREASED GLUCOSE; Start 11/03/18 at 19:00 Dextrose (D50w Syringe) 50 ml Q15M PRN IV DECREASED GLUCOSE; Start 11/03/18 at 19:00 Glucagon (Glucagen) 1 mg Q15M PRN IM DECREASED GLUCOSE; Start 11/03/18 at 19:00 Glucose (Glutose) 15 gm Q15M PRN BUCCAL DECREASED GLUCOSE; Start 11/03/18 at 19:00 Metoprolol Tartrate (Lopressor) 50 mg BID PO Last administered on 11/11/18at 08:50; Admin Dose 50 MG; Start 11/03/18 at 21:00 Insulin Glargine (Lantus) 19 units DAILY@0800 SC Last administered on 11/11/18at 08:50; Admin Dose 19 UNITS; Start 11/04/18 at 08:00 Benazepril HCl (Lotensin) 10 mg BID PO Last administered on 11/11/18 08:49; Admin Dose 10 MG; Start 11/03/18 at 21:00 Gabapentin (Neurontin) 300 mg TID PO Last administered on 11/11/18at 14:09; Admin Dose 300 MG; Start 11/03/18 at 21:00 Diphenhydramine HCl (Benadryl) 25 mg Q6H PRN PO ITCHING; Start 11/03/18 at 19:30 Insulin Aspart (Novolog Insulin Pen) 4 unit WITH MEALS SC Last administered on 11/11/18 12:17; Admin Dose 4 UNIT; Start 11/04/18 at 07:35 Acetaminophen (Tylenol Tab) 650 mg Q4 PRN PO MILD PAIN(1-3)OR ELEVATED TEMP; Start 11/05/18 at 14:00 Senna (Senokot) 1 tab QHS PO Last administered on 11/10/18 20:48; Admin Dose 1 TAB; Start 11/05/18 at 21:00 Docusate Sodium (Colace) 100 mg BID PO Last administered on 11/11/18 08:49; Admin Dose 100 MG; Start 11/05/18 at 21:00 Bisacodyl (Dulcolax Supp) [address] CONSTIPATION Last administered on 11/10/18 17:14; Admin Dose 10 MG; Start 11/05/18 at 14:00 Lactulose (Enulose) 20 gm DAILY PRN PO CONSTIPATION; Start 11/05/18 at 14:00 Neomycin/ Polymyxin/ Bacitracin (Neosporin Topical Oint) 1 applic Q12 TOP Last administered on 11/11/18 08:55; Admin Dose 1 APPLIC; Start 11/06/18 at 21:00 Hydromorphone HCl (Dilaudid) 1 mg Q3 PRN IV SEVERE PAIN LEVEL 7-10 Last administered on 11/11/18 14:27; Admin Dose 1 MG; Start 11/07/18 at 13:30 Zolpidem Tartrate (Ambien) 5 mg HS PRN PO INSOMNIA Last administered on 11/09/18 21:02; Admin Dose 5 MG; Start 11/07/18 at 22:00 Vancomycin HCl (Vanco Iv Per Pharmacy) VANCOMYCIN PER PHARMACY PER PROTOCOL XX ; Start 11/08/18 at 15:00 Cefepime HCl 50 ml @ 100 mls/hr Q12 IVPB Last administered on 11/11/18 09:15; Admin Dose 100 MLS/HR; Start 11/08/18 at 21:00 Vancomycin HCl 1.25 gm/Sodium Chloride 250 ml @ 83.333 mls/ hr Q12H IVPB Last administered on 11/11/18 05:03; Admin Dose 83.333 MLS/HR; Start 11/09/18 at 05:00 Baclofen (Lioresal) 10 mg TID PO Last administered on 11/11/18 14:09; Admin Dose 10 MG; Start 11/09/18 at 13:00 Hydromorphone HCl (Dilaudid) 2 mg Q4H PRN PO MODERATE PAIN LEVEL 4-6 Last administered on 11/11/18 11:29; Admin Dose 2 MG; Start 11/10/18 at 11:00 VESNA GALLAGHER Nov 11, 2018 15:45
--- NOTE | 2018-11-11 17:00 | CONS ---
Assessment/Plan Assessment/Plan Hospital Course (Demo Recall) - mechanical LBP and LE radiculopathy - s/p L2-S1 ALIF L2-S1 with posterior fixation using ISF 10/27/2018 - superficial wound infection with very scant drainage; cx+ Enterobacter and CoNS - T2DM - Hgb A1c 11.4% - HTN associated with DM - Mild anemia - Obesity - BMI 31.1 Recommendations: - continue vancomycin and cefepime (11/08/2018-) to complete 10-14 days - monitor CrCl and plts periodically - continue local wound care Management d/w patient, RN Maria Fernanda, and with Dr. Lerner Consultation Date/Type/Reason Admit Date/Time November 03, 2018 at 17:17 Initial Consult Date 11/09/18 Type of Consult Infectious Disease Requesting Provider: FERCHO PADILLA Date/Time of Note DATE: 11/11/18 TIME: 16:57 24 HR Interval Summary Free Text/Dictation L heplock that was placed yesterday has now infiltrated. Pt c/o back and abdominal incisional pain rating 8/10. Also reports new pain on her L side. Denies n/v/d, dysuria. Had normal BM today. Exam/Review of Systems Exam Vitals Vital Signs Date Temp Pulse Resp B/P (MAP) Pulse Ox O2 O2 Flow FiO2 Time Delivery Rate 11/11/18 98.3 94 19 126/73 97 Room Air 14:10 (90) 11/10/18 14:00 Intake and Output 11/10/18 11/10/18 11/11/18 1515:00 23:00 07:00 IntakeIntake Total 700 ml 1100 ml BalanceBalance 700 ml 1100 ml Exam Constitutional: alert, oriented, well developed, obese, other (Laying in bed watching TV in no acute distress except moaned when RN was flushing her HL on the L hand; Spouse at bedside and watching TV) Psych: no complaints, nl mood/affect Head: normocephalic Eyes: nl conjunctiva, nl lids, nl sclera ENMT: nl external ears & nose, nl nasal mucosa & septum, mucosa pink and moist Neck: supple, non-tender Respiratory: clear to auscultation, normal air movement Cardiovascular: regular rate and rhythm, nl pulses Gastrointestinal: soft, surgical scars (Abdominal ML incision with dressing with slightly stain, dry, and intact with expected TTP; BS normoactive) Genitourinary - Female: other (No Crum) Musculoskeletal: other (ML back with dressing c/d/i) Skin: nl turgor, other (Few tattoos including a red dre on the L hand) Results Result Diagram: 11/11/18 0702 11/11/18 0702 Results 24hrs Laboratory Tests Test 11/10/18 17:13 11/10/18 19:50 11/10/18 20:38 11/11/18 07:02 Bedside Glucose 99 149 White Blood Count 7.9 6.0 # Red Blood Count 3.81 L 3.88 L Hemoglobin 10.4 L 10.6 L Hematocrit 33.9 L 33.8 L Mean Corpuscular Volume 89.0 87.1 Mean Corpuscular 27.3 L 27.3 L Hemoglobin Mean Corpuscular 30.7 L 31.4 L Hemoglobin Concent Red Cell Distribution 13.1 13.2 Width Platelet Count 276 279 Mean Platelet Volume 10.4 10.5 H Immature Granulocytes % 0.600 H 0.500 H Neutrophils % 70.5 57.7 Lymphocytes % 19.0 28.1 Monocytes % 5.7 8.2 Eosinophils % 3.4 4.5 Basophils % 0.8 1.0 Nucleated Red Blood 0.0 0.0 Cells % Immature Granulocytes # 0.050 H 0.030 Neutrophils # 5.6 3.4 Lymphocytes # 1.5 1.7 Monocytes # 0.5 0.5 Eosinophils # 0.3 0.3 Basophils # 0.1 0.1 Nucleated Red Blood 0.0 0.0 Cells # Sodium Level 140 Potassium Level 4.0 Chloride Level 105 Carbon Dioxide Level 30 Anion Gap 5 Blood Urea Nitrogen 8 Creatinine 0.46 Est Glomerular Filtrat > 60 Rate mL/min Glucose Level 157 Calcium Level 8.7 Procalcitonin 0.03 Test 11/11/18 08:41 11/11/18 12:11 Bedside Glucose 151 142 Medications Medication Current Medications Miscellaneous [facility] This patient chowdhury... PRN PRN XX WOUND CARE; Start 11/03/18 at 17:30 Al Hydrox/Mg Hydrox/Simethicone (Mag-Al Plus) 15 ml Q4H PRN PO .CONSTIPATION; Start 11/03/18 at 19:00 IV Flush (NS 3 ml) 3 ml PER PROTOCOL IV ; Start 11/03/18 at 19:00 Naloxone HCl (Narcan) 0.2 mg PRN PRN IV RR < 8; Start 11/03/18 at 19:00 Ondansetron HCl (Zofran Inj) 4 mg Q6H PRN IV NAUSEA AND/OR VOMITING Last administered on 11/09/18 08:13; Admin Dose 4 MG; Start 11/03/18 at 19:00 Metformin HCl (Glucophage) 1,000 mg WITH BREAKFAST PO Last administered on 11/11/18 08:48; Admin Dose 1,000 MG; Start 11/04/18 at 07:35 Linagliptin (Tradjenta) 5 mg DAILY PO Last administered on 11/11/18 08:49; Admin Dose 5 MG; Start 11/04/18 at 09:00 Diagnostic Test (Pha) (Accu-Chek) 1 ea AC MEALS AND BEDTIME XX Last administered on 11/10/18 20:48; Admin Dose 1 EA; Start 11/03/18 at 21:00 Insulin Aspart (Novolog Insulin Pen) NOVOLOG *MILD* ALGORITHM WITH MEALS BE DTIME SC Last administered on 11/11/18at 12:19; Admin Dose 1 UNIT; Start 11/03/18 at 21:00 Miscellaneous Information 1 ea NOTE XX ; Start 11/03/18 at 19:00 Glucose (Glutose) 15 gm Q15M PRN PO DECREASED GLUCOSE; Start 11/03/18 at 19:00 Glucose (Glutose) 22.5 gm Q15M PRN PO DECREASED GLUCOSE; Start 11/03/18 at 19:00 Dextrose (D50w Syringe) 25 ml Q15M PRN IV DECREASED GLUCOSE; Start 11/03/18 at 19:00 Dextrose (D50w Syringe) 50 ml Q15M PRN IV DECREASED GLUCOSE; Start 11/03/18 at 19:00 Glucagon (Glucagen) 1 mg Q15M PRN IM DECREASED GLUCOSE; Start 11/03/18 at 19:00 Glucose (Glutose) 15 gm Q15M PRN BUCCAL DECREASED GLUCOSE; Start 11/03/18 at 19:00 Metoprolol Tartrate (Lopressor) 50 mg BID PO Last administered on 11/11/18at 08:50; Admin Dose 50 MG; Start 11/03/18 at 21:00 Insulin Glargine (Lantus) 19 units DAILY@0800 SC Last administered on 11/11/18 08:50; Admin Dose 19 UNITS; Start 11/04/18 at 08:00 Benazepril HCl (Lotensin) 10 mg BID PO Last administered on 11/11/18 08:49; Admin Dose 10 MG; Start 11/03/18 at 21:00 Gabapentin (Neurontin) 300 mg TID PO Last administered on 11/11/18 14:09; Admin Dose 300 MG; Start 11/03/18 at 21:00 Diphenhydramine HCl (Benadryl) 25 mg Q6H PRN PO ITCHING; Start 11/03/18 at 19:30 Insulin Aspart (Novolog Insulin Pen) 4 unit WITH MEALS SC Last administered on 11/11/18 12:17; Admin Dose 4 UNIT; Start 11/04/18 at 07:35 Acetaminophen (Tylenol Tab) 650 mg Q4 PRN PO MILD PAIN(1-3)OR ELEVATED TEMP; Start 11/05/18 at 14:00 Senna (Senokot) 1 tab QHS PO Last administered on 11/10/18 20:48; Admin Dose 1 TAB; Start 11/05/18 at 21:00 Docusate Sodium (Colace) 100 mg BID PO Last administered on 11/11/18 08:49; Admin Dose 100 MG; Start 11/05/18 at 21:00 Bisacodyl (Dulcolax Supp) 10 mg DAILY PRN [place] CONSTIPATION Last administered on 11/10/18 17:14; Admin Dose 10 MG; Start 11/05/18 at 14:00 Lactulose (Enulose) 20 gm DAILY PRN PO CONSTIPATION; Start 11/05/18 at 14:00 Neomycin/ Polymyxin/ Bacitracin (Neosporin Topical Oint) 1 applic Q12 TOP Last administered on 11/11/18 08:55; Admin Dose 1 APPLIC; Start 11/06/18 at 21:00 Hydromorphone HCl (Dilaudid) 1 mg Q3 PRN IV SEVERE PAIN LEVEL 7-10 Last administered on 11/11/18 14:27; Admin Dose 1 MG; Start 11/07/18 at 13:30 Zolpidem Tartrate (Ambien) 5 mg HS PRN PO INSOMNIA Last administered on 11/09/18at 21:02; Admin Dose 5 MG; Start 11/07/18 at 22:00 Vancomycin HCl (Vanco Iv Per Pharmacy) VANCOMYCIN PER PHARMACY PER PROTOCOL XX ; Start 11/08/18 at 15:00 Cefepime HCl 50 ml @ 100 mls/hr Q12 IVPB Last administered on 11/11/18at 09:15; Admin Dose 100 MLS/HR; Start 11/08/18 at 21:00 Vancomycin HCl 1.25 gm/Sodium Chloride 250 ml @ 83.333 mls/ hr Q12H IVPB Last administered on 11/11/18 05:03; Admin Dose 83.333 MLS/HR; Start 11/09/18 at 05:00 Baclofen (Lioresal) 10 mg TID PO Last administered on 11/11/18at 14:09; Admin Dose 10 MG; Start 11/09/18 at 13:00 Hydromorphone HCl (Dilaudid) 2 mg Q4H PRN PO MODERATE PAIN LEVEL 4-6 Last administered on 11/11/18at 16:27; Admin Dose 2 MG; Start 11/10/18 at 11:00 KASSANDRA MCPHERSON NP Nov 11, 2018 17:00
[2018-11-11] MEDS: ONDANSETRON 4 MG INJ IV PRN (18:04)
[2018-11-11 20:00] VITALS: BP 149/76; PULSE 87
[2018-11-11] MEDS: ZOLPIDEM 5 MG TAB PO PRN (21:05)
[2018-11-11] MEDS: SENNA TAB PO SCH (21:06)
[2018-11-12] MEDS: HYDROmorphONE 1 MG/ML SYG IV PRN ×7 (01:12→22:27)
[2018-11-12 02:00] VITALS: BP 162/77; PULSE 73; RESP 18
[2018-11-12] MEDS: HYDROmorphONE 2 MG TAB PO PRN ×3 (02:58→18:10)
[2018-11-12] MEDS: VANCOMYCIN HCL 1.25 GM in SOD CHLORIDE 0.9% 250 ML IVPB SCH ×2 (05:09→18:11)
[2018-11-12 08:00] VITALS: BP 159/86; PULSE 76; RESP 18
[2018-11-12] MEDS: metFORMIN 500 MG TAB PO SCH ×2 (08:07→18:10)
[2018-11-12] MEDS: INSULIN ASPART [NOVOLOG] 3 ML PEN SC SCH ×7 (08:11→20:53)
[2018-11-12] MEDS: INSULIN GLARGINE [LANTus] (100 UNITS/ML) SYG SC SCH (08:13)
[2018-11-12] MEDS: ACCU-CHEK XX SCH ×4 (08:15→20:59)
[2018-11-12] MEDS: BENAZEPRIL 10 MG TAB PO SCH ×2 (10:31→20:17)
[2018-11-12] MEDS: DOCUSATE SODIUM 100 MG CAP PO SCH ×2 (10:31→20:16)
[2018-11-12] MEDS: BACLOFEN 10 MG TAB PO SCH ×3 (10:31→20:17)
[2018-11-12] MEDS: LINAGLIPTIN 5 MG TABLET PO SCH (10:32)
[2018-11-12] MEDS: METOPROLOL 50 MG TAB PO SCH ×2 (10:32→20:16)
[2018-11-12] MEDS: GABAPENTIN 300 MG CAP PO SCH ×3 (10:32→20:16)
[2018-11-12] MEDS: CEFEPIME 2GM/50 ML (PMX) 50 ML IVPB SCH ×3 (10:35→22:04)
--- NOTE | 2018-11-12 11:34 | PN ---
Date/Time of Note Date/Time of Note DATE: 11/12/18 TIME: 11:33 Assessment/Plan VTE Prophylaxis Risk score (from Ns)>0 risk: 8 SCD applied (from Ns): No SCD contraindicated: other Pharmacological prophylaxis: other Pharm contraindication: other Lines/Catheters IV Catheter Type (from Nrsg): [facility] Urinary Cath still in place: No Assessment/Plan Assessment/Plan -Mechanical LBP and LE radiculopathy. -S/p ALIF L3-S1 ON 09/27/18 and ISF L2-S1 and decompression on 09/28/[address] Goldsmith. -Continue IV fluids and postoperative antibiotic. Tylenol and Dilaudid as needed for pain. -HTN, continue Benazepril and Metoprolol. -Diabetes mellitus type II continue Tradjenta, Lantus and NovoLog. -Obesity with BMI of 30.3. Further recommendations based on clinical course. Plan of care discussed with Dr. Parker. Result Diagram: 11/11/18 0702 11/11/18 0702 Results 24hrs Laboratory Tests Test 11/11/18 12:11 11/11/18 17:39 11/11/18 21:11 11/12/18 08:05 Bedside Glucose 142 171 155 155 Subjective 24 Hr Interval Summary Free Text/Dictation c/o back pain; effective pain control patient seems comfortable; talking over phone no events overnight dw staff Eyes: no complaints ENT: no complaints Respiratory: no complaints Cardiovascular: no complaints Gastrointestinal: no complaints Genitourinary: no complaints Musculoskeletal: back pain Skin: no complaints Neurologic: no complaints Endocrine: no complaints Lymphatic: no complaints Psychological: nl mood/affect Immunologic: no complaints Exam/Review of Systems Exam Vitals Vital Signs Date Temp Pulse Resp B/P (MAP) Pulse Ox O2 O2 Flow FiO2 Time Delivery Rate 11/12/18 98.0 76 18 159/86 99 Room Air 08:00 (110) 11/10/18 14:00 Intake and Output 11/11/18 11/11/18 11/12/18 1515:00 23:00 07:00 IntakeIntake Total 300 ml 300 ml BalanceBalance 300 ml 300 ml Constitutional: alert, well developed Psych: nl mood/affect Eyes: nl lids, nl sclera ENMT: nl external ears & nose Neck: non-tender Respiratory: clear to auscultation Cardiovascular: nl pulses, other (s1s2) Gastrointestinal: soft, non-tender Musculoskeletal: nl extremities to inspection Extremities: normal pulses Neurological: nl mental status, nl speech Skin: nl turgor Lymph: nontender Results Results 24hrs Laboratory Tests Test 11/11/18 12:11 11/11/18 17:39 11/11/18 21:11 11/12/18 08:05 Bedside Glucose 142 171 155 155 Medications Medication Current Medications Miscellaneous Information (Pending [facility] Order For Wound Care) This patient chowdhury... PRN PRN XX WOUND CARE; Start 11/03/18 at 17:30 Al Hydrox/Mg Hydrox/Simethicone (Mag-Al Plus) 15 ml Q4H PRN PO .CONSTIPATION; Start 11/03/18 at 19:00 IV Flush (NS 3 ml) 3 ml PER PROTOCOL IV ; Start 11/03/18 at 19:00 Naloxone HCl (Narcan) 0.2 mg PRN PRN IV RR < 8; Start 11/03/18 at 19:00 Ondansetron HCl (Zofran Inj) 4 mg Q6H PRN IV NAUSEA AND/OR VOMITING Last administered on 11/11/18at 18:04; Admin Dose 4 MG; Start 11/03/18 at 19:00 Metformin HCl (Glucophage) 1,000 mg WITH BREAKFAST PO Last administered on 11/12/18at 08:07; Admin Dose 1,000 MG; Start 11/04/18 at 07:35 Linagliptin (Tradjenta) 5 mg DAILY PO Last administered on 11/12/18at 10:32; Admin Dose 5 MG; Start 11/04/18 at 09:00 Diagnostic Test (Pha) (Accu-Chek) 1 ea AC MEALS AND BEDTIME XX Last administered on 11/12/18at 08:15; Admin Dose 1 EA; Start 11/03/18 at 21:00 Insulin Aspart (Novolog Insulin Pen) NOVOLOG *MILD* ALGORITHM WITH MEALS BEDTIME SC Last administered on 11/12/18at 08:13; Admin Dose 1 UNIT; Start 11/03/18 at 21:00 Miscellaneous Information 1 ea NOTE XX ; Start 11/03/18 at 19:00 Glucose (Glutose) 15 gm Q15M PRN PO DECREASED GLUCOSE; Start 11/03/18 at 19:00 Glucose (Glutose) 22.5 gm Q15M PRN PO DECREASED GLUCOSE; Start 11/03/18 at 19:00 Dextrose (D50w Syringe) 25 ml Q15M PRN IV DECREASED GLUCOSE; Start 11/03/18 at 19:00 Dextrose (D50w Syringe) 50 ml Q15M PRN IV DECREASED GLUCOSE; Start 11/03/18 at 19:00 Glucagon (Glucagen) 1 mg Q15M PRN IM DECREASED GLUCOSE; Start 11/03/18 at 19:00 Glucose (Glutose) 15 gm Q15M PRN BUCCAL DECREASED GLUCOSE; Start 11/03/18 at 19:00 Metoprolol Tartrate (Lopressor) 50 mg BID PO Last administered on 11/12/18 10:32; Admin Dose 50 MG; Start 11/03/18 at 21:00 Insulin Glargine (Lantus) 19 units DAILY@0800 SC Last administered on 11/12/18 08:13; Admin Dose 19 UNITS; Start 11/04/18 at 08:00 Benazepril HCl (Lotensin) 10 mg BID PO Last administered on 11/12/18 10:31; Admin Dose 10 MG; Start 11/03/18 at 21:00 Gabapentin (Neurontin) 300 mg TID PO Last administered on 11/12/18 10:32; Admin Dose 300 MG; Start 11/03/18 at 21:00 Diphenhydramine HCl (Benadryl) 25 mg Q6H PRN PO ITCHING; Start 11/03/18 at 19:30 Insulin Aspart (Novolog Insulin Pen) 4 unit WITH MEALS SC Last administered on 11/12/18at 08:11; Admin Dose 4 UNIT; Start 11/04/18 at 07:35 Acetaminophen (Tylenol Tab) 650 mg Q4 PRN PO MILD PAIN(1-3)OR ELEVATED TEMP; Start 11/05/18 at 14:00 Senna (Senokot) 1 tab QHS PO Last administered on 11/11/18 21:06; Admin Dose 1 TAB; Start 11/05/18 at 21:00 Docusate Sodium (Colace) 100 mg BID PO Last administered on 11/12/18 10:31; Admin Dose 100 MG; Start 11/05/18 at 21:00 Bisacodyl (Dulcolax Supp) 10 mg DAILY PRN [place] CONSTIPATION Last administered on 11/10/18 17:14; Admin Dose 10 MG; Start 11/05/18 at 14:00 Lactulose (Enulose) 20 gm DAILY PRN PO CONSTIPATION; Start 11/05/18 at 14:00 Neomycin/ Polymyxin/ Bacitracin (Neosporin Topical Oint) 1 applic Q12 TOP Last administered on 11/11/18 21:08; Admin Dose 1 APPLIC; Start 11/06/18 at 21:00 Hydromorphone HCl (Dilaudid) 1 mg Q3 PRN IV SEVERE PAIN LEVEL 7-10 Last administered on 11/12/18 08:15; Admin Dose 1 MG; Start 11/07/18 at 13:30 Zolpidem Tartrate (Ambien) 5 mg HS PRN PO INSOMNIA Last administered on 11/11/18 21:05; Admin Dose 5 MG; Start 11/07/18 at 22:00 Vancomycin HCl (Vanco Iv Per Pharmacy) VANCOMYCIN PER PHARMACY PER PROTOCOL XX ; Start 11/08/18 at 15:00 Cefepime HCl 50 ml @ 100 mls/hr Q12 IVPB Last administered on 11/12/18 10:35; Admin Dose 100 MLS/HR; Start 11/08/18 at 21:00 Vancomycin HCl 1.25 gm/Sodium Chloride 250 ml @ 83.333 mls/ hr Q12H IVPB Last administered on 11/12/18 05:09; Admin Dose 83.333 MLS/HR; Start 11/09/18 at 05:00 Baclofen (Lioresal) 10 mg TID PO Last administered on 11/12/18 10:31; Admin Dose 10 MG; Start 11/09/18 at 13:00 Hydromorphone HCl (Dilaudid) 2 mg Q4H PRN PO MODERATE PAIN LEVEL 4-6 Last administered on 11/12/18 10:32; Admin Dose 2 MG; Start 11/10/18 at 11:00 MATTHEW RENTERIA Nov 12, 2018 11:34
--- NOTE | 2018-11-12 13:58 | CONS ---
Assessment/Plan Assessment/Plan Hospital Course (Demo Recall) IMPRESSION: 1. Tachycardia -overall improved-NL EF by echo this admit 2. Shortness of breath-improved 3. Hypertension-mildly elevated with ongoing labilty and likely component of pain 4. Diabetes mellitus. 5. Postop status post spinal fusion L3 to S1. 6. Anemia, mild. 7. Leukocytosis-resolved 8. DNR-? depression Recc: -Now in [place] [facility] -Continue BB/ACEI with slight increase to ACEI to improve BP control. -pain control -follow BS closely -PT as tolerated Consultation Date/Type/Reason Admit Date/Time November 03, 2018 at 17:17 Initial Consult Date 11/03/18 Type of Consult Cardiology Reason for Consultation HTN Requesting Provider: FERCHO PADILLA Date/Time of Note DATE: 11/12/18 TIME: 13:57 Exam/Review of Systems Vital Signs Vitals Vital Signs Date Temp Pulse Resp B/P (MAP) Pulse Ox O2 O2 Flow FiO2 Time Delivery Rate 11/12/18 98.0 76 18 159/86 99 Room Air 08:00 (110) 11/10/18 14:00 Intake and Output 11/11/18 11/11/18 11/12/18 1515:00 23:00 07:00 IntakeIntake Total 300 ml 300 ml BalanceBalance 300 ml 300 ml Exam Exam Review of Systems: CONSTITUTIONAL: No fevers, chills. PULMONARY: No sob CARDIOVASCULAR: No chest pain/palpitations GASTROINTESTINAL: No nausea/vomiting. GENITOURINARY: No hematuria/dysuria. MUSCULOSKELETAL: No myagias/arthalgias. PSYCHIATRIC: The patient denies depression. NEUROLOGIC: No weakness Constitutional: alert Psych: no complaints Head: normocephalic ENMT: mucosa pink and moist Neck: supple, jvd (9 cm water) Respiratory: clear to auscultation Cardiovascular: regular rate and rhythm Gastrointestinal: soft Musculoskeletal: muscle tone (normal) Extremities: edema (none) Neurological: other (toe numbness) Labs Result Diagram: 11/11/18 0702 11/11/18 0702 Results 24hrs Laboratory Tests Test 11/11/18 17:39 11/11/18 21:11 11/12/18 08:05 11/12/18 11:27 Bedside Glucose 171 155 155 191 Medications Medications Current Medications Miscellaneous Information (Pending [facility] Order For Wound Care) This patient chowdhury... PRN PRN XX WOUND CARE; Start 11/03/18 at 17:30 Al Hydrox/Mg Hydrox/Simethicone (Mag-Al Plus) 15 ml Q4H PRN PO .CONSTIPATION; Start 11/03/18 at 19:00 IV Flush (NS 3 ml) 3 ml PER PROTOCOL IV ; Start 11/03/18 at 19:00 Naloxone HCl (Narcan) 0.2 mg PRN PRN IV RR < 8; Start 11/03/18 at 19:00 Ondansetron HCl (Zofran Inj) 4 mg Q6H PRN IV NAUSEA AND/OR VOMITING Last administered on 11/11/18at 18:04; Admin Dose 4 MG; Start 11/03/18 at 19:00 Metformin HCl (Glucophage) 1,000 mg WITH BREAKFAST PO Last administered on 11/12/18at 08:07; Admin Dose 1,000 MG; Start 11/04/18 at 07:35 Linagliptin (Tradjenta) 5 mg DAILY PO Last administered on 11/12/18at 10:32; Admin Dose 5 MG; Start 11/04/18 at 09:00 Diagnostic Test (Pha) (Accu-Chek) 1 ea AC MEALS AND BEDTIME XX Last administered on 11/12/18at 08:15; Admin Dose 1 EA; Start 11/03/18 at 21:00 Insulin Aspart (Novolog Insulin Pen) NOVOLOG *MILD* ALGORITHM WITH MEALS BEDTIME SC Last administered on 11/12/18at 08:13; Admin Dose 1 UNIT; Start 11/03/18 at 21:00 Miscellaneous Information 1 ea NOTE XX ; Start 11/03/18 at 19:00 Glucose (Glutose) 15 gm Q15M PRN PO DECREASED GLUCOSE; Start 11/03/18 at 19:00 Glucose (Glutose) 22.5 gm Q15M PRN PO DECREASED GLUCOSE; Start 11/03/18 at 19:00 Dextrose (D50w Syringe) 25 ml Q15M PRN IV DECREASED GLUCOSE; Start 11/03/18 at 19:00 Dextrose (D50w Syringe) 50 ml Q15M PRN IV DECREASED GLUCOSE; Start 11/03/18 at 19:00 Glucagon (Glucagen) 1 mg Q15M PRN IM DECREASED GLUCOSE; Start 11/03/18 at 19:00 Glucose (Glutose) 15 gm Q15M PRN BUCCAL DECREASED GLUCOSE; Start 11/03/18 at 19:00 Metoprolol Tartrate (Lopressor) 50 mg BID PO Last administered on 11/12/18 10:32; Admin Dose 50 MG; Start 11/03/18 at 21:00 Insulin Glargine (Lantus) 19 units DAILY@0800 SC Last administered on 11/12/18 08:13; Admin Dose 19 UNITS; Start 11/04/18 at 08:00 Benazepril HCl (Lotensin) 10 mg BID PO Last administered on 11/12/18 10:31; Admin Dose 10 MG; Start 11/03/18 at 21:00 Gabapentin (Neurontin) 300 mg TID PO Last administered on 11/12/18 13:06; Admin Dose 300 MG; Start 11/03/18 at 21:00 Diphenhydramine HCl (Benadryl) 25 mg Q6H PRN PO ITCHING; Start 11/03/18 at 19:30 Insulin Aspart (Novolog Insulin Pen) 4 unit WITH MEALS SC Last administered on 11/12/18 08:11; Admin Dose 4 UNIT; Start 11/04/18 at 07:35 Acetaminophen (Tylenol Tab) 650 mg Q4 PRN PO MILD PAIN(1-3)OR ELEVATED TEMP; Start 11/05/18 at 14:00 Senna (Senokot) 1 tab QHS PO Last administered on 11/11/18 21:06; Admin Dose 1 TAB; Start 11/05/18 at 21:00 Docusate Sodium (Colace) 100 mg BID PO Last administered on 11/12/18 10:31; Admin Dose 100 MG; Start 11/05/18 at 21:00 Bisacodyl (Dulcolax Supp) 10 mg DAILY PRN [place] CONSTIPATION Last administered on 11/10/18 17:14; Admin Dose 10 MG; Start 11/05/18 at 14:00 Lactulose (Enulose) 20 gm DAILY PRN PO CONSTIPATION; Start 11/05/18 at 14:00 Neomycin/ Polymyxin/ Bacitracin (Neosporin Topical Oint) 1 applic Q12 TOP Last administered on 11/11/18 21:08; Admin Dose 1 APPLIC; Start 11/06/18 at 21:00 Hydromorphone HCl (Dilaudid) 1 mg Q3 PRN IV SEVERE PAIN LEVEL 7-10 Last administered on 11/12/18 11:38; Admin Dose 1 MG; Start 11/07/18 at 13:30 Zolpidem Tartrate (Ambien) 5 mg HS PRN PO INSOMNIA Last administered on 11/11/18 21:05; Admin Dose 5 MG; Start 11/07/18 at 22:00 Vancomycin HCl (Vanco Iv Per Pharmacy) VANCOMYCIN PER PHARMACY PER PROTOCOL XX ; Start 11/08/18 at 15:00 Cefepime HCl 50 ml @ 100 mls/hr Q12 IVPB Last administered on 11/12/18 10:35; Admin Dose 100 MLS/HR; Start 11/08/18 at 21:00 Vancomycin HCl 1.25 gm/Sodium Chloride 250 ml @ 83.333 mls/ hr Q12H IVPB Last administered on 11/12/18 05:09; Admin Dose 83.333 MLS/HR; Start 11/09/18 at 05:00 Baclofen (Lioresal) 10 mg TID PO Last administered on 11/12/18 13:06; Admin Dose 10 MG; Start 11/09/18 at 13:00 Hydromorphone HCl (Dilaudid) 2 mg Q4H PRN PO MODERATE PAIN LEVEL 4-6 Last administered on 11/12/18 10:32; Admin Dose 2 MG; Start 11/10/18 at 11:00 VESNA GALLAGHER Nov 12, 2018 13:58
[2018-11-12] MEDS: NEOMYC/POLYMYX/BACIT 30 GM OINT TOP SCH ×2 (15:41→20:59)
[2018-11-12] MEDS: ONDANSETRON 4 MG INJ IV PRN (16:33)
[2018-11-12 20:00] VITALS: BP 145/70; PULSE 82; RESP 18
--- NOTE | 2018-11-12 20:09 | CONS ---
Assessment/Plan Assessment/Plan Hospital Course (Demo Recall) - mechanical LBP and LE radiculopathy - s/p L2-S1 ALIF L2-S1 with posterior fixation using ISF 10/27/2018 - superficial wound infection with very scant drainage; cx+ Enterobacter and CoNS - T2DM - Hgb A1c 11.4% - HTN associated with DM - Mild anemia - Obesity - BMI 31.1 Recommendations: - continue vancomycin and cefepime (11/08/2018-) to complete 10-14 days - monitor CrCl and plts periodically - continue local wound care Management d/w patient, RN Nhet, and with Dr. Lerenr Consultation Date/Type/Reason Admit Date/Time November 03, 2018 at 17:17 Initial Consult Date 11/09/18 Type of Consult Infectious Disease Requesting Provider: FERCHO PADILLA Date/Time of Note DATE: 11/12/18 TIME: 20:08 24 HR Interval Summary Free Text/Dictation C/o numbness to RLE. Rates pain abdominal and back pain 12/13. Denies n/v/d, dysuria. Had normal BM yesterday. Exam/Review of Systems Exam Vitals Vital Signs Date Temp Pulse Resp B/P (MAP) Pulse Ox O2 O2 Flow FiO2 Time Delivery Rate 11/12/18 98.0 76 18 159/86 99 Room Air 08:00 (110) 11/10/18 14:00 Intake and Output 11/11/18 11/11/18 11/12/18 1515:00 23:00 07:00 IntakeIntake Total 300 ml 300 ml BalanceBalance 300 ml 300 ml Exam Constitutional: alert, oriented, well developed, obese, other (Laying in bed watching TV in no acute distress; RN is giving pt her PM medication; Spouse at bedside and watching TV) Psych: no complaints, nl mood/affect Head: normocephalic Eyes: nl conjunctiva, nl lids, nl sclera ENMT: nl external ears & nose, nl nasal mucosa & septum, mucosa pink and moist Neck: supple, non-tender Respiratory: clear to auscultation, normal air movement Cardiovascular: regular rate and rhythm, nl pulses Gastrointestinal: soft (BS normoactive), surgical scars (Abdominal ML incision with dressing c/d/i with expected TTP; photos in chart reviewed) Genitourinary - Female: other (No Crum) Musculoskeletal: other (ML back with dressing c/d/i; photos in chart reviewed) Skin: nl turgor, other (Few tattoos including a red dre on the L hand) Results Result Diagram: 11/11/18 0702 11/11/18 0702 Results 24hrs Laboratory Tests Test 11/11/18 21:11 11/12/18 08:05 11/12/18 11:27 11/12/18 17:54 Bedside Glucose 155 155 191 123 Medications Medication Current Medications Miscellaneous Information (Pending [facility] Order For Wound Care) This patient chowdhury... PRN PRN XX WOUND CARE; Start 11/03/18 at 17:30 Al Hydrox/Mg Hydrox/Simethicone (Mag-Al Plus) 15 ml Q4H PRN PO .CONSTIPATION; Start 11/03/18 at 19:00 IV Flush (NS 3 ml) 3 ml PER PROTOCOL IV ; Start 11/03/18 at 19:00 Naloxone HCl (Narcan) 0.2 mg PRN PRN IV RR < 8; Start 11/03/18 at 19:00 Ondansetron HCl (Zofran Inj) 4 mg Q6H PRN IV NAUSEA AND/OR VOMITING Last administered on 11/12/18at 16:33; Admin Dose 4 MG; Start 11/03/18 at 19:00 Metformin HCl (Glucophage) 1,000 mg WITH BREAKFAST PO Last administered on 11/12/18at 18:10; Admin Dose 1,000 MG; Start 11/04/18 at 07:35 Linagliptin (Tradjenta) 5 mg DAILY PO Last administered on 11/12/18at 10:32; Admin Dose 5 MG; Start 11/04/18 at 09:00 Diagnostic Test (Pha) (Accu-Chek) 1 ea AC MEALS AND BEDTIME XX Last administered on 11/12/18at 17:48; Admin Dose 1 EA; Start 11/03/18 at 21:00 Insulin Aspart (Novolog Insulin Pen) NOVOLOG *MILD* ALGORITHM WITH MEALS BEDTIME SC Last administered on 11/12/18at 08:13; Admin Dose 1 UNIT; Start 11/03/18 at 21:00 Miscellaneous Information 1 ea NOTE XX ; Start 11/03/18 at 19:00 Glucose (Glutose) 15 gm Q15M PRN PO DECREASED GLUCOSE; Start 11/03/18 at 19:00 Glucose (Glutose) 22.5 gm Q15M PRN PO DECREASED GLUCOSE; Start 11/03/18 at 19:00 Dextrose (D50w Syringe) 25 ml Q15M PRN IV DECREASED GLUCOSE; Start 11/03/18 at 19:00 Dextrose (D50w Syringe) 50 ml Q15M PRN IV DECREASED GLUCOSE; Start 11/03/18 at 19:00 Glucagon (Glucagen) 1 mg Q15M PRN IM DECREASED GLUCOSE; Start 11/03/18 at 19:00 Glucose (Glutose) 15 gm Q15M PRN BUCCAL DECREASED GLUCOSE; Start 11/03/18 at 19:00 Metoprolol Tartrate (Lopressor) 50 mg BID PO Last administered on 11/12/18 10:32; Admin Dose 50 MG; Start 11/03/18 at 21:00 Insulin Glargine (Lantus) 19 units DAILY@0800 SC Last administered on 11/12/18 08:13; Admin Dose 19 UNITS; Start 11/04/18 at 08:00 Gabapentin (Neurontin) 300 mg TID PO Last administered on 11/12/18 13:06; Admin Dose 300 MG; Start 11/03/18 at 21:00 Diphenhydramine HCl (Benadryl) 25 mg Q6H PRN PO ITCHING; Start 11/03/18 at 19:30 Insulin Aspart (Novolog Insulin Pen) 4 unit WITH MEALS SC Last administered on 11/12/18 18:14; Admin Dose 4 UNIT; Start 11/04/18 at 07:35 Acetaminophen (Tylenol Tab) 650 mg Q4 PRN PO MILD PAIN(1-3)OR ELEVATED TEMP; Start 11/05/18 at 14:00 Senna (Senokot) 1 tab QHS PO Last administered on 11/11/18 21:06; Admin Dose 1 TAB; Start 11/05/18 at 21:00 Docusate Sodium (Colace) 100 mg BID PO Last administered on 11/12/18 10:31; Admin Dose 100 MG; Start 11/05/18 at 21:00 Bisacodyl (Dulcolax Supp) 10 mg DAILY PRN [place] CONSTIPATION Last administered on 11/10/18 17:14; Admin Dose 10 MG; Start 11/05/18 at 14:00 Lactulose (Enulose) 20 gm DAILY PRN PO CONSTIPATION; Start 11/05/18 at 14:00 Neomycin/ Polymyxin/ Bacitracin (Neosporin Topical Oint) 1 applic Q12 TOP Last administered on 11/12/18 15:41; Admin Dose 1 APPLIC; Start 11/06/18 at 21:00 Hydromorphone HCl (Dilaudid) 1 mg Q3 PRN IV SEVERE PAIN LEVEL 7-10 Last admi nistered on 11/12/18 19:17; Admin Dose 1 MG; Start 11/07/18 at 13:30 Zolpidem Tartrate (Ambien) 5 mg HS PRN PO INSOMNIA Last administered on 11/11/18 21:05; Admin Dose 5 MG; Start 11/07/18 at 22:00 Vancomycin HCl (Vanco Iv Per Pharmacy) VANCOMYCIN PER PHARMACY PER PROTOCOL XX ; Start 11/08/18 at 15:00 Cefepime HCl 50 ml @ 100 mls/hr Q12 IVPB Last administered on 11/12/18 10:35; Admin Dose 100 MLS/HR; Start 11/08/18 at 21:00 Vancomycin HCl 1.25 gm/Sodium Chloride 250 ml @ 83.333 mls/ hr Q12H IVPB Last administered on 11/12/18 18:11; Admin Dose 83.333 MLS/HR; Start 11/09/18 at 05:00 Baclofen (Lioresal) 10 mg TID PO Last administered on 11/12/18 13:06; Admin Dose 10 MG; Start 11/09/18 at 13:00 Hydromorphone HCl (Dilaudid) 2 mg Q4H PRN PO MODERATE PAIN LEVEL 4-6 Last administered on 11/12/18 18:10; Admin Dose 2 MG; Start 11/10/18 at 11:00 Benazepril HCl (Lotensin) 20 mg BID PO ; Start 11/12/18 at 21:00 KASSANDRA MCPHERSON NP Nov 12, 2018 20:09
[2018-11-12] MEDS: SENNA TAB PO SCH (20:17)
[2018-11-13] MEDS: ZOLPIDEM 5 MG TAB PO PRN (00:24)
[2018-11-13 02:00] VITALS: BP 138/74; PULSE 79; RESP 18
[2018-11-13] MEDS: HYDROmorphONE 1 MG/ML SYG IV PRN ×4 (04:16→18:51)
[2018-11-13] MEDS: VANCOMYCIN HCL 1.25 GM in SOD CHLORIDE 0.9% 250 ML IVPB SCH ×2 (05:37→15:50)
[2018-11-13] MEDS: HYDROmorphONE 2 MG TAB PO PRN ×2 (06:14→11:24)
[2018-11-13] MEDS: INSULIN GLARGINE [LANTus] (100 UNITS/ML) SYG SC SCH (07:53)
[2018-11-13] MEDS: INSULIN ASPART [NOVOLOG] 3 ML PEN SC SCH ×6 (07:55→17:10)
[2018-11-13] MEDS: metFORMIN 500 MG TAB PO SCH (07:57)
[2018-11-13 08:00] VITALS: BP 133/73; PULSE 78; RESP 18
[2018-11-13] MEDS: ACCU-CHEK XX SCH ×3 (08:01→17:09)
[2018-11-13] MEDS: DOCUSATE SODIUM 100 MG CAP PO SCH (08:11)
[2018-11-13] MEDS: BACLOFEN 10 MG TAB PO SCH ×2 (08:11→13:07)
[2018-11-13] MEDS: GABAPENTIN 300 MG CAP PO SCH ×2 (08:12→13:07)
[2018-11-13] MEDS: LINAGLIPTIN 5 MG TABLET PO SCH (08:12)
[2018-11-13] MEDS: BENAZEPRIL 10 MG TAB PO SCH (08:12)
[2018-11-13] MEDS: METOPROLOL 50 MG TAB PO SCH (08:13)
[2018-11-13] MEDS: CEFEPIME 2GM/50 ML (PMX) 50 ML IVPB SCH (09:06)
[2018-11-13] MEDS: ONDANSETRON 4 MG INJ IV PRN (10:29)
[2018-11-13] MEDS ORDERED: HYDROmorphONE 2 MG TAB PO PRN (12:00)
--- NOTE | 2018-11-13 12:38 | DS ---
Date/Time of Note Date/Time of Note DATE: 11/13/18 TIME: 12:38 Discharge Summary Admission/Discharge Info Admit Date/Time November 03, 2018 at 17:17 Discharge Date/Time Discharge Diagnosis 1. Lumbar radiculopathy, status post lumbar surgery, 10/27/2018. 2. Hypertension. 3. Bipolar disease. 4. Anemia. 5. Diabetes mellitus. 6. Superficial wound infection, on IV antibiotics 7. History of cervical decompression and fusion. 8. Improvements in self care and mobility Patient Condition: Good Hospital Course The patient was admitted for comprehensive interdisciplinary rehabilitation and made steady functional gains from a Mod level to a S/FL level for self care tasks and mobility including ambulating over 150 feet with the use of a FWW. Patient was noted to have a superficial wound infection, and was started on course of IV antibiotics. Patient is being discharged to SNF for continued therapies and IV antibiotics. The DC meds are per the medication reconciliation sheet. The patient will follow up with PMD upon DC. Home Meds Reported Medications Insulin Aspart* (Novolog Insulin Pen*) 100 Unit/Ml Soln, 40 UNIT SC WITH BREAKFAST, EA 10/27/18 Metformin* (Glucophage*) 1,000 Mg Tablet, 1000 MG PO DAILY, #30 TAB 10/27/18 Sitagliptin* (Januvia*) 100 Mg Tablet, 100 MG PO DAILY, #30 TAB 10/27/18 Primary Care Provider Not On Staff Doctor Pending Labs Laboratory Tests Test 11/12/18 17:54 11/12/18 20:51 11/13/18 07:47 11/13/18 11:54 Bedside 123 168 146 95 Glucose mg/dL (70-220) mg/dL (70-220) mg/dL (70-220) mg/dL (70-220) BUBBA PHELPS MD Nov 13, 2018 12:38
[2018-11-13] MEDS: NEOMYC/POLYMYX/BACIT 30 GM OINT TOP SCH (13:07)
--- NOTE | 2018-11-13 13:19 | CONS ---
Assessment/Plan Assessment/Plan Hospital Course (Demo Recall) IMPRESSION: 1. Tachycardia -overall improved-NL EF by echo this admit 2. Shortness of breath-improved 3. Hypertension-mildly elevated with ongoing labilty and likely component of pain 4. Diabetes mellitus. 5. Postop status post spinal fusion L3 to S1. 6. Anemia, mild. 7. Leukocytosis-resolved 8. DNR-? depression Recc: -Now in [facility] -Continue BB and ACEI s/p increase -pain control -follow BS closely -PT as tolerated Consultation Date/Type/Reason Admit Date/Time November 03, 2018 at 17:17 Initial Consult Date 11/03/18 Type of Consult Cardiology Reason for Consultation tachycardia Requesting Provider: FERCHO PADILLA Date/Time of Note DATE: 11/13/18 TIME: 13:17 Exam/Review of Systems Vital Signs Vitals Vital Signs Date Temp Pulse Resp B/P (MAP) Pulse Ox O2 O2 Flow FiO2 Time Delivery Rate 11/13/18 98.0 78 18 133/73 97 Room Air 08:00 (93) 11/10/18 14:00 Intake and Output 11/12/18 11/12/18 11/13/18 1515:00 23:00 07:00 IntakeIntake Total 300 ml 1250 ml 520 ml BalanceBalance 300 ml 1250 ml 520 ml Exam Exam Review of Systems: CONSTITUTIONAL: No fevers, chills. PULMONARY: No sob CARDIOVASCULAR: No chest pain/palpitations GASTROINTESTINAL: No nausea/vomiting. GENITOURINARY: No hematuria/dysuria. MUSCULOSKELETAL: No myagias/arthalgias. PSYCHIATRIC: The patient denies depression. NEUROLOGIC: No weakness Constitutional: alert Psych: no complaints Head: normocephalic ENMT: mucosa pink and moist Neck: supple, jvd Respiratory: clear to auscultation Cardiovascular: regular rate and rhythm Gastrointestinal: soft, non-tender Musculoskeletal: muscle tone (normal) Extremities: edema (none) Neurological: other (No focal deficits) Labs Result Diagram: 11/11/18 0702 11/11/18 0702 Results 24hrs Laboratory Tests Test 11/12/18 17:54 11/12/18 20:51 11/13/18 07:47 11/13/18 11:54 Bedside Glucose 123 168 146 95 Medications Medications Current Medications Miscellaneous Information (Pending [facility] Order For Wound Care) This patient chowdhury... PRN PRN XX WOUND CARE; Start 11/03/18 at 17:30 Al Hydrox/Mg Hydrox/Simethicone (Mag-Al Plus) 15 ml Q4H PRN PO .CONSTIPATION; Start 11/03/18 at 19:00 IV Flush (NS 3 ml) 3 ml PER PROTOCOL IV ; Start 11/03/18 at 19:00 Naloxone HCl (Narcan) 0.2 mg PRN PRN IV RR < 8; Start 11/03/18 at 19:00 Ondansetron HCl (Zofran Inj) 4 mg Q6H PRN IV NAUSEA AND/OR VOMITING Last administered on 11/13/18at 10:29; Admin Dose 4 MG; Start 11/03/18 at 19:00 Metformin HCl (Glucophage) 1,000 mg WITH BREAKFAST PO Last administered on 11/13/18at 07:57; Admin Dose 1,000 MG; Start 11/04/18 at 07:35 Linagliptin (Tradjenta) 5 mg DAILY PO Last administered on 11/13/18at 08:12; Admin Dose 5 MG; Start 11/04/18 at 09:00 Diagnostic Test (Pha) (Accu-Chek) 1 ea AC MEALS AND BEDTIME XX Last administered on 11/13/18at 12:02; Admin Dose 1 EA; Start 11/03/18 at 21:00 Insulin Aspart (Novolog Insulin Pen) NOVOLOG *MILD* ALGORITHM WITH MEALS BEDTIME SC Last administered on 11/13/18at 07:55; Admin Dose 1 UNIT; Start at 21:00 Miscellaneous Information 1 ea NOTE XX ; Start 11/03/18 at 19:00 Glucose (Glutose) 15 gm Q15M PRN PO DECREASED GLUCOSE; Start 11/03/18 at 19:00 Glucose (Glutose) 22.5 gm Q15M PRN PO DECREASED GLUCOSE; Start 11/03/18 at 19:00 Dextrose (D50w Syringe) 25 ml Q15M PRN IV DECREASED GLUCOSE; Start 11/03/18 at 19:00 Dextrose (D50w Syringe) 50 ml Q15M PRN IV DECREASED GLUCOSE; Start 11/03/18 at 19:00 Glucagon (Glucagen) 1 mg Q15M PRN IM DECREASED GLUCOSE; Start 11/03/18 at 19:00 Glucose (Glutose) 15 gm Q15M PRN BUCCAL DECREASED GLUCOSE; Start 11/03/18 at 19:00 Metoprolol Tartrate (Lopressor) 50 mg BID PO Last administered on 11/13/18 08:13; Admin Dose 50 MG; Start 11/03/18 at 21:00 Insulin Glargine (Lantus) 19 units DAILY@0800 SC Last administered on 11/13/18 07:53; Admin Dose 19 UNITS; Start 11/04/18 at 08:00 Gabapentin (Neurontin) 300 mg TID PO Last administered on 11/13/18 13:07; Admin Dose 300 MG; Start 11/03/18 at 21:00 Diphenhydramine HCl (Benadryl) 25 mg Q6H PRN PO ITCHING; Start 11/03/18 at 19:30 Insulin Aspart (Novolog Insulin Pen) 4 unit WITH MEALS SC Last administered on 11/13/18 11:56; Admin Dose 4 UNIT; Start 11/04/18 at 07:35 Acetaminophen (Tylenol Tab) 650 mg Q4 PRN PO MILD PAIN(1-3)OR ELEVATED TEMP; Start 11/05/18 at 14:00 Senna (Senokot) 1 tab QHS PO Last administered on 11/12/18 20:17; Admin Dose 1 TAB; Start 11/05/18 at 21:00 Docusate Sodium (Colace) 100 mg BID PO Last administered on 11/13/18 08:11; Admin Dose 100 MG; Start 11/05/18 at 21:00 Bisacodyl (Dulcolax Supp) 10 mg DAILY PRN [place] CONSTIPATION Last administered on 11/10/18 17:14; Admin Dose 10 MG; Start 11/05/18 at 14:00 Lactulose (Enulose) 20 gm DAILY PRN PO CONSTIPATION; Start 11/05/18 at 14:00 Neomycin/ Polymyxin/ Bacitracin (Neosporin Topical Oint) 1 applic Q12 TOP Last administered on 11/13/18 13:07; Admin Dose 1 APPLIC; Start 11/06/18 at 21:00 Hydromorphone HCl (Dilaudid) 1 mg Q3 PRN IV SEVERE PAIN LEVEL 7-10 Last administered on 11/13/18 08:13; Admin Dose 1 MG; Start 11/07/18 at 13:30 Zolpidem Tartrate (Ambien) 5 mg HS PRN PO INSOMNIA Last administered on 00:24; Admin Dose 5 MG; Start 11/07/18 at 22:00 Vancomycin HCl (Vanco Iv Per Pharmacy) VANCOMYCIN PER PHARMACY PER PROTOCOL XX ; Start 11/08/18 at 15:00 Cefepime HCl 50 ml @ 100 mls/hr Q12 IVPB Last administered on 11/13/18 09:06; Admin Dose 100 MLS/HR; Start 11/08/18 at 21:00 Vancomycin HCl 1.25 gm/Sodium Chloride 250 ml @ 83.333 mls/ hr Q12H IVPB Last administered on 11/13/18 05:37; Admin Dose 83.333 MLS/HR; Start 11/09/18 at 05:00 Baclofen (Lioresal) 10 mg TID PO Last administered on 11/13/18 13:07; Admin Dose 10 MG; Start 11/09/18 at 13:00 Hydromorphone HCl (Dilaudid) 2 mg Q4H PRN PO MODERATE PAIN LEVEL 4-6 Last administered on 11/13/18 11:24; Admin Dose 2 MG; Start 11/10/18 at 11:00 Benazepril HCl (Lotensin) 20 mg BID PO Last administered on 11/13/18 08:12; Admin Dose 20 MG; Start 11/12/18 at 21:00 VESNA GALLAGHER Nov 13, 2018 13:19
--- NOTE | 2018-11-13 13:29 | CONS ---
Assessment/Plan Assessment/Plan Hospital Course (Demo Recall) - mechanical LBP and LE radiculopathy - s/p L2-S1 ALIF L2-S1 with posterior fixation using ISF 10/27/2018 - superficial wound infection with very scant drainage; cx+ Enterobacter and CoNS - T2DM - Hgb A1c 11.4% - HTN associated with DM - Mild anemia - Obesity - BMI 31.1 Recommendations: - continue vancomycin and cefepime (11/08/2018-) to complete 10-14 days - monitor CrCl and plts periodically - continue local wound care - We would be happy to continue to follow the patient at [facility] upon transfer. Management d/w patient and ELIOT Cormier at the bedside, and with Dr. Lerner via [employer] messaging. Consultation Date/Type/Reason Admit Date/Time November 03, 2018 at 17:17 Initial Consult Date 11/09/18 Type of Consult ID Requesting Provider: FERCHO PADILLA Date/Time of Note DATE: 11/13/18 TIME: 13:26 24 HR Interval Summary Free Text/Dictation pt has plans for transfer to [facility] today. Has remained afebrile, no new labs. ELIOT Cormier at bedside, has just changed patient's dressings. Detailed Summary Eyes: no complaints ENT: no complaints Respiratory: no complaints; No cough, No shortness of breath, No sputum, No wheezing Cardiovascular: no complaints; No chest pain, No edema, No palpitations Gastrointestinal: other (c/o lower mid abdominal incision site pain and states she can feel a "ball" beneath the incision site); No diarrhea, No nausea, No vomiting Genitourinary: no complaints Musculoskeletal: back pain Skin: other (incisional pain back and abdomen) Neurologic: other (rle numbness unchanged ) Endocrine: no complaints Lymphatic: no complaints Psychological: anxiety, other (tearful re: in current pain - awaiting pain medication) Exam/Review of Systems Exam Vitals Vital Signs Date Temp Pulse Resp B/P (MAP) Pulse Ox O2 O2 Flow FiO2 Time Delivery Rate 11/13/18 98.0 78 18 133/73 97 Room Air 08:00 (93) 11/10/18 14:00 Allergies Coded Allergies No Known Allergy (Unverified10/26/18) Intake and Output 11/12/18 11/12/18 11/13/18 1515:00 23:00 07:00 IntakeIntake Total 300 ml 1250 ml 520 ml BalanceBalance 300 ml 1250 ml 520 ml Constitutional: alert, oriented, well developed, other (laying in bed, has just had wound dressings changed by RN, is tearful d/t pain) Psych: anxiety Head: normocephalic, atraumatic Eyes: nl conjunctiva, nl lids, nl sclera ENMT: nl external ears & nose, nl nasal mucosa & septum, mucosa pink and moist Neck: supple, non-tender Respiratory: clear to auscultation, normal air movement Cardiovascular: regular rate and rhythm, nl pulses Gastrointestinal: soft, non-tender, bowel sounds (normoactive ), other (surgical incision site dressing c/d/i, with TTP, no palpable "ball" or mass. Pt somewhat gaurded. Reviewed nsg notes/pics ) Genitourinary - Female: other (bladder flat ) Musculoskeletal: nl extremities to inspection Neurological: nl mental status, nl speech, nl strength Skin: nl turgor, other (midline back dressing is c/d/i [ changed now by RN] reviewed nsg notes/pics ; + tattoos) Results Result Diagram: 11/11/18 0702 11/11/18 0702 Results 24hrs Laboratory Tests Test 11/12/18 17:54 11/12/18 20:51 11/13/18 07:47 11/13/18 11:54 Bedside Glucose 123 168 146 95 Medications Medication Current Medications Miscellaneous Information (Pending [facility] Order For Wound Care) This patient chowdhury... PRN PRN XX WOUND CARE; Start 11/03/18 at 17:30 Al Hydrox/Mg Hydrox/Simethicone (Mag-Al Plus) 15 ml Q4H PRN PO .CONSTIPATION; Start 11/03/18 at 19:00 IV Flush (NS 3 ml) 3 ml PER PROTOCOL IV ; Start 11/03/18 at 19:00 Naloxone HCl (Narcan) 0.2 mg PRN PRN IV RR < 8; Start 11/03/18 at 19:00 Ondansetron HCl (Zofran Inj) 4 mg Q6H PRN IV NAUSEA AND/OR VOMITING Last administered on 11/13/18at 10:29; Admin Dose 4 MG; Start 11/03/18 at 19:00 Metformin HCl (Glucophage) 1,000 mg WITH BREAKFAST PO Last administered on 11/13/18 07:57; Admin Dose 1,000 MG; Start 11/04/18 at 07:35 Linagliptin (Tradjenta) 5 mg DAILY PO Last administered on 11/13/18 08:12; Admin Dose 5 MG; Start 11/04/18 at 09:00 Diagnostic Test (Pha) (Accu-Chek) 1 ea AC MEALS AND BEDTIME XX Last administered on 11/13/18at 12:02; Admin Dose 1 EA; Start 11/03/18 at 21:00 Insulin Aspart (Novolog Insulin Pen) NOVOLOG *MILD* ALGORITHM WITH MEALS BEDTIME SC Last administered on 11/13/18 07:55; Admin Dose 1 UNIT; Start 11/03/18 at 21:00 Miscellaneous Information 1 ea NOTE XX ; Start 11/03/18 at 19:00 Glucose (Glutose) 15 gm Q15M PRN PO DECREASED GLUCOSE; Start 11/03/18 at 19:00 Glucose (Glutose) 22.5 gm Q15M PRN PO DECREASED GLUCOSE; Start 11/03/18 at 19:00 Dextrose (D50w Syringe) 25 ml Q15M PRN IV DECREASED GLUCOSE; Start 11/03/18 at 19:00 Dextrose (D50w Syringe) 50 ml Q15M PRN IV DECREASED GLUCOSE; Start 11/03/18 at 19:00 Glucagon (Glucagen) 1 mg Q15M PRN IM DECREASED GLUCOSE; Start 11/03/18 at 19:00 Glucose (Glutose) 15 gm Q15M PRN BUCCAL DECREASED GLUCOSE; Start 11/03/18 at 19:00 Metoprolol Tartrate (Lopressor) 50 mg BID PO Last administered on 11/13/18 08:13; Admin Dose 50 MG; Start 11/03/18 at 21:00 Insulin Glargine (Lantus) 19 units DAILY@0800 SC Last administered on 11/13/18 07:53; Admin Dose 19 UNITS; Start 11/04/18 at 08:00 Gabapentin (Neurontin) 300 mg TID PO Last administered on 11/13/18 13:07; Admin Dose 300 MG; Start 11/03/18 at 21:00 Diphenhydramine HCl (Benadryl) 25 mg Q6H PRN PO ITCHING; Start 11/03/18 at 19:30 Insulin Aspart (Novolog Insulin Pen) 4 unit WITH MEALS SC Last administered on 11/13/18 11:56; Admin Dose 4 UNIT; Start 11/04/18 at 07:35 Acetaminophen (Tylenol Tab) 650 mg Q4 PRN PO MILD PAIN(1-3)OR ELEVATED TEMP; Start 11/05/18 at 14:00 Senna (Senokot) 1 tab QHS PO Last administered on 11/12/18 20:17; Admin Dose 1 TAB; Start 11/05/18 at 21:00 Docusate Sodium (Colace) 100 mg BID PO Last administered on 11/13/18 08:11; Admin Dose 100 MG; Start 11/05/18 at 21:00 Bisacodyl (Dulcolax Supp) 10 mg DAILY PRN [place] CONSTIPATION Last administered on 11/10/18 17:14; Admin Dose 10 MG; Start 11/05/18 at 14:00 Lactulose (Enulose) 20 gm DAILY PRN PO CONSTIPATION; Start 11/05/18 at 14:00 Neomycin/ Polymyxin/ Bacitracin (Neosporin Topical Oint) 1 applic Q12 TOP Last administered on 11/13/18 13:07; Admin Dose 1 APPLIC; Start 11/06/18 at 21:00 Hydromorphone HCl (Dilaudid) 1 mg Q3 PRN IV SEVERE PAIN LEVEL 7-10 Last administered on 11/13/18 08:13; Admin Dose 1 MG; Start 11/07/18 at 13:30 Zolpidem Tartrate (Ambien) 5 mg HS PRN PO INSOMNIA Last administered on 11/13/18 00:24; Admin Dose 5 MG; Start 11/07/18 at 22:00 Vancomycin HCl (Vanco Iv Per Pharmacy) VANCOMYCIN PER PHARMACY PER PROTOCOL XX ; Start 11/08/18 at 15:00 Cefepime HCl 50 ml @ 100 mls/hr Q12 IVPB Last administered on 11/13/18 09:06; Admin Dose 100 MLS/HR; Start 11/08/18 at 21:00 Vancomycin HCl 1.25 gm/Sodium Chloride 250 ml @ 83.333 mls/ hr Q12H IVPB Last administered on 11/13/18 05:37; Admin Dose 83.333 MLS/HR; Start 11/09/18 at 05:00 Baclofen (Lioresal) 10 mg TID PO Last administered on 11/13/18 13:07; Admin Dose 10 MG; Start 11/09/18 at 13:00 Hydromorphone HCl (Dilaudid) 2 mg Q4H PRN PO MODERATE PAIN LEVEL 4-6 Last administered on 11/13/18 11:24; Admin Dose 2 MG; Start 11/10/18 at 11:00 Benazepril HCl (Lotensin) 20 mg BID PO Last administered on 11/13/18 08:12; Admin Dose 20 MG; Start 11/12/18 at 21:00 JASEN LOUISE NP Nov 13, 2018 13:29
--- NOTE | 2018-11-13 15:21 | EN ---
Date/Time of Note Date/Time of Note DATE: 11/13/18 TIME: 15:20 Event Note Medicine Medicine Event Note I reviewed EMR. I coordinated with T[facility] Mccarty. I directed care to TURN [facility] today via telemediq. FRANCISCO KENT MD Nov 13, 2018 15:21
[2018-11-13 16:53] VITALS: BP 141/80; PULSE 77; RESP 18
--- NOTE | 2018-11-13 17:50 | PN ---
Date/Time of Note Date/Time of Note DATE: 11/13/18 TIME: 17:49 Assessment/Plan VTE Prophylaxis Risk score (from Ns)>0 risk: 9 SCD applied (from Nsg): No Lines/Catheters IV Catheter Type (from Nrsg): Saline Lock Urinary Cath still in place: No Assessment/Plan Hospital Course Patient continues on vancomycin and cefepime Staphylococcus and Enterobacter in wound, Dr. Lerner is following in infection disease consultation. Patient remains hemodynamically stable, afebrile. Assessment/Plan -Mechanical LBP and LE radiculopathy. S/p ALIF L3-S1 ON 09/27/18 and ISF L2-S1 and decompression on 09/28/[address] Goldsmith. Continue IV fluids and postoperative antibiotic. Tylenol and Dilaudid as needed for pain. -HTN, continue Benazepril and Metoprolol. -Diabetes mellitus type II continue Tradjenta, Lantus and NovoLog. -Obesity with BMI of 30.3. Further recommendations based on clinical course. Plan of care discussed with Dr. Parker. Result Diagram: 11/11/18 0702 11/11/18 0702 Results 24hrs Laboratory Tests Test 11/12/18 17:54 11/12/18 20:51 11/13/18 07:47 11/13/18 11:54 Bedside Glucose 123 168 146 95 Test 11/13/18 17:08 Bedside Glucose 90 Exam/Review of Systems Exam Vitals Vital Signs Date Temp Pulse Resp B/P (MAP) Pulse Ox O2 O2 Flow FiO2 Time Delivery Rate 11/13/18 97.8 77 18 141/80 99 Room Air 16:53 (100) 11/10/18 14:00 Intake and Output 11/12/18 11/12/18 11/13/18 1515:00 23:00 07:00 IntakeIntake Total 300 ml 1250 ml 520 ml BalanceBalance 300 ml 1250 ml 520 ml Exam Constitutional: alert, oriented Respiratory: clear to auscultation Cardiovascular: nl pulses Gastrointestinal: soft, non-tender, other (s/p surgery) Musculoskeletal: nl extremities to inspection, other (lower back surgical incision) Extremities: normal pulses Results Results 24hrs Laboratory Tests Test 11/12/18 17:54 11/12/18 20:51 11/13/18 07:47 11/13/18 11:54 Bedside Glucose 123 168 146 95 Test 11/13/18 17:08 Bedside Glucose 90 Medications Medication Current Medications Miscellaneous Information (Pending [facility] Order For Wound Care) This patient chowdhury... PRN PRN XX WOUND CARE; Start 11/03/18 at 17:30 Al Hydrox/Mg Hydrox/Simethicone (Mag-Al Plus) 15 ml Q4H PRN PO .CONSTIPATION; Start 11/03/18 at 19:00 IV Flush (NS 3 ml) 3 ml PER PROTOCOL IV ; Start 11/03/18 at 19:00 Naloxone HCl (Narcan) 0.2 mg PRN PRN IV RR < 8; Start 11/03/18 at 19:00 Ondansetron HCl (Zofran Inj) 4 mg Q6H PRN IV NAUSEA AND/OR VOMITING Last administered on 11/13/18at 10:29; Admin Dose 4 MG; Start 11/03/18 at 19:00 Metformin HCl (Glucophage) 1,000 mg WITH BREAKFAST PO Last administered on 11/13/18at 07:57; Admin Dose 1,000 MG; Start 11/04/18 at 07:35 Linagliptin (Tradjenta) 5 mg DAILY PO Last administered on 11/13/18at 08:12; Admin Dose 5 MG; Start 11/04/18 at 09:00 Diagnostic Test (Pha) (Accu-Chek) 1 ea AC MEALS AND BEDTIME XX Last administered on 11/13/18at 17:09; Admin Dose 1 EA; Start 11/03/18 at 21:00 Insulin Aspart (Novolog Insulin Pen) NOVOLOG *MILD* ALGORITHM WITH MEALS BEDTIME SC Last administered on 11/13/18at 07:55; Admin Dose 1 UNIT; Start 11/03/18 at 21:00 Miscellaneous Information 1 ea NOTE XX ; Start 11/03/18 at 19:00 Glucose (Glutose) 15 gm Q15M PRN PO DECREASED GLUCOSE; Start 11/03/18 at 19:00 Glucose (Glutose) 22.5 gm Q15M PRN PO DECREASED GLUCOSE; Start 11/03/18 at 19:00 Dextrose (D50w Syringe) 25 ml Q15M PRN IV DECREASED GLUCOSE; Start 11/03/18 at 19:00 Dextrose (D50w Syringe) 50 ml Q15M PRN IV DECREASED GLUCOSE; Start 11/03/18 at 19:00 Glucagon (Glucagen) 1 mg Q15M PRN IM DECREASED GLUCOSE; Start 11/03/18 at 19:00 Glucose (Glutose) 15 gm Q15M PRN BUCCAL DECREASED GLUCOSE; Start 11/03/18 at 19:00 Metoprolol Tartrate (Lopressor) 50 mg BID PO Last administered on 11/13/18 08:13; Admin Dose 50 MG; Start 11/03/18 at 21:00 Insulin Glargine (Lantus) 19 units DAILY@0800 SC Last administered on 11/13/18 07:53; Admin Dose 19 UNITS; Start 11/04/18 at 08:00 Gabapentin (Neurontin) 300 mg TID PO Last administered on 11/13/18 13:07; Admi n Dose 300 MG; Start 11/03/18 at 21:00 Diphenhydramine HCl (Benadryl) 25 mg Q6H PRN PO ITCHING; Start 11/03/18 at 19:30 Insulin Aspart (Novolog Insulin Pen) 4 unit WITH MEALS SC Last administered on 11/13/18 17:09; Admin Dose 4 UNIT; Start 11/04/18 at 07:35 Acetaminophen (Tylenol Tab) 650 mg Q4 PRN PO MILD PAIN(1-3)OR ELEVATED TEMP; Start 11/05/18 at 14:00 Senna (Senokot) 1 tab QHS PO Last administered on 11/12/18 20:17; Admin Dose 1 TAB; Start 11/05/18 at 21:00 Docusate Sodium (Colace) 100 mg BID PO Last administered on 11/13/18 08:11; Admin Dose 100 MG; Start 11/05/18 at 21:00 Bisacodyl (Dulcolax Supp) 10 mg DAILY PRN [place] CONSTIPATION Last administered on 11/10/18 17:14; Admin Dose 10 MG; Start 11/05/18 at 14:00 Lactulose (Enulose) 20 gm DAILY PRN PO CONSTIPATION; Start 11/05/18 at 14:00 Neomycin/ Polymyxin/ Bacitracin (Neosporin Topical Oint) 1 applic Q12 TOP Last administered on 11/13/18 13:07; Admin Dose 1 APPLIC; Start 11/06/18 at 21:00 Hydromorphone HCl (Dilaudid) 1 mg Q3 PRN IV SEVERE PAIN LEVEL 7-10 Last administered on 11/13/18 14:07; Admin Dose 1 MG; Start 11/07/18 at 13:30 Zolpidem Tartrate (Ambien) 5 mg HS PRN PO INSOMNIA Last administered on 11/13/18 00:24; Admin Dose 5 MG; Start 11/07/18 at 22:00 Vancomycin HCl (Vanco Iv Per Pharmacy) VANCOMYCIN PER PHARMACY PER PROTOCOL XX ; Start 11/08/18 at 15:00 Cefepime HCl 50 ml @ 100 mls/hr Q12 IVPB Last administered on 11/13/18 09:06; Admin Dose 100 MLS/HR; Start 11/08/18 at 21:00 Vancomycin HCl 1.25 gm/Sodium Chloride 250 ml @ 83.333 mls/ hr Q12H IVPB Last administered on 11/13/18 15:50; Admin Dose 83.333 MLS/HR; Start 11/09/18 at 05:00 Baclofen (Lioresal) 10 mg TID PO Last administered on 11/13/18 13:07; Admin Dose 10 MG; Start 11/09/18 at 13:00 Hydromorphone HCl (Dilaudid) 2 mg Q4H PRN PO MODERATE PAIN LEVEL 4-6 Last administered on 11/13/18 11:24; Admin Dose 2 MG; Start 11/10/18 at 11:00 Benazepril HCl (Lotensin) 20 mg BID PO Last administered on 11/13/18 08:12; Admin Dose 20 MG; Start 11/12/18 at 21:00 FRECHO PADILLA Nov 13, 2018 17:49
== END 2018-11-13 20:20 | DRG 552 ==
LOC: VRC 17:17
PROVIDERS: ADMIT Physical Medicine & Rehabilitation; ATTEND Internal Medicine
PROC: F07Z5ZZ Bed Mobility Treatment (ICD-10-PCS; principal; 2018-11-03)
PROC: F08Z2ZZ Grooming/Personal Hygiene Treatment (ICD-10-PCS; 2018-11-03)
DX: M54.16 Radiculopathy, lumbar region (principal); I10 Essential (primary) hypertension; M54.12 Radiculopathy, cervical region; E11.9 Type 2 diabetes mellitus without complications; D64.9 Anemia, unspecified; R00.0 Tachycardia, unspecified; D72.829 Elevated white blood cell count, unspecified; F31.9 Bipolar disorder, unspecified; E66.9 Obesity, unspecified; Z68.31 Body mass index [BMI] 31.0-31.9, adult; Z66 Do not resuscitate; Z79.84 Long term (current) use of oral hypoglycemic drugs; Z79.4 Long term (current) use of insulin
CPT/HCPCS: 80048; 80053; 80202; 81001; 82565; 82962; 84145; 84520; 85025; 87070; 87081; 87086; 97110; 97116; 97163; 97167; 97530; 97535; J0690; J0692; J1170; J1815; J2405; J3370; J7040; J7050